=== PATIENT | male | born 1980 | race Hispanic/Latino ===

== ENCOUNTER 2018-02-12 09:50 | Inpatient (IN) | payer OTHER ==
[2018-02-12 10:22] LABS: Basophils # (Auto) 0.1 K/mm3 (0.0-0.1); Basophils % (Auto) 0.7 % (0.0-1.8); Eosinophils % (Auto) 0.3 % (0.0-4.3); Lymphocytes # (Auto) 3.4 K/mm3 (1.2-5.4); Lymphocytes % (Auto) 28.7 % (13.4-35.0); Mean Corpuscular HGB Conc 36 % (32-34); Mean Corpuscular Hemoglobin 33 pg (28-32); Mean Corpuscular Volume 94 fl (84-94); Monocytes # (Auto) 1.6 K/mm3 (0.0-0.8); Monocytes % (Auto) 13.3 % (0.0-7.3); Platelet Count 211 K/mm3 (140-440); Red Blood Count 5.29 M/mm3 (3.65-5.03); Red Cell Distribution Width 13.8 % (13.2-15.2)
[2018-02-12 10:29] LABS: Hematocrit 49.7 % (35.5-45.6); Hemoglobin 17.7 gm/dl (11.8-15.2)
--- NOTE | 2018-02-12 10:34 | XRay Report ---
Portable chest: SOB. There are areas of increased density just lateral to the inferior right hilum as well as inferior to the right hilum. The right lung otherwise appears unremarkable. The left lung is clear. The heart appears normal in size and there is no vascular congestion. No prior exam for comparison. Impression: Right perihilar densities. This may represent atelectasis but masses cannot be excluded. Recommendation: Repeat chest with standard PA and lateral projections recommended if possible.
[2018-02-12 10:43] LABS: Alanine Aminotransferase 37 units/L (7-56); Albumin 4.4 g/dL (3.9-5); BUN/Creatinine Ratio 17; Blood Urea Nitrogen 15 mg/dL (9-20); Calcium 10.3 mg/dL (8.4-10.2); Hemolysis Index 57
[2018-02-12 11:05] LABS: INR 1.04 (0.87-1.13)
--- NOTE | 2018-02-12 11:28 | Cat Scan Report ---
CTA chest: SOB. Following injection of contrast transverse images were obtained through the chest using pulmonary embolus protocol. Coronal and sagittal 2-D reformatted images included. The pulmonary vessels, cardiac chambers, and the thoracic aorta are all opacified. There is a large filling defect in the right pulmonary artery severe compromise of the upper lobe vessels and thrombus filling the lower lobe pulmonary artery with very little distal opacification of vessels. A similar but somewhat smaller thrombus is located on the left partially occluding the upper lobe vessels and extending into the lower lobe pulmonary artery with significantly diminished filling distally. There is dense atelectasis/consolidation in the right middle lobe. The lungs otherwise look clear. No filling defects noted in the cardiac chambers. There is questionable slight bowing of the interventricular septum. No contrast reflux into the IVC. There is no hilar or mediastinal adenopathy appreciated. The thoracic aorta is unremarkable. Impression: 1. Heavy burden of bilateral pulmonary thrombus. Questionable changes of cardiac strain. 2. Associated pulmonary changes in the right middle lobe as described above.
--- NOTE | 2018-02-12 12:00 | Emergency Department Report ---
ED General Adult HPI - General Chief complaint: Dyspnea/Respdistress Stated complaint: DIFFICULTY BREATHING Time Seen by Provider: 02/12/18 09:53 Source: patient Mode of arrival: Ambulatory Limitations: Physical Limitation - History of Present Illness Initial comments: Patient presents to emergency department with shortness of breath and chest pain. Patient states that for the last week or so he's had difficulty breathing especially with exertion. 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 Patient's cause of chest pain as sharp in nature especially with taking a deep breath. Location: chest Radiation: non-radiation Severity scale (0 -10): 5 Quality: sharp Consistency: other (with inspiration) Improves with: none Worsens with: none Associated Symptoms: denies other symptoms Treatments Prior to Arrival: none - Related Data Home Medications Medication Instructions Recorded Confirmed Last Taken No Known Home Medications [No 02/12/18 02/12/18 Unknown Reported Home Medications] Allergies Allergy/AdvReac Type Severity Reaction Status Date / Time No Known Allergies Allergy Unverified 02/12/18 09:54 ED Review of Systems ROS: Stated complaint: DIFFICULTY BREATHING Other details as noted in HPI Comment: All other systems reviewed and negative Constitutional: denies: chills, fever Eyes: denies: eye pain, eye discharge, vision change ENT: denies: ear pain, throat pain Respiratory: shortness of breath. denies: cough, wheezing Cardiovascular: chest pain. denies: palpitations Endocrine: no symptoms reported Gastrointestinal: denies: abdominal pain, nausea, diarrhea Genitourinary: denies: urgency, dysuria Musculoskeletal: denies: back pain, joint swelling, arthralgia Skin: denies: rash, lesions Neurological: denies: headache, weakness, paresthesias Psychiatric: denies: anxiety, depression Hematological/Lymphatic: denies: easy bleeding, easy bruising ED Past Medical Hx - Past Medical History Previous Medical History?: Yes Additional medical history: sleep apnea - Surgical History Past Surgical History?: No - Social History Smoking Status: Current Every Day Smoker Substance Use Type: None - Medications Home Medications: Home Medications Medication Instructions Recorded Confirmed Last Taken Type No Known Home Medications [No 02/12/18 02/12/18 Unknown History Reported Home Medications] ED Physical Exam - General Limitations: Physical Limitation General appearance: alert, in no apparent distress, other (diaphoretic) - Head Head exam: Present: atraumatic, normocephalic - Eye Eye exam: Present: normal appearance - ENT ENT exam: Present: mucous membranes moist - Neck Neck exam: Present: normal inspection - Respiratory Respiratory exam: Present: normal lung sounds bilaterally. Absent: respiratory distress, wheezes, rales - Cardiovascular Cardiovascular Exam: Present: normal rhythm, tachycardia. Absent: systolic murmur, diastolic murmur, rubs, gallop - GI/Abdominal GI/Abdominal exam: Present: soft, normal bowel sounds. Absent: distended, tenderness - Rectal Rectal exam: Present: deferred - Extremities Exam Extremities exam: Present: normal inspection - Back Exam Back exam: Present: normal inspection - Neurological Exam Neurological exam: Present: alert, oriented X3, CN II-XII intact. Absent: motor sensory deficit - Psychiatric Psychiatric exam: Present: normal affect, normal mood - Skin Skin exam: Present: warm, dry, intact, normal color. Absent: rash ED Course Vital Signs 02/12/18 02/12/18 02/12/18 09:46 09:54 10:00 Temperature 98.7 F Pulse Rate 119 H 121 H 104 H Respiratory 26 H 28 H 21 Rate Blood Pressure 146/104 146/104 O2 Sat by Pulse 97 96 95 Oximetry 02/12/18 02/12/18 10:31 11:01 Temperature Pulse Rate 97 H 100 H Respiratory 28 H 15 Rate Blood Pressure 142/90 162/93 O2 Sat by Pulse 93 Oximetry ED Medical Decision Making - Lab Data Result diagrams: 02/12/18 09:55 02/12/18 09:55 - EKG Data EKG shows normal: sinus rhythm Rate: tachycardia - EKG Data Interpretation: nonspecific ST-T wave bernie - Medical Decision Making Discussed results with the patient IV heparin ordered Discussed heparin dosage with pharmacy Critical care time in (mins) excluding proc time.: 35 Critical care attestation.: If time is entered above; I have spent that time in minutes in the direct care of this critically ill patient, excluding procedure time. ED Disposition Clinical Impression: Pulmonary embolus Disposition: OP ADMIT IP TO THIS HOSP Is pt being admited?: Yes Does the pt Need Aspirin: No Condition: Fair Referrals: PRIMARY CARE, [Primary Care Provider] - 3-5 Days Time of Disposition: 12:00
[2018-02-12] MEDS ORDERED: HEPARIN 10,000 UNITS/10 ML IV ONE (12:15)
[2018-02-12 12:50] LABS: Hematocrit 50.5 % (35.5-45.6); Hemoglobin 17.2 gm/dl (11.8-15.2)
[2018-02-12] MEDS: HEPARIN/ 0.45% NACL-25,000 UNIT/500 ML 25,000 UNIT/500 ML BAG IV SCH (12:52)
[2018-02-12 13:02] LABS: INR 1.07 (0.87-1.13)
[2018-02-12 13:03] LABS: Partial Thromboplastin Time 42.2 Sec. (24.2-36.6)
[2018-02-12] MEDS: PROTONIX PO SCH (21:33)
--- NOTE | 2018-02-13 01:16 | History and Physical Report ---
History of Present Illness Date of examination: 02/12/18 Date of admission: 02/12/18 12:19 Chief complaint: Cc SOB for one week History of present illness: History of Present Illness: 37 y/o obese male presents to emergency department with shortness of breath and chest pain. Patient states that for the last week or so he's had difficulty breathing especially with exertion. 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 Location: chest Radiation: non-radiation Severity scale (0 -10): 5 Quality: sharp Consistency: other (with inspiration) Improves with: none Worsens with: none Associated Symptoms: denies other symptoms Treatments Prior to Arrival: none. Past Medical History Previous Medical History?: Yes Additional medical history: sleep apnea Surgical History Past Surgical History?: No Social History Smoking Status: Current Every Day Smoker Substance Use Type: None Family history Htn - Medications Home Medications: Home Medications Medication Instructions Recorded Confirmed Last Taken Type No Known Home Medications [No 02/12/18 02/12/18 Unknown History Reported Home Medications] Review of Systems ROS: Stated complaint: DIFFICULTY BREATHING Other details as noted in HPI Comment: All other systems reviewed and negative Constitutional: denies: chills, fever Eyes: denies: eye pain, eye discharge, vision change ENT: denies: ear pain, throat pain Respiratory: shortness of breath. denies: cough, wheezing Cardiovascular: chest pain. denies: palpitations Endocrine: no symptoms reported Gastrointestinal: denies: abdominal pain, nausea, diarrhea Genitourinary: denies: urgency, dysuria Musculoskeletal: denies: back pain, joint swelling, arthralgia Skin: denies: rash, lesions Neurological: denies: headache, weakness, paresthesias Psychiatric: denies: anxiety, depression Hematological/Lymphatic: denies: easy bleeding, easy bruising Medications and Allergies Allergies Allergy/AdvReac Type Severity Reaction Status Date / Time No Known Allergies Allergy Unverified 02/12/18 09:54 Home Medications Medication Instructions Recorded Confirmed Last Taken Type No Known Home Medications [No 02/12/18 02/12/18 Unknown History Reported Home Medications] Active Meds: Active Medications Heparin Sodium/Sodium Chloride (Heparin/ 0.45% Nacl-25,000 Unit/500 Ml) 25,000 unit in 500 mls @ 30 mls/hr IV TITR ROSALIO; Protocol Last Titration: 02/12/18 20:09 Dose: 1,850 units/hr, 37 mls/hr Pantoprazole Sodium (Protonix) 40 mg PO BID ROSALIO Last Admin: 02/12/18 21:33 Dose: 40 mg Exam - Constitutional Vitals: Temp Pulse Resp BP Pulse Ox 98.9 F 91 H 18 128/88 96 02/13/18 00:50 02/13/18 00:50 02/13/18 00:50 02/13/18 00:50 02/13/18 00:50 General appearance: Present: no acute distress, mild distress, well-nourished - EENT Eyes: Present: PERRL ENT: hearing intact, clear oral mucosa - Neck Neck: Present: supple, normal ROM - Respiratory Respiratory effort: normal Respiratory: bilateral: CTA - Cardiovascular Heart rate: 100 Rhythm: regular Heart Sounds: Present: S1 & S2. Absent: rub, click - Extremities Extremities: no ischemia, pulses intact, pulses symmetrical, No edema Peripheral Pulses: within normal limits - Abdominal General gastrointestinal: Present: soft, non-tender, non-distended, normal bowel sounds Male genitourinary: Present: normal - Rectal Rectal Exam: deferred - Integumentary Integumentary: Present: clear, warm, dry - Musculoskeletal Musculoskeletal: gait normal, strength equal bilaterally - Psychiatric Psychiatric: appropriate mood/affect, intact judgment & insight - Neurologic Neurologic: CNII-XII intact, moves all extremities - Allied Health Allied health notes reviewed: nursing, case management Results - Labs CBC & Chem 7: 02/12/18 12:35 02/13/18 01:25 Labs: Laboratory Last Values WBC 11.8 K/mm3 (4.5-11.0) H 02/12/18 09:55 RBC 5.29 M/mm3 (3.65-5.03) H 02/12/18 09:55 Hgb 17.2 gm/dl (11.8-15.2) H 02/12/18 12:35 Hct 50.5 % (35.5-45.6) H 02/12/18 12:35 MCV 94 fl (84-94) 02/12/18 09:55 MCH 33 pg (28-32) H 02/12/18 09:55 MCHC 36 % (32-34) H 02/12/18 09:55 RDW 13.8 % (13.2-15.2) 02/12/18 09:55 Plt Count 177 K/mm3 (140-440) 02/12/18 12:35 Lymph % (Auto) 28.7 % (13.4-35.0) 02/12/18 09:55 [place] % (Auto) 13.3 % (0.0-7.3) H 02/12/18 09:55 Eos % (Auto) 0.3 % (0.0-4.3) 02/12/18 09:55 Baso % (Auto) 0.7 % (0.0-1.8) 02/12/18 09:55 Lymph # 3.4 K/mm3 (1.2-5.4) 02/12/18 09:55 [place] # 1.6 K/mm3 (0.0-0.8) H 02/12/18 09:55 Eos # 0.0 K/mm3 (0.0-0.4) 02/12/18 09:55 Baso # 0.1 K/mm3 (0.0-0.1) 02/12/18 09:55 Seg Neutrophils % 57.0 % (40.0-70.0) 02/12/18 09:55 Seg Neutrophils # 6.7 K/mm3 (1.8-7.7) 02/12/18 09:55 PT 14.5 Sec. (12.2-14.9) 02/12/18 12:35 INR 1.07 (0.87-1.13) 02/12/18 12:35 APTT 42.2 Sec. (24.2-36.6) H 02/12/18 12:35 Heparin Anti-Xa Level 0.10 U.I./ml (0.3-0.7) L 02/12/18 19:12 Sodium 142 mmol/L (137-145) 02/12/18 09:55 Potassium 5.0 mmol/L (3.6-5.0) 02/12/18 09:55 Chloride 102.6 mmol/L (98-107) 02/12/18 09:55 Carbon Dioxide 21 mmol/L (22-30) L 02/12/18 09:55 Anion Gap 23 mmol/L 02/12/18 09:55 BUN 15 mg/dL (9-20) 02/12/18 09:55 Creatinine 0.9 mg/dL (0.8-1.5) 02/12/18 09:55 Estimated GFR > 60 ml/min 02/12/18 09:55 BUN/Creatinine Ratio 17 % 02/12/18 09:55 Glucose 150 mg/dL (75-100) H 02/12/18 09:55 Calcium 10.3 mg/dL (8.4-10.2) H 02/12/18 09:55 Magnesium 2.20 mg/dL (1.7-2.3) 02/12/18 09:55 Total Bilirubin 1.00 mg/dL (0.1-1.2) 02/12/18 09:55 AST 15 units/L (5-40) 02/12/18 09:55 ALT 37 units/L (7-56) 02/12/18 09:55 Alkaline Phosphatase 73 units/L (35-129) 02/12/18 09:55 Troponin T 0.021 ng/mL (0.00-0.029) 02/12/18 09:55 NT-Pro-B Natriuret Pep 3956 pg/mL (0-450) H 02/12/18 09:55 Total Protein 8.2 g/dL (6.3-8.2) 02/12/18 09:55 Albumin 4.4 g/dL (3.9-5) 02/12/18 09:55 Albumin/Globulin Ratio 1.2 % 02/12/18 09:55 - Imaging and Cardiology EKG: report reviewed Chest x-ray: report reviewed CT scan - chest: report reviewed Imaging and Cardiology: CTA Chest Impression: 1. Heavy burden of bilateral pulmonary thrombus. Questionable changes of cardiac strain. 2. Associated pulmonary changes in the right middle lobe as described above. CXR Impression: Right perihilar densities. This may represent atelectasis but masses cannot be excluded. Recommendation: Repeat chest with standard PA and lateral projections recommended if possible. Assessment and Plan Advance Directives: Yes ([place] code) VTE prophylaxis?: Chemical Plan of care discussed with patient/family: Yes - Patient Problems (1) Acute pulmonary embolism Current Visit: Yes Status: Acute Qualifiers: Acute cor pulmonale presence: with acute cor pulmonale Plan to address problem: IV Heparin for now IR consult requested for possible EKOS therapy Will defer to Hospitalist team regarding starting Eliquis/Xarelto/Coumadin (2) Sleep apnea Current Visit: Yes Status: Chronic Qualifiers: Sleep apnea type: unspecified type Qualified Code(s): G47.30 - Sleep apnea , unspecified Plan to address problem: Sec to Obesity and Hypoventilation Cont CPAP (3) Elevated brain natriuretic peptide (BNP) level Current Visit: Yes Status: Acute Plan to address problem: Echo for EF (4) Chest pain Current Visit: Yes Status: Acute Qualifiers: Chest pain type: chest pain on breathing Qualified Code(s): R07.1 - Chest pain on breathing; R07.81 - Pleurodynia Plan to address problem: Lexiscan not ordered Will defer to Hospitalist team At this point it is pleurisy sec to PE (5) Nicotine dependence Current Visit: Yes Status: Chronic Qualifiers: Nicotine product type: cigarettes Plan to address problem: Nicoderm patch initiated (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
[2018-02-13] MEDS ORDERED: SODIUM CHLORIDE FLUSH SYRINGE 10 ML IV PRN (01:18)
[2018-02-13] MEDS ORDERED: ZOFRAN IV PRN ×2 (01:18→13:28)
[2018-02-13] MEDS ORDERED: TYLENOL PO PRN (01:18)
[2018-02-13 02:48] LABS: BUN/Creatinine Ratio 17; Blood Urea Nitrogen 17 mg/dL (9-20); Calcium 9.1 mg/dL (8.4-10.2); Hemolysis Index 5
[2018-02-13] MEDS: HEPARIN/ 0.45% NACL-25,000 UNIT/500 ML 25,000 UNIT/500 ML BAG IV SCH (04:21)
[2018-02-13] MEDS ORDERED: HABITROL TD NR (08:00)
[2018-02-13 08:24] LABS: Alanine Aminotransferase 28 units/L (7-56); Albumin 3.4 g/dL (3.9-5); BUN/Creatinine Ratio 16; Blood Urea Nitrogen 16 mg/dL (9-20); Calcium 8.8 mg/dL (8.4-10.2); Hemolysis Index 87
--- NOTE | 2018-02-13 08:52 | Progress Note ---
Assessment and Plan Assessment and plan: --Bilateral PE Oxygen titrated to O2 sats more than 90%, heparin drip, nebulizers as needed, IR for possible EKOS procedure Check echocardiogram for RV/LV function and ejection fraction Hematology consultation --Acute hypoxic respiratory failure; Secondary to bilateral PE, continue oxygen, nebulizers Supportive care --Chest pain; due to bilateral PE Pain medications oxygen and supportive care --Morbid obesity; BMI 55.9, counseling, diet modification and exercise as tolerated and weight reduction,When medically stable Patient may benefit from outpatient bariatric surgical evaluation when medically stable --Possible obstructive sleep apnea/obesity hypoventilation syndrome Patient needs CPAP BiPAP at night, needs outpatient sleep study upon discharge --Ongoing tobacco use; smoking cessation counseling done, advised nicotine patch as needed --DVT prophylaxis; patient is already on heparin drip Closely monitor the patient and adjust the management as needed Patient's condition and treatment plan discussed in detail with the patient and his nurse History Interval history: Patient seen and examined medical records reviewed Medical records reviewed 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 Awaiting vascular procedure Mild shortness of breath denies chest pain Vital signs reviewed Hospitalist Physical - Constitutional Vitals: Temp Pulse Resp BP Pulse Ox 98.1 F 91 H 22 144/92 91 02/13/18 07:42 02/13/18 07:42 02/13/18 07:42 02/13/18 07:42 02/13/18 07:42 General appearance: Present: no acute distress, mild distress, well-nourished, obese (morbidly obese) - EENT Eyes: Present: PERRL, EOM intact - Neck Neck: Present: supple, normal ROM - Respiratory Respiratory effort: normal Respiratory: bilateral: diminished, rhonchi, negative: rales, wheezing - Cardiovascular Rhythm: regular Heart Sounds: Present: S1 & S2 - Extremities Extremities: no ischemia Extremity abnormal: edema - Abdominal General gastrointestinal: soft, non-tender, non-distended, normal bowel sounds - Integumentary Integumentary: Present: clear, warm - Psychiatric Psychiatric: appropriate mood/affect, cooperative - Neurologic Neurologic: CNII-XII intact, moves all extremities Results - Labs CBC & Chem 7: 02/12/18 12:35 02/13/18 06:55 Labs: Laboratory Last Values WBC 11.8 K/mm3 (4.5-11.0) H 02/12/18 09:55 RBC 5.29 M/mm3 (3.65-5.03) H 02/12/18 09:55 Hgb 17.2 gm/dl (11.8-15.2) H 02/12/18 12:35 Hct 50.5 % (35.5-45.6) H 02/12/18 12:35 MCV 94 fl (84-94) 02/12/18 09:55 MCH 33 pg (28-32) H 02/12/18 09:55 MCHC 36 % (32-34) H 02/12/18 09:55 RDW 13.8 % (13.2-15.2) 02/12/18 09:55 Plt Count 177 K/mm3 (140-440) 02/12/18 12:35 Lymph % (Auto) 28.7 % (13.4-35.0) 02/12/18 09:55 [place] % (Auto) 13.3 % (0.0-7.3) H 02/12/18 09:55 Eos % (Auto) 0.3 % (0.0-4.3) 02/12/18 09:55 Baso % (Auto) 0.7 % (0.0-1.8) 02/12/18 09:55 Lymph # 3.4 K/mm3 (1.2-5.4) 02/12/18 09:55 [place] # 1.6 K/mm3 (0.0-0.8) H 02/12/18 09:55 Eos # 0.0 K/mm3 (0.0-0.4) 02/12/18 09:55 Baso # 0.1 K/mm3 (0.0-0.1) 02/12/18 09:55 Seg Neutrophils % 57.0 % (40.0-70.0) 02/12/18 09:55 Seg Neutrophils # 6.7 K/mm3 (1.8-7.7) 02/12/18 09:55 PT 14.5 Sec. (12.2-14.9) 02/12/18 12:35 INR 1.07 (0.87-1.13) 02/12/18 12:35 APTT 42.2 Sec. (24.2-36.6) H 02/12/18 12:35 Heparin Anti-Xa Level 0.10 U.I./ml (0.3-0.7) L 02/13/18 01:18 Sodium 140 mmol/L (137-145) 02/13/18 06:55 Potassium 4.1 mmol/L (3.6-5.0) 02/13/18 06:55 Chloride 104.3 mmol/L (98-107) 02/13/18 06:55 Carbon Dioxide 21 mmol/L (22-30) L 02/13/18 06:55 Anion Gap 19 mmol/L 02/13/18 06:55 BUN 16 mg/dL (9-20) 02/13/18 06:55 Creatinine 1.0 mg/dL (0.8-1.5) 02/13/18 06:55 Estimated GFR > 60 ml/min 02/13/18 06:55 BUN/Creatinine Ratio 16 % 02/13/18 06:55 Glucose 118 mg/dL (75-100) H 02/13/18 06:55 Hemoglobin A1c 6.1 % (4-6) H 02/13/18 01:25 Calcium 8.8 mg/dL (8.4-10.2) 02/13/18 06:55 Magnesium 2.20 mg/dL (1.7-2.3) 02/12/18 09:55 Total Bilirubin 0.70 mg/dL (0.1-1.2) 02/13/18 06:55 AST 14 units/L (5-40) 02/13/18 06:55 ALT 28 units/L (7-56) 02/13/18 06:55 Alkaline Phosphatase 56 units/L (35-129) 02/13/18 06:55 Troponin T 0.021 ng/mL (0.00-0.029) 02/12/18 09:55 NT-Pro-B Natriuret Pep 3956 pg/mL (0-450) H 02/12/18 09:55 Total Protein 6.4 g/dL (6.3-8.2) D 02/13/18 06:55 Albumin 3.4 g/dL (3.9-5) L 02/13/18 06:55 Albumin/Globulin Ratio 1.1 % 02/13/18 06:55
--- NOTE | 2018-02-13 08:58 | Consultation ---
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 On questioning, the patient does complain of bilateral lower extremity leg pain and has bilateral lower extremity edema. He states that his legs feel tight bilaterally. A CTA was performed which demonstrates bilateral segmental and subsegmental pulmonary embolism involving predominantly the lower lobes. His RV/LV ratio is greater than 1 with an elevated BNP. Patient is short of breath or receiving O2 by nasal cannula with an increased respiratory rate. Past History Past Medical History: No medical history Past Surgical History: No surgical history, Other (tooth extraction) Social history: no significant social history Family history: no significant family history Medications and Allergies Allergies Allergy/AdvReac Type Severity Reaction Status Date / Time No Known Allergies Allergy Unverified 02/12/18 09:54 Home Medications Medication Instructions Recorded Confirmed Last Taken Type No Known Home Medications [No 02/12/18 02/12/18 Unknown History Reported Home Medications] Active Meds: Active Medications Acetaminophen (Tylenol) 650 mg PO Q4H PRN PRN Reason: Pain MILD(1-3)/Fever >100.5/PULIDO Heparin Sodium/Sodium Chloride (Heparin/ 0.45% Nacl-25,000 Unit/500 Ml) 25,000 unit in 500 mls @ 30 mls/hr IV TITR ROSALIO; Protocol Last Admin: 02/13/18 04:21 Dose: 2,200 units/hr, 44 mls/hr Morphine Sulfate (Morphine) 2 mg IV Q4H PRN PRN Reason: Pain, Moderate (4-6) Nicotine (Habitrol) 21 mg TD ONCE NR Stop: 02/13/18 10:00 Ondansetron HCl (Zofran) 4 mg IV Q8H PRN PRN Reason: Nausea And Vomiting Oxycodone/Acetaminophen (Percocet 5/325) 1 tab PO Q6H PRN PRN Reason: Pain, Moderate (4-6) Pantoprazole Sodium (Protonix) 40 mg PO BID [facility] Last Admin: 02/12/18 21:33 Dose: 40 mg Sodium Chloride (Sodium Chloride Flush Syringe 10 Ml) 10 ml IV BID [facility] Sodium Chloride (Sodium Chloride Flush Syringe 10 Ml) 10 ml IV PRN PRN PRN Reason: LINE FLUSH Zolpidem Tartrate (Ambien) 5 mg PO QHS PRN PRN Reason: Insomnia Review of Systems All systems: negative Exam - Constitutional Vitals: Temp Pulse Resp BP Pulse Ox 98.1 F 91 H 22 144/92 91 02/13/18 07:42 02/13/18 07:42 02/13/18 07:42 02/13/18 07:42 02/13/18 07:42 General appearance: Present: no acute distress, obese - EENT Eyes: Present: PERRL, EOM intact ENT: hearing intact - Neck Neck: Present: supple, normal ROM - Respiratory Respiratory effort: other (elevated respiratory rate) - Extremities Extremities: no ischemia Extremity abnormal: edema - Abdominal General gastrointestinal: Present: deferred Male genitourinary: Present: deferred - Rectal Rectal Exam: deferred - Psychiatric Psychiatric: appropriate mood/affect, cooperative - Neurologic Neurologic: CNII-XII intact, no focal deficits Results - Labs CBC & Chem 7: 02/12/18 12:35 02/13/18 06:55 Labs: Abnormal lab results 02/12/18 02/12/18 02/12/18 Range/Units 09:55 09:55 09:55 WBC 11.8 H (4.5-11.0) K/mm3 RBC 5.29 H (3.65-5.03) M/mm3 Hgb 17.7 H (11.8-15.2) gm/dl Hct 49.7 H (35.5-45.6) % MCH 33 H (28-32) pg MCHC 36 H (32-34) % [place] % (Auto) 13.3 H (0.0-7.3) % [place] # 1.6 H (0.0-0.8) K/mm3 APTT 40.0 H (24.2-36.6) Sec. Heparin Anti-Xa Level (0.3-0.7) U.I./ml Carbon Dioxide 21 L (22-30) mmol/L Glucose 150 H (75-100) mg/dL Hemoglobin A1c (4-6) % Calcium 10.3 H (8.4-10.2) mg/dL NT-Pro-B Natriuret Pep 3956 H (0-450) pg/mL Albumin (3.9-5) g/dL 02/12/18 02/12/18 02/12/18 Range/Units 12:35 12:35 19:12 WBC (4.5-11.0) K/mm3 RBC (3.65-5.03) M/mm3 Hgb 17.2 H (11.8-15.2) gm/dl Hct 50.5 H (35.5-45.6) % MCH (28-32) pg MCHC (32-34) % [place] % (Auto) (0.0-7.3) % [place] # (0.0-0.8) K/mm3 APTT 42.2 H (24.2-36.6) Sec. Heparin Anti-Xa Level 0.10 L (0.3-0.7) U.I./ml Carbon Dioxide (22-30) mmol/L Glucose (75-100) mg/dL Hemoglobin A1c (4-6) % Calcium (8.4-10.2) mg/dL NT-Pro-B Natriuret Pep (0-450) pg/mL Albumin (3.9-5) g/dL 02/13/18 02/13/18 02/13/18 Range/Units 01:18 01:25 01:25 WBC (4.5-11.0) K/mm3 RBC (3.65-5.03) M/mm3 Hgb (11.8-15.2) gm/dl Hct (35.5-45.6) % MCH (28-32) pg MCHC (32-34) % [place] % (Auto) (0.0-7.3) % [place] # (0.0-0.8) K/mm3 APTT (24.2-36.6) Sec. Heparin Anti-Xa Level 0.10 L (0.3-0.7) U.I./ml Carbon Dioxide (22-30) mmol/L Glucose 131 H (75-100) mg/dL Hemoglobin A1c 6.1 H (4-6) % Calcium (8.4-10.2) mg/dL NT-Pro-B Natriuret Pep (0-450) pg/mL Albumin (3.9-5) g/dL 02/13/18 Range/Units 06:55 WBC (4.5-11.0) K/mm3 RBC (3.65-5.03) M/mm3 Hgb (11.8-15.2) gm/dl Hct (35.5-45.6) % MCH (28-32) pg MCHC (32-34) % [place] % (Auto) (0.0-7.3) % [place] # (0.0-0.8) K/mm3 APTT (24.2-36.6) Sec. Heparin Anti-Xa Level (0.3-0.7) U.I./ml Carbon Dioxide 21 L (22-30) mmol/L Glucose 118 H (75-100) mg/dL Hemoglobin A1c (4-6) % Calcium (8.4-10.2) mg/dL NT-Pro-B Natriuret Pep (0-450) pg/mL Albumin 3.4 L (3.9-5) g/dL - Imaging and Cardiology CT scan - chest: report reviewed, image reviewed Assessment and Plan Patient has a sub-massive pulmonary embolism. He will benefit from placement of lytics catheters. This will be scheduled for today. Discussion of the procedure was held with the patient. Risks and benefits were explained.
[2018-02-13] MEDS: SODIUM CHLORIDE FLUSH SYRINGE 10 ML IV SCH ×2 (10:00→22:37)
[2018-02-13] MEDS ORDERED: PEPCID IV SCH (10:00)
[2018-02-13] MEDS: PROTONIX PO SCH ×2 (10:00→22:36)
--- NOTE | 2018-02-13 10:42 | Consultation ---
REFERRING PHYSICIAN: Virginia Palumbo MD REASON FOR CONSULTATION: DVT, pulmonary emboli. HISTORY OF PRESENT ILLNESS: The patient is a 37-year-old obese male with history of tobacco abuse, who presented to the hospital with evidence of difficulty breathing for the last week. 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 He also had been having lower extremity swelling and chest pain on deep breath. During his hospital course, the patient was found on his CT angiogram done on 02/12/2018 to have heavy burden bilateral pulmonary emboli with questionable cardiac strain. There was associated pulmonary changes in the right middle lobe in the form of atelectasis and consolidation. The patient is to undergo a Doppler of the lower extremity also. He was seen by Dr. Bandar Carvalho today, who is planning to do thrombolysis. The patient does smoke a pack of cigarettes a day, which he says he is in the process of quitting. The patient denies any family history of thrombosis, although he states he does not know his family well. PAST MEDICAL HISTORY: Unremarkable except for obesity. REVIEW OF SYSTEMS: He denies any other medical conditions. He does not take any hormones. He denies any previous history of thrombosis. SOCIAL HISTORY: Positive for tobacco abuse. FAMILY HISTORY: Not well known. PHYSICAL EXAMINATION: GENERAL: The patient is awake and oriented. HEENT: Unremarkable. There is no pallor noted in the conjunctivae. CHEST: Decreased breath sounds with poor inspiratory effort. ABDOMEN: Obese. CARDIOVASCULAR: Regular. EXTREMITIES: Has bilateral pedal edema. LABORATORY DATA: Pertinent labs; the patient's hemoglobin is 17.7 on admission, white count 11.8, platelets of 211,000. PT 14.1, INR 1.04. Calcium 10.3 on admission it has come down to 8.8. His natriuretic peptide shows level of 3956. ASSESSMENT: 1. Bilateral pulmonary emboli with heavy burden in this patient with multiple risk factors including obesity, immobility and tobacco abuse. 2. Erythrocytosis, possibly secondary to tobacco abuse. PLAN: At this time, the patient is on heparin. We will do hypercoagulable workup except for antithrombin 3 levels, which can be affected by heparin. The patient is to undergo thrombolysis. Doppler of the lower extremities will be ordered. I will follow up on hypercoagulable workup and once stable can be placed on oral anticoagulants when ready. Strongly recommended for the patient to quit smoking, which he is trying to do. 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
[2018-02-13] MEDS ORDERED: XYLOCAINE 2% INFILTRATI ONE (13:06)
[2018-02-13] MEDS ORDERED: NACL 0.9% 1000 ML 2,000 ML ONE (13:06)
[2018-02-13] MEDS ORDERED: HEPARIN/NS 5000 UNIT/500ML(CATH LAB) 500 ML IR ONE (13:06)
[2018-02-13] MEDS ORDERED: HEPARIN/ 0.45% NACL-25,000 UNIT/500 ML 50,000 UNIT/1,000 ML BAG ONE (13:08)
[2018-02-13] MEDS ORDERED: NACL 0.9% 500 ML 500 ML ONE (13:09)
[2018-02-13] MEDS ORDERED: ANCEF/STERILE WATER 2 GM/20 ML 0 GM/0 ML SYRINGE IV ONE (13:09)
[2018-02-13] MEDS: VERSED ONE ×2 (13:45→13:53)
[2018-02-13] MEDS: SUBLIMAZE ONE ×2 (13:45→13:53)
[2018-02-13] MEDS ORDERED: NACL 0.9% 1000 ML 1,000 ML SHEATH SCH ×2 (14:00)
[2018-02-13] MEDS ORDERED: CATHFLO 10 MG in NACL 0.9% 250ML 250 ML IV SCH (14:00)
[2018-02-13] MEDS ORDERED: CATHFLO 10 MG in NACL 0.9% 250ML 250 ML EKOSDLUMEN SCH (14:00)
[2018-02-13] MEDS ORDERED: NACL 0.9% 1000 ML 1,000 ML EKOSCLUMEN SCH ×2 (14:00)
[2018-02-13] MEDS ORDERED: HEPARIN/ 0.45% NACL-25,000 UNIT/500 ML 25,000 UNIT/500 ML BAG SHEATH SCH ×2 (14:00)
[2018-02-13] MEDS ORDERED: CATHFLO ONE ×2 (14:07→14:08)
[2018-02-13] MEDS: HEPARIN 10,000 UNITS/10 ML ONE ×2 (14:15→14:16)
--- NOTE | 2018-02-13 14:38 | Hem/Onc Consultation ---
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 He states he drives all day and does not move around. He is very obese. On questioning, the patient does complain of bilateral lower extremity leg pain and has bilateral lower extremity edema. He states that his legs feel tight bilaterally. A CTA was performed which demonstrates bilateral segmental and subsegmental pulmonary embolism involving predominantly the lower lobes. H just received the ECHO device Past History Past Medical History: No medical history Past Surgical History: No surgical history, Other (tooth extraction) Social history: no significant social history Family history: no significant family history Medications and Allergies Allergies Allergy/AdvReac Type Severity Reaction Status Date / Time No Known Allergies Allergy Unverified 02/12/18 09:54 Home Medications Medication Instructions Recorded Confirmed Last Taken Type No Known Home Medications [No 02/12/18 02/12/18 Unknown History Reported Home Medications] Active Meds: Active Medications Acetaminophen (Tylenol) 650 mg PO Q4H PRN PRN Reason: Pain MILD(1-3)/Fever >100.5/PULIDO Acetaminophen/Hydrocodone Bitart ([place] 5/325) 2 each PO Q6H PRN PRN Reason: Pain, Moderate (4-6) Hydralazine HCl (Apresoline) 10 mg IV Q4HR PRN PRN Reason: Hypertension Heparin Sodium/Sodium Chloride (Heparin/ 0.45% Nacl-25,000 Unit/500 Ml) 25,000 unit in 500 mls @ 30 mls/hr IV TITR ROSALIO; Protocol Last Admin: 02/13/18 04:21 Dose: 2,200 units/hr, 44 mls/hr Alteplase, Recombinant 10 mg/ (Sodium Chloride) 250 mls @ 10 mls/hr EKOSDLUMEN DIRECT ROSALIO Stop: 02/14/18 10:00 Alteplase, Recombinant 10 mg/ (Sodium Chloride) 250 mls @ 10 mls/hr IV DIRECT ROSALIO Stop: 02/14/18 10:00 Heparin Sodium/Sodium Chloride (Heparin/ 0.45% Nacl-25,000 Unit/500 Ml) 25,000 unit in 500 mls @ 10 mls/hr SHEATH DIRECT ROSALIO; Protocol Heparin Sodium/Sodium Chloride (Heparin/ 0.45% Nacl-25,000 Unit/500 Ml) 25,000 unit in 500 mls @ 10 mls/hr SHEATH DIRECT ROSALIO; Protocol Sodium Chloride (Nacl 0.9% 1000 Ml) 1,000 mls @ 30 mls/hr IV DIRECT ROSALIO Sodium Chloride (Nacl 0.9% 1000 Ml) 1,000 mls @ 30 mls/hr SHEATH DIRECT ROSALIO Sodium Chloride (Nacl 0.9% 1000 Ml) 1,000 mls @ 35 mls/hr EKOSCLUMEN DIRECT ROSALIO Sodium Chloride (Nacl 0.9% 1000 Ml) 1,000 mls @ 30 mls/hr SHEATH DIRECT ROSALIO Sodium Chloride (Nacl 0.9% 1000 Ml) 1,000 mls @ 35 mls/hr EKOSCLUMEN DIRECT ROSALIO Morphine Sulfate (Morphine) 2 mg IV Q4H PRN PRN Reason: Pain, Moderate (4-6) Morphine Sulfate (Morphine) 2 mg IV Q4H PRN PRN Reason: Pain, Moderate (4-6) Ondansetron HCl (Zofran) 4 mg IV Q8H PRN PRN Reason: Nausea And Vomiting Ondansetron HCl (Zofran) 4 mg IV Q8H PRN PRN Reason: Nausea And Vomiting Oxycodone/Acetaminophen (Percocet 5/325) 1 tab PO Q6H PRN PRN Reason: Pain, Moderate (4-6) Pantoprazole Sodium (Protonix) 40 mg PO BID [facility] Last Admin: 02/13/18 10:00 Dose: 40 mg Sodium Chloride (Sodium Chloride Flush Syringe 10 Ml) 10 ml IV BID [facility] Last Admin: 02/13/18 10:00 Dose: 10 ml Sodium Chloride (Sodium Chloride Flush Syringe 10 Ml) 10 ml IV PRN PRN PRN Reason: LINE FLUSH Zolpidem Tartrate (Ambien) 5 mg PO QHS PRN PRN Reason: Insomnia Review of Systems All systems: negative (dyspnea) Exam - Constitutional Vitals: Last Vital Signs Temp 98.1 F 02/13/18 07:42 Pulse 91 H 02/13/18 07:42 Resp 22 02/13/18 07:42 BP 144/92 02/13/18 07:42 Pulse Ox 91 02/13/18 07:42 General appearance: mild distress - EENT Eyes: PERRL ENT: hearing intact Lymph node exam: negative cervical - Neck Neck: supple - Respiratory Respiratory effort: Positive: normal Respiratory: bilateral: CTA - Cardiovascular Rhythm: regular - Gastrointestinal General gastrointestinal: Present: soft (HE is very obese) - Musculoskeletal Musculoskeletal: strength equal bilaterally - Neurologic Neurologic: CNII-XII intact - Psychiatric Psychiatric: appropriate mood/affect Results - Labs lab Results: Laboratory Results - last 24 hr 02/12/18 02/13/18 02/13/18 19:12 01:18 01:25 Fibrinogen Heparin Anti-Xa Level 0.10 L 0.10 L Sodium 141 Potassium 4.1 Chloride 103.9 Carbon Dioxide 23 Anion Gap 18 BUN 17 Creatinine 1.0 Estimated GFR > 60 BUN/Creatinine Ratio 17 Glucose 131 H Hemoglobin A1c Calcium 9.1 Total Bilirubin AST ALT Alkaline Phosphatase Total Protein Albumin Albumin/Globulin Ratio 02/13/18 02/13/18 02/13/18 01:25 06:55 09:47 Fibrinogen Heparin Anti-Xa Level 0.30 Sodium 140 Potassium 4.1 Chloride 104.3 Carbon Dioxide 21 L Anion Gap 19 BUN 16 Creatinine 1.0 Estimated GFR > 60 BUN/Creatinine Ratio 16 Glucose 118 H Hemoglobin A1c 6.1 H Calcium 8.8 Total Bilirubin 0.70 AST 14 ALT 28 Alkaline Phosphatase 56 Total Protein 6.4 D Albumin 3.4 L Albumin/Globulin Ratio 1.1 02/13/18 13:00 Fibrinogen 424 Heparin Anti-Xa Level Sodium Potassium Chloride Carbon Dioxide Anion Gap BUN Creatinine Estimated GFR BUN/Creatinine Ratio Glucose Hemoglobin A1c Calcium Total Bilirubin AST ALT Alkaline Phosphatase Total Protein Albumin Albumin/Globulin Ratio - Imaging and cardiology CT scan - chest: pending, report reviewed Assessment and Plan - Patient Problems (1) Acute pulmonary embolism Current Visit: Yes Status: Acute Qualifiers: Acute cor pulmonale presence: with acute cor pulmonale Plan to address problem: Risk factors include long distance driving, morbid obesity and decreased mobility. Plan is to anticoagulate hi,. He will require a hypercoaguable workup as an outpatient. Strict compliance with follow up recommended. He agrees.
[2018-02-13] MEDS: NACL 0.9% 1000 ML 1,000 ML IV SCH ×2 (15:16→15:23)
[2018-02-13] MEDS: MORPHINE IV PRN ×3 (15:50→23:59)
[2018-02-13] MEDS: NORCO 5/325 PO PRN ×2 (15:59→23:16)
--- NOTE | 2018-02-13 16:45 | Vascular Lab Report ---
LOWER EXTREMITY VENOUS DUPLEX: REASON FOR EXAM: Bilateral pulmonary emboli. COMMENTS ON THE RIGHT: All veins visualized are freely compressible without evidence of internal echogenicity. Flow is spontaneous and phasic throughout. COMMENTS ON THE LEFT: Acute deep venous thrombosis is seen in the distal superficial femoral vein and popliteal vein. The remaining veins visualized are freely compressible without evidence of internal echogenicity. Spontaneous and phasic flow is present proximally. IMPRESSION: Acute deep venous thrombosis of the left distal superficial femoral vein and popliteal vein. No evidence of acute deep venous thrombosis in the right lower extremity.
[2018-02-13 16:52] LABS: Basophils # (Auto) 0.1 K/mm3 (0.0-0.1); Basophils % (Auto) 0.8 % (0.0-1.8); Eosinophils # (Auto) 0.1 K/mm3 (0.0-0.4); Hemoglobin 15.4 gm/dl (11.8-15.2); Lymphocytes # (Auto) 2.7 K/mm3 (1.2-5.4); Mean Corpuscular HGB Conc 33 % (32-34); Mean Corpuscular Hemoglobin 32 pg (28-32); Mean Corpuscular Volume 97 fl (84-94); Monocytes # (Auto) 1.1 K/mm3 (0.0-0.8); Monocytes % (Auto) 12.4 % (0.0-7.3); Platelet Count 148 K/mm3 (140-440); Red Blood Count 4.74 M/mm3 (3.65-5.03); Red Cell Distribution Width 13.8 % (13.2-15.2)
[2018-02-13 17:02] LABS: INR 1.03 (0.87-1.13)
[2018-02-13 17:03] LABS: Partial Thromboplastin Time 45.6 Sec. (24.2-36.6)
[2018-02-13 17:10] LABS: BUN/Creatinine Ratio 15; Blood Urea Nitrogen 15 mg/dL (9-20); Calcium 8.6 mg/dL (8.4-10.2); Hemolysis Index 13
[2018-02-13 21:28] LABS: Basophils # (Auto) 0.1 K/mm3 (0.0-0.1); Basophils % (Auto) 0.8 % (0.0-1.8); Eosinophils # (Auto) 0.1 K/mm3 (0.0-0.4); Hematocrit 44.5 % (35.5-45.6); Hemoglobin 15.1 gm/dl (11.8-15.2); Lymphocytes # (Auto) 2.9 K/mm3 (1.2-5.4); Lymphocytes % (Auto) 32.8 % (13.4-35.0); Mean Corpuscular HGB Conc 34 % (32-34); Mean Corpuscular Hemoglobin 33 pg (28-32); Mean Corpuscular Volume 98 fl (84-94); Monocytes % (Auto) 11.5 % (0.0-7.3); Platelet Count 163 K/mm3 (140-440); Red Blood Count 4.53 M/mm3 (3.65-5.03); Red Cell Distribution Width 13.7 % (13.2-15.2)
[2018-02-13 21:46] LABS: Fibrinogen 477 mg/dl (211-480)
[2018-02-13 21:48] LABS: Heparin anti-factor XA < 0.10 U.I./ml (0.3-0.7)
[2018-02-13] MEDS: APRESOLINE IV PRN (22:36)
[2018-02-13] MEDS ORDERED: DUONEB *Not for PRN Use IH ONE (23:38)
[2018-02-13] MEDS: DUONEB *Not for PRN Use IH SCH (23:42)
[2018-02-14] MEDS: TESSALON PERLES PO PRN ×2 (01:40→20:55)
[2018-02-14] MEDS: DUONEB *Not for PRN Use IH SCH ×6 (03:04→23:58)
[2018-02-14 03:18] LABS: Basophils # (Auto) 0.1 K/mm3 (0.0-0.1); Basophils % (Auto) 0.8 % (0.0-1.8); Eosinophils % (Auto) 0.2 % (0.0-4.3); Hematocrit 44.9 % (35.5-45.6); Hemoglobin 15.3 gm/dl (11.8-15.2); Lymphocytes # (Auto) 1.4 K/mm3 (1.2-5.4); Lymphocytes % (Auto) 14.2 % (13.4-35.0); Mean Corpuscular HGB Conc 34 % (32-34); Mean Corpuscular Hemoglobin 33 pg (28-32); Mean Corpuscular Volume 96 fl (84-94); Monocytes # (Auto) 1.1 K/mm3 (0.0-0.8); Monocytes % (Auto) 11.4 % (0.0-7.3); Platelet Count 137 K/mm3 (140-440); Red Blood Count 4.69 M/mm3 (3.65-5.03); Red Cell Distribution Width 13.8 % (13.2-15.2)
[2018-02-14 03:36] LABS: Fibrinogen 414 mg/dl (211-480)
[2018-02-14 03:41] LABS: Alanine Aminotransferase 27 units/L (7-56); Albumin 3.9 g/dL (3.9-5); BUN/Creatinine Ratio 19; Blood Urea Nitrogen 17 mg/dL (9-20); Calcium 8.6 mg/dL (8.4-10.2); Hemolysis Index 5
[2018-02-14 04:40] LABS: Heparin anti-factor XA < 0.10 U.I./ml (0.3-0.7)
[2018-02-14] MEDS: APRESOLINE IV PRN (05:22)
--- NOTE | 2018-02-14 09:48 | Progress Note ---
Assessment and Plan Assessment and plan: --Bilateral PE; with heavy clot burden Status post thrombolytic therapy/EKOS procedure Continue oxygen, nebulizers as needed supportive care Heparin drip, vascular, hematology oncology following Follow echo ; for RV and LV function and ejection fraction Hypercoagulable workup sent EKOS catheter removal today --Left lower extremity DVT; patient is on heparin drip. Supportive therapy --Acute hypoxic respiratory failure; Secondary to bilateral PE, continue oxygen, nebulizers Supportive care --Chest pain; due to bilateral PE Pain medications oxygen and supportive care --Morbid obesity; BMI 55.9, counseling, diet modification and exercise as tolerated and weight reduction,When medically stable Patient may benefit from outpatient bariatric surgical evaluation, when medically stable --Possible obstructive sleep apnea/obesity hypoventilation syndrome Patient needs CPAP /BiPAP at night, needs outpatient sleep study upon discharge --Ongoing tobacco use; smoking cessation counseling done, advised nicotine patch as needed --DVT prophylaxis; patient is already on heparin drip Consults and recommendations noted and appreciated Continue current management Plan of care reviewed with the patient and his nurse Critical care time 40 minutes History Interval history: Patient Seen and evaluated in ICU this morning medical records reviewed Morbidly obese male patient admitted with bilateral pulmonary embolism and lower extremity DVT Evaluated by vascular, underwent thrombolytic therapy/EKOS procedure No new events reported by the nursing Patient is very restless complaints of cough and being uncomfortable Wants the tube is out, mild chest pain Alert awake oriented 3 in mild distress because of discomfort Vital signs reviewed Hospitalist Physical - Constitutional Vitals: Temp Pulse Resp BP Pulse Ox 98.1 F 90 16 158/83 95 02/14/18 08:00 02/14/18 08:51 02/14/18 08:51 02/14/18 07:01 02/14/18 08:46 General appearance: Present: no acute distress, mild distress, well-nourished, obese (morbidly obese) - EENT Eyes: Present: PERRL, EOM intact - Neck Neck: Present: supple, normal ROM - Respiratory Respiratory effort: normal Respiratory: bilateral: diminished, rhonchi, negative: rales, wheezing - Cardiovascular Rhythm: regular Heart Sounds: Present: S1 & S2 - Extremities Extremities: no ischemia Extremity abnormal: edema - Abdominal General gastrointestinal: soft, non-tender, non-distended, normal bowel sounds, other (morbidly obese) - Integumentary Integumentary: Present: clear, warm - Psychiatric Psychiatric: appropriate mood/affect, cooperative - Neurologic Neurologic: CNII-XII intact, moves all extremities Results - Labs CBC & Chem 7: 02/14/18 10:31 02/14/18 03:05 Labs: Laboratory Last Values WBC 9.9 K/mm3 (4.5-11.0) 02/14/18 03:05 RBC 4.69 M/mm3 (3.65-5.03) 02/14/18 03:05 Hgb 15.3 gm/dl (11.8-15.2) H 02/14/18 03:05 Hct 44.9 % (35.5-45.6) 02/14/18 03:05 MCV 96 fl (84-94) H 02/14/18 03:05 MCH 33 pg (28-32) H 02/14/18 03:05 MCHC 34 % (32-34) 02/14/18 03:05 RDW 13.8 % (13.2-15.2) 02/14/18 03:05 Plt Count 137 K/mm3 (140-440) L 02/14/18 03:05 Lymph % (Auto) 14.2 % (13.4-35.0) 02/14/18 03:05 [place] % (Auto) 11.4 % (0.0-7.3) H 02/14/18 03:05 Eos % (Auto) 0.2 % (0.0-4.3) 02/14/18 03:05 Baso % (Auto) 0.8 % (0.0-1.8) 02/14/18 03:05 Lymph # 1.4 K/mm3 (1.2-5.4) 02/14/18 03:05 [place] # 1.1 K/mm3 (0.0-0.8) H 02/14/18 03:05 Eos # 0.0 K/mm3 (0.0-0.4) 02/14/18 03:05 Baso # 0.1 K/mm3 (0.0-0.1) 02/14/18 03:05 Seg Neutrophils % 73.4 % (40.0-70.0) H 02/14/18 03:05 Seg Neutrophils # 7.2 K/mm3 (1.8-7.7) 02/14/18 03:05 PT 14.0 Sec. (12.2-14.9) 02/13/18 16:32 INR 1.03 (0.87-1.13) 02/13/18 16:32 APTT 45.6 Sec. (24.2-36.6) H 02/13/18 16:32 Fibrinogen 414 mg/dl (211-480) 02/14/18 03:05 Heparin Anti-Xa Level < 0.10 U.I./ml (0.3-0.7) L 02/14/18 03:05 POC ABG pH 7.484 (7.35-7.45) H 02/14/18 01:49 POC ABG pCO2 24.7 (35-45) L 02/14/18 01:49 POC ABG pO2 70 (80-105) L 02/14/18 01:49 POC ABG HCO3 18.6 02/14/18 01:49 POC ABG Total CO2 19 02/14/18 01:49 POC ABG O2 Sat 95 02/14/18 01:49 POC ABG Base Excess -5 02/14/18 01:49 FiO2 28 % 02/14/18 01:49 Sodium 140 mmol/L (137-145) 02/14/18 03:05 Potassium 4.3 mmol/L (3.6-5.0) 02/14/18 03:05 Chloride 104.7 mmol/L (98-107) 02/14/18 03:05 Carbon Dioxide 20 mmol/L (22-30) L 02/14/18 03:05 Anion Gap 20 mmol/L 02/14/18 03:05 BUN 17 mg/dL (9-20) 02/14/18 03:05 Creatinine 0.9 mg/dL (0.8-1.5) 02/14/18 03:05 Estimated GFR > 60 ml/min 02/14/18 03:05 BUN/Creatinine Ratio 19 % 02/14/18 03:05 Glucose 151 mg/dL (75-100) H 02/14/18 03:05 Hemoglobin A1c 6.1 % (4-6) H 02/13/18 01:25 Calcium 8.6 mg/dL (8.4-10.2) 02/14/18 03:05 Magnesium 2.20 mg/dL (1.7-2.3) 02/12/18 09:55 Total Bilirubin 0.80 mg/dL (0.1-1.2) 02/14/18 03:05 AST 10 units/L (5-40) 02/14/18 03:05 ALT 27 units/L (7-56) 02/14/18 03:05 Alkaline Phosphatase 56 units/L (35-129) 02/14/18 03:05 Troponin T 0.021 ng/mL (0.00-0.029) 02/12/18 09:55 NT-Pro-B Natriuret Pep 3956 pg/mL (0-450) H 02/12/18 09:55 Total Protein 6.5 g/dL (6.3-8.2) 02/14/18 03:05 Albumin 3.9 g/dL (3.9-5) 02/14/18 03:05 Albumin/Globulin Ratio 1.5 % 02/14/18 03:05 Blood Type AB POSITIVE 02/13/18 14:07 Antibody Screen Negative 02/13/18 14:07
[2018-02-14] MEDS: PROTONIX PO SCH ×2 (09:49→22:18)
--- NOTE | 2018-02-14 10:44 | Hem/Onc Progress Note ---
Assessment and Plan Continue heparin. Once stable, he can be switched to oral anticoagulant. Subjective Date of service: 02/14/18 Interval history: Undergoing Ekos. Seems anxious. Objective - Constitutional Vitals: Last Vital Signs Temp 98.1 F 02/14/18 08:00 Pulse 90 02/14/18 08:51 Resp 16 02/14/18 08:51 BP 158/83 02/14/18 07:01 Pulse Ox 95 02/14/18 08:46 General appearance: obese Performance status: 4-completely disabled - Neck Neck: supple - Respiratory Respiratory effort: Positive: normal Respiratory: bilateral: diminished - Cardiovascular Rhythm: regular Extremities: abnormal (lower extremity edema) - Gastrointestinal General gastrointestinal: Present: soft - Labs Lab Results: Laboratory Results - last 24 hr 02/13/18 02/13/18 02/13/18 13:00 14:07 16:32 WBC RBC Hgb Hct MCV MCH MCHC RDW Plt Count Lymph % (Auto) [place] % (Auto) Eos % (Auto) Baso % (Auto) Lymph # [place] # Eos # Baso # Seg Neutrophils % Seg Neutrophils # PT 14.0 INR 1.03 APTT 45.6 H Fibrinogen 424 459 Heparin Anti-Xa Level POC ABG pH POC ABG pCO2 POC ABG pO2 POC ABG HCO3 POC ABG Total CO2 POC ABG O2 Sat POC ABG Base Excess FiO2 Sodium Potassium Chloride Carbon Dioxide Anion Gap BUN Creatinine Estimated GFR BUN/Creatinine Ratio Glucose Calcium Total Bilirubin AST ALT Alkaline Phosphatase Total Protein Albumin Albumin/Globulin Ratio Blood Type AB POSITIVE Antibody Screen Negative 02/13/18 02/13/18 02/13/18 16:32 16:32 16:32 WBC 8.7 RBC 4.74 Hgb 15.4 H Hct 46.0 H MCV 97 H MCH 32 MCHC 33 RDW 13.8 Plt Count 148 Lymph % (Auto) 31.0 [place] % (Auto) 12.4 H Eos % (Auto) 1.0 Baso % (Auto) 0.8 Lymph # 2.7 [place] # 1.1 H Eos # 0.1 Baso # 0.1 Seg Neutrophils % 54.8 Seg Neutrophils # 4.8 PT INR APTT Fibrinogen Heparin Anti-Xa Level 0.10 L POC ABG pH POC ABG pCO2 POC ABG pO2 POC ABG HCO3 POC ABG Total CO2 POC ABG O2 Sat POC ABG Base Excess FiO2 Sodium 139 Potassium 4.0 Chloride 103.3 Carbon Dioxide 20 L Anion Gap 20 BUN 15 Creatinine 1.0 Estimated GFR > 60 BUN/Creatinine Ratio 15 Glucose 97 Calcium 8.6 Total Bilirubin AST ALT Alkaline Phosphatase Total Protein Albumin Albumin/Globulin Ratio Blood Type Antibody Screen 02/13/18 02/13/18 02/14/18 21:06 21:15 01:49 WBC 9.0 RBC 4.53 Hgb 15.1 Hct 44.5 MCV 98 H MCH 33 H MCHC 34 RDW 13.7 Plt Count 163 Lymph % (Auto) 32.8 [place] % (Auto) 11.5 H Eos % (Auto) 1.0 Baso % (Auto) 0.8 Lymph # 2.9 [place] # 1.0 H Eos # 0.1 Baso # 0.1 Seg Neutrophils % 53.9 Seg Neutrophils # 4.8 PT INR APTT Fibrinogen 477 Heparin Anti-Xa Level < 0.10 L POC ABG pH 7.484 H POC ABG pCO2 24.7 L POC ABG pO2 70 L POC ABG HCO3 18.6 POC ABG Total CO2 19 POC ABG O2 Sat 95 POC ABG Base Excess -5 FiO2 28 Sodium Potassium Chloride Carbon Dioxide Anion Gap BUN Creatinine Estimated GFR BUN/Creatinine Ratio Glucose Calcium Total Bilirubin AST ALT Alkaline Phosphatase Total Protein Albumin Albumin/Globulin Ratio Blood Type Antibody Screen 02/14/18 02/14/18 02/14/18 03:05 03:05 03:05 WBC 9.9 RBC 4.69 Hgb 15.3 H Hct 44.9 MCV 96 H MCH 33 H MCHC 34 RDW 13.8 Plt Count 137 L Lymph % (Auto) 14.2 [place] % (Auto) 11.4 H Eos % (Auto) 0.2 Baso % (Auto) 0.8 Lymph # 1.4 [place] # 1.1 H Eos # 0.0 Baso # 0.1 Seg Neutrophils % 73.4 H Seg Neutrophils # 7.2 PT INR APTT Fibrinogen 414 Heparin Anti-Xa Level < 0.10 L POC ABG pH POC ABG pCO2 POC ABG pO2 POC ABG HCO3 POC ABG Total CO2 POC ABG O2 Sat POC ABG Base Excess FiO2 Sodium 140 Potassium 4.3 Chloride 104.7 Carbon Dioxide 20 L Anion Gap 20 BUN 17 Creatinine 0.9 Estimated GFR > 60 BUN/Creatinine Ratio 19 Glucose 151 H Calcium 8.6 Total Bilirubin 0.80 AST 10 ALT 27 Alkaline Phosphatase 56 Total Protein 6.5 Albumin 3.9 Albumin/Globulin Ratio 1.5 Blood Type Antibody Screen
[2018-02-14 11:15] LABS: Basophils % (Auto) 0.3 % (0.0-1.8); Eosinophils % (Auto) 0.2 % (0.0-4.3); Hematocrit 44.2 % (35.5-45.6); Lymphocytes # (Auto) 1.4 K/mm3 (1.2-5.4); Lymphocytes % (Auto) 15.5 % (13.4-35.0); Mean Corpuscular HGB Conc 34 % (32-34); Mean Corpuscular Hemoglobin 33 pg (28-32); Mean Corpuscular Volume 97 fl (84-94); Monocytes # (Auto) 1.2 K/mm3 (0.0-0.8); Monocytes % (Auto) 13.1 % (0.0-7.3); Platelet Count 124 K/mm3 (140-440); Red Blood Count 4.54 M/mm3 (3.65-5.03); Red Cell Distribution Width 13.2 % (13.2-15.2)
[2018-02-14 11:33] LABS: Fibrinogen 348 mg/dl (211-480)
[2018-02-14 11:35] LABS: Heparin anti-factor XA < 0.10 U.I./ml (0.3-0.7)
--- NOTE | 2018-02-14 11:48 | Consultation ---
History of Present Illness Consult date: 02/14/18 Requesting physician: KYE HARRIS Reason for consult: pulmonary embolism History of present illness: PULMONARY/CCM CONSULT NOTE (Full dictation # [id number]) Please see dictated notes for full details Past History Past Medical History: No medical history Past Surgical History: No surgical history, Other (tooth extraction) Social history: no significant social history Family history: no significant family history Medications and Allergies Allergies Allergy/AdvReac Type Severity Reaction Status Date / Time No Known Allergies Allergy Unverified 02/12/18 09:54 Home Medications Medication Instructions Recorded Confirmed Last Taken Type No Known Home Medications [No 02/12/18 02/12/18 Unknown History Reported Home Medications] Active Meds: Active Medications Acetaminophen (Tylenol) 650 mg PO Q4H PRN PRN Reason: Pain MILD(1-3)/Fever >100.5/PULIDO Acetaminophen/Hydrocodone Bitart ([place] 5/325) 2 each PO Q6H PRN PRN Reason: Pain, Moderate (4-6) Last Admin: 02/13/18 23:16 Dose: 2 each Albuterol/Ipratropium (Duoneb *Not For Prn Use*) 1 ampul IH Q4HRT ROSALIO Last Admin: 02/14/18 08:44 Dose: 1 ampul Benzonatate (Tessalon Perles) 100 mg PO Q6HR PRN PRN Reason: Cough Last Admin: 02/14/18 01:40 Dose: 100 mg Hydralazine HCl (Apresoline) 10 mg IV Q4HR PRN PRN Reason: Hypertension Last Admin: 02/14/18 05:22 Dose: 10 mg Heparin Sodium/Sodium Chloride (Heparin/ 0.45% Nacl-25,000 Unit/500 Ml) 25,000 unit in 500 mls @ 30 mls/hr IV TITR ROSALIO; Protocol Last Admin: 02/13/18 04:21 Dose: 2,200 units/hr, 44 mls/hr Heparin Sodium/Sodium Chloride (Heparin/ 0.45% Nacl-25,000 Unit/500 Ml) 25,000 unit in 500 mls @ 10 mls/hr SHEATH DIRECT ROSALIO; Protocol Last Admin: 02/13/18 15:05 Dose: 500 units/hr, 10 mls/hr Heparin Sodium/Sodium Chloride (Heparin/ 0.45% Nacl-25,000 Unit/500 Ml) 25,000 unit in 500 mls @ 10 mls/hr SHEATH DIRECT ROSALIO; Protocol Sodium Chloride (Nacl 0.9% 1000 Ml) 1,000 mls @ 30 mls/hr IV DIRECT ROSALIO Last Admin: 02/13/18 15:23 Dose: 30 mls/hr Sodium Chloride (Nacl 0.9% 1000 Ml) 1,000 mls @ 30 mls/hr SHEATH DIRECT ROSALIO Last Admin: 02/13/18 15:31 Dose: 30 mls/hr Sodium Chloride (Nacl 0.9% 1000 Ml) 1,000 mls @ 35 mls/hr EKOSCLUMEN DIRECT ROSALIO Sodium Chloride (Nacl 0.9% 1000 Ml) 1,000 mls @ 30 mls/hr SHEATH DIRECT ROSALIO Last Admin: 02/13/18 15:32 Dose: 30 mls/hr Sodium Chloride (Nacl 0.9% 1000 Ml) 1,000 mls @ 35 mls/hr EKOSCLUMEN DIRECT ROASLIO Morphine Sulfate (Morphine) 2 mg IV Q4H PRN PRN Reason: Pain, Moderate (4-6) Ondansetron HCl (Zofran) 4 mg IV Q8H PRN PRN Reason: Nausea And Vomiting Oxycodone/Acetaminophen (Percocet 5/325) 1 tab PO Q6H PRN PRN Reason: Pain, Moderate (4-6) Pantoprazole Sodium (Protonix) 40 mg PO BID [facility] Last Admin: 02/14/18 09:49 Dose: Not Given Sodium Chloride (Sodium Chloride Flush Syringe 10 Ml) 10 ml IV BID [facility] Last Admin: 02/13/18 22:37 Dose: 10 ml Sodium Chloride (Sodium Chloride Flush Syringe 10 Ml) 10 ml IV PRN PRN PRN Reason: LINE FLUSH Zolpidem Tartrate (Ambien) 5 mg PO QHS PRN PRN Reason: Insomnia Physical Examination Vital signs: Vital Signs Pulse Resp Pulse Ox 119 H 26 H 97 02/12/18 09:46 02/12/18 09:46 02/12/18 09:46 Results - Laboratory Findings CBC and BMP: 02/14/18 10:31 02/14/18 03:05 ABG POC ABG pH 7.484 (7.35-7.45) H 02/14/18 01:49 POC ABG pCO2 24.7 (35-45) L 02/14/18 01:49 POC ABG pO2 70 (80-105) L 02/14/18 01:49 POC ABG HCO3 18.6 02/14/18 01:49 POC ABG Total CO2 19 02/14/18 01:49 POC ABG O2 Sat 95 02/14/18 01:49 PT/INR, D-dimer PT 14.0 Sec. (12.2-14.9) 02/13/18 16:32 INR 1.03 (0.87-1.13) 02/13/18 16:32 Abnormal lab findings: Abnormal Labs 02/12/18 02/12/18 02/12/18 09:55 09:55 09:55 WBC 11.8 H RBC 5.29 H Hgb 17.7 H Hct 49.7 H MCV MCH 33 H MCHC 36 H Plt Count [place] % (Auto) 13.3 H [place] # 1.6 H Seg Neutrophils % APTT 40.0 H Heparin Anti-Xa Level POC ABG pH POC ABG pCO2 POC ABG pO2 Carbon Dioxide 21 L Glucose 150 H Hemoglobin A1c Calcium 10.3 H NT-Pro-B Natriuret Pep 3956 H Albumin 02/12/18 02/12/18 02/12/18 12:35 12:35 19:12 WBC RBC Hgb 17.2 H Hct 50.5 H MCV MCH MCHC Plt Count [place] % (Auto) [place] # Seg Neutrophils % APTT 42.2 H Heparin Anti-Xa Level 0.10 L POC ABG pH POC ABG pCO2 POC ABG pO2 Carbon Dioxide Glucose Hemoglobin A1c Calcium NT-Pro-B Natriuret Pep Albumin 02/13/18 02/13/18 02/13/18 01:18 01:25 01:25 WBC RBC Hgb Hct MCV MCH MCHC Plt Count [place] % (Auto) [place] # Seg Neutrophils % APTT Heparin Anti-Xa Level 0.10 L POC ABG pH POC ABG pCO2 POC ABG pO2 Carbon Dioxide Glucose 131 H Hemoglobin A1c 6.1 H Calcium NT-Pro-B Natriuret Pep Albumin 02/13/18 02/13/18 02/13/18 06:55 16:32 16:32 WBC RBC Hgb Hct MCV MCH MCHC Plt Count [place] % (Auto) [place] # Seg Neutrophils % APTT 45.6 H Heparin Anti-Xa Level POC ABG pH POC ABG pCO2 POC ABG pO2 Carbon Dioxide 21 L 20 L Glucose 118 H Hemoglobin A1c Calcium NT-Pro-B Natriuret Pep Albumin 3.4 L 02/13/18 02/13/18 02/13/18 16:32 16:32 21:06 WBC RBC Hgb 15.4 H Hct 46.0 H MCV 97 H MCH MCHC Plt Count [place] % (Auto) 12.4 H [place] # 1.1 H Seg Neutrophils % APTT Heparin Anti-Xa Level 0.10 L < 0.10 L POC ABG pH POC ABG pCO2 POC ABG pO2 Carbon Dioxide Glucose Hemoglobin A1c Calcium NT-Pro-B Natriuret Pep Albumin 02/13/18 02/14/18 02/14/18 21:15 01:49 03:05 WBC RBC Hgb 15.3 H Hct MCV 98 H 96 H MCH 33 H 33 H MCHC Plt Count 137 L [place] % (Auto) 11.5 H 11.4 H [place] # 1.0 H 1.1 H Seg Neutrophils % 73.4 H APTT Heparin Anti-Xa Level POC ABG pH 7.484 H POC ABG pCO2 24.7 L POC ABG pO2 70 L Carbon Dioxide Glucose Hemoglobin A1c Calcium NT-Pro-B Natriuret Pep Albumin 02/14/18 02/14/18 02/14/18 03:05 03:05 10:31 WBC RBC Hgb Hct MCV 97 H MCH 33 H MCHC Plt Count 124 L [place] % (Auto) 13.1 H [place] # 1.2 H Seg Neutrophils % 70.9 H APTT Heparin Anti-Xa Level < 0.10 L POC ABG pH POC ABG pCO2 POC ABG pO2 Carbon Dioxide 20 L Glucose 151 H Hemoglobin A1c Calcium NT-Pro-B Natriuret Pep Albumin 02/14/18 10:31 WBC RBC Hgb Hct MCV MCH MCHC Plt Count [place] % (Auto) [place] # Seg Neutrophils % APTT Heparin Anti-Xa Level < 0.10 L POC ABG pH POC ABG pCO2 POC ABG pO2 Carbon Dioxide Glucose Hemoglobin A1c Calcium NT-Pro-B Natriuret Pep Albumin
[2018-02-14] MEDS ORDERED: HEPARIN/NS 5000 UNIT/500ML(CATH LAB) 1,000 ML IR ONE (13:05)
[2018-02-14] MEDS ORDERED: HEPARIN 10,000 UNITS/10 ML ONE (13:06)
[2018-02-14] MEDS ORDERED: VERSED ONE (13:06)
[2018-02-14] MEDS ORDERED: ANCEF/STERILE WATER 2 GM/20 ML 2 GM/20 ML SYRINGE IV ONE (13:06)
[2018-02-14] MEDS ORDERED: NACL 0.9% 500 ML 500 ML ONE (13:07)
[2018-02-14] MEDS: VERSED ONE ×3 (13:18→13:55)
[2018-02-14] MEDS: SUBLIMAZE ONE ×4 (13:27→13:55)
[2018-02-14] MEDS: XYLOCAINE 2% INFILTRATI ONE ×3 (13:28→13:43)
[2018-02-14] MEDS ORDERED: HEPARIN/ 0.45% NACL-25,000 UNIT/500 ML 25,000 UNIT/500 ML BAG ONE (14:02)
--- NOTE | 2018-02-14 14:12 | Post Operative Note ---
Date of procedure: 02/14/18 Pre-op diagnosis: Submassive pulmonary embolism Post-op diagnosis: same Procedure: 1. Left pulmonary artery EKOS catheter removal under fluoroscopic guidance 2. Selection of the left lower lobar pulmonary artery 3. Angiography of the left lower lobar pulmonary artery 4. 6 Fr MPA guide aspiration thrombectomy of the left distal lower lobar pulmonary artery 5. Right pulmonary artery EKOS catheter removal under fluoroscopic guidance 6. Selection of the right interlobar pulmonary artery 7. Angiography of the right interlobar pulmonary artery 8. Selection of the right upper lobar pulmonary artery 9. Angiography of the right upper lobar pulmonary artery 10. 6 Fr MPA guide aspiration thrombectomy of the right upper lobar pulmonary artery 11. IVC venography and right iliac venography Anesthesia: local (w/ conscious sedation) Surgeon: DALE MAKI Estimated blood loss: minimal Condition: stable Disposition: ICU
--- NOTE | 2018-02-14 14:19 | Operative Report ---
Operative Report Operative Report: EXAM: 1. Left pulmonary artery EKOS catheter removal under fluoroscopic guidance 2. Selection of the left lower lobar pulmonary artery 3. Angiography of the left lower lobar pulmonary artery 4. 6 Fr MPA guide aspiration thrombectomy of the left distal lower lobar pulmonary artery 5. Right pulmonary artery EKOS catheter removal under fluoroscopic guidance 6. Selection of the right interlobar pulmonary artery 7. Angiography of the right interlobar pulmonary artery 8. Selection of the right upper lobar pulmonary artery 9. Angiography of the right upper lobar pulmonary artery 10. 6 Fr MPA guide aspiration thrombectomy of the right upper lobar pulmonary artery 11. IVC venography and right iliac venography DATE: 02/14/18 INSULATION BOARD HEAD SAW OPERATOR: DALE MAKI MD INDICATION: Thrombolytic therapy of the bilateral pulmonary arteries. MEDICATIONS: Please see nursing report for full details. DEVICES: 6 [place] MPA guide CONTRAST: Please see yard labor supervisor report for full details. PROCEDURE: The risks, benefits, and alternatives were discussed with the patient; written informed consent was obtained. The patient's groins were prepped and draped in a sterile fashion. The thrombolytic catheters were prepped and draped in a sterile fashion. The patient was heparinized. Fluoroscopy was used to evaluate the position of the thrombolytic catheters in the right and left pulmonary arteries which were unchanged in position. The wires were removed and replaced with 0.035 inch Ash wires and then the main catheters were removed. 6 [place] guide was advanced over the wire heading to the left lower lobar pulmonary artery. The left lower lobar pulmonary artery was selected and digital subtraction angiography was performed demonstrating residual thrombus in the distal portion of the lobar pulmonary artery with a large amount of nonocclusive thrombus in the vessel. 6 [place] MPA guide was then used to perform aspiration thrombectomy multiple times. Digital subtraction angiography demonstrated mild improvement. The patient was hemodynamically doing well upstairs, I decided not to escalate care and perform vacuum assisted penumbra indigo thrombectomy. 6 [place] MPA guide was then advanced over the right interlobar pulmonary artery and digital subtraction angiography was performed after selecting this vessel demonstrating some nonocclusive thrombus, but good flow. I therefore decided against performing aspiration thrombectomy and this vessel. The right upper lobar pulmonary artery was selected and digital subtraction angiography was performed demonstrating a large amount of nonocclusive thrombus in the upper lobar pulmonary artery. 6 [place] guide catheter was used perform aspiration thrombectomy removing a small amount of thrombus, and repeat digital subtraction angiography demonstrated a moderate amount of nonocclusive thrombus remaining. Again, since the patient was hemodynamically doing well upstairs, I decided not escalate care to perform vacuum assisted penumbra indigo thrombectomy. At this point, the MPA guide in the wires removed from the pulmonary arteries. Digital subtraction angiography was performed demonstrating patent right iliac veins and a patent IVC. At this point, all wires, catheters, and sheaths were removed. Pressure was held until hemostasis was achieved. Sterile dressing applied. Patient was initiated on heparin drip. FINDINGS: Please see procedure note above. IMPRESSION: Successful angiography of the bilateral pulmonary arteries with residual thrombus as described above. Aspiration thrombectomy was performed in the left lobar pulmonary artery and right upper lobar pulmonary artery.
--- NOTE | 2018-02-14 14:19 | Event Note ---
Date: 02/14/18 Status post submassive pulmonary embolism with catheter directed thrombolysis. Patient tolerated thrombolysis without issue. Had some nonocclusive pulmonary embolism in his left lower lobar pulmonary artery, and right upper lobar pulmonary artery. Performed aspiration thrombectomy with 50 mL blood removed and some thrombus removed. Since vitals were good, I did not progress to use penumbra thrombectomy device. Restarted heparin drip. Keep flat for 6 Hrs. Remove pressure dressing tomorrow. Recommend heme/onc consult for anticoagulation given severe morbid obesity. Consider Eliquis vs coumadin.
[2018-02-14] MEDS: HEPARIN/ 0.45% NACL-25,000 UNIT/500 ML 25,000 UNIT/500 ML BAG IV SCH ×2 (14:21→15:06)
[2018-02-14] MEDS: SODIUM CHLORIDE FLUSH SYRINGE 10 ML IV SCH ×2 (15:07→23:47)
[2018-02-14] MEDS: NORCO 5/325 PO PRN (20:53)
--- NOTE | 2018-02-14 22:04 | Consultation ---
PULMONARY CRITICAL CARE CONSULTATION CONSULTING PHYSICIAN: Sheri Williamson MD REASON FOR CONSULTATION: Need for Intensive Care Unit admission for a patient status post catheter-directed thrombolytic therapy. 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 As long as pleuritic chest pain that was all over his chest. Denied fevers or chills. Denied any sick contacts. Denied any trauma. Denied any gross or streaky hemoptysis. He was evaluated in the Emergency Room and found to indeed have bilateral pulmonary emboli. As part of the workup, BNP was elevated. The 2D echocardiogram reportedly showed evidence of right heart strain. Vascular Surgery was consulted and a decision was made to proceed with catheter-directed thrombolytic therapy. Postop, he is brought into the Intensive Care Unit for observation. When I stopped by to see him, he was resting in bed. The pain was a little bit better. Now with regards to tobacco use/abuse history, he has about a 5+ pack year tobacco smoking history and continues to smoke. That really is as much of the history of presentation. He denies any similar episodes in the past. In particular, he denies any new onset leg pain or swelling either unilaterally or bilaterally. PAST MEDICAL HISTORY: 1. Morbid obesity. 2. Obstructive sleep apnea for which he is on a CPAP machine. PAST SURGICAL HISTORY: Denies. MEDICATIONS: He was on at the time I stopped by to see were reviewed, pertinent medications included the following: He was on DuoNeb treatments nebulized q. 4 hours, Tessalon Perles 100 mg p.o. q. 6 hours. He was on IV heparin drip, being titrated per protocol. Hydralazine 10 mg IV q. 4 hours p.r.n. hypertension, Zofran 4 mg IV q. 8 hours p.r.n. nausea and vomiting, morphine sulfate 2 mg IV q. 4 hours p.r.n. moderate pain, and Protonix 40 mg p.o. b.i.d. as well as Ambien 5 mg p.o. at bedtime p.r.n. insomnia. ALLERGIES: No known drug allergies. DIET: Morbidly obese. Denies significant weight loss or gain in preceding few weeks to months. FAMILY AND SOCIAL HISTORY: Lives in the community. He has a 5+ pack year tobacco smoking history. Denies illicit drug use or abuse. There is a family history of high blood pressure. REVIEW OF SYSTEMS: No loss of consciousness. No new onset seizures. No new onset focal weakness. No gross hematochezia or melena. No gross hematuria or dysuria. No hematemesis. No hemoptysis. He had the pleuritic chest pain. Denied palpitations. Denied orthopnea. He had dyspnea on exertion. Denied excessive heat or cold intolerance. Denies polydipsia or polyuria. Complete 13-system review of systems obtained. Pertinent positives and/or negatives as in body of history above, otherwise they are noncontributory. PHYSICAL EXAMINATION: VITAL SIGNS: At presentation, he is afebrile, temperature 98.7, pulse 121, respiratory rate 28, blood pressure 146/104, oxygen sats were 96%, inspired oxygen concentration at that time was not recorded. GENERAL: Young male, normocephalic, atraumatic, talking to me in mostly full sentences, in mild respiratory distress at rest. HEAD, EYES, EARS, NOSE, AND THROAT: He is anicteric. No conjunctival erythema. Oropharynx is Mallampati 2 oropharynx. Oropharynx is moist. No gross jugular venous distention. No thyromegaly. He has a large neck circumference. LUNGS: Auscultation of both lung ramirez unremarkable. Lungs are clear bilaterally. HEART: Heart sounds 1 and 2 are heard. They were regular in rate and rhythm at the time of my evaluation, without rubs or murmurs. ABDOMEN: Soft, full, bowel sounds are positive, nontender. Grossly, no palpable hepatosplenomegaly. EXTREMITIES: Without significant clubbing, cyanosis, or pedal edema. Dorsalis pedis pulses are palpable bilaterally. NEUROLOGIC: Pupils are equal, round, about 3-4 mm, reactive to light. Extraocular muscle movements are intact. He moves all 4 extremities spontaneously. The skin is of normal turgor. No cellulitis, no rash. LABORATORY DATA: From my review are as follows: Admission white cell count 11,800, hemoglobin 17.7, hematocrit 49.7, platelet count 211. INR 1.04. Serum sodium 142, potassium 5.0, chloride 103, bicarbonate 21, BUN 15, creatinine 0.9, glucose 150. BNP was elevated at 3956. Troponin was within normal limits. No microbiology studies. Chest x-ray essentially shows cardiomegaly with a right perihilar infiltrates/process. A CT angio of the chest was done. I have reviewed the CT angio and he definitely has bilateral pulmonary emboli involving the left and right main and really involving significant portions of the vasculature bilaterally. ASSESSMENT: 1. Acute bilateral pulmonary emboli. 2. Shortness of breath. 3. Dyspnea on exertion. 4. Morbid obesity. 5. History of obstructive sleep apnea. 6. Mild metabolic acidosis with a serum bicarbonate of 20. PLAN: He is soon to complete the EkOS protocol and he will have the sheath pulled. 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 I have encouraged continued CPAP use. He has his home machine. I have strongly counseled against tobacco abuse. Arterial blood gases were ordered to get a better idea of his ventilatory status. He is appropriately on GI prophylaxis. He is on full anticoagulation. Flu and pneumonia vaccination will be addressed per protocol. Thank you very much for the consult. We will follow along and make further recommendations as picture progresses/becomes clearer. JOB# [id number] BESS/CHANDRAKANT GATICA
[2018-02-14] MEDS: AMBIEN PO PRN (22:18)
[2018-02-15] MEDS: DUONEB *Not for PRN Use IH SCH ×3 (04:31→13:13)
[2018-02-15 05:24] LABS: BUN/Creatinine Ratio 18; Blood Urea Nitrogen 14 mg/dL (9-20); Calcium 8.4 mg/dL (8.4-10.2); Hemolysis Index 7
--- NOTE | 2018-02-15 09:26 | Hem/Onc Progress Note ---
Assessment and Plan Discussed with the patient that he will need anticoagulation. He will also need follow-up in our office and vascular office. He states he lives in his truck and occasionally goes to [facility] where his residences. I have explained to him that he will need follow-up. I would recommend elitima stop heparin Subjective Date of service: 02/15/18 Interval history: s/p Ekos. Seems anxious. Had a lot of questions about when he can go back to work. Still having shortness of breath. Looks better. No active bleeding. Objective - Constitutional Vitals: Last Vital Signs Temp 97.7 F 02/15/18 08:00 Pulse 95 H 02/15/18 08:30 Resp 24 02/15/18 08:30 BP 128/80 02/15/18 08:30 Pulse Ox 90 02/15/18 08:30 General appearance: mild distress Performance status: 4-completely disabled - Neck Neck: supple - Respiratory Respiratory: bilateral: diminished - Cardiovascular Rhythm: regular Extremities: abnormal (bilateral lower extremity edema) - Gastrointestinal General gastrointestinal: Present: soft - Labs Lab Results: Laboratory Results - last 24 hr 02/14/18 02/14/18 02/14/18 10:31 10:31 12:30 WBC 9.0 RBC 4.54 Hgb 15.0 Hct 44.2 MCV 97 H MCH 33 H MCHC 34 RDW 13.2 Plt Count 124 L Lymph % (Auto) 15.5 [place] % (Auto) 13.1 H Eos % (Auto) 0.2 Baso % (Auto) 0.3 Lymph # 1.4 [place] # 1.2 H Eos # 0.0 Baso # 0.0 Seg Neutrophils % 70.9 H Seg Neutrophils # 6.4 Fibrinogen 348 Heparin Anti-Xa Level < 0.10 L POC ABG pH 7.496 H POC ABG pCO2 24.2 L POC ABG pO2 65 L POC ABG HCO3 18.7 POC ABG Total CO2 19 POC ABG O2 Sat 95 POC ABG Base Excess -5 FiO2 21 Sodium Potassium Chloride Carbon Dioxide Anion Gap BUN Creatinine Estimated GFR BUN/Creatinine Ratio Glucose Calcium 02/14/18 02/14/18 02/15/18 12:37 19:49 04:24 WBC RBC Hgb Hct MCV MCH MCHC RDW Plt Count Lymph % (Auto) [place] % (Auto) Eos % (Auto) Baso % (Auto) Lymph # [place] # Eos # Baso # Seg Neutrophils % Seg Neutrophils # Fibrinogen Heparin Anti-Xa Level < 0.10 L POC ABG pH 7.477 H POC ABG pCO2 26.9 L POC ABG pO2 57 L POC ABG HCO3 19.9 POC ABG Total CO2 21 POC ABG O2 Sat 92 POC ABG Base Excess -4 FiO2 21 Sodium 142 Potassium 3.9 Chloride 106.7 Carbon Dioxide 23 Anion Gap 16 BUN 14 Creatinine 0.8 Estimated GFR > 60 BUN/Creatinine Ratio 18 Glucose 147 H Calcium 8.4 02/15/18 06:46 WBC RBC Hgb Hct MCV MCH MCHC RDW Plt Count Lymph % (Auto) [place] % (Auto) Eos % (Auto) Baso % (Auto) Lymph # [place] # Eos # Baso # Seg Neutrophils % Seg Neutrophils # Fibrinogen Heparin Anti-Xa Level < 0.10 L POC ABG pH POC ABG pCO2 POC ABG pO2 POC ABG HCO3 POC ABG Total CO2 POC ABG O2 Sat POC ABG Base Excess FiO2 Sodium Potassium Chloride Carbon Dioxide Anion Gap BUN Creatinine Estimated GFR BUN/Creatinine Ratio Glucose Calcium
--- NOTE | 2018-02-15 09:27 | Event Note ---
Date: 02/15/18 Correction on the last note. He would start eliquis once heparin is able to be stopped
[2018-02-15] MEDS: PROTONIX PO SCH ×2 (10:00→21:54)
[2018-02-15] MEDS: SODIUM CHLORIDE FLUSH SYRINGE 10 ML IV SCH ×2 (10:01→22:22)
[2018-02-15 10:55] LABS: Basophils % (Auto) 0.6 % (0.0-1.8); Eosinophils # (Auto) 0.1 K/mm3 (0.0-0.4); Hematocrit 41.8 % (35.5-45.6); Hemoglobin 14.3 gm/dl (11.8-15.2); Lymphocytes # (Auto) 1.8 K/mm3 (1.2-5.4); Lymphocytes % (Auto) 20.7 % (13.4-35.0); Mean Corpuscular HGB Conc 34 % (32-34); Mean Corpuscular Hemoglobin 33 pg (28-32); Mean Corpuscular Volume 97 fl (84-94); Monocytes % (Auto) 12.2 % (0.0-7.3); Red Blood Count 4.33 M/mm3 (3.65-5.03); Red Cell Distribution Width 13.8 % (13.2-15.2)
[2018-02-15 10:59] LABS: Platelet Count 114 K/mm3 (140-440)
[2018-02-15] MEDS ORDERED: PROVENTIL IH PRN (12:10)
--- NOTE | 2018-02-15 12:10 | Progress Note ---
Assessment and Plan Assessment and plan: --Bilateral PE; with heavy clot burden Status post thrombolytic therapy/EKOS procedure on Heparin drip, and Coumadin , closely monitor INR target 2-3 vascular, hematology and pulmonary following Follow Echocardiogram ; moderate right atrial lead and glandular enlargement, moderate right ventricular systolic dysfunction, Left ventricle ejection fraction 55% Hypercoagulable workup sent --Left lower extremity DVT; patient is on heparin drip. Supportive therapy --General anxiety; add low dose Xanax and supportive care --Acute hypoxic respiratory failure; Secondary to bilateral PE, continue oxygen, nebulizers --Chest pain; due to bilateral PE Pain medications oxygen and supportive care --Morbid obesity; BMI 55.9, counseling, diet modification and exercise as tolerated and weight reduction,When medically stable Patient may benefit from outpatient bariatric surgical evaluation, when medically stable --Possible obstructive sleep apnea/obesity hypoventilation syndrome Patient needs CPAP /BiPAP at night, needs outpatient sleep study upon discharge --Ongoing tobacco use; smoking cessation counseling done, advised nicotine patch as needed --DVT prophylaxis; patient is already on heparin drip Consults and recommendations noted and appreciated Continue current management Plan of care reviewed with the patient and his nurse Patient is stable to be transferred out of ICU to telemetry or medical floor Critical care time 40 minutes History Interval history: Patient seen and examined medical records reviewed Patient feels slightly better still has some shortness of breath Very anxious, Status post EKOS procedure Currently on heparin drip and Coumadin Alert awake oriented 3 not in acute distress Vital signs reviewed Hospitalist Physical - Constitutional Vitals: Temp Pulse Resp BP Pulse Ox 97.7 F 95 H 24 128/80 90 02/15/18 08:00 02/15/18 08:30 02/15/18 08:30 02/15/18 08:30 02/15/18 08:30 General appearance: Present: no acute distress, well-nourished, obese (morbidly obese), other (anxious) - EENT Eyes: Present: PERRL, EOM intact - Neck Neck: Present: supple, normal ROM - Respiratory Respiratory effort: normal Respiratory: bilateral: diminished, rhonchi, negative: rales, wheezing - Cardiovascular Rhythm: regular Heart Sounds: Present: S1 & S2 - Extremities Extremities: normal temperature Extremity abnormal: edema - Abdominal General gastrointestinal: soft, non-tender, non-distended, normal bowel sounds - Integumentary Integumentary: Present: clear, warm - Psychiatric Psychiatric: appropriate mood/affect, cooperative - Neurologic Neurologic: CNII-XII intact, moves all extremities Results - Labs CBC & Chem 7: 02/15/18 10:04 02/15/18 04:24 Labs: Laboratory Last Values WBC 8.6 K/mm3 (4.5-11.0) 02/15/18 10:04 RBC 4.33 M/mm3 (3.65-5.03) 02/15/18 10:04 Hgb 14.3 gm/dl (11.8-15.2) 02/15/18 10:04 Hct 41.8 % (35.5-45.6) 02/15/18 10:04 MCV 97 fl (84-94) H 02/15/18 10:04 MCH 33 pg (28-32) H 02/15/18 10:04 MCHC 34 % (32-34) 02/15/18 10:04 RDW 13.8 % (13.2-15.2) 02/15/18 10:04 Plt Count 114 K/mm3 (140-440) L 02/15/18 10:04 Lymph % (Auto) 20.7 % (13.4-35.0) 02/15/18 10:04 [place] % (Auto) 12.2 % (0.0-7.3) H 02/15/18 10:04 Eos % (Auto) 1.0 % (0.0-4.3) 02/15/18 10:04 Baso % (Auto) 0.6 % (0.0-1.8) 02/15/18 10:04 Lymph # 1.8 K/mm3 (1.2-5.4) 02/15/18 10:04 [place] # 1.0 K/mm3 (0.0-0.8) H 02/15/18 10:04 Eos # 0.1 K/mm3 (0.0-0.4) 02/15/18 10:04 Baso # 0.0 K/mm3 (0.0-0.1) 02/15/18 10:04 Add Manual Diff Complete 02/15/18 10:04 Seg Neutrophils % 65.5 % (40.0-70.0) 02/15/18 10:04 Seg Neutrophils # 5.6 K/mm3 (1.8-7.7) 02/15/18 10:04 PT 14.0 Sec. (12.2-14.9) 02/13/18 16:32 INR 1.03 (0.87-1.13) 02/13/18 16:32 APTT 45.6 Sec. (24.2-36.6) H 02/13/18 16:32 Fibrinogen 348 mg/dl (211-480) 02/14/18 10:31 Heparin Anti-Xa Level < 0.10 U.I./ml (0.3-0.7) L 02/15/18 06:46 POC ABG pH 7.477 (7.35-7.45) H 02/14/18 12:37 POC ABG pCO2 26.9 (35-45) L 02/14/18 12:37 POC ABG pO2 57 (80-105) L 02/14/18 12:37 POC ABG HCO3 19.9 02/14/18 12:37 POC ABG Total CO2 21 02/14/18 12:37 POC ABG O2 Sat 92 02/14/18 12:37 POC ABG Base Excess -4 02/14/18 12:37 FiO2 21 % 02/14/18 12:37 Sodium 142 mmol/L (137-145) 02/15/18 04:24 Potassium 3.9 mmol/L (3.6-5.0) 02/15/18 04:24 Chloride 106.7 mmol/L (98-107) 02/15/18 04:24 Carbon Dioxide 23 mmol/L (22-30) 02/15/18 04:24 Anion Gap 16 mmol/L 02/15/18 04:24 BUN 14 mg/dL (9-20) 02/15/18 04:24 Creatinine 0.8 mg/dL (0.8-1.5) 02/15/18 04:24 Estimated GFR > 60 ml/min 02/15/18 04:24 BUN/Creatinine Ratio 18 % 02/15/18 04:24 Glucose 147 mg/dL (75-100) H 02/15/18 04:24 Hemoglobin A1c 6.1 % (4-6) H 02/13/18 01:25 Calcium 8.4 mg/dL (8.4-10.2) 02/15/18 04:24 Magnesium 2.20 mg/dL (1.7-2.3) 02/12/18 09:55 Total Bilirubin 0.80 mg/dL (0.1-1.2) 02/14/18 03:05 AST 10 units/L (5-40) 02/14/18 03:05 ALT 27 units/L (7-56) 02/14/18 03:05 Alkaline Phosphatase 56 units/L (35-129) 02/14/18 03:05 Troponin T 0.021 ng/mL (0.00-0.029) 02/12/18 09:55 NT-Pro-B Natriuret Pep 3956 pg/mL (0-450) H 02/12/18 09:55 Total Protein 6.5 g/dL (6.3-8.2) 02/14/18 03:05 Albumin 3.9 g/dL (3.9-5) 02/14/18 03:05 Albumin/Globulin Ratio 1.5 % 02/14/18 03:05 Blood Type AB POSITIVE 02/13/18 14:07 Antibody Screen Negative 02/13/18 14:07
[2018-02-15] MEDS ORDERED: HEPARIN IV ONE (13:00)
--- NOTE | 2018-02-15 13:39 | Progress Note ---
Assessment and Plan Acute bilateral pulmonary emboli. Shortness of breath. Dyspnea on exertion. Morbid obesity. History of obstructive sleep apnea. Mild metabolic acidosis with a serum bicarbonate of 20 at admission - continue BIPAP qhs - continue suppelmental oxygen to keep sats > 90% - continue anticoagulation; discussed with vascular team and will switch to Eliquis - PT/OT as tolerated - continue GI prophylaxis - continue anti-hypertensives and adjust per attending - weight loss counseled - continue other care per atteding / other consultants ..... ok to transfer to telemetry floor .... 35' Subjective Date of service: 02/15/18 Principal diagnosis: Acute Bilateral Pulmonary Embolii; Acute Hypoxemic Resp failure; Obesity Interval history: Patient is seen today for: Acute Bilateral Pulmonary Embolii; Acute Hypoxemic Resp failure; Morbid Obesity Seen and examined at bedside; 24hour events reviewed; nursing and respiratory care staff consulted; no adverse overnight events reported to me; resting in bed ; has home BIPAP machine but not compliant; mild chest pains; No N/V/F/C; no gross bleeding with thrombolytics Objective Vital Signs - 12hr 02/15/18 02/15/18 02/15/18 02:01 02:31 03:00 Temperature Pulse Rate 95 H 94 H 95 H Pulse Rate [ Anterior Bilateral Throughout] Pulse Rate [ From Monitor] Respiratory 30 H 26 H 27 H Rate Respiratory Rate [Anterior Bilateral Throughout] Blood Pressure 113/64 114/48 109/71 O2 Sat by Pulse 93 94 91 Oximetry 02/15/18 02/15/18 02/15/18 03:30 03:50 04:00 Temperature 98.9 F Pulse Rate 78 Pulse Rate [ Anterior Bilateral Throughout] Pulse Rate [ From Monitor] Respiratory 27 H Rate Respiratory Rate [Anterior Bilateral Throughout] Blood Pressure 130/62 O2 Sat by Pulse 90 91 Oximetry 02/15/18 02/15/18 02/15/18 04:01 04:30 04:31 Temperature Pulse Rate 92 H 92 H Pulse Rate [ 96 H Anterior Bilateral Throughout] Pulse Rate [ From Monitor] Respiratory 19 22 Rate Respiratory 18 Rate [Anterior Bilateral Throughout] Blood Pressure 138/71 130/76 O2 Sat by Pulse 96 96 Oximetry 02/15/18 02/15/18 02/15/18 04:41 05:00 05:30 Temperature Pulse Rate 90 103 H Pulse Rate [ 95 H Anterior Bilateral Throughout] Pulse Rate [ From Monitor] Respiratory 34 H 33 H Rate Respiratory 18 Rate [Anterior Bilateral Throughout] Blood Pressure 123/70 118/68 O2 Sat by Pulse 98 95 Oximetry 02/15/18 02/15/18 02/15/18 06:00 06:30 07:00 Temperature Pulse Rate 91 H 97 H 93 H Pulse Rate [ Anterior Bilateral Throughout] Pulse Rate [ From Monitor] Respiratory 32 H 34 H 23 Rate Respiratory Rate [Anterior Bilateral Throughout] Blood Pressure 109/68 109/68 128/83 O2 Sat by Pulse 97 94 95 Oximetry 02/15/18 02/15/18 02/15/18 07:25 07:30 07:50 Temperature Pulse Rate 85 Pulse Rate [ 95 H 96 H Anterior Bilateral Throughout] Pulse Rate [ From Monitor] Respiratory 27 H Rate Respiratory 13 16 Rate [Anterior Bilateral Throughout] Blood Pressure 125/81 O2 Sat by Pulse 96 95 Oximetry 02/15/18 02/15/18 08:00 08:30 Temperature 97.7 F Pulse Rate 93 H 95 H Pulse Rate [ Anterior Bilateral Throughout] Pulse Rate [ 102 H From Monitor] Respiratory 14 24 Rate Respiratory Rate [Anterior Bilateral Throughout] Blood Pressure 128/83 128/80 O2 Sat by Pulse 93 90 Oximetry Constitutional: appears uncomfortable, other (Young Obese CM restiing in bed with moderately increased work of breathing) Eyes: non-icteric ENT: oropharynx moist, other (mallampatti 3) Neck: supple, no lymphadenopathy, no JVD, other (no thyromegaly) Effort: mildly labored Ascultation: Bilateral: diminished breath sounds, rhonchi Percussion: Bilateral: not dull Cardiovascular: regular rate and rhythm, other (No R/M) Gastrointestinal: normoactive bowel sounds, soft, non-tender, non-distended, other (No HSM) Integumentary: normal Extremities: no cyanosis, pink and warm, pulses normal, no ischemia or petechiae , edema (trace) Neurologic: normal mental status, non-focal exam, pupils equal and round, motor strength normal and Psychiatric: mood appropriate, anxious CBC and BMP: 02/25/18 05:30 02/25/18 07:45 ABG, PT/INR, D-dimer: ABG POC ABG pH 7.477 (7.35-7.45) H 02/14/18 12:37 POC ABG pCO2 26.9 (35-45) L 02/14/18 12:37 POC ABG pO2 57 (80-105) L 02/14/18 12:37 POC ABG HCO3 19.9 02/14/18 12:37 POC ABG Total CO2 21 02/14/18 12:37 POC ABG O2 Sat 92 02/14/18 12:37 PT/INR, D-dimer PT 14.0 Sec. (12.2-14.9) 02/13/18 16:32 INR 1.03 (0.87-1.13) 02/13/18 16:32 Abnormal lab findings: Abnormal Labs 02/12/18 02/12/18 02/12/18 09:55 09:55 09:55 WBC 11.8 H RBC 5.29 H Hgb 17.7 H Hct 49.7 H MCV MCH 33 H MCHC 36 H Plt Count [place] % (Auto) 13.3 H [place] # 1.6 H Seg Neutrophils % APTT 40.0 H Heparin Anti-Xa Level POC ABG pH POC ABG pCO2 POC ABG pO2 Carbon Dioxide 21 L Glucose 150 H Hemoglobin A1c Calcium 10.3 H NT-Pro-B Natriuret Pep 3956 H Albumin 02/12/18 02/12/18 02/12/18 12:35 12:35 19:12 WBC RBC Hgb 17.2 H Hct 50.5 H MCV MCH MCHC Plt Count [place] % (Auto) [place] # Seg Neutrophils % APTT 42.2 H Heparin Anti-Xa Level 0.10 L POC ABG pH POC ABG pCO2 POC ABG pO2 Carbon Dioxide Glucose Hemoglobin A1c Calcium NT-Pro-B Natriuret Pep Albumin 02/13/18 02/13/18 02/13/18 01:18 01:25 01:25 WBC RBC Hgb Hct MCV MCH MCHC Plt Count [place] % (Auto) [place] # Seg Neutrophils % APTT Heparin Anti-Xa Level 0.10 L POC ABG pH POC ABG pCO2 POC ABG pO2 Carbon Dioxide Glucose 131 H Hemoglobin A1c 6.1 H Calcium NT-Pro-B Natriuret Pep Albumin 02/13/18 02/13/18 02/13/18 06:55 16:32 16:32 WBC RBC Hgb Hct MCV MCH MCHC Plt Count [place] % (Auto) [place] # Seg Neutrophils % APTT 45.6 H Heparin Anti-Xa Level POC ABG pH POC ABG pCO2 POC ABG pO2 Carbon Dioxide 21 L 20 L Glucose 118 H Hemoglobin A1c Calcium NT-Pro-B Natriuret Pep Albumin 3.4 L 02/13/18 02/13/18 02/13/18 16:32 16:32 21:06 WBC RBC Hgb 15.4 H Hct 46.0 H MCV 97 H MCH MCHC Plt Count [place] % (Auto) 12.4 H [place] # 1.1 H Seg Neutrophils % APTT Heparin Anti-Xa Level 0.10 L < 0.10 L POC ABG pH POC ABG pCO2 POC ABG pO2 Carbon Dioxide Glucose Hemoglobin A1c Calcium NT-Pro-B Natriuret Pep Albumin 02/13/18 02/14/18 02/14/18 21:15 01:49 03:05 WBC RBC Hgb 15.3 H Hct MCV 98 H 96 H MCH 33 H 33 H MCHC Plt Count 137 L [place] % (Auto) 11.5 H 11.4 H [place] # 1.0 H 1.1 H Seg Neutrophils % 73.4 H APTT Heparin Anti-Xa Level POC ABG pH 7.484 H POC ABG pCO2 24.7 L POC ABG pO2 70 L Carbon Dioxide Glucose Hemoglobin A1c Calcium NT-Pro-B Natriuret Pep Albumin 02/14/18 02/14/18 02/14/18 03:05 03:05 10:31 WBC RBC Hgb Hct MCV 97 H MCH 33 H MCHC Plt Count 124 L [place] % (Auto) 13.1 H [place] # 1.2 H Seg Neutrophils % 70.9 H APTT Heparin Anti-Xa Level < 0.10 L POC ABG pH POC ABG pCO2 POC ABG pO2 Carbon Dioxide 20 L Glucose 151 H Hemoglobin A1c Calcium NT-Pro-B Natriuret Pep Albumin 02/14/18 02/14/18 02/14/18 10:31 12:30 12:37 WBC RBC Hgb Hct MCV MCH MCHC Plt Count [place] % (Auto) [place] # Seg Neutrophils % APTT Heparin Anti-Xa Level < 0.10 L POC ABG pH 7.496 H 7.477 H POC ABG pCO2 24.2 L 26.9 L POC ABG pO2 65 L 57 L Carbon Dioxide Glucose Hemoglobin A1c Calcium NT-Pro-B Natriuret Pep Albumin 02/14/18 02/15/18 02/15/18 19:49 04:24 06:46 WBC RBC Hgb Hct MCV MCH MCHC Plt Count [place] % (Auto) [place] # Seg Neutrophils % APTT Heparin Anti-Xa Level < 0.10 L < 0.10 L POC ABG pH POC ABG pCO2 POC ABG pO2 Carbon Dioxide Glucose 147 H Hemoglobin A1c Calcium NT-Pro-B Natriuret Pep Albumin 02/15/18 10:04 WBC RBC Hgb Hct MCV 97 H MCH 33 H MCHC Plt Count 114 L [place] % (Auto) 12.2 H [place] # 1.0 H Seg Neutrophils % APTT Heparin Anti-Xa Level POC ABG pH POC ABG pCO2 POC ABG pO2 Carbon Dioxide Glucose Hemoglobin A1c Calcium NT-Pro-B Natriuret Pep Albumin CT scan - chest: image reviewed (bilateral filling defects consistent with P.E.' s) Allied health notes reviewed: nursing
--- NOTE | 2018-02-15 15:40 | Progress Note ---
Assessment and Plan 37-year-old male status post aspiration thrombectomy and catheter directed thrombolysis for sub-massive pulmonary embolism. Despite treatment, patient's oxygenation is still suboptimal. He still has residual nonocclusive pulmonary emboli. Although aspiration thrombectomy was performed in combination with the procedure yesterday, aspiration assisted thrombectomy device (indigo penumbra device) was not used since patient had improved. Given his comorbidities including high level of anxiety, severe morbid obesity with obstructive sleep apnea, combined with his residual nonocclusive pulmonary emboli, he may benefit from further percutaneous procedures. Agree with transition from heparin to oral anticoagulation. We will continue to monitor. If patient's oxygenation is not improved by the middle of next week, then consideration for percutaneous thrombectomy of residual pulmonary emboli with indigo cat-8 penumbra device may be required. Subjective Date of service: 02/15/18 Principal diagnosis: Submassive PE Interval history: Although prior to procedure yesterday his oxygen was turned off and patient tolerated this well, after thrombolytic catheter removal, his oxygen was turned off and he was desaturating into the mid 80s. Patient has a high level of anxiety, and is morbidly obese, and has not been sleeping well with severe sleep apnea and is not using his CPAP. Agree with transition to oral anticoagulation. Objective - Constitutional Vitals: Vital Signs - 12hr 02/15/18 02/15/18 02/15/18 03:50 04:00 04:01 Temperature 98.9 F Pulse Rate 92 H Pulse Rate [ Anterior Bilateral Throughout] Pulse Rate [ From Monitor] Respiratory 19 Rate Respiratory Rate [Anterior Bilateral Throughout] Blood Pressure 138/71 O2 Sat by Pulse 91 96 Oximetry 02/15/18 02/15/18 02/15/18 04:30 04:31 04:41 Temperature Pulse Rate 92 H Pulse Rate [ 96 H 95 H Anterior Bilateral Throughout] Pulse Rate [ From Monitor] Respiratory 22 Rate Respiratory 18 18 Rate [Anterior Bilateral Throughout] Blood Pressure 130/76 O2 Sat by Pulse 96 Oximetry 02/15/18 02/15/18 02/15/18 05:00 05:30 06:00 Temperature Pulse Rate 90 103 H 91 H Pulse Rate [ Anterior Bilateral Throughout] Pulse Rate [ From Monitor] Respiratory 34 H 33 H 32 H Rate Respiratory Rate [Anterior Bilateral Throughout] Blood Pressure 123/70 118/68 109/68 O2 Sat by Pulse 98 95 97 Oximetry 02/15/18 02/15/18 02/15/18 06:30 07:00 07:25 Temperature Pulse Rate 97 H 93 H Pulse Rate [ 95 H Anterior Bilateral Throughout] Pulse Rate [ From Monitor] Respiratory 34 H 23 Rate Respiratory 13 Rate [Anterior Bilateral Throughout] Blood Pressure 109/68 128/83 O2 Sat by Pulse 94 95 96 Oximetry 02/15/18 02/15/18 02/15/18 07:30 07:50 08:00 Temperature 97.7 F Pulse Rate 85 93 H Pulse Rate [ 96 H Anterior Bilateral Throughout] Pulse Rate [ 102 H From Monitor] Respiratory 27 H 14 Rate Respiratory 16 Rate [Anterior Bilateral Throughout] Blood Pressure 125/81 128/83 O2 Sat by Pulse 95 93 Oximetry 02/15/18 02/15/18 02/15/18 08:30 09:00 09:30 Temperature Pulse Rate 95 H 102 H 97 H Pulse Rate [ Anterior Bilateral Throughout] Pulse Rate [ From Monitor] Respiratory 24 32 H 24 Rate Respiratory Rate [Anterior Bilateral Throughout] Blood Pressure 128/80 158/116 158/116 O2 Sat by Pulse 90 85 89 Oximetry 02/15/18 02/15/18 02/15/18 10:00 10:30 11:00 Temperature Pulse Rate 101 H 78 92 H Pulse Rate [ Anterior Bilateral Throughout] Pulse Rate [ From Monitor] Respiratory 18 26 H 26 H Rate Respiratory Rate [Anterior Bilateral Throughout] Blood Pressure 142/90 142/90 143/86 O2 Sat by Pulse 93 89 93 Oximetry 02/15/18 02/15/18 02/15/18 11:30 12:00 12:30 Temperature 98.4 F Pulse Rate 79 96 H 93 H Pulse Rate [ Anterior Bilateral Throughout] Pulse Rate [ From Monitor] Respiratory 33 H 32 H 23 Rate Respiratory Rate [Anterior Bilateral Throughout] Blood Pressure 145/80 157/88 180/94 O2 Sat by Pulse 92 88 91 Oximetry 02/15/18 02/15/18 02/15/18 13:00 13:30 14:00 Temperature Pulse Rate 93 H 94 H 76 Pulse Rate [ Anterior Bilateral Throughout] Pulse Rate [ From Monitor] Respiratory 26 H 34 H 18 Rate Respiratory Rate [Anterior Bilateral Throughout] Blood Pressure 163/97 157/97 111/68 O2 Sat by Pulse 93 88 Oximetry General appearance: Present: no acute distress - EENT Eyes: EOM intact ENT: hearing intact - Respiratory Respiratory effort: labored, other (desaturates to the mid 80s when oxygen is turned off, on Ventimask) Extremities: normal temperature, normal color - Gastrointestinal General gastrointestinal: Present: soft - Psychiatric Psychiatric: appropriate mood/affect, cooperative, other (anxious) - Labs CBC & Chem 7: 02/15/18 10:04 02/15/18 04:24 Labs: Abnormal lab results 02/14/18 02/15/18 02/15/18 Range/Units 19:49 04:24 06:46 MCV (84-94) fl MCH (28-32) pg Plt Count (140-440) K/mm3 [place] % (Auto) (0.0-7.3) % [place] # (0.0-0.8) K/mm3 Heparin Anti-Xa Level < 0.10 L < 0.10 L (0.3-0.7) U.I./ml Glucose 147 H (75-100) mg/dL 02/15/18 Range/Units 10:04 MCV 97 H (84-94) fl MCH 33 H (28-32) pg Plt Count 114 L (140-440) K/mm3 [place] % (Auto) 12.2 H (0.0-7.3) % [place] # 1.0 H (0.0-0.8) K/mm3 Heparin Anti-Xa Level (0.3-0.7) U.I./ml Glucose (75-100) mg/dL
[2018-02-15] MEDS: ELIQUIS PO SCH ×2 (16:30→21:52)
[2018-02-15] MEDS: NORCO 5/325 PO PRN (21:53)
[2018-02-15] MEDS: AMBIEN PO PRN (21:54)
[2018-02-15] MEDS: TESSALON PERLES PO PRN (21:56)
[2018-02-16] MEDS: PROTONIX PO SCH ×2 (10:20→21:34)
[2018-02-16] MEDS: ELIQUIS PO SCH ×2 (10:20→21:34)
[2018-02-16] MEDS: SODIUM CHLORIDE FLUSH SYRINGE 10 ML IV SCH ×2 (10:21→21:34)
--- NOTE | 2018-02-16 11:40 | Progress Note ---
Assessment and Plan Patient sleeping at this time. Patient arousable.Patient is on venturi mask, FIO2 50%. O2 saturation 93%.Still complaining slight shortness of breath and pleuritic chest pain. - Patient Problems (1) Acute pulmonary embolism Current Visit: Yes Status: Acute Qualifiers: Acute cor pulmonale presence: with acute cor pulmonale Plan to address problem: Patient is on Apixaban (2) Morbid obesity with BMI of 50.0-59.9, adult Current Visit: Yes Status: Acute Plan to address problem: Recommend to loose weight. (3) Sleep apnea Current Visit: Yes Status: Chronic Qualifiers: Sleep apnea type: unspecified type Qualified Code(s): G47.30 - Sleep apnea , unspecified Plan to address problem: Recommend CPAP as he is using at home. Patient does not want to use it even after explaining to him importance of using it. Subjective Date of service: 02/16/18 Principal diagnosis: Submassive PE Interval history: Patient sleeping at this time. Patient arousable.Patient is on venturi mask, FIO2 50%. O2 saturation 93%.Still complaining slight shortness of breath and pleuritic chest pain. Objective Vital Signs - 12hr 02/15/18 02/16/18 02/16/18 23:37 00:56 02:22 Temperature 98.9 F Pulse Rate 104 H 83 Respiratory 20 18 Rate Blood Pressure 126/65 [Right] O2 Sat by Pulse 94 99 93 Oximetry 02/16/18 02/16/18 02/16/18 05:36 08:00 08:48 Temperature 98.9 F 98.2 F Pulse Rate 93 H 94 H Respiratory 18 20 Rate Blood Pressure 108/67 121/55 [Right] O2 Sat by Pulse 93 99 93 Oximetry Constitutional: no acute distress, asleep (Patient sleeping but arousable.), appears uncomfortable Eyes: non-icteric ENT: oropharynx moist Neck: supple, no lymphadenopathy Ascultation: Bilateral: diminished breath sounds Cardiovascular: regular rate and rhythm Gastrointestinal: normoactive bowel sounds Integumentary: normal Extremities: no cyanosis, no edema Neurologic: normal mental status, non-focal exam, pupils equal and round, CN II- XII normal Psychiatric: mood appropriate CBC and BMP: 02/15/18 10:04 02/15/18 04:24 ABG, PT/INR, D-dimer: ABG POC ABG pH 7.477 (7.35-7.45) H 02/14/18 12:37 POC ABG pCO2 26.9 (35-45) L 02/14/18 12:37 POC ABG pO2 57 (80-105) L 02/14/18 12:37 POC ABG HCO3 19.9 02/14/18 12:37 POC ABG Total CO2 21 02/14/18 12:37 POC ABG O2 Sat 92 02/14/18 12:37 PT/INR, D-dimer PT 14.0 Sec. (12.2-14.9) 02/13/18 16:32 INR 1.03 (0.87-1.13) 02/13/18 16:32 Abnormal lab findings: Abnormal Labs 02/12/18 02/12/18 02/12/18 09:55 09:55 09:55 WBC 11.8 H RBC 5.29 H Hgb 17.7 H Hct 49.7 H MCV MCH 33 H MCHC 36 H Plt Count [place] % (Auto) 13.3 H [place] # 1.6 H Seg Neutrophils % APTT 40.0 H Heparin Anti-Xa Level POC ABG pH POC ABG pCO2 POC ABG pO2 Carbon Dioxide 21 L Glucose 150 H Hemoglobin A1c Calcium 10.3 H NT-Pro-B Natriuret Pep 3956 H Albumin 02/12/18 02/12/18 02/12/18 12:35 12:35 19:12 WBC RBC Hgb 17.2 H Hct 50.5 H MCV MCH MCHC Plt Count [place] % (Auto) [place] # Seg Neutrophils % APTT 42.2 H Heparin Anti-Xa Level 0.10 L POC ABG pH POC ABG pCO2 POC ABG pO2 Carbon Dioxide Glucose Hemoglobin A1c Calcium NT-Pro-B Natriuret Pep Albumin 02/13/18 02/13/18 02/13/18 01:18 01:25 01:25 WBC RBC Hgb Hct MCV MCH MCHC Plt Count [place] % (Auto) [place] # Seg Neutrophils % APTT Heparin Anti-Xa Level 0.10 L POC ABG pH POC ABG pCO2 POC ABG pO2 Carbon Dioxide Glucose 131 H Hemoglobin A1c 6.1 H Calcium NT-Pro-B Natriuret Pep Albumin 02/13/18 02/13/18 02/13/18 06:55 16:32 16:32 WBC RBC Hgb Hct MCV MCH MCHC Plt Count [place] % (Auto) [place] # Seg Neutrophils % APTT 45.6 H Heparin Anti-Xa Level POC ABG pH POC ABG pCO2 POC ABG pO2 Carbon Dioxide 21 L 20 L Glucose 118 H Hemoglobin A1c Calcium NT-Pro-B Natriuret Pep Albumin 3.4 L 02/13/18 02/13/18 02/13/18 16:32 16:32 21:06 WBC RBC Hgb 15.4 H Hct 46.0 H MCV 97 H MCH MCHC Plt Count [place] % (Auto) 12.4 H [place] # 1.1 H Seg Neutrophils % APTT Heparin Anti-Xa Level 0.10 L < 0.10 L POC ABG pH POC ABG pCO2 POC ABG pO2 Carbon Dioxide Glucose Hemoglobin A1c Calcium NT-Pro-B Natriuret Pep Albumin 02/13/18 02/14/18 02/14/18 21:15 01:49 03:05 WBC RBC Hgb 15.3 H Hct MCV 98 H 96 H MCH 33 H 33 H MCHC Plt Count 137 L [place] % (Auto) 11.5 H 11.4 H [place] # 1.0 H 1.1 H Seg Neutrophils % 73.4 H APTT Heparin Anti-Xa Level POC ABG pH 7.484 H POC ABG pCO2 24.7 L POC ABG pO2 70 L Carbon Dioxide Glucose Hemoglobin A1c Calcium NT-Pro-B Natriuret Pep Albumin 02/14/18 02/14/18 02/14/18 03:05 03:05 10:31 WBC RBC Hgb Hct MCV 97 H MCH 33 H MCHC Plt Count 124 L [place] % (Auto) 13.1 H [place] # 1.2 H Seg Neutrophils % 70.9 H APTT Heparin Anti-Xa Level < 0.10 L POC ABG pH POC ABG pCO2 POC ABG pO2 Carbon Dioxide 20 L Glucose 151 H Hemoglobin A1c Calcium NT-Pro-B Natriuret Pep Albumin 02/14/18 02/14/18 02/14/18 10:31 12:30 12:37 WBC RBC Hgb Hct MCV MCH MCHC Plt Count [place] % (Auto) [place] # Seg Neutrophils % APTT Heparin Anti-Xa Level < 0.10 L POC ABG pH 7.496 H 7.477 H POC ABG pCO2 24.2 L 26.9 L POC ABG pO2 65 L 57 L Carbon Dioxide Glucose Hemoglobin A1c Calcium NT-Pro-B Natriuret Pep Albumin 02/14/18 02/15/18 02/15/18 19:49 04:24 06:46 WBC RBC Hgb Hct MCV MCH MCHC Plt Count [place] % (Auto) [place] # Seg Neutrophils % APTT Heparin Anti-Xa Level < 0.10 L < 0.10 L POC ABG pH POC ABG pCO2 POC ABG pO2 Carbon Dioxide Glucose 147 H Hemoglobin A1c Calcium NT-Pro-B Natriuret Pep Albumin 02/15/18 10:04 WBC RBC Hgb Hct MCV 97 H MCH 33 H MCHC Plt Count 114 L [place] % (Auto) 12.2 H [place] # 1.0 H Seg Neutrophils % APTT Heparin Anti-Xa Level POC ABG pH POC ABG pCO2 POC ABG pO2 Carbon Dioxide Glucose Hemoglobin A1c Calcium NT-Pro-B Natriuret Pep Albumin
[2018-02-16 12:12] LABS: Basophils # (Auto) 0.1 K/mm3 (0.0-0.1); Basophils % (Auto) 0.6 % (0.0-1.8); Eosinophils % (Auto) 0.3 % (0.0-4.3); Hematocrit 44.9 % (35.5-45.6); Hemoglobin 15.3 gm/dl (11.8-15.2); Lymphocytes # (Auto) 1.7 K/mm3 (1.2-5.4); Lymphocytes % (Auto) 15.2 % (13.4-35.0); Mean Corpuscular HGB Conc 34 % (32-34); Mean Corpuscular Hemoglobin 33 pg (28-32); Mean Corpuscular Volume 96 fl (84-94); Monocytes # (Auto) 1.4 K/mm3 (0.0-0.8); Monocytes % (Auto) 12.8 % (0.0-7.3); Platelet Count 126 K/mm3 (140-440); Red Blood Count 4.69 M/mm3 (3.65-5.03)
[2018-02-16 12:28] LABS: INR 1.41 (0.87-1.13)
[2018-02-16 12:38] LABS: BUN/Creatinine Ratio 19; Blood Urea Nitrogen 15 mg/dL (9-20); Calcium 8.8 mg/dL (8.4-10.2); Hemolysis Index 4
--- NOTE | 2018-02-16 13:03 | Progress Note ---
Assessment and Plan Assessment and plan: --Bilateral PE; with heavy clot burden:s/p thrombolytic therapy/EKOS procedure on [facility], Hypercoagulable workup sent --Echocardiogram ; moderate right atrial lead and glandular enlargement, moderate right ventricular systolic dysfunction, Left ventricle ejection fraction 55% --Left lower extremity DVT; patient is on heparin drip. Supportive therapy --General anxiety; add low dose Xanax and supportive care --Acute hypoxic respiratory failure; due to PE, continue oxygen, nebulizers --Chest pain; due to bilateral PE; supportive care --Morbid obesity; BMI 55.9, counseling, weight reduction when medically stable --Possible obstructive sleep apnea/obesity hypoventilation syndrome May need CPAP /BiPAP at night, needs outpatient sleep study upon discharge --Ongoing tobacco use; smoking cessation counseling done, advised nicotine patch as needed --DVT prophylaxis; patient is already on [facility] DC planning. Case management Evaluation for home oxygen if applicable Plan of care reviewed with the patient and his nurse History Interval history: Patient Seen and examined medical records reviewed Complaints of shortness of breath, very anxious Denies chest pain, vital signs reviewed On [facility] Hospitalist Physical - Constitutional Vitals: Temp Pulse Resp BP Pulse Ox 98.2 F 94 H 20 121/55 93 02/16/18 08:00 02/16/18 08:00 02/16/18 08:00 02/16/18 08:00 02/16/18 08:48 General appearance: Present: no acute distress, well-nourished, obese (morbidly obese), other (anxious) - EENT Eyes: Present: PERRL, EOM intact - Neck Neck: Present: supple, normal ROM - Respiratory Respiratory effort: labored Respiratory: bilateral: diminished, rhonchi, negative: rales, wheezing - Cardiovascular Rhythm: regular Heart Sounds: Present: S1 & S2 - Extremities Extremities: no ischemia Extremity abnormal: edema - Abdominal General gastrointestinal: soft, non-tender, non-distended, normal bowel sounds - Integumentary Integumentary: Present: clear, warm - Psychiatric Psychiatric: appropriate mood/affect, cooperative, other (anxious at times) - Neurologic Neurologic: moves all extremities Results - Labs CBC & Chem 7: 02/16/18 10:27 02/16/18 10:27 Labs: Laboratory Last Values WBC 11.1 K/mm3 (4.5-11.0) H 02/16/18 10:27 RBC 4.69 M/mm3 (3.65-5.03) 02/16/18 10:27 Hgb 15.3 gm/dl (11.8-15.2) H 02/16/18 10:27 Hct 44.9 % (35.5-45.6) 02/16/18 10:27 MCV 96 fl (84-94) H 02/16/18 10:27 MCH 33 pg (28-32) H 02/16/18 10:27 MCHC 34 % (32-34) 02/16/18 10:27 RDW 14.0 % (13.2-15.2) 02/16/18 10:27 Plt Count 126 K/mm3 (140-440) L 02/16/18 10:27 Lymph % (Auto) 15.2 % (13.4-35.0) 02/16/18 10:27 [place] % (Auto) 12.8 % (0.0-7.3) H 02/16/18 10:27 Eos % (Auto) 0.3 % (0.0-4.3) 02/16/18 10:27 Baso % (Auto) 0.6 % (0.0-1.8) 02/16/18 10:27 Lymph # 1.7 K/mm3 (1.2-5.4) 02/16/18 10:27 [place] # 1.4 K/mm3 (0.0-0.8) H 02/16/18 10:27 Eos # 0.0 K/mm3 (0.0-0.4) 02/16/18 10:27 Baso # 0.1 K/mm3 (0.0-0.1) 02/16/18 10:27 Add Manual Diff Complete 02/15/18 10:04 Seg Neutrophils % 71.1 % (40.0-70.0) H 02/16/18 10:27 Seg Neutrophils # 7.9 K/mm3 (1.8-7.7) H 02/16/18 10:27 PT 18.1 Sec. (12.2-14.9) H 02/16/18 10:27 INR 1.41 (0.87-1.13) H 02/16/18 10:27 APTT 45.6 Sec. (24.2-36.6) H 02/13/18 16:32 Fibrinogen 348 mg/dl (211-480) 02/14/18 10:31 Heparin Anti-Xa Level < 0.10 U.I./ml (0.3-0.7) L 02/15/18 06:46 POC ABG pH 7.477 (7.35-7.45) H 02/14/18 12:37 POC ABG pCO2 26.9 (35-45) L 02/14/18 12:37 POC ABG pO2 57 (80-105) L 02/14/18 12:37 POC ABG HCO3 19.9 02/14/18 12:37 POC ABG Total CO2 21 02/14/18 12:37 POC ABG O2 Sat 92 02/14/18 12:37 POC ABG Base Excess -4 02/14/18 12:37 FiO2 21 % 02/14/18 12:37 Sodium 143 mmol/L (137-145) 02/16/18 10:27 Potassium 4.2 mmol/L (3.6-5.0) 02/16/18 10:27 Chloride 106.1 mmol/L (98-107) 02/16/18 10:27 Carbon Dioxide 23 mmol/L (22-30) 02/16/18 10:27 Anion Gap 18 mmol/L 02/16/18 10:27 BUN 15 mg/dL (9-20) 02/16/18 10:27 Creatinine 0.8 mg/dL (0.8-1.5) 02/16/18 10:27 Estimated GFR > 60 ml/min 02/16/18 10:27 BUN/Creatinine Ratio 19 % 02/16/18 10:27 Glucose 89 mg/dL (75-100) 02/16/18 10:27 Hemoglobin A1c 6.1 % (4-6) H 02/13/18 01:25 Calcium 8.8 mg/dL (8.4-10.2) 02/16/18 10:27 Magnesium 2.20 mg/dL (1.7-2.3) 02/12/18 09:55 Total Bilirubin 0.80 mg/dL (0.1-1.2) 02/14/18 03:05 AST 10 units/L (5-40) 02/14/18 03:05 ALT 27 units/L (7-56) 02/14/18 03:05 Alkaline Phosphatase 56 units/L (35-129) 02/14/18 03:05 Troponin T 0.021 ng/mL (0.00-0.029) 02/12/18 09:55 NT-Pro-B Natriuret Pep 3956 pg/mL (0-450) H 02/12/18 09:55 Total Protein 6.5 g/dL (6.3-8.2) 02/14/18 03:05 Albumin 3.9 g/dL (3.9-5) 02/14/18 03:05 Albumin/Globulin Ratio 1.5 % 02/14/18 03:05 Blood Type AB POSITIVE 02/13/18 14:07 Antibody Screen Negative 02/13/18 14:07
[2018-02-16] MEDS: TESSALON PERLES PO PRN ×2 (13:05→20:09)
[2018-02-16] MEDS: NORCO 5/325 PO PRN (20:10)
[2018-02-16] MEDS: AMBIEN PO PRN (21:33)
[2018-02-17] MEDS: TESSALON PERLES PO PRN ×2 (04:45→21:34)
[2018-02-17] MEDS: NORCO 5/325 PO PRN ×2 (04:45→21:33)
[2018-02-17 07:30] LABS: INR 1.54 (0.87-1.13)
[2018-02-17] MEDS: PROTONIX PO SCH ×2 (09:56→21:35)
[2018-02-17] MEDS: ELIQUIS PO SCH ×2 (09:56→21:36)
[2018-02-17] MEDS: SODIUM CHLORIDE FLUSH SYRINGE 10 ML IV SCH ×2 (10:05→21:35)
--- NOTE | 2018-02-17 11:23 | XRay Report ---
FINAL REPORT EXAM: XR CHEST ROUTINE 2V HISTORY: Pulmonary embolism. TECHNIQUE: Frontal and lateral chest radiographs. PRIORS: None. FINDINGS: Mild cardiomegaly is noted. There is complete consolidation of the right middle lobe. No pleural effusion. No pneumothorax. No acute osseous abnormality. IMPRESSION: 1. Right middle lobe pneumonia. 2. Mild cardiomegaly.
--- NOTE | 2018-02-17 15:07 | Progress Note ---
Assessment and Plan Assessment and plan: --Right-sided pneumonia; empiric antibiotics with Levaquin Supportive care, follow cultures --Acute hypoxic respiratory failure; due to PE, continue oxygen, nebulizers Continue to titrate oxygen to O2 sats more than 90%, evaluation for home oxygen --Bilateral PE; with heavy clot burden:s/p thrombolytic therapy/EKOS procedure on Eliquis, Hypercoagulable workup sent --Echocardiogram ; moderate right atrial lead and glandular enlargement, moderate right ventricular systolic dysfunction, Left ventricle ejection fraction 55% --Left lower extremity DVT; patient is on heparin drip. Supportive therapy --General anxiety; add low dose Xanax and supportive care --Chest pain; due to bilateral PE; salt --Morbid obesity; BMI 55.9, counseling, weight reduction when medically stable --Possible obstructive sleep apnea/obesity hypoventilation syndrome May need CPAP /BiPAP at night, needs outpatient sleep study upon discharge --Ongoing tobacco use; smoking cessation counseling done, advised nicotine patch as needed --DVT prophylaxis; patient is already on Eliquis DC planning. Case management Evaluation for home oxygen if applicable Plan of care reviewed with the patient and his nurse History Interval history: Patient seen and examined medical records reviewed Patient complains of shortness of breath, on 50% O2 Ventimask saturating 93% Underwent chest x-ray today which revealed pneumonia Patient feels slightly better Alert awake oriented 3, anxious Vital signs reviewed Hospitalist Physical - Constitutional Vitals: Temp Pulse Resp BP Pulse Ox 97.7 F 78 22 105/57 91 02/17/18 13:35 02/17/18 13:35 02/17/18 13:35 02/17/18 13:35 02/17/18 13:35 General appearance: Present: no acute distress, well-nourished, obese (morbidly obese), other (anxious) - EENT Eyes: Present: PERRL, EOM intact - Neck Neck: Present: supple, normal ROM - Respiratory Respiratory effort: labored Respiratory: bilateral: diminished, rhonchi, negative: rales, wheezing - Cardiovascular Rhythm: regular Heart Sounds: Present: S1 & S2 - Extremities Extremities: no ischemia Extremity abnormal: edema - Abdominal General gastrointestinal: soft, non-tender, non-distended, normal bowel sounds - Integumentary Integumentary: Present: clear, warm - Psychiatric Psychiatric: appropriate mood/affect, cooperative - Neurologic Neurologic: CNII-XII intact, moves all extremities Results - Labs CBC & Chem 7: 02/16/18 10:27 02/16/18 10:27 Labs: Laboratory Last Values WBC 11.1 K/mm3 (4.5-11.0) H 02/16/18 10:27 RBC 4.69 M/mm3 (3.65-5.03) 02/16/18 10:27 Hgb 15.3 gm/dl (11.8-15.2) H 02/16/18 10:27 Hct 44.9 % (35.5-45.6) 02/16/18 10:27 MCV 96 fl (84-94) H 02/16/18 10:27 MCH 33 pg (28-32) H 02/16/18 10:27 MCHC 34 % (32-34) 02/16/18 10:27 RDW 14.0 % (13.2-15.2) 02/16/18 10:27 Plt Count 126 K/mm3 (140-440) L 02/16/18 10:27 Lymph % (Auto) 15.2 % (13.4-35.0) 02/16/18 10:27 [place] % (Auto) 12.8 % (0.0-7.3) H 02/16/18 10:27 Eos % (Auto) 0.3 % (0.0-4.3) 02/16/18 10:27 Baso % (Auto) 0.6 % (0.0-1.8) 02/16/18 10:27 Lymph # 1.7 K/mm3 (1.2-5.4) 02/16/18 10:27 [place] # 1.4 K/mm3 (0.0-0.8) H 02/16/18 10:27 Eos # 0.0 K/mm3 (0.0-0.4) 02/16/18 10:27 Baso # 0.1 K/mm3 (0.0-0.1) 02/16/18 10:27 Add Manual Diff Complete 02/15/18 10:04 Seg Neutrophils % 71.1 % (40.0-70.0) H 02/16/18 10:27 Seg Neutrophils # 7.9 K/mm3 (1.8-7.7) H 02/16/18 10:27 PT 19.4 Sec. (12.2-14.9) H 02/17/18 07:05 INR 1.54 (0.87-1.13) H 02/17/18 07:05 APTT 45.6 Sec. (24.2-36.6) H 02/13/18 16:32 Fibrinogen 348 mg/dl (211-480) 02/14/18 10:31 Heparin Anti-Xa Level < 0.10 U.I./ml (0.3-0.7) L 02/15/18 06:46 POC ABG pH 7.477 (7.35-7.45) H 02/14/18 12:37 POC ABG pCO2 26.9 (35-45) L 02/14/18 12:37 POC ABG pO2 57 (80-105) L 02/14/18 12:37 POC ABG HCO3 19.9 02/14/18 12:37 POC ABG Total CO2 21 02/14/18 12:37 POC ABG O2 Sat 92 02/14/18 12:37 POC ABG Base Excess -4 02/14/18 12:37 FiO2 21 % 02/14/18 12:37 Sodium 143 mmol/L (137-145) 02/16/18 10:27 Potassium 4.2 mmol/L (3.6-5.0) 02/16/18 10:27 Chloride 106.1 mmol/L (98-107) 02/16/18 10:27 Carbon Dioxide 23 mmol/L (22-30) 02/16/18 10:27 Anion Gap 18 mmol/L 02/16/18 10:27 BUN 15 mg/dL (9-20) 02/16/18 10:27 Creatinine 0.8 mg/dL (0.8-1.5) 02/16/18 10:27 Estimated GFR > 60 ml/min 02/16/18 10:27 BUN/Creatinine Ratio 19 % 02/16/18 10:27 Glucose 89 mg/dL (75-100) 02/16/18 10:27 Hemoglobin A1c 6.1 % (4-6) H 02/13/18 01:25 Calcium 8.8 mg/dL (8.4-10.2) 02/16/18 10:27 Magnesium 2.20 mg/dL (1.7-2.3) 02/12/18 09:55 Total Bilirubin 0.80 mg/dL (0.1-1.2) 02/14/18 03:05 AST 10 units/L (5-40) 02/14/18 03:05 ALT 27 units/L (7-56) 02/14/18 03:05 Alkaline Phosphatase 56 units/L (35-129) 02/14/18 03:05 Troponin T 0.021 ng/mL (0.00-0.029) 02/12/18 09:55 NT-Pro-B Natriuret Pep 3956 pg/mL (0-450) H 02/12/18 09:55 Total Protein 6.5 g/dL (6.3-8.2) 02/14/18 03:05 Albumin 3.9 g/dL (3.9-5) 02/14/18 03:05 Albumin/Globulin Ratio 1.5 % 02/14/18 03:05 Blood Type AB POSITIVE 02/13/18 14:07 Antibody Screen Negative 02/13/18 14:07
[2018-02-17] MEDS: LEVAQUIN 750MG/150ML 750 MG/150 ML BAG IV SCH (16:57)
--- NOTE | 2018-02-17 20:54 | Progress Note ---
Assessment and Plan Patient awake at this time. Patient is on venturi mask, FIO2 50%. O2 saturation 98%.No acute respiratory distress.Still complaining leg pains. - Patient Problems (1) Acute pulmonary embolism Current Visit: Yes Status: Acute Qualifiers: Acute cor pulmonale presence: with acute cor pulmonale Plan to address problem: Patient is on Apixaban (2) Morbid obesity with BMI of 50.0-59.9, adult Current Visit: Yes Status: Acute Plan to address problem: Recommend to loose weight. (3) Sleep apnea Current Visit: Yes Status: Chronic Qualifiers: Sleep apnea type: unspecified type Qualified Code(s): G47.30 - Sleep apnea , unspecified Plan to address problem: Recommend CPAP as he is using at home. Patient does not want to use it even after explaining to him importance of using it. (4) Pneumonia involving right lung Current Visit: Yes Status: Acute Plan to address problem: Chest xray reported right middle lobe pneumonia. Patient is on I/V Levaquin. Subjective Date of service: 02/17/18 Principal diagnosis: Submassive PE Interval history: Patient awake at this time. Patient is on venturi mask, FIO2 50%. O2 saturation 98%.No acute respiratory distress.Still complaining leg pains. Objective Vital Signs - 12hr 02/17/18 02/17/18 02/17/18 10:00 13:35 17:54 Temperature 97.7 F 98.1 F Pulse Rate 75 78 81 Pulse Rate [ 80 Apical] Pulse Rate [ 83 From Monitor] Respiratory 22 22 20 Rate Blood Pressure 105/57 113/65 [Right] O2 Sat by Pulse 93 91 98 Oximetry 02/17/18 20:21 Temperature Pulse Rate 81 Pulse Rate [ Apical] Pulse Rate [ From Monitor] Respiratory Rate Blood Pressure [Right] O2 Sat by Pulse Oximetry Constitutional: no acute distress, alert Eyes: non-icteric ENT: oropharynx moist Neck: supple, no lymphadenopathy Ascultation: Bilateral: diminished breath sounds Cardiovascular: regular rate and rhythm Gastrointestinal: normoactive bowel sounds Integumentary: normal Extremities: no cyanosis, no edema Neurologic: normal mental status, non-focal exam, pupils equal and round, CN II- XII normal Psychiatric: mood appropriate CBC and BMP: 02/16/18 10:27 02/16/18 10:27 ABG, PT/INR, D-dimer: ABG POC ABG pH 7.477 (7.35-7.45) H 02/14/18 12:37 POC ABG pCO2 26.9 (35-45) L 02/14/18 12:37 POC ABG pO2 57 (80-105) L 02/14/18 12:37 POC ABG HCO3 19.9 02/14/18 12:37 POC ABG Total CO2 21 02/14/18 12:37 POC ABG O2 Sat 92 02/14/18 12:37 PT/INR, D-dimer PT 19.4 Sec. (12.2-14.9) H 02/17/18 07:05 INR 1.54 (0.87-1.13) H 02/17/18 07:05 Abnormal lab findings: Abnormal Labs 02/12/18 02/12/18 02/12/18 09:55 09:55 09:55 WBC 11.8 H RBC 5.29 H Hgb 17.7 H Hct 49.7 H MCV MCH 33 H MCHC 36 H Plt Count [place] % (Auto) 13.3 H [place] # 1.6 H Seg Neutrophils % Seg Neutrophils # PT INR APTT 40.0 H Heparin Anti-Xa Level POC ABG pH POC ABG pCO2 POC ABG pO2 Carbon Dioxide 21 L Glucose 150 H Hemoglobin A1c Calcium 10.3 H NT-Pro-B Natriuret Pep 3956 H Albumin 02/12/18 02/12/18 02/12/18 12:35 12:35 19:12 WBC RBC Hgb 17.2 H Hct 50.5 H MCV MCH MCHC Plt Count [place] % (Auto) [place] # Seg Neutrophils % Seg Neutrophils # PT INR APTT 42.2 H Heparin Anti-Xa Level 0.10 L POC ABG pH POC ABG pCO2 POC ABG pO2 Carbon Dioxide Glucose Hemoglobin A1c Calcium NT-Pro-B Natriuret Pep Albumin 02/13/18 02/13/18 02/13/18 01:18 01:25 01:25 WBC RBC Hgb Hct MCV MCH MCHC Plt Count [place] % (Auto) [place] # Seg Neutrophils % Seg Neutrophils # PT INR APTT Heparin Anti-Xa Level 0.10 L POC ABG pH POC ABG pCO2 POC ABG pO2 Carbon Dioxide Glucose 131 H Hemoglobin A1c 6.1 H Calcium NT-Pro-B Natriuret Pep Albumin 02/13/18 02/13/18 02/13/18 06:55 16:32 16:32 WBC RBC Hgb Hct MCV MCH MCHC Plt Count [place] % (Auto) [place] # Seg Neutrophils % Seg Neutrophils # PT INR APTT 45.6 H Heparin Anti-Xa Level POC ABG pH POC ABG pCO2 POC ABG pO2 Carbon Dioxide 21 L 20 L Glucose 118 H Hemoglobin A1c Calcium NT-Pro-B Natriuret Pep Albumin 3.4 L 02/13/18 02/13/18 02/13/18 16:32 16:32 21:06 WBC RBC Hgb 15.4 H Hct 46.0 H MCV 97 H MCH MCHC Plt Count [place] % (Auto) 12.4 H [place] # 1.1 H Seg Neutrophils % Seg Neutrophils # PT INR APTT Heparin Anti-Xa Level 0.10 L < 0.10 L POC ABG pH POC ABG pCO2 POC ABG pO2 Carbon Dioxide Glucose Hemoglobin A1c Calcium NT-Pro-B Natriuret Pep Albumin 02/13/18 02/14/18 02/14/18 21:15 01:49 03:05 WBC RBC Hgb 15.3 H Hct MCV 98 H 96 H MCH 33 H 33 H MCHC Plt Count 137 L [place] % (Auto) 11.5 H 11.4 H [place] # 1.0 H 1.1 H Seg Neutrophils % 73.4 H Seg Neutrophils # PT INR APTT Heparin Anti-Xa Level POC ABG pH 7.484 H POC ABG pCO2 24.7 L POC ABG pO2 70 L Carbon Dioxide Glucose Hemoglobin A1c Calcium NT-Pro-B Natriuret Pep Albumin 02/14/18 02/14/18 02/14/18 03:05 03:05 10:31 WBC RBC Hgb Hct MCV 97 H MCH 33 H MCHC Plt Count 124 L [place] % (Auto) 13.1 H [place] # 1.2 H Seg Neutrophils % 70.9 H Seg Neutrophils # PT INR APTT Heparin Anti-Xa Level < 0.10 L POC ABG pH POC ABG pCO2 POC ABG pO2 Carbon Dioxide 20 L Glucose 151 H Hemoglobin A1c Calcium NT-Pro-B Natriuret Pep Albumin 02/14/18 02/14/18 02/14/18 10:31 12:30 12:37 WBC RBC Hgb Hct MCV MCH MCHC Plt Count [place] % (Auto) [place] # Seg Neutrophils % Seg Neutrophils # PT INR APTT Heparin Anti-Xa Level < 0.10 L POC ABG pH 7.496 H 7.477 H POC ABG pCO2 24.2 L 26.9 L POC ABG pO2 65 L 57 L Carbon Dioxide Glucose Hemoglobin A1c Calcium NT-Pro-B Natriuret Pep Albumin 02/14/18 02/15/18 02/15/18 19:49 04:24 06:46 WBC RBC Hgb Hct MCV MCH MCHC Plt Count [place] % (Auto) [place] # Seg Neutrophils % Seg Neutrophils # PT INR APTT Heparin Anti-Xa Level < 0.10 L < 0.10 L POC ABG pH POC ABG pCO2 POC ABG pO2 Carbon Dioxide Glucose 147 H Hemoglobin A1c Calcium NT-Pro-B Natriuret Pep Albumin 02/15/18 02/16/18 02/16/18 10:04 10:27 10:27 WBC 11.1 H RBC Hgb 15.3 H Hct MCV 97 H 96 H MCH 33 H 33 H MCHC Plt Count 114 L 126 L [place] % (Auto) 12.2 H 12.8 H [place] # 1.0 H 1.4 H Seg Neutrophils % 71.1 H Seg Neutrophils # 7.9 H PT 18.1 H INR 1.41 H APTT Heparin Anti-Xa Level POC ABG pH POC ABG pCO2 POC ABG pO2 Carbon Dioxide Glucose Hemoglobin A1c Calcium NT-Pro-B Natriuret Pep Albumin 02/17/18 07:05 WBC RBC Hgb Hct MCV MCH MCHC Plt Count [place] % (Auto) [place] # Seg Neutrophils % Seg Neutrophils # PT 19.4 H INR 1.54 H APTT Heparin Anti-Xa Level POC ABG pH POC ABG pCO2 POC ABG pO2 Carbon Dioxide Glucose Hemoglobin A1c Calcium NT-Pro-B Natriuret Pep Albumin Chest x-ray: report reviewed (Right middle lobe pneumonia and mild cardiomegaly. ), image reviewed
[2018-02-17] MEDS: AMBIEN PO PRN (21:38)
[2018-02-18] MEDS: NORCO 5/325 PO PRN ×2 (05:35→16:53)
[2018-02-18 06:49] LABS: INR 1.54 (0.87-1.13)
[2018-02-18 06:51] LABS: Basophils # (Auto) 0.1 K/mm3 (0.0-0.1); Basophils % (Auto) 0.8 % (0.0-1.8); Eosinophils # (Auto) 0.1 K/mm3 (0.0-0.4); Eosinophils % (Auto) 1.7 % (0.0-4.3); Hematocrit 42.7 % (35.5-45.6); Hemoglobin 14.4 gm/dl (11.8-15.2); Lymphocytes # (Auto) 1.9 K/mm3 (1.2-5.4); Lymphocytes % (Auto) 24.7 % (13.4-35.0); Mean Corpuscular HGB Conc 34 % (32-34); Mean Corpuscular Hemoglobin 33 pg (28-32); Mean Corpuscular Volume 97 fl (84-94); Monocytes # (Auto) 1.1 K/mm3 (0.0-0.8); Monocytes % (Auto) 14.5 % (0.0-7.3); Platelet Count 144 K/mm3 (140-440); Red Blood Count 4.41 M/mm3 (3.65-5.03); Red Cell Distribution Width 13.8 % (13.2-15.2)
[2018-02-18 06:59] LABS: BUN/Creatinine Ratio 21; Blood Urea Nitrogen 17 mg/dL (9-20); Calcium 8.5 mg/dL (8.4-10.2); Hemolysis Index 3
[2018-02-18] MEDS: LEVAQUIN 750MG/150ML 750 MG/150 ML BAG IV SCH (09:31)
[2018-02-18] MEDS: ELIQUIS PO SCH ×2 (09:31→22:45)
[2018-02-18] MEDS: PROTONIX PO SCH ×2 (09:32→22:44)
[2018-02-18] MEDS: SODIUM CHLORIDE FLUSH SYRINGE 10 ML IV SCH ×2 (09:32→22:46)
[2018-02-18] MEDS: MORPHINE IV PRN (09:33)
--- NOTE | 2018-02-18 10:00 | Progress Note ---
Assessment and Plan Assessment and plan: Morbidly obese 37-year-old male patient, massive bilateral PE,s/p EKOS pollicis Lower extremity DVT, received heparin drip, evaluated by vascular hematology pulmonary Now on Eliquis, hypoxic, tachypneic, on Ventimask FiO2 50% saturating 93-94% Possible discharge in 1-2 days if oxygen requirement improves, evaluation for home oxygen --Bilateral PE; with heavy clot burden:s/p thrombolytic therapy/EKOS procedure on Eliquis, Hypercoagulable workup sent --Right-sided pneumonia; community acquired, present on admission, probably not noted on chest x-ray due to massive PE On empiric antibiotics with Levaquin,Supportive care, follow cultures --Acute hypoxic respiratory failure; due to PE, continue oxygen, nebulizers Continue to titrate oxygen to O2 sats more than 90%, evaluation for home oxygen --Echocardiogram ; moderate right atrial lead and glandular enlargement, moderate right ventricular systolic dysfunction, Left ventricle ejection fraction 55% --Left lower extremity DVT; patient is on heparin drip. Supportive therapy --General anxiety; add low dose Xanax and supportive care --Chest pain; due to bilateral PE; salt --Morbid obesity; BMI 55.9, counseling, weight reduction when medically stable --Possible obstructive sleep apnea/obesity hypoventilation syndrome May need CPAP /BiPAP at night, needs outpatient sleep study upon discharge --Ongoing tobacco use; smoking cessation counseling done, advised nicotine patch as needed --DVT prophylaxis; patient is already on Eliquis Disposition; discharge on home oxygen when stable[1-2 days History Interval history: Patient seen and examined, medical records reviewed Physical sites are better today, still using Ventimask 50% FiO2 with O2 sats of 97% Denies any chest pain or palpitation Alert awake Oriented 3 Vital signs reviewed Hospitalist Physical - Constitutional Vitals: Temp Pulse Resp BP Pulse Ox 98.6 F 68 20 119/70 93 02/18/18 08:03 02/18/18 08:03 02/18/18 08:03 02/18/18 08:03 02/18/18 08:03 General appearance: Present: no acute distress, well-nourished, obese (morbidly obese), other (anxious) - EENT Eyes: Present: PERRL, EOM intact - Neck Neck: Present: supple, normal ROM - Respiratory Respiratory effort: normal Respiratory: bilateral: diminished, rhonchi, negative: rales, wheezing - Cardiovascular Rhythm: regular Heart Sounds: Present: S1 & S2 - Extremities Extremities: no ischemia Extremity abnormal: edema - Abdominal General gastrointestinal: soft, non-tender, non-distended, normal bowel sounds - Integumentary Integumentary: Present: clear, warm - Psychiatric Psychiatric: appropriate mood/affect, cooperative - Neurologic Neurologic: CNII-XII intact, moves all extremities Results - Labs CBC & Chem 7: 02/18/18 05:49 02/18/18 05:49 Labs: Laboratory Last Values WBC 7.9 K/mm3 (4.5-11.0) 02/18/18 05:49 RBC 4.41 M/mm3 (3.65-5.03) 02/18/18 05:49 Hgb 14.4 gm/dl (11.8-15.2) 02/18/18 05:49 Hct 42.7 % (35.5-45.6) 02/18/18 05:49 MCV 97 fl (84-94) H 02/18/18 05:49 MCH 33 pg (28-32) H 02/18/18 05:49 MCHC 34 % (32-34) 02/18/18 05:49 RDW 13.8 % (13.2-15.2) 02/18/18 05:49 Plt Count 144 K/mm3 (140-440) 02/18/18 05:49 Lymph % (Auto) 24.7 % (13.4-35.0) 02/18/18 05:49 [facility] % (Auto) 14.5 % (0.0-7.3) H 02/18/18 05:49 Eos % (Auto) 1.7 % (0.0-4.3) 02/18/18 05:49 Baso % (Auto) 0.8 % (0.0-1.8) 02/18/18 05:49 Lymph # 1.9 K/mm3 (1.2-5.4) 02/18/18 05:49 [facility] # 1.1 K/mm3 (0.0-0.8) H 02/18/18 05:49 Eos # 0.1 K/mm3 (0.0-0.4) 02/18/18 05:49 Baso # 0.1 K/mm3 (0.0-0.1) 02/18/18 05:49 Add Manual Diff Complete 02/15/18 10:04 Seg Neutrophils % 58.3 % (40.0-70.0) 02/18/18 05:49 Seg Neutrophils # 4.6 K/mm3 (1.8-7.7) 02/18/18 05:49 PT 19.4 Sec. (12.2-14.9) H 02/18/18 05:49 INR 1.54 (0.87-1.13) H 02/18/18 05:49 APTT 45.6 Sec. (24.2-36.6) H 02/13/18 16:32 Fibrinogen 348 mg/dl (211-480) 02/14/18 10:31 Heparin Anti-Xa Level < 0.10 U.I./ml (0.3-0.7) L 02/15/18 06:46 POC ABG pH 7.477 (7.35-7.45) H 02/14/18 12:37 POC ABG pCO2 26.9 (35-45) L 02/14/18 12:37 POC ABG pO2 57 (80-105) L 02/14/18 12:37 POC ABG HCO3 19.9 02/14/18 12:37 POC ABG Total CO2 21 02/14/18 12:37 POC ABG O2 Sat 92 02/14/18 12:37 POC ABG Base Excess -4 02/14/18 12:37 FiO2 21 % 02/14/18 12:37 Sodium 140 mmol/L (137-145) 02/18/18 05:49 Potassium 4.4 mmol/L (3.6-5.0) 02/18/18 05:49 Chloride 102.7 mmol/L (98-107) 02/18/18 05:49 Carbon Dioxide 25 mmol/L (22-30) 02/18/18 05:49 Anion Gap 17 mmol/L 02/18/18 05:49 BUN 17 mg/dL (9-20) 02/18/18 05:49 Creatinine 0.8 mg/dL (0.8-1.5) 02/18/18 05:49 Estimated GFR > 60 ml/min 02/18/18 05:49 BUN/Creatinine Ratio 21 % 02/18/18 05:49 Glucose 115 mg/dL (75-100) H 02/18/18 05:49 Hemoglobin A1c 6.1 % (4-6) H 02/13/18 01:25 Calcium 8.5 mg/dL (8.4-10.2) 02/18/18 05:49 Magnesium 2.20 mg/dL (1.7-2.3) 02/12/18 09:55 Total Bilirubin 0.80 mg/dL (0.1-1.2) 02/14/18 03:05 AST 10 units/L (5-40) 02/14/18 03:05 ALT 27 units/L (7-56) 02/14/18 03:05 Alkaline Phosphatase 56 units/L (35-129) 02/14/18 03:05 Troponin T 0.021 ng/mL (0.00-0.029) 02/12/18 09:55 NT-Pro-B Natriuret Pep 3956 pg/mL (0-450) H 02/12/18 09:55 Total Protein 6.5 g/dL (6.3-8.2) 02/14/18 03:05 Albumin 3.9 g/dL (3.9-5) 02/14/18 03:05 Albumin/Globulin Ratio 1.5 % 02/14/18 03:05 Blood Type AB POSITIVE 02/13/18 14:07 Antibody Screen Negative 02/13/18 14:07
--- NOTE | 2018-02-18 15:27 | Progress Note ---
Assessment and Plan Acute bilateral pulmonary emboli. Shortness of breath. Dyspnea on exertion. Morbid obesity. History of obstructive sleep apnea. Mild metabolic acidosis with a serum bicarbonate of 20 at admission - continue BIPAP qhs - continue suppelmental oxygen to keep sats > 90% - continue anticoagulation for P.E. - PT/OT as tolerated - continue GI prophylaxis - continue anti-hypertensives and adjust per attending - weight loss counseled - continue other care per atteding / other consultants .... re-evaluate in am & prn ...25' Subjective Date of service: 02/18/18 Principal diagnosis: Submassive PE Interval history: Patient is seen today for: Acute P.E. s/p EkOS catheter directed thrombolysis; Morbid besity; SILVER Seen and examined at bedside; 24 hour events reviewed; nursing and respiratory care staff consulted; no adverse overnight events reported to me; resting peacefully in bed; remains on anticoagulation and no gross bleeding Objective Vital Signs - 12hr 02/18/18 02/18/18 02/18/18 05:00 05:25 05:35 Temperature 97.4 F L Pulse Rate 76 76 Respiratory 24 20 Rate Blood Pressure 113/65 Blood Pressure 113/65 [Right] O2 Sat by Pulse 96 Oximetry 02/18/18 02/18/18 02/18/18 08:03 10:00 11:16 Temperature 98.6 F 97.9 F Pulse Rate 68 77 72 Respiratory 20 20 Rate Blood Pressure 119/70 110/70 Blood Pressure [Right] O2 Sat by Pulse 93 96 Oximetry Constitutional: no acute distress, alert Eyes: non-icteric ENT: oropharynx moist Neck: supple, no lymphadenopathy Ascultation: Bilateral: diminished breath sounds Cardiovascular: regular rate and rhythm Gastrointestinal: normoactive bowel sounds Integumentary: normal Extremities: no cyanosis, no edema Neurologic: normal mental status, non-focal exam, pupils equal and round, CN II- XII normal Psychiatric: mood appropriate CBC and BMP: 02/25/18 05:30 02/25/18 07:45 ABG, PT/INR, D-dimer: ABG POC ABG pH 7.477 (7.35-7.45) H 02/14/18 12:37 POC ABG pCO2 26.9 (35-45) L 02/14/18 12:37 POC ABG pO2 57 (80-105) L 02/14/18 12:37 POC ABG HCO3 19.9 02/14/18 12:37 POC ABG Total CO2 21 02/14/18 12:37 POC ABG O2 Sat 92 02/14/18 12:37 PT/INR, D-dimer PT 19.4 Sec. (12.2-14.9) H 02/18/18 05:49 INR 1.54 (0.87-1.13) H 02/18/18 05:49 Abnormal lab findings: Abnormal Labs 02/12/18 02/12/18 02/12/18 09:55 09:55 09:55 WBC 11.8 H RBC 5.29 H Hgb 17.7 H Hct 49.7 H MCV MCH 33 H MCHC 36 H Plt Count [place] % (Auto) 13.3 H [place] # 1.6 H Seg Neutrophils % Seg Neutrophils # PT INR APTT 40.0 H Heparin Anti-Xa Level POC ABG pH POC ABG pCO2 POC ABG pO2 Carbon Dioxide 21 L Glucose 150 H Hemoglobin A1c Calcium 10.3 H NT-Pro-B Natriuret Pep 3956 H Albumin 02/12/18 02/12/18 02/12/18 12:35 12:35 19:12 WBC RBC Hgb 17.2 H Hct 50.5 H MCV MCH MCHC Plt Count [place] % (Auto) [place] # Seg Neutrophils % Seg Neutrophils # PT INR APTT 42.2 H Heparin Anti-Xa Level 0.10 L POC ABG pH POC ABG pCO2 POC ABG pO2 Carbon Dioxide Glucose Hemoglobin A1c Calcium NT-Pro-B Natriuret Pep Albumin 02/13/18 02/13/18 02/13/18 01:18 01:25 01:25 WBC RBC Hgb Hct MCV MCH MCHC Plt Count [place] % (Auto) [place] # Seg Neutrophils % Seg Neutrophils # PT INR APTT Heparin Anti-Xa Level 0.10 L POC ABG pH POC ABG pCO2 POC ABG pO2 Carbon Dioxide Glucose 131 H Hemoglobin A1c 6.1 H Calcium NT-Pro-B Natriuret Pep Albumin 02/13/18 02/13/18 02/13/18 06:55 16:32 16:32 WBC RBC Hgb Hct MCV MCH MCHC Plt Count [place] % (Auto) [place] # Seg Neutrophils % Seg Neutrophils # PT INR APTT 45.6 H Heparin Anti-Xa Level POC ABG pH POC ABG pCO2 POC ABG pO2 Carbon Dioxide 21 L 20 L Glucose 118 H Hemoglobin A1c Calcium NT-Pro-B Natriuret Pep Albumin 3.4 L 02/13/18 02/13/18 02/13/18 16:32 16:32 21:06 WBC RBC Hgb 15.4 H Hct 46.0 H MCV 97 H MCH MCHC Plt Count [place] % (Auto) 12.4 H [place] # 1.1 H Seg Neutrophils % Seg Neutrophils # PT INR APTT Heparin Anti-Xa Level 0.10 L < 0.10 L POC ABG pH POC ABG pCO2 POC ABG pO2 Carbon Dioxide Glucose Hemoglobin A1c Calcium NT-Pro-B Natriuret Pep Albumin 02/13/18 02/14/18 02/14/18 21:15 01:49 03:05 WBC RBC Hgb 15.3 H Hct MCV 98 H 96 H MCH 33 H 33 H MCHC Plt Count 137 L [place] % (Auto) 11.5 H 11.4 H [place] # 1.0 H 1.1 H Seg Neutrophils % 73.4 H Seg Neutrophils # PT INR APTT Heparin Anti-Xa Level POC ABG pH 7.484 H POC ABG pCO2 24.7 L POC ABG pO2 70 L Carbon Dioxide Glucose Hemoglobin A1c Calcium NT-Pro-B Natriuret Pep Albumin 02/14/18 02/14/18 02/14/18 03:05 03:05 10:31 WBC RBC Hgb Hct MCV 97 H MCH 33 H MCHC Plt Count 124 L [place] % (Auto) 13.1 H [place] # 1.2 H Seg Neutrophils % 70.9 H Seg Neutrophils # PT INR APTT Heparin Anti-Xa Level < 0.10 L POC ABG pH POC ABG pCO2 POC ABG pO2 Carbon Dioxide 20 L Glucose 151 H Hemoglobin A1c Calcium NT-Pro-B Natriuret Pep Albumin 02/14/18 02/14/18 02/14/18 10:31 12:30 12:37 WBC RBC Hgb Hct MCV MCH MCHC Plt Count [place] % (Auto) [place] # Seg Neutrophils % Seg Neutrophils # PT INR APTT Heparin Anti-Xa Level < 0.10 L POC ABG pH 7.496 H 7.477 H POC ABG pCO2 24.2 L 26.9 L POC ABG pO2 65 L 57 L Carbon Dioxide Glucose Hemoglobin A1c Calcium NT-Pro-B Natriuret Pep Albumin 02/14/18 02/15/18 02/15/18 19:49 04:24 06:46 WBC RBC Hgb Hct MCV MCH MCHC Plt Count [place] % (Auto) [place] # Seg Neutrophils % Seg Neutrophils # PT INR APTT Heparin Anti-Xa Level < 0.10 L < 0.10 L POC ABG pH POC ABG pCO2 POC ABG pO2 Carbon Dioxide Glucose 147 H Hemoglobin A1c Calcium NT-Pro-B Natriuret Pep Albumin 02/15/18 02/16/18 02/16/18 10:04 10:27 10:27 WBC 11.1 H RBC Hgb 15.3 H Hct MCV 97 H 96 H MCH 33 H 33 H MCHC Plt Count 114 L 126 L [place] % (Auto) 12.2 H 12.8 H [place] # 1.0 H 1.4 H Seg Neutrophils % 71.1 H Seg Neutrophils # 7.9 H PT 18.1 H INR 1.41 H APTT Heparin Anti-Xa Level POC ABG pH POC ABG pCO2 POC ABG pO2 Carbon Dioxide Glucose Hemoglobin A1c Calcium NT-Pro-B Natriuret Pep Albumin 02/17/18 02/18/18 02/18/18 07:05 05:49 05:49 WBC RBC Hgb Hct MCV 97 H MCH 33 H MCHC Plt Count [place] % (Auto) 14.5 H [place] # 1.1 H Seg Neutrophils % Seg Neutrophils # PT 19.4 H 19.4 H INR 1.54 H 1.54 H APTT Heparin Anti-Xa Level POC ABG pH POC ABG pCO2 POC ABG pO2 Carbon Dioxide Glucose Hemoglobin A1c Calcium NT-Pro-B Natriuret Pep Albumin 02/18/18 05:49 WBC RBC Hgb Hct MCV MCH MCHC Plt Count [place] % (Auto) [place] # Seg Neutrophils % Seg Neutrophils # PT INR APTT Heparin Anti-Xa Level POC ABG pH POC ABG pCO2 POC ABG pO2 Carbon Dioxide Glucose 115 H Hemoglobin A1c Calcium NT-Pro-B Natriuret Pep Albumin
[2018-02-18] MEDS: TESSALON PERLES PO PRN (22:44)
[2018-02-18] MEDS: AMBIEN PO PRN (22:49)
[2018-02-19] MEDS: NORCO 5/325 PO PRN (01:28)
[2018-02-19] MEDS: PERCOCET 5/325 PO PRN ×3 (05:16→18:44)
[2018-02-19] MEDS: LEVAQUIN 750MG/150ML 750 MG/150 ML BAG IV SCH (10:14)
[2018-02-19] MEDS: ELIQUIS PO SCH ×2 (10:15→21:19)
[2018-02-19] MEDS: SODIUM CHLORIDE FLUSH SYRINGE 10 ML IV SCH ×2 (10:15→21:22)
[2018-02-19] MEDS: PROTONIX PO SCH ×2 (10:15→21:19)
--- NOTE | 2018-02-19 10:59 | Progress Note ---
Assessment and Plan Assessment and plan: Morbidly obese 37-year-old male patient, massive bilateral PE,s/p EKOS pollicis Lower extremity DVT, received heparin drip, evaluated by vascular hematology pulmonary Now on Eliquis, hypoxic, tachypneic, on Ventimask FiO2 50% saturating 93-94% --Bilateral PE; with heavy clot burden:s/p thrombolytic therapy/EKOS procedure on Eliquis, Hypercoagulable workup sent For possible repeat procedure in 1-2 days since he is still short of breath, hypoxic --Right-sided pneumonia; community acquired, present on admission, probably not noted on chest x-ray due to massive PE On empiric antibiotics with Levaquin,Supportive care, follow cultures --Acute hypoxic respiratory failure; due to PE, continue oxygen, nebulizers Continue to titrate oxygen to O2 sats more than 90%, evaluation for home oxygen --Echocardiogram ; moderate right atrial lead and glandular enlargement, moderate right ventricular systolic dysfunction, Left ventricle ejection fraction 55% --Left lower extremity DVT; patient is on heparin drip. Supportive therapy --General anxiety; add low dose Xanax and supportive care --Chest pain; due to bilateral PE; --Morbid obesity; BMI 61.5 counseling, weight reduction when medically stable --Possible obstructive sleep apnea/obesity hypoventilation syndrome May need CPAP /BiPAP at night, needs outpatient sleep study upon discharge --Ongoing tobacco use; smoking cessation counseling done, advised nicotine patch as needed --DVT prophylaxis; patient is already on Eliquis History Interval history: Still shortness of breath gen weakness Hospitalist Physical - Physical exam Narrative exam: Constitutional; Not in acute distress, morbidly obese HEENT: Atraumatic, normocephalic Neck: supple, no lymphadenopathy, JVD Lungs: Clear to auscultation, bilaterally, no wheeze CVS; S1-S2 regular, no murmurs, rubs or gallop, Abdomen; soft, non-tender, non distended,bowel sounds are normal, Musculoskeletal; No edema, no clubbing, no cyanosis, [employer]: awake, alert,oriented x3, no focal neurological signs - Constitutional Vitals: Temp Pulse Resp BP Pulse Ox 98.4 F 68 18 106/69 96 02/19/18 08:13 02/19/18 08:13 02/19/18 10:24 02/19/18 08:13 02/19/18 10:30 General appearance: Present: no acute distress, well-nourished, obese (morbidly obese), other (anxious) Results - Labs CBC & Chem 7: 02/20/18 06:28 02/18/18 05:49 Labs: Laboratory Last Values WBC 7.9 K/mm3 (4.5-11.0) 02/18/18 05:49 RBC 4.41 M/mm3 (3.65-5.03) 02/18/18 05:49 Hgb 14.4 gm/dl (11.8-15.2) 02/18/18 05:49 Hct 42.7 % (35.5-45.6) 02/18/18 05:49 MCV 97 fl (84-94) H 02/18/18 05:49 MCH 33 pg (28-32) H 02/18/18 05:49 MCHC 34 % (32-34) 02/18/18 05:49 RDW 13.8 % (13.2-15.2) 02/18/18 05:49 Plt Count 144 K/mm3 (140-440) 02/18/18 05:49 Lymph % (Auto) 24.7 % (13.4-35.0) 02/18/18 05:49 [place] % (Auto) 14.5 % (0.0-7.3) H 02/18/18 05:49 Eos % (Auto) 1.7 % (0.0-4.3) 02/18/18 05:49 Baso % (Auto) 0.8 % (0.0-1.8) 02/18/18 05:49 Lymph # 1.9 K/mm3 (1.2-5.4) 02/18/18 05:49 [place] # 1.1 K/mm3 (0.0-0.8) H 02/18/18 05:49 Eos # 0.1 K/mm3 (0.0-0.4) 02/18/18 05:49 Baso # 0.1 K/mm3 (0.0-0.1) 02/18/18 05:49 Add Manual Diff Complete 02/15/18 10:04 Seg Neutrophils % 58.3 % (40.0-70.0) 02/18/18 05:49 Seg Neutrophils # 4.6 K/mm3 (1.8-7.7) 02/18/18 05:49 PT 19.4 Sec. (12.2-14.9) H 02/18/18 05:49 INR 1.54 (0.87-1.13) H 02/18/18 05:49 APTT 45.6 Sec. (24.2-36.6) H 02/13/18 16:32 Fibrinogen 348 mg/dl (211-480) 02/14/18 10:31 Heparin Anti-Xa Level < 0.10 U.I./ml (0.3-0.7) L 02/15/18 06:46 POC ABG pH 7.477 (7.35-7.45) H 02/14/18 12:37 POC ABG pCO2 26.9 (35-45) L 02/14/18 12:37 POC ABG pO2 57 (80-105) L 02/14/18 12:37 POC ABG HCO3 19.9 02/14/18 12:37 POC ABG Total CO2 21 02/14/18 12:37 POC ABG O2 Sat 92 02/14/18 12:37 POC ABG Base Excess -4 02/14/18 12:37 FiO2 21 % 02/14/18 12:37 Sodium 140 mmol/L (137-145) 02/18/18 05:49 Potassium 4.4 mmol/L (3.6-5.0) 02/18/18 05:49 Chloride 102.7 mmol/L (98-107) 02/18/18 05:49 Carbon Dioxide 25 mmol/L (22-30) 02/18/18 05:49 Anion Gap 17 mmol/L 02/18/18 05:49 BUN 17 mg/dL (9-20) 02/18/18 05:49 Creatinine 0.8 mg/dL (0.8-1.5) 02/18/18 05:49 Estimated GFR > 60 ml/min 02/18/18 05:49 BUN/Creatinine Ratio 21 % 02/18/18 05:49 Glucose 115 mg/dL (75-100) H 02/18/18 05:49 Hemoglobin A1c 6.1 % (4-6) H 02/13/18 01:25 Calcium 8.5 mg/dL (8.4-10.2) 02/18/18 05:49 Magnesium 2.20 mg/dL (1.7-2.3) 02/12/18 09:55 Total Bilirubin 0.80 mg/dL (0.1-1.2) 02/14/18 03:05 AST 10 units/L (5-40) 02/14/18 03:05 ALT 27 units/L (7-56) 02/14/18 03:05 Alkaline Phosphatase 56 units/L (35-129) 02/14/18 03:05 Troponin T 0.021 ng/mL (0.00-0.029) 02/12/18 09:55 NT-Pro-B Natriuret Pep 3956 pg/mL (0-450) H 02/12/18 09:55 Total Protein 6.5 g/dL (6.3-8.2) 02/14/18 03:05 Albumin 3.9 g/dL (3.9-5) 02/14/18 03:05 Albumin/Globulin Ratio 1.5 % 02/14/18 03:05 Blood Type AB POSITIVE 02/13/18 14:07 Antibody Screen Negative 02/13/18 14:07
[2018-02-19] MEDS ORDERED: MIRALAX 3350 PO PRN (18:16)
--- NOTE | 2018-02-19 18:48 | Progress Note ---
Assessment and Plan Acute bilateral pulmonary emboli s/p EKOS Shortness of breath. Dyspnea on exertion. Morbid obesity. History of obstructive sleep apnea. Mild metabolic acidosis with a serum bicarbonate of 20 at admission - continue BIPAP qhs - continue suppelmental oxygen to keep sats > 90% - continue anticoagulation - PT/OT as tolerated - continue GI prophylaxis - continue anti-hypertensives and adjust per attending - weight loss and lifestyle modifications counseled Subjective Date of service: 02/19/18 Principal diagnosis: Submassive PE Interval history: Patient is seen today for: Acute P.E. s/p EkOS catheter directed thrombolysis; Morbid obesity; SILVER Seen and examined at bedside; 24 hour events reviewed; nursing and respiratory care staff consulted; no adverse overnight events reported to me; resting peacefully in bed; Objective Vital Signs - 12hr 02/19/18 02/19/18 02/19/18 08:13 09:58 10:00 Temperature 98.4 F Pulse Rate 68 62 Respiratory 20 Rate Respiratory 18 Rate [Right Groin] Blood Pressure 106/69 O2 Sat by Pulse 96 97 Oximetry 02/19/18 02/19/18 02/19/18 10:24 10:30 11:24 Temperature Pulse Rate Respiratory 18 18 Rate Respiratory Rate [Right Groin] Blood Pressure O2 Sat by Pulse 96 Oximetry 02/19/18 02/19/18 12:10 17:00 Temperature 98.0 F 97.9 F Pulse Rate 74 85 Respiratory 20 20 Rate Respiratory Rate [Right Groin] Blood Pressure 112/78 130/70 O2 Sat by Pulse 99 98 Oximetry Constitutional: no acute distress, alert Eyes: non-icteric ENT: oropharynx moist Neck: supple, no lymphadenopathy, no JVD Effort: normal Ascultation: Bilateral: diminished breath sounds Cardiovascular: regular rate and rhythm, other (S1,S2 no murmurs, gallops or rubs) Gastrointestinal: normoactive bowel sounds, non-tender, non-distended Integumentary: normal Extremities: no cyanosis, no edema, pink and warm, pulses normal, no ischemia or petechiae Neurologic: normal mental status, non-focal exam, pupils equal and round, CN II- XII normal Psychiatric: mood appropriate, affect normal CBC and BMP: 02/18/18 05:49 02/18/18 05:49 ABG, PT/INR, D-dimer: ABG POC ABG pH 7.477 (7.35-7.45) H 02/14/18 12:37 POC ABG pCO2 26.9 (35-45) L 02/14/18 12:37 POC ABG pO2 57 (80-105) L 02/14/18 12:37 POC ABG HCO3 19.9 02/14/18 12:37 POC ABG Total CO2 21 02/14/18 12:37 POC ABG O2 Sat 92 02/14/18 12:37 PT/INR, D-dimer PT 19.4 Sec. (12.2-14.9) H 02/18/18 05:49 INR 1.54 (0.87-1.13) H 02/18/18 05:49 Abnormal lab findings: Abnormal Labs 02/12/18 02/12/18 02/12/18 09:55 09:55 09:55 WBC 11.8 H RBC 5.29 H Hgb 17.7 H Hct 49.7 H MCV MCH 33 H MCHC 36 H Plt Count [place] % (Auto) 13.3 H [place] # 1.6 H Seg Neutrophils % Seg Neutrophils # PT INR APTT 40.0 H Heparin Anti-Xa Level POC ABG pH POC ABG pCO2 POC ABG pO2 Carbon Dioxide 21 L Glucose 150 H Hemoglobin A1c Calcium 10.3 H NT-Pro-B Natriuret Pep 3956 H Albumin 02/12/18 02/12/18 02/12/18 12:35 12:35 19:12 WBC RBC Hgb 17.2 H Hct 50.5 H MCV MCH MCHC Plt Count [place] % (Auto) [place] # Seg Neutrophils % Seg Neutrophils # PT INR APTT 42.2 H Heparin Anti-Xa Level 0.10 L POC ABG pH POC ABG pCO2 POC ABG pO2 Carbon Dioxide Glucose Hemoglobin A1c Calcium NT-Pro-B Natriuret Pep Albumin 02/13/18 02/13/18 02/13/18 01:18 01:25 01:25 WBC RBC Hgb Hct MCV MCH MCHC Plt Count [place] % (Auto) [place] # Seg Neutrophils % Seg Neutrophils # PT INR APTT Heparin Anti-Xa Level 0.10 L POC ABG pH POC ABG pCO2 POC ABG pO2 Carbon Dioxide Glucose 131 H Hemoglobin A1c 6.1 H Calcium NT-Pro-B Natriuret Pep Albumin 02/13/18 02/13/1802/13/18 06:55 16:32 16:32 WBC RBC Hgb Hct MCV MCH MCHC Plt Count [place] % (Auto) [place] # Seg Neutrophils % Seg Neutrophils # PT INR APTT 45.6 H Heparin Anti-Xa Level POC ABG pH POC ABG pCO2 POC ABG pO2 Carbon Dioxide 21 L 20 L Glucose 118 H Hemoglobin A1c Calcium NT-Pro-B Natriuret Pep Albumin 3.4 L 02/13/18 02/13/18 02/13/18 16:32 16:32 21:06 WBC RBC Hgb 15.4 H Hct 46.0 H MCV 97 H MCH MCHC Plt Count [place] % (Auto) 12.4 H [place] # 1.1 H Seg Neutrophils % Seg Neutrophils # PT INR APTT Heparin Anti-Xa Level 0.10 L < 0.10 L POC ABG pH POC ABG pCO2 POC ABG pO2 Carbon Dioxide Glucose Hemoglobin A1c Calcium NT-Pro-B Natriuret Pep Albumin 02/13/18 02/14/18 02/14/18 21:15 01:49 03:05 WBC RBC Hgb 15.3 H Hct MCV 98 H 96 H MCH 33 H 33 H MCHC Plt Count 137 L [place] % (Auto) 11.5 H 11.4 H [place] # 1.0 H 1.1 H Seg Neutrophils % 73.4 H Seg Neutrophils # PT INR APTT Heparin Anti-Xa Level POC ABG pH 7.484 H POC ABG pCO2 24.7 L POC ABG pO2 70 L Carbon Dioxide Glucose Hemoglobin A1c Calcium NT-Pro-B Natriuret Pep Albumin 02/14/18 02/14/18 02/14/18 03:05 03:05 10:31 WBC RBC Hgb Hct MCV 97 H MCH 33 H MCHC Plt Count 124 L [place] % (Auto) 13.1 H [place] # 1.2 H Seg Neutrophils % 70.9 H Seg Neutrophils # PT INR APTT Heparin Anti-Xa Level < 0.10 L POC ABG pH POC ABG pCO2 POC ABG pO2 Carbon Dioxide 20 L Glucose 151 H Hemoglobin A1c Calcium NT-Pro-B Natriuret Pep Albumin 02/14/18 02/14/18 02/14/18 10:31 12:30 12:37 WBC RBC Hgb Hct MCV MCH MCHC Plt Count [place] % (Auto) [place] # Seg Neutrophils % Seg Neutrophils # PT INR APTT Heparin Anti-Xa Level < 0.10 L POC ABG pH 7.496 H 7.477 H POC ABG pCO2 24.2 L 26.9 L POC ABG pO2 65 L 57 L Carbon Dioxide Glucose Hemoglobin A1c Calcium NT-Pro-B Natriuret Pep Albumin 02/14/18 02/15/18 02/15/18 19:49 04:24 06:46 WBC RBC Hgb Hct MCV MCH MCHC Plt Count [place] % (Auto) [place] # Seg Neutrophils % Seg Neutrophils # PT INR APTT Heparin Anti-Xa Level < 0.10 L < 0.10 L POC ABG pH POC ABG pCO2 POC ABG pO2 Carbon Dioxide Glucose 147 H Hemoglobin A1c Calcium NT-Pro-B Natriuret Pep Albumin 02/15/18 02/16/18 02/16/18 10:04 10:27 10:27 WBC 11.1 H RBC Hgb 15.3 H Hct MCV 97 H 96 H MCH 33 H 33 H MCHC Plt Count 114 L 126 L [place] % (Auto) 12.2 H 12.8 H [place] # 1.0 H 1.4 H Seg Neutrophils % 71.1 H Seg Neutrophils # 7.9 H PT 18.1 H INR 1.41 H APTT Heparin Anti-Xa Level POC ABG pH POC ABG pCO2 POC ABG pO2 Carbon Dioxide Glucose Hemoglobin A1c Calcium NT-Pro-B Natriuret Pep Albumin 02/17/18 02/18/18 02/18/18 07:05 05:49 05:49 WBC RBC Hgb Hct MCV 97 H MCH 33 H MCHC Plt Count [place] % (Auto) 14.5 H [place] # 1.1 H Seg Neutrophils % Seg Neutrophils # PT 19.4 H 19.4 H INR 1.54 H 1.54 H APTT Heparin Anti-Xa Level POC ABG pH POC ABG pCO2 POC ABG pO2 Carbon Dioxide Glucose Hemoglobin A1c Calcium NT-Pro-B Natriuret Pep Albumin 02/18/18 05:49 WBC RBC Hgb Hct MCV MCH MCHC Plt Count [place] % (Auto) [place] # Seg Neutrophils % Seg Neutrophils # PT INR APTT Heparin Anti-Xa Level POC ABG pH POC ABG pCO2 POC ABG pO2 Carbon Dioxide Glucose 115 H Hemoglobin A1c Calcium NT-Pro-B Natriuret Pep Albumin
--- NOTE | 2018-02-19 19:19 | Progress Note ---
Assessment and Plan Pt continues to have significant difficulty breathing requiring supplemental oxygen. Will make pt NPO after MN for possible re-intervention of non-occlusive residual PE (possibly tomorrow, or depending on schedule). - Patient Problems (1) Morbid obesity with BMI of 50.0-59.9, adult Current Visit: Yes Status: Acute (2) Pulmonary embolus Current Visit: Yes Status: Acute (3) Sleep apnea Current Visit: Yes Status: Chronic Qualifiers: Sleep apnea type: unspecified type Qualified Code(s): G47.30 - Sleep apnea , unspecified Subjective Date of service: 02/19/18 Principal diagnosis: Submassive PE Interval history: Patient is awake and alert. He continues to require supplemental oxygen. He is unable to stand, or walk without getting out of breath. Objective - Constitutional Vitals: Vital Signs - 12hr 02/19/18 02/19/18 02/19/18 08:13 09:58 10:00 Temperature 98.4 F Pulse Rate 68 62 Respiratory 20 Rate Respiratory 18 Rate [Right Groin] Blood Pressure 106/69 O2 Sat by Pulse 96 97 Oximetry 02/19/18 02/19/18 02/19/18 10:24 10:30 11:24 Temperature Pulse Rate Respiratory 18 18 Rate Respiratory Rate [Right Groin] Blood Pressure O2 Sat by Pulse 96 Oximetry 02/19/18 02/19/18 12:10 17:00 Temperature 98.0 F 97.9 F Pulse Rate 74 85 Respiratory 20 20 Rate Respiratory Rate [Right Groin] Blood Pressure 112/78 130/70 O2 Sat by Pulse 99 98 Oximetry General appearance: Present: no acute distress - EENT Eyes: EOM intact ENT: hearing intact - Neck Neck: supple - Respiratory Respiratory effort: labored (mildly labored on venti mask) - Neurologic Neurologic: no focal deficits - Psychiatric Psychiatric: appropriate mood/affect, intact judgment & insight, cooperative - Labs CBC & Chem 7: 02/18/18 05:49 02/18/18 05:49
[2018-02-19] MEDS: AMBIEN PO PRN (21:19)
[2018-02-19] MEDS: COLACE PO SCH (21:20)
[2018-02-19] MEDS: MORPHINE IV PRN (21:20)
[2018-02-20] MEDS: PERCOCET 5/325 PO PRN ×2 (00:59→16:33)
[2018-02-20] MEDS: TESSALON PERLES PO PRN ×2 (06:06→22:13)
[2018-02-20 07:31] LABS: Hematocrit 40.9 % (35.5-45.6); Hemoglobin 13.8 gm/dl (11.8-15.2)
[2018-02-20] MEDS: ELIQUIS PO SCH ×2 (09:30→22:07)
[2018-02-20] MEDS: LEVAQUIN 750MG/150ML 750 MG/150 ML BAG IV SCH (09:37)
[2018-02-20] MEDS: PROTONIX PO SCH ×2 (09:38→22:07)
[2018-02-20] MEDS: COLACE PO SCH ×2 (09:38→22:07)
--- NOTE | 2018-02-20 09:42 | Progress Note ---
Assessment and Plan Assessment and plan: Morbidly obese 37-year-old male patient, massive bilateral PE,s/p EKOS pollicis Lower extremity DVT, received heparin drip, evaluated by vascular hematology pulmonary Now on Eliquis, hypoxic, tachypneic, on Ventimask FiO2 50% saturating 93-94% --Bilateral PE; with heavy clot burden:s/p thrombolytic therapy/EKOS procedure on Eliquis, Hypercoagulable workup sent For possible repeat procedure today since he is still short of breath,hypoxic --Right-sided pneumonia; community acquired, present on admission, probably not noted on chest x-ray due to massive PE On empiric antibiotics with Levaquin,Supportive care, follow cultures --Acute hypoxic respiratory failure; due to PE, continue oxygen, nebulizers Continue to titrate oxygen to O2 sats more than 90%, evaluation for home oxygen --Echocardiogram ; moderate right atrial lead and glandular enlargement, moderate right ventricular systolic dysfunction, Left ventricle ejection fraction 55% --Left lower extremity DVT; patient is on heparin drip. Supportive therapy --General anxiety; add low dose Xanax and supportive care --Chest pain; due to bilateral PE; --Morbid obesity; BMI 61.5 counseling, weight reduction when medically stable --Possible obstructive sleep apnea/obesity hypoventilation syndrome May need CPAP /BiPAP at night, needs outpatient sleep study upon discharge --Ongoing tobacco use; smoking cessation counseling done, advised nicotine patch as needed --DVT prophylaxis; patient is already on Eliquis History Interval history: Still shortness of breath generalized weakness Hospitalist Physical - Physical exam Narrative exam: Constitutional; Not in acute distress, morbidly obese HEENT: Atraumatic, normocephalic Neck: supple, no lymphadenopathy, JVD Lungs: Clear to auscultation, bilaterally, no wheeze CVS; S1-S2 regular, no murmurs, rubs or gallop, Abdomen; soft, non-tender, non distended,bowel sounds are normal, Musculoskeletal; No edema, no clubbing, no cyanosis, SMOKE JUMPER: awake, alert,oriented x3, no focal neurological signs - Constitutional Vitals: Temp Pulse Resp BP Pulse Ox 98.1 F 34 L 20 101/72 94 02/20/18 07:53 02/20/18 08:54 02/20/18 08:54 02/20/18 07:53 02/20/18 08:35 General appearance: Present: no acute distress, obese (morbidly obese) Results - Labs CBC & Chem 7: 02/20/18 06:28 02/18/18 05:49 Labs: Laboratory Last Values WBC 7.9 K/mm3 (4.5-11.0) 02/18/18 05:49 RBC 4.41 M/mm3 (3.65-5.03) 02/18/18 05:49 Hgb 13.8 gm/dl (11.8-15.2) 02/20/18 06:28 Hct 40.9 % (35.5-45.6) 02/20/18 06:28 MCV 97 fl (84-94) H 02/18/18 05:49 MCH 33 pg (28-32) H 02/18/18 05:49 MCHC 34 % (32-34) 02/18/18 05:49 RDW 13.8 % (13.2-15.2) 02/18/18 05:49 Plt Count 199 K/mm3 (140-440) 02/20/18 06:28 Lymph % (Auto) 24.7 % (13.4-35.0) 02/18/18 05:49 [place] % (Auto) 14.5 % (0.0-7.3) H 02/18/18 05:49 Eos % (Auto) 1.7 % (0.0-4.3) 02/18/18 05:49 Baso % (Auto) 0.8 % (0.0-1.8) 02/18/18 05:49 Lymph # 1.9 K/mm3 (1.2-5.4) 02/18/18 05:49 [place] # 1.1 K/mm3 (0.0-0.8) H 02/18/18 05:49 Eos # 0.1 K/mm3 (0.0-0.4) 02/18/18 05:49 Baso # 0.1 K/mm3 (0.0-0.1) 02/18/18 05:49 Add Manual Diff Complete 02/15/18 10:04 Seg Neutrophils % 58.3 % (40.0-70.0) 02/18/18 05:49 Seg Neutrophils # 4.6 K/mm3 (1.8-7.7) 02/18/18 05:49 PT 19.4 Sec. (12.2-14.9) H 02/18/18 05:49 INR 1.54 (0.87-1.13) H 02/18/18 05:49 APTT 45.6 Sec. (24.2-36.6) H 02/13/18 16:32 Fibrinogen 348 mg/dl (211-480) 02/14/18 10:31 Heparin Anti-Xa Level < 0.10 U.I./ml (0.3-0.7) L 02/15/18 06:46 POC ABG pH 7.477 (7.35-7.45) H 02/14/18 12:37 POC ABG pCO2 26.9 (35-45) L 02/14/18 12:37 POC ABG pO2 57 (80-105) L 02/14/18 12:37 POC ABG HCO3 19.9 02/14/18 12:37 POC ABG Total CO2 21 02/14/18 12:37 POC ABG O2 Sat 92 02/14/18 12:37 POC ABG Base Excess -4 02/14/18 12:37 FiO2 21 % 02/14/18 12:37 Sodium 140 mmol/L (137-145) 02/18/18 05:49 Potassium 4.4 mmol/L (3.6-5.0) 02/18/18 05:49 Chloride 102.7 mmol/L (98-107) 02/18/18 05:49 Carbon Dioxide 25 mmol/L (22-30) 02/18/18 05:49 Anion Gap 17 mmol/L 02/18/18 05:49 BUN 17 mg/dL (9-20) 02/18/18 05:49 Creatinine 0.8 mg/dL (0.8-1.5) 02/18/18 05:49 Estimated GFR > 60 ml/min 02/18/18 05:49 BUN/Creatinine Ratio 21 % 02/18/18 05:49 Glucose 115 mg/dL (75-100) H 02/18/18 05:49 Hemoglobin A1c 6.1 % (4-6) H 02/13/18 01:25 Calcium 8.5 mg/dL (8.4-10.2) 02/18/18 05:49 Magnesium 2.20 mg/dL (1.7-2.3) 02/12/18 09:55 Total Bilirubin 0.80 mg/dL (0.1-1.2) 02/14/18 03:05 AST 10 units/L (5-40) 02/14/18 03:05 ALT 27 units/L (7-56) 02/14/18 03:05 Alkaline Phosphatase 56 units/L (35-129) 02/14/18 03:05 Troponin T 0.021 ng/mL (0.00-0.029) 02/12/18 09:55 NT-Pro-B Natriuret Pep 3956 pg/mL (0-450) H 02/12/18 09:55 Total Protein 6.5 g/dL (6.3-8.2) 02/14/18 03:05 Albumin 3.9 g/dL (3.9-5) 02/14/18 03:05 Albumin/Globulin Ratio 1.5 % 02/14/18 03:05 Blood Type AB POSITIVE 02/13/18 14:07 Antibody Screen Negative 02/13/18 14:07
[2018-02-20] MEDS: SODIUM CHLORIDE FLUSH SYRINGE 10 ML IV SCH ×2 (09:43→22:08)
--- NOTE | 2018-02-20 10:01 | Progress Note ---
Assessment and Plan We'll plan on a CTA of his chest today to determine target for possible aspiration thrombectomy tomorrow. Subjective Date of service: 02/20/18 Principal diagnosis: Submassive PE Interval history: Patient still short of breath. On O2 by face mask. Patient is morbidly obese with likely right heart his function at baseline. Objective - Constitutional Vitals: Vital Signs - 12hr 02/19/18 02/19/18 02/20/18 23:31 23:44 00:00 Temperature 99.3 F Pulse Rate 86 84 85 Pulse Rate [ From Monitor] Pulse Rate [ Left Dorsalis Pedis] Respiratory 18 16 Rate Blood Pressure Blood Pressure 143/68 [Right] O2 Sat by Pulse 96 99 Oximetry 02/20/18 02/20/18 02/20/18 04:23 07:53 08:35 Temperature 98.0 F 98.1 F Pulse Rate 82 66 Pulse Rate [ From Monitor] Pulse Rate [ Left Dorsalis Pedis] Respiratory 16 22 Rate Blood Pressure 107/71 101/72 Blood Pressure [Right] O2 Sat by Pulse 96 94 94 Oximetry 02/20/18 08:54 Temperature Pulse Rate Pulse Rate [ 34 L From Monitor] Pulse Rate [ 34 L Left Dorsalis Pedis] Respiratory 20 Rate Blood Pressure Blood Pressure [Right] O2 Sat by Pulse Oximetry General appearance: Present: no acute distress, obese - EENT Eyes: PERRL, EOM intact ENT: hearing intact - Neck Neck: supple, normal ROM - Respiratory Respiratory effort: other (on facemask.) - Breasts Breasts: deferred Extremities: no ischemia Extremity abnormal: edema - Gastrointestinal General gastrointestinal: Present: deferred Rectal Exam: deferred - Genitourinary Male genitourinary: deferred - Neurologic Neurologic: CNII-XII intact - Psychiatric Psychiatric: appropriate mood/affect, cooperative - Labs CBC & Chem 7: 02/20/18 06:28 02/18/18 05:49
--- NOTE | 2018-02-20 13:49 | Cat Scan Report ---
CTA CHEST: HISTORY: Shortness of breath. COMPARISON: 02/12/18. TECHNIQUE: Helical CT in 1.25mm intervals following IV contrast. Pulmonary embolus protocol. Sagittal and coronal reformatted images. Rotational MIP images. FINDINGS: Contrast bolus is satisfactory. Large bilateral pulmonary emboli are again identified in the distal main pulmonary arteries extending to the first and second order branches of all lobes. Clot burden does appear slightly decreased by approximately 20-25% exam. There are no obvious new emboli. Thyroid gland: Normal. Tracheobronchial tree: Normal. Esophagus: Normal. Heart: Heart size is borderline. Mild dilatation of the right ventricle is suspected which is unchanged. Pericardium: Normal. Mediastinum: No evidence for mediastinal mass or adenopathy. Lung Chris: Patchy groundglass infiltrates are identified in both lungs, right greater than left. No evidence for consolidation or mass. Pleural Spaces: Normal. Musculoskeletal: Intact. IMPRESSION: Bilateral pulmonary emboli are identified with 20-25% decrease in clot burden since 02/12/18 exam. Borderline heart size. Bilateral groundglass infiltrates which probably represents congestive changes.
[2018-02-20] MEDS: AMBIEN PO PRN (22:13)
[2018-02-20] MEDS: NORCO 5/325 PO PRN (23:42)
[2018-02-21] MEDS ORDERED: HEPARIN/NS 5000 UNIT/500ML(CATH LAB) 1,000 ML IR ONE (08:16)
[2018-02-21] MEDS ORDERED: XYLOCAINE 2% INFILTRATI ONE (08:17)
[2018-02-21] MEDS ORDERED: ANCEF/STERILE WATER 2 GM/20 ML 2 GM/20 ML SYRINGE IV ONE (08:17)
[2018-02-21] MEDS ORDERED: NACL 0.9% 500 ML 500 ML ONE (08:52)
[2018-02-21] MEDS: VERSED ONE ×4 (09:45→10:48)
[2018-02-21] MEDS: SUBLIMAZE ONE ×4 (09:45→10:48)
[2018-02-21] MEDS ORDERED: SUBLIMAZE ONE (09:50)
[2018-02-21] MEDS: HEPARIN 10,000 UNITS/10 ML ONE ×2 (09:58→10:48)
[2018-02-21] MEDS: ELIQUIS PO SCH ×3 (10:00→22:08)
[2018-02-21] MEDS: LEVAQUIN PO SCH (10:00)
[2018-02-21] MEDS: PROTONIX PO SCH ×2 (10:00→22:07)
[2018-02-21] MEDS: SODIUM CHLORIDE FLUSH SYRINGE 10 ML IV SCH ×2 (10:00→22:09)
[2018-02-21] MEDS: COLACE PO SCH ×2 (10:00→22:07)
--- NOTE | 2018-02-21 11:18 | Post Operative Note ---
Date of procedure: 02/21/18 Pre-op diagnosis: Submassive pulmonary embolism, failure to wean from oxygen Post-op diagnosis: same Procedure: 1. Ultrasound guided access of the right common femoral vein 2. Venography of the IVC 3. Selection of the right atrium, right ventricle and main pulmonary artery. 4. Selection of the left lower lobar pulmonary artery with angiography 5. 8 Fr indigo penumbra aspiration thrombectomy of the left lower lobar pulmonary artery with SEP 8 and intermittent pigtail fragmentation 6. Selection of the right interlobar pulmonary artery with angiography 7. 8 Fr indigo penumbra aspiration thrombectomy of the right interlobar pulmonary artery with SEP 8 and intermittent pigtail fragmentation 8. Selection of the right upper lobar pulmonary artery with angiography 9. Attempted penumbra aspiration thrombectomy, but inability to advance the large device into the vessel due to angulation Anesthesia: local (w/ conscious sedation) Surgeon: DALE MAKI Estimated blood loss: other (300 mL from aspiration thrombectomy) Condition: stable Disposition: floor
--- NOTE | 2018-02-21 11:20 | Operative Report ---
Operative Report Operative Report: EXAM: 1. Ultrasound guided access of the right common femoral vein 2. Venography of the IVC 3. Selection of the right atrium, right ventricle and main pulmonary artery. 4. Selection of the left lower lobar pulmonary artery with angiography 5. 8 Fr indigo penumbra aspiration thrombectomy of the left lower lobar pulmonary artery with SEP 8 and intermittent pigtail fragmentation 6. Selection of the right interlobar pulmonary artery with angiography 7. 8 Fr indigo penumbra aspiration thrombectomy of the right interlobar pulmonary artery with SEP 8 and intermittent pigtail fragmentation 8. Selection of the right upper lobar pulmonary artery with angiography DATE: 02/21/18 GLASS BLOCK INSTALLER: DALE MAKI MD INDICATION: 37-year-old male with submassive pulmonary embolism who has persistently been on a Ventimask despite thrombolytic therapy with CT angiogram demonstrating significant residual thrombus burden. Risks, benefits, and alternatives discussed. MEDICATIONS: Please see nursing report for full details. DEVICES: 8 Macanese penumbra indigo vacuum-assisted aspiration thrombectomy device Separator 8 for penumbra indigo device CONTRAST: Please see lab rep report for full details. PROCEDURE: The risks, benefits, and alternatives were discussed with the patient; written informed consent was obtained. The patient was brought to the lab rep in stable condition. The right groin was prepped and draped in a sterile fashion. Under direct ultrasound guidance, the right common femoral vein was accessed with a 21-gauge micropuncture needle. 0.018 inch wire was passed into the IVC. Needle was exchanged for transitional dilator. Wire was exchanged for 0.035 inch wire. Transitional dilator was exchanged for a 5 [place]anese sheath. Digital subtraction angiography was performed demonstrating patency of the right iliac veins and IVC. The patient was heparinized. Sheath was exchanged for a 8 Macanese 65 cm [place] destination. JR4 was used to select the right atrium, right ventricle , and main pulmonary artery. 0.035 inch wire was passed into the left main pulmonary artery. 8 [place] 65 cm sheath was not long enough, and was then exchanged for an 8 [place]anese 90 cm [place] destination which was positioned in the left main pulmonary artery. The left lower lobar pulmonary artery was selected and digital subtraction angiography was performed demonstrating nonocclusive residual thrombus. The penumbra aspiration device was advanced into the vessel and used to perform vacuum-assisted aspiration. Intermittently, pigtail fragmentation was performed in this vessel and subsequently the penumbra aspiration device was then used to aspirate the residual pulmonary embolism clot. Digital subtraction angiography was intermittently performed demonstrating improvement in flow with less and less residual thrombus. After I achieved a adequate debulking of the lobar pulmonary artery I decided to select the right interlobar pulmonary artery. Digital subtraction angiography was performed demonstrating nonocclusive thrombus in this area. Pigtail fragmentation was initially performed of this region and subsequently penumbra vacuum-assisted aspiration thrombectomy device was advanced to the area and used to remove the thrombus. After achieving an adequate amount of thrombus removal, I perform intermittent angiography which demonstrated improved flow into the interlobar pulmonary artery. I then selected the right upper lobe segmental branch the pulmonary artery and performed pullback angiography demonstrating nonocclusive thrombus in the upper lobar pulmonary artery. The penumbra vacuum-assisted aspiration device would not make the turn and after multiple attempts, I decided to abort mechanical thrombectomy of this lobar branch. At this point, all wires, catheters, and she is removed. Pressure was held until hemostasis was achieved. Sterile dressing applied. FINDINGS: Please see procedure note above. IMPRESSION: 1. Successful vacuum-assisted mechanical thrombectomy of the left lobar pulmonary artery. 2. Successful vacuum-assisted mechanical thrombectomy of the right interlobar pulmonary artery.
--- NOTE | 2018-02-21 15:43 | Progress Note ---
Assessment and Plan Assessment and plan: Morbidly obese 37-year-old male patient, massive bilateral PE,s/p EKOS pollicis Lower extremity DVT, received heparin drip, evaluated by vascular hematology pulmonary Now on Eliquis, Now on Ventimask FiO2 50% saturating 93-94% --Bilateral PE; with heavy clot burden:s/p thrombolytic therapy/EKOS procedure on Eliquis, Hypercoagulable workup sent s/p aspirartion thrombectomy pulm arteries today --Right-sided pneumonia; community acquired, present on admission, probably not noted on chest x-ray due to massive PE On empiric antibiotics with Levaquin,Supportive care, follow cultures --Acute hypoxic respiratory failure; due to PE, continue oxygen, nebulizers Continue to titrate oxygen to O2 sats more than 90%, evaluation for home oxygen --Echocardiogram ; moderate right atrial lead and glandular enlargement, moderate right ventricular systolic dysfunction, Left ventricle ejection fraction 55% --Left lower extremity DVT; patient is on heparin drip. Supportive therapy --General anxiety; add low dose Xanax and supportive care --Chest pain; due to bilateral PE; --Morbid obesity; BMI 61.5 counseling, weight reduction when medically stable --Obstructive sleep apnea. May CPAP at night, needs outpatient sleep study upon discharge --Ongoing tobacco use; smoking cessation counseling done, advised nicotine patch as needed --DVT prophylaxis; patient is already on Eliquis History Interval history: Still shortness of breath generalized weakness Hospitalist Physical - Physical exam Narrative exam: Constitutional; Not in acute distress, morbidly obese HEENT: Atraumatic, normocephalic Neck: supple, no lymphadenopathy, JVD Lungs: Clear to auscultation, bilaterally, no wheeze CVS; S1-S2 regular, no murmurs, rubs or gallop, Abdomen; soft, non-tender, non distended,bowel sounds are normal, Musculoskeletal; No edema, no clubbing, no cyanosis, ORANGE PICKER: awake, alert,oriented x3, no focal neurological signs - Constitutional Vitals: Temp Pulse Resp BP Pulse Ox 97.4 F L 64 20 117/59 96 02/21/18 13:00 02/21/18 12:00 02/21/18 12:00 02/21/18 11:55 02/21/18 11:55 General appearance: Present: no acute distress, obese Results - Labs CBC & Chem 7: 02/22/18 06:42 02/22/18 06:37 Labs: Laboratory Last Values WBC 7.9 K/mm3 (4.5-11.0) 02/18/18 05:49 RBC 4.41 M/mm3 (3.65-5.03) 02/18/18 05:49 Hgb 13.8 gm/dl (11.8-15.2) 02/20/18 06:28 Hct 40.9 % (35.5-45.6) 02/20/18 06:28 MCV 97 fl (84-94) H 02/18/18 05:49 MCH 33 pg (28-32) H 02/18/18 05:49 MCHC 34 % (32-34) 02/18/18 05:49 RDW 13.8 % (13.2-15.2) 02/18/18 05:49 Plt Count 199 K/mm3 (140-440) 02/20/18 06:28 Lymph % (Auto) 24.7 % (13.4-35.0) 02/18/18 05:49 [place] % (Auto) 14.5 % (0.0-7.3) H 02/18/18 05:49 Eos % (Auto) 1.7 % (0.0-4.3) 02/18/18 05:49 Baso % (Auto) 0.8 % (0.0-1.8) 02/18/18 05:49 Lymph # 1.9 K/mm3 (1.2-5.4) 02/18/18 05:49 [place] # 1.1 K/mm3 (0.0-0.8) H 02/18/18 05:49 Eos # 0.1 K/mm3 (0.0-0.4) 02/18/18 05:49 Baso # 0.1 K/mm3 (0.0-0.1) 02/18/18 05:49 Add Manual Diff Complete 02/15/18 10:04 Seg Neutrophils % 58.3 % (40.0-70.0) 02/18/18 05:49 Seg Neutrophils # 4.6 K/mm3 (1.8-7.7) 02/18/18 05:49 PT 19.4 Sec. (12.2-14.9) H 02/18/18 05:49 INR 1.54 (0.87-1.13) H 02/18/18 05:49 APTT 45.6 Sec. (24.2-36.6) H 02/13/18 16:32 Fibrinogen 348 mg/dl (211-480) 02/14/18 10:31 Heparin Anti-Xa Level < 0.10 U.I./ml (0.3-0.7) L 02/15/18 06:46 POC ABG pH 7.477 (7.35-7.45) H 02/14/18 12:37 POC ABG pCO2 26.9 (35-45) L 02/14/18 12:37 POC ABG pO2 57 (80-105) L 02/14/18 12:37 POC ABG HCO3 19.9 02/14/18 12:37 POC ABG Total CO2 21 02/14/18 12:37 POC ABG O2 Sat 92 02/14/18 12:37 POC ABG Base Excess -4 02/14/18 12:37 FiO2 21 % 02/14/18 12:37 Sodium 140 mmol/L (137-145) 02/18/18 05:49 Potassium 4.4 mmol/L (3.6-5.0) 02/18/18 05:49 Chloride 102.7 mmol/L (98-107) 02/18/18 05:49 Carbon Dioxide 25 mmol/L (22-30) 02/18/18 05:49 Anion Gap 17 mmol/L 02/18/18 05:49 BUN 17 mg/dL (9-20) 02/18/18 05:49 Creatinine 0.8 mg/dL (0.8-1.5) 02/18/18 05:49 Estimated GFR > 60 ml/min 02/18/18 05:49 BUN/Creatinine Ratio 21 % 02/18/18 05:49 Glucose 115 mg/dL (75-100) H 02/18/18 05:49 Hemoglobin A1c 6.1 % (4-6) H 02/13/18 01:25 Calcium 8.5 mg/dL (8.4-10.2) 02/18/18 05:49 Magnesium 2.20 mg/dL (1.7-2.3) 02/12/18 09:55 Total Bilirubin 0.80 mg/dL (0.1-1.2) 02/14/18 03:05 AST 10 units/L (5-40) 02/14/18 03:05 ALT 27 units/L (7-56) 02/14/18 03:05 Alkaline Phosphatase 56 units/L (35-129) 02/14/18 03:05 Troponin T 0.021 ng/mL (0.00-0.029) 02/12/18 09:55 NT-Pro-B Natriuret Pep 3956 pg/mL (0-450) H 02/12/18 09:55 Total Protein 6.5 g/dL (6.3-8.2) 02/14/18 03:05 Albumin 3.9 g/dL (3.9-5) 02/14/18 03:05 Albumin/Globulin Ratio 1.5 % 02/14/18 03:05 Blood Type AB POSITIVE 02/13/18 14:07 Antibody Screen Negative 02/13/18 14:07
--- NOTE | 2018-02-21 18:34 | Progress Note ---
Assessment and Plan Patient alert, awake. Sitting in chair.Not using O2 as recommended. Still complaining left sided chest discomfort. No acute respiratory distress.O2 saturation 96%. Patient using CPAP at night. - Patient Problems (1) Acute pulmonary embolism Current Visit: Yes Status: Acute Qualifiers: Acute cor pulmonale presence: with acute cor pulmonale Plan to address problem: Patient is on Apixaban (2) Morbid obesity with BMI of 50.0-59.9, adult Current Visit: Yes Status: Acute Plan to address problem: Recommend to loose weight. (3) Sleep apnea Current Visit: Yes Status: Chronic Qualifiers: Sleep apnea type: unspecified type Qualified Code(s): G47.30 - Sleep apnea , unspecified Plan to address problem: Recommend CPAP as he is using at home. Patient does not want to use it even after explaining to him importance of using it. (4) Pneumonia involving right lung Current Visit: Yes Status: Acute Plan to address problem: Chest xray reported right middle lobe pneumonia. Patient is on Levaquin. Subjective Date of service: 02/21/18 Principal diagnosis: Submassive PE Interval history: Patient alert, awake. Resting on nasal canula 3 litres and O2 saturation 97% .Patient undergone pulmonary thrombectomy. Objective Vital Signs - 12hr 02/21/18 02/21/18 02/21/18 07:02 11:55 12:00 Temperature 97.4 F L Pulse Rate 64 82 64 Respiratory 20 20 Rate Respiratory 20 Rate [Right Groin] Blood Pressure 117/59 Blood Pressure 120/70 [Right] O2 Sat by Pulse 96 96 Oximetry 02/21/18 02/21/18 02/21/18 13:00 16:00 16:48 Temperature 97.4 F L 97.9 F Pulse Rate 87 Respiratory 20 Rate Respiratory Rate [Right Groin] Blood Pressure 99/79 Blood Pressure [Right] O2 Sat by Pulse 97 Oximetry Constitutional: no acute distress, alert Eyes: non-icteric ENT: oropharynx moist Neck: supple, no lymphadenopathy, no JVD Effort: normal Ascultation: Bilateral: diminished breath sounds Cardiovascular: regular rate and rhythm, other (S1,S2 no murmurs, gallops or rubs) Gastrointestinal: normoactive bowel sounds, non-tender, non-distended Integumentary: normal Extremities: no cyanosis, no edema, pink and warm, pulses normal, no ischemia or petechiae Neurologic: normal mental status, non-focal exam, pupils equal and round, CN II- XII normal Psychiatric: mood appropriate, affect normal CBC and BMP: 02/20/18 06:28 02/18/18 05:49 ABG, PT/INR, D-dimer: ABG POC ABG pH 7.477 (7.35-7.45) H 02/14/18 12:37 POC ABG pCO2 26.9 (35-45) L 02/14/18 12:37 POC ABG pO2 57 (80-105) L 02/14/18 12:37 POC ABG HCO3 19.9 02/14/18 12:37 POC ABG Total CO2 21 02/14/18 12:37 POC ABG O2 Sat 92 02/14/18 12:37 PT/INR, D-dimer PT 19.4 Sec. (12.2-14.9) H 02/18/18 05:49 INR 1.54 (0.87-1.13) H 02/18/18 05:49 Abnormal lab findings: Abnormal Labs 02/12/18 02/12/18 02/12/18 09:55 09:55 09:55 WBC 11.8 H RBC 5.29 H Hgb 17.7 H Hct 49.7 H MCV MCH 33 H MCHC 36 H Plt Count [place] % (Auto) 13.3 H [place] # 1.6 H Seg Neutrophils % Seg Neutrophils # PT INR APTT 40.0 H Heparin Anti-Xa Level POC ABG pH POC ABG pCO2 POC ABG pO2 Carbon Dioxide 21 L Glucose 150 H Hemoglobin A1c Calcium 10.3 H NT-Pro-B Natriuret Pep 3956 H Albumin 02/12/18 02/12/18 02/12/18 12:35 12:35 19:12 WBC RBC Hgb 17.2 H Hct 50.5 H MCV MCH MCHC Plt Count [place] % (Auto) [place] # Seg Neutrophils % Seg Neutrophils # PT INR APTT 42.2 H Heparin Anti-Xa Level 0.10 L POC ABG pH POC ABG pCO2 POC ABG pO2 Carbon Dioxide Glucose Hemoglobin A1c Calcium NT-Pro-B Natriuret Pep Albumin 02/13/18 02/13/18 02/13/18 01:18 01:25 01:25 WBC RBC Hgb Hct MCV MCH MCHC Plt Count [place] % (Auto) [place] # Seg Neutrophils % Seg Neutrophils # PT INR APTT Heparin Anti-Xa Level 0.10 L POC ABG pH POC ABG pCO2 POC ABG pO2 Carbon Dioxide Glucose 131 H Hemoglobin A1c 6.1 H Calcium NT-Pro-B Natriuret Pep Albumin 02/13/18 02/13/18 02/13/18 06:55 16:32 16:32 WBC RBC Hgb Hct MCV MCH MCHC Plt Count [place] % (Auto) [place] # Seg Neutrophils % Seg Neutrophils # PT INR APTT 45.6 H Heparin Anti-Xa Level POC ABG pH POC ABG pCO2 POC ABG pO2 Carbon Dioxide 21 L 20 L Glucose 118 H Hemoglobin A1c Calcium NT-Pro-B Natriuret Pep Albumin 3.4 L 02/13/18 02/13/18 02/13/18 16:32 16:32 21:06 WBC RBC Hgb 15.4 H Hct 46.0 H MCV 97 H MCH MCHC Plt Count [place] % (Auto) 12.4 H [place] # 1.1 H Seg Neutrophils % Seg Neutrophils # PT INR APTT Heparin Anti-Xa Level 0.10 L < 0.10 L POC ABG pH POC ABG pCO2 POC ABG pO2 Carbon Dioxide Glucose Hemoglobin A1c Calcium NT-Pro-B Natriuret Pep Albumin 02/13/18 02/14/18 02/14/18 21:15 01:49 03:05 WBC RBC Hgb 15.3 H Hct MCV 98 H 96 H MCH 33 H 33 H MCHC Plt Count 137 L [place] % (Auto) 11.5 H 11.4 H [place] # 1.0 H 1.1 H Seg Neutrophils % 73.4 H Seg Neutrophils # PT INR APTT Heparin Anti-Xa Level POC ABG pH 7.484 H POC ABG pCO2 24.7 L POC ABG pO2 70 L Carbon Dioxide Glucose Hemoglobin A1c Calcium NT-Pro-B Natriuret Pep Albumin 02/14/18 02/14/18 02/14/18 03:05 03:05 10:31 WBC RBC Hgb Hct MCV 97 H MCH 33 H MCHC Plt Count 124 L [place] % (Auto) 13.1 H [place] # 1.2 H Seg Neutrophils % 70.9 H Seg Neutrophils # PT INR APTT Heparin Anti-Xa Level < 0.10 L POC ABG pH POC ABG pCO2 POC ABG pO2 Carbon Dioxide 20 L Glucose 151 H Hemoglobin A1c Calcium NT-Pro-B Natriuret Pep Albumin 02/14/18 02/14/18 02/14/18 10:31 12:30 12:37 WBC RBC Hgb Hct MCV MCH MCHC Plt Count [place] % (Auto) [place] # Seg Neutrophils % Seg Neutrophils # PT INR APTT Heparin Anti-Xa Level < 0.10 L POC ABG pH 7.496 H 7.477 H POC ABG pCO2 24.2 L 26.9 L POC ABG pO2 65 L 57 L Carbon Dioxide Glucose Hemoglobin A1c Calcium NT-Pro-B Natriuret Pep Albumin 02/14/18 02/15/18 02/15/18 19:49 04:24 06:46 WBC RBC Hgb Hct MCV MCH MCHC Plt Count [place] % (Auto) [place] # Seg Neutrophils % Seg Neutrophils # PT INR APTT Heparin Anti-Xa Level < 0.10 L < 0.10 L POC ABG pH POC ABG pCO2 POC ABG pO2 Carbon Dioxide Glucose 147 H Hemoglobin A1c Calcium NT-Pro-B Natriuret Pep Albumin 02/15/18 02/16/18 02/16/18 10:04 10:27 10:27 WBC 11.1 H RBC Hgb 15.3 H Hct MCV 97 H 96 H MCH 33 H 33 H MCHC Plt Count 114 L 126 L [place] % (Auto) 12.2 H 12.8 H [place] # 1.0 H 1.4 H Seg Neutrophils % 71.1 H Seg Neutrophils # 7.9 H PT 18.1 H INR 1.41 H APTT Heparin Anti-Xa Level POC ABG pH POC ABG pCO2 POC ABG pO2 Carbon Dioxide Glucose Hemoglobin A1c Calcium NT-Pro-B Natriuret Pep Albumin 02/17/18 02/18/18 02/18/18 07:05 05:49 05:49 WBC RBC Hgb Hct MCV 97 H MCH 33 H MCHC Plt Count [place] % (Auto) 14.5 H [place] # 1.1 H Seg Neutrophils % Seg Neutrophils # PT 19.4 H 19.4 H INR 1.54 H 1.54 H APTT Heparin Anti-Xa Level POC ABG pH POC ABG pCO2 POC ABG pO2 Carbon Dioxide Glucose Hemoglobin A1c Calcium NT-Pro-B Natriuret Pep Albumin 02/18/18 05:49 WBC RBC Hgb Hct MCV MCH MCHC Plt Count [place] % (Auto) [place] # Seg Neutrophils % Seg Neutrophils # PT INR APTT Heparin Anti-Xa Level POC ABG pH POC ABG pCO2 POC ABG pO2 Carbon Dioxide Glucose 115 H Hemoglobin A1c Calcium NT-Pro-B Natriuret Pep Albumin CT scan - chest: report reviewed (Reported bilateral pulmonary emboli.), image reviewed
[2018-02-21] MEDS: NORCO 5/325 PO PRN (22:07)
[2018-02-22] MEDS: AMBIEN PO PRN ×2 (00:05→23:30)
[2018-02-22] MEDS: NORCO 5/325 PO PRN ×2 (04:59→16:47)
[2018-02-22 08:07] LABS: Hematocrit 39.2 % (35.5-45.6); Hemoglobin 13.6 gm/dl (11.8-15.2); Mean Corpuscular HGB Conc 35 % (32-34); Mean Corpuscular Hemoglobin 33 pg (28-32); Mean Corpuscular Volume 95 fl (84-94); Platelet Count 205 K/mm3 (140-440); Red Blood Count 4.11 M/mm3 (3.65-5.03); Red Cell Distribution Width 13.5 % (13.2-15.2)
[2018-02-22 08:24] LABS: BUN/Creatinine Ratio 19; Blood Urea Nitrogen 15 mg/dL (9-20); Calcium 8.7 mg/dL (8.4-10.2); Hemolysis Index 42
[2018-02-22] MEDS: PERCOCET 5/325 PO PRN ×2 (08:30→23:30)
--- NOTE | 2018-02-22 08:59 | Progress Note ---
Hospitalist Physical - Constitutional Vitals: Temp Pulse Resp BP Pulse Ox 98.5 F 77 20 116/70 93 02/22/18 04:38 02/22/18 04:38 02/22/18 05:47 02/22/18 04:38 02/22/18 04:38 General appearance: Present: no acute distress, obese Results - Labs CBC & Chem 7: 02/22/18 06:42 02/22/18 06:37 Labs: Laboratory Last Values WBC 6.0 K/mm3 (4.5-11.0) 02/22/18 06:42 RBC 4.11 M/mm3 (3.65-5.03) 02/22/18 06:42 Hgb 13.6 gm/dl (11.8-15.2) 02/22/18 06:42 Hct 39.2 % (35.5-45.6) 02/22/18 06:42 MCV 95 fl (84-94) H 02/22/18 06:42 MCH 33 pg (28-32) H 02/22/18 06:42 MCHC 35 % (32-34) H 02/22/18 06:42 RDW 13.5 % (13.2-15.2) 02/22/18 06:42 Plt Count 205 K/mm3 (140-440) 02/22/18 06:42 Lymph % (Auto) 24.7 % (13.4-35.0) 02/18/18 05:49 [place] % (Auto) 14.5 % (0.0-7.3) H 02/18/18 05:49 Eos % (Auto) 1.7 % (0.0-4.3) 02/18/18 05:49 Baso % (Auto) 0.8 % (0.0-1.8) 02/18/18 05:49 Lymph # 1.9 K/mm3 (1.2-5.4) 02/18/18 05:49 [place] # 1.1 K/mm3 (0.0-0.8) H 02/18/18 05:49 Eos # 0.1 K/mm3 (0.0-0.4) 02/18/18 05:49 Baso # 0.1 K/mm3 (0.0-0.1) 02/18/18 05:49 Add Manual Diff Complete 02/15/18 10:04 Seg Neutrophils % 58.3 % (40.0-70.0) 02/18/18 05:49 Seg Neutrophils # 4.6 K/mm3 (1.8-7.7) 02/18/18 05:49 PT 19.4 Sec. (12.2-14.9) H 02/18/18 05:49 INR 1.54 (0.87-1.13) H 02/18/18 05:49 APTT 45.6 Sec. (24.2-36.6) H 02/13/18 16:32 Fibrinogen 348 mg/dl (211-480) 02/14/18 10:31 Heparin Anti-Xa Level < 0.10 U.I./ml (0.3-0.7) L 02/15/18 06:46 POC ABG pH 7.477 (7.35-7.45) H 02/14/18 12:37 POC ABG pCO2 26.9 (35-45) L 02/14/18 12:37 POC ABG pO2 57 (80-105) L 02/14/18 12:37 POC ABG HCO3 19.9 02/14/18 12:37 POC ABG Total CO2 21 02/14/18 12:37 POC ABG O2 Sat 92 02/14/18 12:37 POC ABG Base Excess -4 02/14/18 12:37 FiO2 21 % 02/14/18 12:37 Sodium 138 mmol/L (137-145) 02/22/18 06:37 Potassium 4.5 mmol/L (3.6-5.0) 02/22/18 06:37 Chloride 100.3 mmol/L (98-107) 02/22/18 06:37 Carbon Dioxide 25 mmol/L (22-30) 02/22/18 06:37 Anion Gap 17 mmol/L 02/22/18 06:37 BUN 15 mg/dL (9-20) 02/22/18 06:37 Creatinine 0.8 mg/dL (0.8-1.5) 02/22/18 06:37 Estimated GFR > 60 ml/min 02/22/18 06:37 BUN/Creatinine Ratio 19 % 02/22/18 06:37 Glucose 111 mg/dL (75-100) H 02/22/18 06:37 Hemoglobin A1c 6.1 % (4-6) H 02/13/18 01:25 Calcium 8.7 mg/dL (8.4-10.2) 02/22/18 06:37 Magnesium 2.20 mg/dL (1.7-2.3) 02/12/18 09:55 Total Bilirubin 0.80 mg/dL (0.1-1.2) 02/14/18 03:05 AST 10 units/L (5-40) 02/14/18 03:05 ALT 27 units/L (7-56) 02/14/18 03:05 Alkaline Phosphatase 56 units/L (35-129) 02/14/18 03:05 Troponin T 0.021 ng/mL (0.00-0.029) 02/12/18 09:55 NT-Pro-B Natriuret Pep 3956 pg/mL (0-450) H 02/12/18 09:55 Total Protein 6.5 g/dL (6.3-8.2) 02/14/18 03:05 Albumin 3.9 g/dL (3.9-5) 02/14/18 03:05 Albumin/Globulin Ratio 1.5 % 02/14/18 03:05 Blood Type AB POSITIVE 02/13/18 14:07 Antibody Screen Negative 02/13/18 14:07
[2018-02-22] MEDS ORDERED: ELIQUIS PO SCH (10:00)
[2018-02-22] MEDS: LEVAQUIN PO SCH (10:06)
[2018-02-22] MEDS: COLACE PO SCH ×2 (10:06→23:30)
[2018-02-22] MEDS: PROTONIX PO SCH ×2 (10:07→23:30)
[2018-02-22] MEDS: SODIUM CHLORIDE FLUSH SYRINGE 10 ML IV SCH (10:07)
--- NOTE | 2018-02-22 10:35 | Progress Note ---
Assessment and Plan Assessment and plan: Morbidly obese 37-year-old male patient, massive bilateral PE,s/p EKOS Lower extremity DVT, received heparin drip, evaluated by vascular hematology pulmonary Now on Eliquis, Now on Oxygen by IN --Bilateral PE; with heavy clot burden:s/p thrombolytic therapy/EKOS procedure on Eliquis, Hypercoagulable workup sent s/p aspirartion thrombectomy pulm arteries yesterday. Cardiac arrythmia with 4.8 and 3.6 cm pauses. may be due to sleep apnea. Will check Mg, Phos Get EKG stat Consult Cardiology --Right-sided pneumonia; community acquired, present on admission, probably not noted on chest x-ray due to massive PE On empiric antibiotics with Levaquin,Supportive care, follow cultures --Acute hypoxic respiratory failure; due to PE, continue oxygen, nebulizers Continue to titrate oxygen to O2 sats more than 90%, evaluation for home oxygen --Echocardiogram ; moderate right atrial lead and glandular enlargement, moderate right ventricular systolic dysfunction, Left ventricle ejection fraction 55% --Left lower extremity DVT; patient is on heparin drip. Supportive therapy --General anxiety; add low dose Xanax and supportive care --Chest pain; due to bilateral PE; --Morbid obesity; BMI 61.5 counseling, weight reduction when medically stable --Obstructive sleep apnea. May CPAP at night, needs outpatient sleep study upon discharge --Ongoing tobacco use; smoking cessation counseling done, advised nicotine patch as needed --DVT prophylaxis; patient is already on Eliquis History Interval history: Less shortness of breath, Aspiration thrombectomy yesterday generalized weakness patient has 4.8 and 3.6 sec pauses on Tele Hospitalist Physical - Physical exam Narrative exam: Constitutional; Not in acute distress, morbidly obese HEENT: Atraumatic, normocephalic Neck: supple, no lymphadenopathy, JVD Lungs: Clear to auscultation, bilaterally, no wheeze CVS; S1-S2 regular, no murmurs, rubs or gallop, Abdomen; soft, non-tender, non distended,bowel sounds are normal, Musculoskeletal; No edema, 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, 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, 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, 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,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, no focal neurological signs - Constitutional Vitals: Temp Pulse Resp BP Pulse Ox 97.6 F 66 20 114/57 98 02/22/18 08:00 02/22/18 07:25 02/22/18 07:25 02/22/18 07:25 02/22/18 09:27 General appearance: Present: no acute distress, obese Results - Labs CBC & Chem 7: 02/22/18 06:42 02/23/18 04:49 Labs: Laboratory Last Values WBC 6.0 K/mm3 (4.5-11.0) 02/22/18 06:42 RBC 4.11 M/mm3 (3.65-5.03) 02/22/18 06:42 Hgb 13.6 gm/dl (11.8-15.2) 02/22/18 06:42 Hct 39.2 % (35.5-45.6) 02/22/18 06:42 MCV 95 fl (84-94) H 02/22/18 06:42 MCH 33 pg (28-32) H 02/22/18 06:42 MCHC 35 % (32-34) H 02/22/18 06:42 RDW 13.5 % (13.2-15.2) 02/22/18 06:42 Plt Count 205 K/mm3 (140-440) 02/22/18 06:42 Lymph % (Auto) 24.7 % (13.4-35.0) 02/18/18 05:49 [place] % (Auto) 14.5 % (0.0-7.3) H 02/18/18 05:49 Eos % (Auto) 1.7 % (0.0-4.3) 02/18/18 05:49 Baso % (Auto) 0.8 % (0.0-1.8) 02/18/18 05:49 Lymph # 1.9 K/mm3 (1.2-5.4) 02/18/18 05:49 [place] # 1.1 K/mm3 (0.0-0.8) H 02/18/18 05:49 Eos # 0.1 K/mm3 (0.0-0.4) 02/18/18 05:49 Baso # 0.1 K/mm3 (0.0-0.1) 02/18/18 05:49 Add Manual Diff Complete 02/15/18 10:04 Seg Neutrophils % 58.3 % (40.0-70.0) 02/18/18 05:49 Seg Neutrophils # 4.6 K/mm3 (1.8-7.7) 02/18/18 05:49 PT 19.4 Sec. (12.2-14.9) H 02/18/18 05:49 INR 1.54 (0.87-1.13) H 02/18/18 05:49 APTT 45.6 Sec. (24.2-36.6) H 02/13/18 16:32 Fibrinogen 348 mg/dl (211-480) 02/14/18 10:31 Heparin Anti-Xa Level < 0.10 U.I./ml (0.3-0.7) L 02/15/18 06:46 POC ABG pH 7.477 (7.35-7.45) H 02/14/18 12:37 POC ABG pCO2 26.9 (35-45) L 02/14/18 12:37 POC ABG pO2 57 (80-105) L 02/14/18 12:37 POC ABG HCO3 19.9 02/14/18 12:37 POC ABG Total CO2 21 02/14/18 12:37 POC ABG O2 Sat 92 02/14/18 12:37 POC ABG Base Excess -4 02/14/18 12:37 FiO2 21 % 02/14/18 12:37 Sodium 138 mmol/L (137-145) 02/22/18 06:37 Potassium 4.5 mmol/L (3.6-5.0) 02/22/18 06:37 Chloride 100.3 mmol/L (98-107) 02/22/18 06:37 Carbon Dioxide 25 mmol/L (22-30) 02/22/18 06:37 Anion Gap 17 mmol/L 02/22/18 06:37 BUN 15 mg/dL (9-20) 02/22/18 06:37 Creatinine 0.8 mg/dL (0.8-1.5) 02/22/18 06:37 Estimated GFR > 60 ml/min 02/22/18 06:37 BUN/Creatinine Ratio 19 % 02/22/18 06:37 Glucose 111 mg/dL (75-100) H 02/22/18 06:37 Hemoglobin A1c 6.1 % (4-6) H 02/13/18 01:25 Calcium 8.7 mg/dL (8.4-10.2) 02/22/18 06:37 Magnesium 2.20 mg/dL (1.7-2.3) 02/12/18 09:55 Total Bilirubin 0.80 mg/dL (0.1-1.2) 02/14/18 03:05 AST 10 units/L (5-40) 02/14/18 03:05 ALT 27 units/L (7-56) 02/14/18 03:05 Alkaline Phosphatase 56 units/L (35-129) 02/14/18 03:05 Troponin T 0.021 ng/mL (0.00-0.029) 02/12/18 09:55 NT-Pro-B Natriuret Pep 3956 pg/mL (0-450) H 02/12/18 09:55 Total Protein 6.5 g/dL (6.3-8.2) 02/14/18 03:05 Albumin 3.9 g/dL (3.9-5) 02/14/18 03:05 Albumin/Globulin Ratio 1.5 % 02/14/18 03:05 Blood Type AB POSITIVE 02/13/18 14:07 Antibody Screen Negative 02/13/18 14:07
--- NOTE | 2018-02-22 11:49 | Consultation ---
History of Present Illness Consult date: 02/22/18 Requesting physician: ZHENG ASHER Consult reason: other (pauses) History of present illness: The pt is a 37 Yo male with a past medical history significant for tobacco use, sleep apnea, morbid obesity. He is previously unknown to our practice. 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 He presented on 02/12/2018 with c/o chest pain, dizziness, SOB and fatigue. He was subsequently found to have massive bilateral PE and LLE DVT and is s/p EKOS. He is currently anticoagulated with Eliquis. He has also been diagnosed with PNA. He was noted to have sinus pauses on telemetry today ( longest pause was 9.1 sec) and thus cardiology has been consulted. On evaluation , he denies any current complaints, including chest pain, SOB, palpitations, n/v , diaphoresis, dizziness or syncope. He reports that he has not been wearing CPAP since admission because he prefers the nasal CPAP and one has not been provided. Echo done 02/14/2018 showed EF 55%, mod RA and RV enlargement, mod RV systolic dysfunction, mod TR, mod pulm HTN with RVSP 55mmHg. Past History Past Medical History: other (sleep apnea; morbid obesity) Past Surgical History: No surgical history, Other (tooth extraction) Social history: smoking. denies: alcohol abuse, prescription drug abuse Family history: no significant family history Medications and Allergies Allergies Allergy/AdvReac Type Severity Reaction Status Date / Time No Known Allergies Allergy Unverified 02/12/18 09:54 Home Medications Medication Instructions Recorded Confirmed Last Taken Type No Known Home Medications [No 02/12/18 02/12/18 Unknown History Reported Home Medications] Active Meds: Active Medications Acetaminophen (Tylenol) 650 mg PO Q4H PRN PRN Reason: Pain MILD(1-3)/Fever >100.5/PULIDO Last Admin: 02/15/18 10:01 Dose: 650 mg Acetaminophen/Hydrocodone Bitart ([place] 5/325) 2 each PO Q6H PRN PRN Reason: Pain, Moderate (4-6) Last Admin: 02/22/18 04:59 Dose: 2 each Albuterol (Proventil) 2.5 mg IH Q6HRT PRN PRN Reason: Shortness Of Breath Last Admin: 02/15/18 19:24 Dose: 2.5 mg Alprazolam (Xanax) 0.25 mg PO Q8H PRN PRN Reason: Anxiety Apixaban (Eliquis) 5 mg PO Q12HR [facility] Last Admin: 02/22/18 10:06 Dose: 5 mg Benzonatate (Tessalon Perles) 100 mg PO Q6HR PRN PRN Reason: Cough Last Admin: 02/20/18 22:13 Dose: 100 mg Docusate Sodium (Colace) 100 mg PO BID [facility] Last Admin: 02/22/18 10:06 Dose: 100 mg Hydralazine HCl (Apresoline) 10 mg IV Q4HR PRN PRN Reason: Hypertension Last Admin: 02/14/18 05:22 Dose: 10 mg Levofloxacin (Levaquin) 750 mg PO Q24HR [facility] Last Admin: 02/22/18 10:06 Dose: 750 mg Morphine Sulfate (Morphine) 2 mg IV Q4H PRN PRN Reason: Pain, Moderate (4-6) Last Admin: 02/19/18 21:20 Dose: 2 mg Ondansetron HCl (Zofran) 4 mg IV Q8H PRN PRN Reason: Nausea And Vomiting Oxycodone/Acetaminophen (Percocet 5/325) 1 tab PO Q6H PRN PRN Reason: Pain, Moderate (4-6) Last Admin: 02/22/18 08:30 Dose: 1 tab Pantoprazole Sodium (Protonix) 40 mg PO BID [facility] Last Admin: 02/22/18 10:07 Dose: 40 mg Polyethylene Glycol (Miralax 3350) 17 gm PO QDAY PRN PRN Reason: Constipation Sodium Chloride (Sodium Chloride Flush Syringe 10 Ml) 10 ml IV BID [facility] Last Admin: 02/22/18 10:07 Dose: 10 ml Sodium Chloride (Sodium Chloride Flush Syringe 10 Ml) 10 ml IV PRN PRN PRN Reason: LINE FLUSH Zolpidem Tartrate (Ambien) 5 mg PO QHS PRN PRN Reason: Insomnia Last Admin: 02/22/18 00:05 Dose: 5 mg Review of Systems Constitutional: no weight loss, no weight gain, no fever, no chills, no sweats Ears, nose, mouth and throat: no ear pain, no nose pain, no sinus pressure, no sinus pain Cardiovascular: chest pain (currently resolved), lightheadedness (currently resolved), shortness of breath (currently resolved), dyspnea on exertion ( currently resolved), no high blood pressure, no leg edema Respiratory: no cough, no congestion, no wheezing, no pain on inspiration Gastrointestinal: no abdominal pain, no nausea, no vomiting, no diarrhea, no constipation, no change in bowel habits Genitourinary Male: no dysuria, no hematuria, no flank pain, no discharge, no urinary frequency, no urinary hesitancy Musculoskeletal: no neck stiffness, no neck pain Integumentary: no rash, no pruritis, no redness, no sores, no wounds Neurological: no head injury, no paralysis, no weakness, no parathesias, no numbness, no tingling, no seizures, no syncope Psychiatric: no anxiety Endocrine: no cold intolerance, no heat intolerance Hematologic/Lymphatic: no easy bruising, no easy bleeding, no lymphadenopathy Allergic/Immunologic: no urticaria, no wheezing, no persistent infections Physical Examination Vital Signs Pulse Resp Pulse Ox 119 H 26 H 97 02/12/18 09:46 02/12/18 09:46 02/12/18 09:46 General appearance: no acute distress HEENT: Positive: PERRL, Normocephaly, Mucus Membranes Moist Neck: Positive: neck supple, trachea midline Cardiac: Positive: Reg Rate and Rhythm, S1/S2 Lungs: Positive: clear to auscultation Neuro: Positive: Grossly Intact Abdomen: Positive: Soft. Negative: Tender Skin: Positive: Clear. Negative: Rash, Wound Musculoskeletal: No Fluid Collection, No Pain, Normal Range of Motion Extremities: Absent: edema Results 02/22/18 06:42 02/22/18 06:37 CBC 02/22/18 Range/Units 06:42 WBC 6.0 (4.5-11.0) K/mm3 RBC 4.11 (3.65-5.03) M/mm3 Hgb 13.6 (11.8-15.2) gm/dl Hct 39.2 (35.5-45.6) % Plt Count 205 (140-440) K/mm3 Comprehensive Metabolic Panel 02/22/18 Range/Units 06:37 Sodium 138 (137-145) mmol/L Potassium 4.5 (3.6-5.0) mmol/L Chloride 100.3 (98-107) mmol/L Carbon Dioxide 25 (22-30) mmol/L BUN 15 (9-20) mg/dL Creatinine 0.8 (0.8-1.5) mg/dL Glucose 111 H (75-100) mg/dL Calcium 8.7 (8.4-10.2) mg/dL - Imaging and Cardiology Echo: report reviewed (02/14/2018 showed EF 55%, mod RA and RV enlargement, mod RV systolic dysfunction, mod TR, mod pulm HTN with RVSP 55mmHg. ) EKG: report reviewed, image reviewed EKG interpretations - Telemetry EKG Rhythm: Sinus Rhythm - EKG Sinus rhythms and dysrhythmias: sinus rhythm Assessment and Plan Proceed with TVP placement and LHC. Indication, potential risks and benefits reviewed with pt and he is agreeable to proceed. Pt will require tx to CCU. D/w Dr. Asher. Obtain thyroid profile. Obtain EP consultation. The patient has been seen in conjunction with Dr. Osmin Beatty who agrees with the assessment and plan of care. - Patient Problems (1) Sinus pause Current Visit: Yes Status: Acute (2) Acute pulmonary embolism Current Visit: Yes Status: Acute Qualifiers: Acute cor pulmonale presence: with acute cor pulmonale (3) Acute DVT (deep venous thrombosis) Current Visit: Yes Status: Acute (4) Morbid obesity Current Visit: Yes Status: Chronic (5) Sleep apnea Current Visit: Yes Status: Chronic Qualifiers: Sleep apnea type: unspecified type Qualified Code(s): G47.30 - Sleep apnea , unspecified (6) Tricuspid regurgitation Current Visit: Yes Status: Chronic (7) Pulmonary HTN Current Visit: Yes Status: Chronic (8) Tobacco use Current Visit: Yes Status: Chronic
[2018-02-22] MEDS ORDERED: HEPARIN/NS 5000 UNIT/500ML(CATH LAB) 500 ML IR ONE ×2 (11:55→11:59)
[2018-02-22] MEDS ORDERED: XYLOCAINE 2% INFILTRATI ONE ×2 (11:55→12:57)
[2018-02-22] MEDS ORDERED: NACL 0.9% 500 ML 500 ML ONE (11:56)
[2018-02-22] MEDS ORDERED: SUBLIMAZE ONE (11:57)
[2018-02-22] MEDS ORDERED: VERSED ONE (11:57)
[2018-02-22] MEDS ORDERED: NACL 0.9% 500 ML 500 ML IV SCH (12:00)
[2018-02-22] MEDS ORDERED: CALAN ONE (12:36)
[2018-02-22] MEDS ORDERED: HEPARIN/NS 5000 UNIT/500ML(CATH LAB) 1,000 ML IR ONE (12:38)
[2018-02-22] MEDS: XYLOCAINE 2% INFILTRATI ONE ×2 (12:48→13:04)
[2018-02-22] MEDS: HEPARIN 10,000 UNITS/10 ML ONE ×2 (12:49→13:12)
[2018-02-22] MEDS: NITROGLYCERIN SYRINGE 3 ML ONE ×2 (12:50→13:12)
--- NOTE | 2018-02-22 13:15 | Progress Note ---
Assessment and Plan Patient alert, awake. Sitting in chair.Not using O2 as recommended. Still complaining left sided chest discomfort. No acute respiratory distress.O2 saturation 98%. Patient using CPAP at night. - Patient Problems (1) Acute pulmonary embolism Current Visit: Yes Status: Acute Qualifiers: Acute cor pulmonale presence: with acute cor pulmonale Plan to address problem: Patient is on Apixaban (2) Morbid obesity with BMI of 50.0-59.9, adult Current Visit: Yes Status: Acute Plan to address problem: Recommend to loose weight. (3) Sleep apnea Current Visit: Yes Status: Chronic Qualifiers: Sleep apnea type: unspecified type Qualified Code(s): G47.30 - Sleep apnea , unspecified Plan to address problem: Recommend CPAP as he is using at home. Patient does not want to use it even after explaining to him importance of using it. (4) Pneumonia involving right lung Current Visit: Yes Status: Acute Plan to address problem: Chest xray reported right middle lobe pneumonia. Patient is on Levaquin. Subjective Date of service: 02/22/18 Principal diagnosis: Submassive PE Interval history: Patient alert, awake. Resting on nasal canula 3 litres and O2 saturation 98% .Patient undergone pulmonary thrombectomy. Objective Vital Signs - 12hr 02/22/18 02/22/18 02/22/18 04:38 04:59 05:47 Temperature 98.5 F Pulse Rate 77 Respiratory 18 20 20 Rate Respiratory Rate [Right Groin] Blood Pressure 116/70 O2 Sat by Pulse 93 Oximetry 02/22/18 02/22/18 02/22/18 07:25 08:00 09:27 Temperature 97.6 F Pulse Rate 66 Respiratory 20 Rate Respiratory Rate [Right Groin] Blood Pressure 114/57 O2 Sat by Pulse 96 98 Oximetry 02/22/18 10:00 Temperature Pulse Rate 66 Respiratory Rate Respiratory 20 Rate [Right Groin] Blood Pressure O2 Sat by Pulse Oximetry Constitutional: no acute distress, alert Eyes: non-icteric ENT: oropharynx moist Neck: supple, no lymphadenopathy, no JVD Effort: normal Ascultation: Bilateral: diminished breath sounds Cardiovascular: regular rate and rhythm, other (S1,S2 no murmurs, gallops or rubs) Gastrointestinal: normoactive bowel sounds, non-tender, non-distended Integumentary: normal Extremities: no cyanosis, no edema, pink and warm, pulses normal, no ischemia or petechiae Neurologic: normal mental status, non-focal exam, pupils equal and round, CN II- XII normal Psychiatric: mood appropriate, affect normal CBC and BMP: 02/22/18 06:42 02/22/18 06:37 ABG, PT/INR, D-dimer: ABG POC ABG pH 7.477 (7.35-7.45) H 02/14/18 12:37 POC ABG pCO2 26.9 (35-45) L 02/14/18 12:37 POC ABG pO2 57 (80-105) L 02/14/18 12:37 POC ABG HCO3 19.9 02/14/18 12:37 POC ABG Total CO2 21 02/14/18 12:37 POC ABG O2 Sat 92 02/14/18 12:37 PT/INR, D-dimer PT 19.4 Sec. (12.2-14.9) H 02/18/18 05:49 INR 1.54 (0.87-1.13) H 02/18/18 05:49 Abnormal lab findings: Abnormal Labs 02/12/18 02/12/18 02/12/18 09:55 09:55 09:55 WBC 11.8 H RBC 5.29 H Hgb 17.7 H Hct 49.7 H MCV MCH 33 H MCHC 36 H Plt Count [place] % (Auto) 13.3 H [place] # 1.6 H Seg Neutrophils % Seg Neutrophils # PT INR APTT 40.0 H Heparin Anti-Xa Level POC ABG pH POC ABG pCO2 POC ABG pO2 Carbon Dioxide 21 L Glucose 150 H Hemoglobin A1c Calcium 10.3 H NT-Pro-B Natriuret Pep 3956 H Albumin 02/12/18 02/12/18 02/12/18 12:35 12:35 19:12 WBC RBC Hgb 17.2 H Hct 50.5 H MCV MCH MCHC Plt Count [place] % (Auto) [place] # Seg Neutrophils % Seg Neutrophils # PT INR APTT 42.2 H Heparin Anti-Xa Level 0.10 L POC ABG pH POC ABG pCO2 POC ABG pO2 Carbon Dioxide Glucose Hemoglobin A1c Calcium NT-Pro-B Natriuret Pep Albumin 02/13/18 02/13/18 02/13/18 01:18 01:25 01:25 WBC RBC Hgb Hct MCV MCH MCHC Plt Count [place] % (Auto) [place] # Seg Neutrophils % Seg Neutrophils # PT INR APTT Heparin Anti-Xa Level 0.10 L POC ABG pH POC ABG pCO2 POC ABG pO2 Carbon Dioxide Glucose 131 H Hemoglobin A1c 6.1 H Calcium NT-Pro-B Natriuret Pep Albumin 02/13/18 02/13/18 02/13/18 06:55 16:32 16:32 WBC RBC Hgb Hct MCV MCH MCHC Plt Count [place] % (Auto) [place] # Seg Neutrophils % Seg Neutrophils # PT INR APTT 45.6 H Heparin Anti-Xa Level POC ABG pH POC ABG pCO2 POC ABG pO2 Carbon Dioxide 21 L 20 L Glucose 118 H Hemoglobin A1c Calcium NT-Pro-B Natriuret Pep Albumin 3.4 L 02/13/18 02/13/18 02/13/18 16:32 16:32 21:06 WBC RBC Hgb 15.4 H Hct 46.0 H MCV 97 H MCH MCHC Plt Count [place] % (Auto) 12.4 H [place] # 1.1 H Seg Neutrophils % Seg Neutrophils # PT INR APTT Heparin Anti-Xa Level 0.10 L < 0.10 L POC ABG pH POC ABG pCO2 POC ABG pO2 Carbon Dioxide Glucose Hemoglobin A1c Calcium NT-Pro-B Natriuret Pep Albumin 02/13/18 02/14/18 02/14/18 21:15 01:49 03:05 WBC RBC Hgb 15.3 H Hct MCV 98 H 96 H MCH 33 H 33 H MCHC Plt Count 137 L [place] % (Auto) 11.5 H 11.4 H [place] # 1.0 H 1.1 H Seg Neutrophils % 73.4 H Seg Neutrophils # PT INR APTT Heparin Anti-Xa Level POC ABG pH 7.484 H POC ABG pCO2 24.7 L POC ABG pO2 70 L Carbon Dioxide Glucose Hemoglobin A1c Calcium NT-Pro-B Natriuret Pep Albumin 02/14/18 02/14/18 02/14/18 03:05 03:05 10:31 WBC RBC Hgb Hct MCV 97 H MCH 33 H MCHC Plt Count 124 L [place] % (Auto) 13.1 H [place] # 1.2 H Seg Neutrophils % 70.9 H Seg Neutrophils # PT INR APTT Heparin Anti-Xa Level < 0.10 L POC ABG pH POC ABG pCO2 POC ABG pO2 Carbon Dioxide 20 L Glucose 151 H Hemoglobin A1c Calcium NT-Pro-B Natriuret Pep Albumin 02/14/18 02/14/18 02/14/18 10:31 12:30 12:37 WBC RBC Hgb Hct MCV MCH MCHC Plt Count [place] % (Auto) [place] # Seg Neutrophils % Seg Neutrophils # PT INR APTT Heparin Anti-Xa Level < 0.10 L POC ABG pH 7.496 H 7.477 H POC ABG pCO2 24.2 L 26.9 L POC ABG pO2 65 L 57 L Carbon Dioxide Glucose Hemoglobin A1c Calcium NT-Pro-B Natriuret Pep Albumin 02/14/18 02/15/18 02/15/18 19:49 04:24 06:46 WBC RBC Hgb Hct MCV MCH MCHC Plt Count [place] % (Auto) [place] # Seg Neutrophils % Seg Neutrophils # PT INR APTT Heparin Anti-Xa Level < 0.10 L < 0.10 L POC ABG pH POC ABG pCO2 POC ABG pO2 Carbon Dioxide Glucose 147 H Hemoglobin A1c Calcium NT-Pro-B Natriuret Pep Albumin 02/15/18 02/16/18 02/16/18 10:04 10:27 10:27 WBC 11.1 H RBC Hgb 15.3 H Hct MCV 97 H 96 H MCH 33 H 33 H MCHC Plt Count 114 L 126 L [place] % (Auto) 12.2 H 12.8 H [place] # 1.0 H 1.4 H Seg Neutrophils % 71.1 H Seg Neutrophils # 7.9 H PT 18.1 H INR 1.41 H APTT Heparin Anti-Xa Level POC ABG pH POC ABG pCO2 POC ABG pO2 Carbon Dioxide Glucose Hemoglobin A1c Calcium NT-Pro-B Natriuret Pep Albumin 02/17/18 02/18/18 02/18/18 07:05 05:49 05:49 WBC RBC Hgb Hct MCV 97 H MCH 33 H MCHC Plt Count [place] % (Auto) 14.5 H [place] # 1.1 H Seg Neutrophils % Seg Neutrophils # PT 19.4 H 19.4 H INR 1.54 H 1.54 H APTT Heparin Anti-Xa Level POC ABG pH POC ABG pCO2 POC ABG pO2 Carbon Dioxide Glucose Hemoglobin A1c Calcium NT-Pro-B Natriuret Pep Albumin 02/18/18 02/22/18 02/22/18 05:49 06:37 06:42 WBC RBC Hgb Hct MCV 95 H MCH 33 H MCHC 35 H Plt Count [place] % (Auto) [place] # Seg Neutrophils % Seg Neutrophils # PT INR APTT Heparin Anti-Xa Level POC ABG pH POC ABG pCO2 POC ABG pO2 Carbon Dioxide Glucose 115 H 111 H Hemoglobin A1c Calcium NT-Pro-B Natriuret Pep Albumin
--- NOTE | 2018-02-22 13:40 | Event Note ---
Date: 02/22/18 s/p C which showed normal coronaries. s/p TVP placement with no apparent complications noted. will hold Eliquis and transition to heparin gtt tomorrow AM. await EP consultation. [place] NP / DR. Osmin BUENO
--- NOTE | 2018-02-22 13:54 | Cardiac Catherization Report ---
CARDIAC CATHETERIZATION REFERRING PHYSICIAN: Hospitalist service. INDICATION FOR PROCEDURE: The patient is a pleasant 37-year-old gentleman with multiple risk factors, presents with shortness of breath, found to have submassive pulmonary embolus, chest pain, underwent echo and this morning was found to have significant pauses including nearly 10-second sinus arrest with chest pain, referred for urgent left heart catheterization, temporary pacemaker placement. Risks, benefits, alternatives discussed at length prior to obtaining informed consent. The patient is already on Eliquis, understands the risk of bleeding, would like to move forward. PROCEDURE IN DETAIL: Brought to the pathology laboratory aide in urgent fashion, prepped and draped in sterile fashion. I used ultrasound guidance to obtain access into the right jugular vein under fluoroscopic guidance, balloon tipped temporary pacemaker was placed. The pacemaker functions normal, tested with thresholds and output. Backup rate set at 50. Next, I used right radial approach. A 2 mL of 2% lidocaine used to anesthetize the right radial artery. A standard 6-Azeri hydrophilic sheath used to cannulate the right radial artery via modified Seldinger technique. All exchanges performed to exchange a J-tip guidewire. JL3.5 catheter used to engage the left main. No dampening or ventricularization. Cineangiography performed in multiple projections. JR4 catheter was used to cross the aortic valve under fluoroscopic guidance. Left ventriculography performed 30 MADERA and 30 [place] projections via hand injections, catheter flushed. Manual pullback performed with continuous pressure monitoring. Catheter used to engage the right coronary. No dampening or ventricularization. Cineangiography performed in all projections. Next, the catheter removed from the body of wire, sheath removed. Manual pressure used to achieve hemostasis. I directly supervised the administration of minimal moderate sedation from . There were no immediate complications identified. DATA: Aortic pressure is 110/80, LV pressure is 110. LVP of 15 mmHg. Left ventriculography reveals borderline LV function approximately 45-50%. No evidence of aortic stenosis, high normal EDP. CORONARY ANATOMY: Right dominant system. Right coronary is not moderate sized vessel, courses AV groove. No significant disease, bifurcates distally in the posterior descending and posterolateral branches. The left main without significant disease, bifurcates left anterior descending and left circumflex. Left circumflex, moderate sized vessel, courses the AV groove, distally bifurcates and gives off an OM trunk. No significant disease. LAD is a moderate sized vessel, courses anterior intergroove, wraps around the apex, no significant disease. CONCLUSIONS: 1. No angiographic evidence of significant epicardial coronary disease in this right dominant system. 2. Low normal left systolic performance with estimated ejection fraction 45-50% without evidence of aortic stenosis. 3. . 4. No evidence of aortic stenosis. 5. Successful ultrasound-guided placement of right jugular venous sheath. 6. Successful placement of fluoroscopic guidance, balloon tipped temporary pacemaker wire. 7. There are no complications. The patient will be transferred to ICU. Watch closely, is clinically stable, chest pain free, clinically and electrically doing well. Plan of care was discussed at length. PLAN: Continue Eliquis therapy for submassive PE, electrophysiology consultation. We will follow along. JOB# [id number] SBVerónica/CHANDRAKANT
--- NOTE | 2018-02-22 14:38 | Progress Note ---
Assessment and Plan 37-year-old male status post aspiration thrombectomy and catheter directed thrombolysis for sub-massive pulmonary embolism. Subsequently, patient required vacuum assisted aspiration thrombectomy with penumbra thrombectomy device in the pulmonary arteries which significantly improved his oxygenation. Patient could be transitioned from Ventimask to nasal cannula. Patient had long EKG pause resulting in cardiology consultation. Patient has been having EKG pauses throughout his entire hospitalization. Patient will need to be on anticoagulation. Subjective Date of service: 02/22/18 Principal diagnosis: Submassive PE Interval history: Patient was able to transition from Ventimask to nasal cannula after pulmonary thrombectomy. Patient was having long pauses on EKG prior, but had a longer pause resulting in cardiology consultation. Objective - Constitutional Vitals: Vital Signs - 12hr 02/22/18 02/22/18 02/22/18 04:38 04:59 05:47 Temperature 98.5 F Pulse Rate 77 Respiratory 18 20 20 Rate Respiratory Rate [Right Groin] Blood Pressure 116/70 O2 Sat by Pulse 93 Oximetry 02/22/18 02/22/18 02/22/18 07:25 08:00 09:27 Temperature 97.6 F Pulse Rate 66 Respiratory 20 Rate Respiratory Rate [Right Groin] Blood Pressure 114/57 O2 Sat by Pulse 96 98 Oximetry 02/22/18 02/22/18 10:00 14:07 Temperature 97.9 F Pulse Rate 66 73 Respiratory 18 Rate Respiratory 20 Rate [Right Groin] Blood Pressure 116/63 O2 Sat by Pulse 94 Oximetry General appearance: Present: no acute distress - EENT Eyes: EOM intact ENT: hearing intact - Respiratory Respiratory effort: normal (on nasal cannula) Extremities: normal temperature, normal color - Psychiatric Psychiatric: appropriate mood/affect, cooperative - Labs CBC & Chem 7: 02/22/18 06:42 02/22/18 06:37 Labs: Abnormal lab results 02/22/18 02/22/18 Range/Units 06:37 06:42 MCV 95 H (84-94) fl MCH 33 H (28-32) pg MCHC 35 H (32-34) % Glucose 111 H (75-100) mg/dL
[2018-02-22] MEDS ORDERED: NORCO 5/325 ONE (16:43)
[2018-02-23 05:54] LABS: BUN/Creatinine Ratio 20; Blood Urea Nitrogen 16 mg/dL (9-20); Calcium 8.7 mg/dL (8.4-10.2); Hemolysis Index 23
[2018-02-23] MEDS: COLACE PO SCH ×2 (10:03→21:54)
[2018-02-23] MEDS: PROTONIX PO SCH ×2 (10:03→21:54)
--- NOTE | 2018-02-23 12:27 | Progress Note ---
Subjective Date of service: 02/23/18 Principal diagnosis: Submassive PE Interval history: Patient is sleeping. Discussed with Rn for any symptoms. PM not sensing. Objective Vital Signs Temp Pulse Resp BP Pulse Ox 02/23/18 10:30 55 L 16 137/69 95 02/23/18 10:00 76 13 125/82 98 02/23/18 09:30 73 16 128/74 93 02/23/18 09:00 75 19 114/75 98 02/23/18 08:30 80 21 113/65 97 02/23/18 08:00 98.0 F 84 21 113/65 93 02/23/18 07:30 55 L 16 136/58 93 02/23/18 07:00 63 15 136/58 94 02/23/18 06:30 56 L 9 L 136/58 89 02/23/18 06:00 74 14 136/58 96 02/23/18 05:30 37 L 16 136/58 97 02/23/18 05:00 75 20 136/58 95 02/23/18 04:30 64 15 127/92 96 02/23/18 04:00 76 19 127/92 96 02/23/18 03:30 69 16 127/92 96 02/23/18 03:00 86 16 127/92 93 02/23/18 02:30 73 20 110/55 91 02/23/18 02:00 67 15 110/55 96 02/23/18 01:30 76 23 120/58 96 02/23/18 01:00 81 19 120/58 96 02/23/18 00:30 86 12 120/58 95 02/23/18 00:00 71 11 L 115/73 97 02/22/18 23:30 79 16 115/73 97 02/22/18 23:00 81 16 115/73 97 02/22/18 22:53 99.2 F 02/22/18 22:30 75 17 115/73 97 02/22/18 22:00 82 17 97 02/22/18 21:30 78 16 103/69 96 02/22/18 21:00 78 15 103/69 96 02/22/18 20:40 98 02/22/18 20:30 78 9 L 98 02/22/18 20:06 96 02/22/18 20:00 98.3 F 02/22/18 19:00 77 18 111/60 94 02/22/18 18:00 85 16 111/75 96 02/22/18 17:00 87 18 108/74 95 02/22/18 16:47 16 02/22/18 16:30 81 16 113/74 93 02/22/18 16:00 77 18 116/74 93 02/22/18 15:30 85 16 115/47 95 02/22/18 15:00 83 18 108/59 94 02/22/18 14:45 89 16 110/60 94 02/22/18 14:30 84 18 113/65 96 02/22/18 14:15 68 20 116/63 96 02/22/18 14:07 97.9 F 73 18 116/63 94 - Physical Examination General: No Apparent Distress HEENT: Positive: PERRL, Normocephaly, Mucus Membranes Moist Neck: Positive: neck supple, trachea midline. Negative: JVD/HJR Cardiac: Positive: Reg Rate and Rhythm Lungs: Positive: clear to auscultation, Decreased Breath Sounds Neuro: Positive: Grossly Intact Abdomen: Positive: Soft. Negative: Organomegaly, Tender Skin: Positive: Clear. Negative: Rash, Wound Musculoskeletal: No Fluid Collection, No Pain, Normal Range of Motion Extremities: Present: +1 Edema. Absent: edema - Labs and Meds Comprehensive Metabolic Panel 02/23/18 Range/Units 04:49 Sodium 138 (137-145) mmol/L Potassium 4.3 (3.6-5.0) mmol/L Chloride 102.6 (98-107) mmol/L Carbon Dioxide 24 (22-30) mmol/L BUN 16 (9-20) mg/dL Creatinine 0.8 (0.8-1.5) mg/dL Glucose 185 H (75-100) mg/dL Calcium 8.7 (8.4-10.2) mg/dL - Imaging and Cardiology EKG: report reviewed, image reviewed Echo: report reviewed (02/14/2018 showed EF 55%, mod RA and RV enlargement, mod RV systolic dysfunction, mod TR, mod pulm HTN with RVSP 55mmHg. ) - Telemetry EKG Rhythm: Sinus Rhythm - EKG Sinus rhythms and dysrhythmias: sinus rhythm
--- NOTE | 2018-02-23 12:33 | Progress Note ---
Assessment and Plan (1) Sinus pause Current Visit: Yes Status: Acute Pacemaker set at 40/m. sensing is good after adjusting the mode. (2) Acute pulmonary embolism Current Visit: Yes Status: Acute Qualifiers: Acute cor pulmonale presence: with acute cor pulmonale Start on Heparin protocol. (3) Acute DVT (deep venous thrombosis) Current Visit: Yes Status: Acute (4) Morbid obesity Current Visit: Yes Status: Chronic (5) Sleep apnea Current Visit: Yes Status: Chronic Qualifiers: Sleep apnea type: unspecified type Qualified Code(s): G47.30 - Sleep apnea , unspecified (6) Tricuspid regurgitation Current Visit: Yes Status: Chronic (7) Pulmonary HTN Current Visit: Yes Status: Chronic (8) Tobacco use Current Visit: Yes Status: Chronic Subjective Principal diagnosis: Submassive PE Objective Vital Signs Temp Pulse Resp BP Pulse Ox 02/23/18 10:30 55 L 16 137/69 95 02/23/18 10:00 76 13 125/82 98 02/23/18 09:30 73 16 128/74 93 02/23/18 09:00 75 19 114/75 98 02/23/18 08:30 80 21 113/65 97 02/23/18 08:00 98.0 F 84 21 113/65 93 02/23/18 07:30 55 L 16 136/58 93 02/23/18 07:00 63 15 136/58 94 02/23/18 06:30 56 L 9 L 136/58 89 02/23/18 06:00 74 14 136/58 96 02/23/18 05:30 37 L 16 136/58 97 02/23/18 05:00 75 20 136/58 95 02/23/18 04:30 64 15 127/92 96 02/23/18 04:00 76 19 127/92 96 02/23/18 03:30 69 16 127/92 96 02/23/18 03:00 86 16 127/92 93 02/23/18 02:30 73 20 110/55 91 02/23/18 02:00 67 15 110/55 96 02/23/18 01:30 76 23 120/58 96 02/23/18 01:00 81 19 120/58 96 02/23/18 00:30 86 12 120/58 95 02/23/18 00:00 71 11 L 115/73 97 02/22/18 23:30 79 16 115/73 97 02/22/18 23:00 81 16 115/73 97 02/22/18 22:53 99.2 F 02/22/18 22:30 75 17 115/73 97 02/22/18 22:00 82 17 97 02/22/18 21:30 78 16 103/69 96 02/22/18 21:00 78 15 103/69 96 02/22/18 20:40 98 02/22/18 20:30 78 9 L 98 02/22/18 20:06 96 02/22/18 20:00 98.3 F 02/22/18 19:00 77 18 111/60 94 02/22/18 18:00 85 16 111/75 96 02/22/18 17:00 87 18 108/74 95 02/22/18 16:47 16 02/22/18 16:30 81 16 113/74 93 02/22/18 16:00 77 18 116/74 93 02/22/18 15:30 85 16 115/47 95 02/22/18 15:00 83 18 108/59 94 02/22/18 14:45 89 16 110/60 94 02/22/18 14:30 84 18 113/65 96 02/22/18 14:15 68 20 116/63 96 02/22/18 14:07 97.9 F 73 18 116/63 94 - Physical Examination General: No Apparent Distress HEENT: Positive: PERRL, Normocephaly, Mucus Membranes Moist Neck: Positive: neck supple, trachea midline. Negative: JVD/HJR Neuro: Positive: Grossly Intact Abdomen: Positive: Soft. Negative: Organomegaly, Tender Skin: Positive: Clear. Negative: Rash, Wound Musculoskeletal: No Fluid Collection, No Pain, Normal Range of Motion Extremities: Present: +1 Edema. Absent: edema - Labs and Meds Comprehensive Metabolic Panel 02/23/18 Range/Units 04:49 Sodium 138 (137-145) mmol/L Potassium 4.3 (3.6-5.0) mmol/L Chloride 102.6 (98-107) mmol/L Carbon Dioxide 24 (22-30) mmol/L BUN 16 (9-20) mg/dL Creatinine 0.8 (0.8-1.5) mg/dL Glucose 185 H (75-100) mg/dL Calcium 8.7 (8.4-10.2) mg/dL - Imaging and Cardiology EKG: report reviewed, image reviewed Echo: report reviewed (02/14/2018 showed EF 55%, mod RA and RV enlargement, mod RV systolic dysfunction, mod TR, mod pulm HTN with RVSP 55mmHg. ) - EKG Sinus rhythms and dysrhythmias: sinus rhythm
--- NOTE | 2018-02-23 12:45 | Progress Note ---
Assessment and Plan Acute bilateral pulmonary emboli s/p EKOS Shortness of breath. Dyspnea on exertion. Morbid obesity. History of obstructive sleep apnea. Mild metabolic acidosis with a serum bicarbonate of 20 at admission Arrhythmias with pauses - initiate BIPAP qhs and prn - continue suppelmental oxygen to keep sats > 90% - continue anticoagulation - PT/OT as tolerated - continue GI prophylaxis - continue anti-hypertensives and adjust per attending - weight loss and lifestyle modifications counseled Subjective Date of service: 02/23/18 Principal diagnosis: Submassive PE Interval history: Patient is seen today for: Acute P.E. s/p EkOS catheter directed thrombolysis; Morbid obesity; SILVER Seen and examined at bedside; 24 hour events reviewed; nursing and respiratory care staff consulted; no adverse overnight events reported to me; resting peacefully in bed; Has not used his BIPAP since admission. His arrhythmias and pauses on telemetry is probably related to his severe sleep apnea that is currently not being treated. He denies any chest pain, no shortness of breath, no fevers or chills. Objective Vital Signs - 12hr 02/23/18 02/23/18 02/23/18 01:00 01:30 02:00 Temperature Pulse Rate 81 76 67 Respiratory 19 23 15 Rate Blood Pressure 120/58 120/58 110/55 O2 Sat by Pulse 96 96 96 Oximetry 02/23/18 02/23/18 02/23/18 02:30 03:00 03:30 Temperature Pulse Rate 73 86 69 Respiratory 20 16 16 Rate Blood Pressure 110/55 127/92 127/92 O2 Sat by Pulse 91 93 96 Oximetry 02/23/18 02/23/18 02/23/18 04:00 04:30 05:00 Temperature Pulse Rate 76 64 75 Respiratory 19 15 20 Rate Blood Pressure 127/92 127/92 136/58 O2 Sat by Pulse 96 96 95 Oximetry 02/23/18 02/23/18 02/23/18 05:30 06:00 06:30 Temperature Pulse Rate 37 L 74 56 L Respiratory 16 14 9 L Rate Blood Pressure 136/58 136/58 136/58 O2 Sat by Pulse 97 96 89 Oximetry 02/23/18 02/23/18 02/23/18 07:00 07:30 08:00 Temperature 98.0 F Pulse Rate 63 55 L 84 Respiratory 15 16 21 Rate Blood Pressure 136/58 136/58 113/65 O2 Sat by Pulse 94 93 93 Oximetry 02/23/18 02/23/18 02/23/18 08:30 09:00 09:30 Temperature Pulse Rate 80 75 73 Respiratory 21 19 16 Rate Blood Pressure 113/65 114/75 128/74 O2 Sat by Pulse 97 98 93 Oximetry 02/23/18 02/23/18 10:00 10:30 Temperature Pulse Rate 76 55 L Respiratory 13 16 Rate Blood Pressure 125/82 137/69 O2 Sat by Pulse 98 95 Oximetry Constitutional: no acute distress, alert, other (extreme obesity, transvenous pacemeaker) Eyes: non-icteric ENT: oropharynx moist Neck: supple, no lymphadenopathy, no JVD Effort: normal Ascultation: Bilateral: diminished breath sounds Cardiovascular: regular rate and rhythm, other (S1,S2 no murmurs, gallops or rubs) Gastrointestinal: normoactive bowel sounds, non-tender, non-distended Integumentary: normal Extremities: no cyanosis, no edema, pink and warm, pulses normal, no ischemia or petechiae Neurologic: normal mental status, non-focal exam, pupils equal and round, CN II- XII normal Psychiatric: mood appropriate, affect normal CBC and BMP: 02/23/18 16:42 02/23/18 04:49 ABG, PT/INR, D-dimer: ABG POC ABG pH 7.477 (7.35-7.45) H 02/14/18 12:37 POC ABG pCO2 26.9 (35-45) L 02/14/18 12:37 POC ABG pO2 57 (80-105) L 02/14/18 12:37 POC ABG HCO3 19.9 02/14/18 12:37 POC ABG Total CO2 21 02/14/18 12:37 POC ABG O2 Sat 92 02/14/18 12:37 PT/INR, D-dimer PT 19.4 Sec. (12.2-14.9) H 02/18/18 05:49 INR 1.54 (0.87-1.13) H 02/18/18 05:49 Abnormal lab findings: Abnormal Labs 02/12/18 02/12/18 02/12/18 09:55 09:55 09:55 WBC 11.8 H RBC 5.29 H Hgb 17.7 H Hct 49.7 H MCV MCH 33 H MCHC 36 H Plt Count Rich % (Auto) 13.3 H Rich # 1.6 H Seg Neutrophils % Seg Neutrophils # PT INR APTT 40.0 H Heparin Anti-Xa Level POC ABG pH POC ABG pCO2 POC ABG pO2 Carbon Dioxide 21 L Glucose 150 H Hemoglobin A1c Calcium 10.3 H NT-Pro-B Natriuret Pep 3956 H Albumin TSH 02/12/18 02/12/18 02/12/18 12:35 12:35 19:12 WBC RBC Hgb 17.2 H Hct 50.5 H MCV MCH MCHC Plt Count Rich % (Auto) Rich # Seg Neutrophils % Seg Neutrophils # PT INR APTT 42.2 H Heparin Anti-Xa Level 0.10 L POC ABG pH POC ABG pCO2 POC ABG pO2 Carbon Dioxide Glucose Hemoglobin A1c Calcium NT-Pro-B Natriuret Pep Albumin TSH 02/13/18 02/13/18 02/13/18 01:18 01:25 01:25 WBC RBC Hgb Hct MCV MCH MCHC Plt Count Rich % (Auto) Rich # Seg Neutrophils % Seg Neutrophils # PT INR APTT Heparin Anti-Xa Level 0.10 L POC ABG pH POC ABG pCO2 POC ABG pO2 Carbon Dioxide Glucose 131 H Hemoglobin A1c 6.1 H Calcium NT-Pro-B Natriuret Pep Albumin [facility] 02/13/18 02/13/18 02/13/18 06:55 16:32 16:32 WBC RBC Hgb Hct MCV MCH MCHC Plt Count Rich % (Auto) Rich # Seg Neutrophils % Seg Neutrophils # PT INR APTT 45.6 H Heparin Anti-Xa Level POC ABG pH POC ABG pCO2 POC ABG pO2 Carbon Dioxide 21 L 20 L Glucose 118 H Hemoglobin A1c Calcium NT-Pro-B Natriuret Pep Albumin 3.4 L TSH 02/13/18 02/13/18 02/13/18 16:32 16:32 21:06 WBC RBC Hgb 15.4 H Hct 46.0 H MCV 97 H MCH MCHC Plt Count Rich % (Auto) 12.4 H Rich # 1.1 H Seg Neutrophils % Seg Neutrophils # PT INR APTT Heparin Anti-Xa Level 0.10 L < 0.10 L POC ABG pH POC ABG pCO2 POC ABG pO2 Carbon Dioxide Glucose Hemoglobin A1c Calcium NT-Pro-B Natriuret Pep Albumin TSH 02/13/18 02/14/18 02/14/18 21:15 01:49 03:05 WBC RBC Hgb 15.3 H Hct MCV 98 H 96 H MCH 33 H 33 H MCHC Plt Count 137 L Rich % (Auto) 11.5 H 11.4 H Rich # 1.0 H 1.1 H Seg Neutrophils % 73.4 H Seg Neutrophils # PT INR APTT Heparin Anti-Xa Level POC ABG pH 7.484 H POC ABG pCO2 24.7 L POC ABG pO2 70 L Carbon Dioxide Glucose Hemoglobin A1c Calcium NT-Pro-B Natriuret Pep Albumin [facility] 02/14/18 02/14/18 02/14/18 03:05 03:05 10:31 WBC RBC Hgb Hct MCV 97 H MCH 33 H MCHC Plt Count 124 L Rich % (Auto) 13.1 H Rich # 1.2 H Seg Neutrophils % 70.9 H Seg Neutrophils # PT INR APTT Heparin Anti-Xa Level < 0.10 L POC ABG pH POC ABG pCO2 POC ABG pO2 Carbon Dioxide 20 L Glucose 151 H Hemoglobin A1c Calcium NT-Pro-B Natriuret Pep Albumin [facility] 02/14/18 02/14/18 02/14/18 10:31 12:30 12:37 WBC RBC Hgb Hct MCV MCH MCHC Plt Count Rich % (Auto) Rich # Seg Neutrophils % Seg Neutrophils # PT INR APTT Heparin Anti-Xa Level < 0.10 L POC ABG pH 7.496 H 7.477 H POC ABG pCO2 24.2 L 26.9 L POC ABG pO2 65 L 57 L Carbon Dioxide Glucose Hemoglobin A1c Calcium NT-Pro-B Natriuret Pep Albumin [facility] 02/14/18 02/15/18 02/15/18 19:49 04:24 06:46 WBC RBC Hgb Hct MCV MCH MCHC Plt Count Rich % (Auto) Rich # Seg Neutrophils % Seg Neutrophils # PT INR APTT Heparin Anti-Xa Level < 0.10 L < 0.10 L POC ABG pH POC ABG pCO2 POC ABG pO2 Carbon Dioxide Glucose 147 H Hemoglobin A1c Calcium NT-Pro-B Natriuret Pep Albumin [facility] 02/15/18 02/16/18 02/16/18 10:04 10:27 10:27 WBC 11.1 H RBC Hgb 15.3 H Hct MCV 97 H 96 H MCH 33 H 33 H MCHC Plt Count 114 L 126 L Rich % (Auto) 12.2 H 12.8 H Rich # 1.0 H 1.4 H Seg Neutrophils % 71.1 H Seg Neutrophils # 7.9 H PT 18.1 H INR 1.41 H APTT Heparin Anti-Xa Level POC ABG pH POC ABG pCO2 POC ABG pO2 Carbon Dioxide Glucose Hemoglobin A1c Calcium NT-Pro-B Natriuret Pep Albumin TSH 02/17/18 02/18/18 02/18/18 07:05 05:49 05:49 WBC RBC Hgb Hct MCV 97 H MCH 33 H MCHC Plt Count Rich % (Auto) 14.5 H Rich # 1.1 H Seg Neutrophils % Seg Neutrophils # PT 19.4 H 19.4 H INR 1.54 H 1.54 H APTT Heparin Anti-Xa Level POC ABG pH POC ABG pCO2 POC ABG pO2 Carbon Dioxide Glucose Hemoglobin A1c Calcium NT-Pro-B Natriuret Pep Albumin TSH 02/18/18 02/22/18 02/22/18 05:49 06:37 06:42 WBC RBC Hgb Hct MCV 95 H MCH 33 H MCHC 35 H Plt Count Rich % (Auto) Rich # Seg Neutrophils % Seg Neutrophils # PT INR APTT Heparin Anti-Xa Level POC ABG pH POC ABG pCO2 POC ABG pO2 Carbon Dioxide Glucose 115 H 111 H Hemoglobin A1c Calcium NT-Pro-B Natriuret Pep Albumin TSH 02/22/18 02/23/18 20:18 04:49 WBC RBC Hgb Hct MCV MCH MCHC Plt Count Rich % (Auto) Rich # Seg Neutrophils % Seg Neutrophils # PT INR APTT Heparin Anti-Xa Level POC ABG pH POC ABG pCO2 POC ABG pO2 Carbon Dioxide Glucose 185 H Hemoglobin A1c Calcium NT-Pro-B Natriuret Pep Albumin TSH 10.010 H Chest x-ray: image reviewed
[2018-02-23 13:16] LABS: Hematocrit 40.5 % (35.5-45.6); Hemoglobin 13.7 gm/dl (11.8-15.2)
[2018-02-23 13:27] LABS: INR 0.99 (0.87-1.13); Partial Thromboplastin Time 29.1 Sec. (24.2-36.6)
[2018-02-23] MEDS: LEVAQUIN PO SCH (13:34)
--- NOTE | 2018-02-23 13:35 | Progress Note ---
Assessment and Plan Assessment and plan: Morbidly obese 37-year-old male patient, massive bilateral PE,s/p EKOS Lower extremity DVT, received heparin drip, evaluated by vascular hematology pulmonary Now on Eliquis, Now on Oxygen by [place] Bilateral PE; with heavy clot burden:s/p thrombolytic therapy/EKOS procedure on Eliquis, Hypercoagulable workup sent s/p aspirartion thrombectomy pulm arteries 02/22 Cardiac arrythmia with 4.8 and 3.6 cm pauses. may be due to sleep apnea. s/p temporary pacemaker placed yesterday Cardiology following Right-sided pneumonia; community acquired, present on admission, probably not noted on chest x-ray due to massive PE On empiric antibiotics with Levaquin,Supportive care, follow cultures Acute hypoxic respiratory failure; due to PE, continue oxygen, nebulizers Continue to titrate oxygen to O2 sats more than 90%, evaluation for home oxygen -Echocardiogram ; moderate right atrial lead and glandular enlargement, moderate right ventricular systolic dysfunction, Left ventricle ejection fraction 55% Left lower extremity DVT; Was on Eliquis , on hold after temporary pacemaker placed. Supportive therapy Chest pain; due to bilateral PE; Morbid obesity; BMI 61.5 counseling, weight reduction when medically stable Obstructive sleep apnea. CPAP at night, needs outpatient sleep study upon discharge Ongoing tobacco use; smoking cessation counseling done, advised nicotine patch as needed DVT prophylaxis; patient is already on Eliquis History Interval history: Less shortness of breath, Aspiration thrombectomy 02/21 Generalized weakness Patient had 4.8 and 3.6 sec pauses on Telemetry yesterday therefore transvenous pacemaker put in Hospitalist Physical - Physical exam Narrative exam: Constitutional; Not in acute distress, morbidly obese HEENT: Atraumatic, normocephalic Neck: supple, no lymphadenopathy, JVD Lungs: Clear to auscultation, bilaterally, no wheeze,pacemaker on right chest wall CVS; S1-S2 regular, no murmurs, rubs or gallop, Abdomen; soft, non-tender, non distended,bowel sounds are normal, Musculoskeletal; No edema, no clubbing, no cyanosis, 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: awake, alert,oriented x3, no focal neurological signs - Constitutional Vitals: Temp Pulse Resp BP Pulse Ox 98.0 F 55 L 16 137/69 95 02/23/18 12:00 02/23/18 10:30 02/23/18 10:30 02/23/18 10:30 02/23/18 10:30 General appearance: Present: no acute distress, obese Results - Labs CBC & Chem 7: 02/23/18 12:49 02/23/18 04:49 Labs: Laboratory Last Values WBC 6.0 K/mm3 (4.5-11.0) 02/22/18 06:42 RBC 4.11 M/mm3 (3.65-5.03) 02/22/18 06:42 Hgb 13.7 gm/dl (11.8-15.2) 02/23/18 12:49 Hct 40.5 % (35.5-45.6) 02/23/18 12:49 MCV 95 fl (84-94) H 02/22/18 06:42 MCH 33 pg (28-32) H 02/22/18 06:42 MCHC 35 % (32-34) H 02/22/18 06:42 RDW 13.5 % (13.2-15.2) 02/22/18 06:42 Plt Count 201 K/mm3 (140-440) 02/23/18 12:49 Lymph % (Auto) 24.7 % (13.4-35.0) 02/18/18 05:49 [place] % (Auto) 14.5 % (0.0-7.3) H 02/18/18 05:49 Eos % (Auto) 1.7 % (0.0-4.3) 02/18/18 05:49 Baso % (Auto) 0.8 % (0.0-1.8) 02/18/18 05:49 Lymph # 1.9 K/mm3 (1.2-5.4) 02/18/18 05:49 [place] # 1.1 K/mm3 (0.0-0.8) H 02/18/18 05:49 Eos # 0.1 K/mm3 (0.0-0.4) 02/18/18 05:49 Baso # 0.1 K/mm3 (0.0-0.1) 02/18/18 05:49 Add Manual Diff Complete 02/15/18 10:04 Seg Neutrophils % 58.3 % (40.0-70.0) 02/18/18 05:49 Seg Neutrophils # 4.6 K/mm3 (1.8-7.7) 02/18/18 05:49 PT 13.6 Sec. (12.2-14.9) 02/23/18 12:49 INR 0.99 (0.87-1.13) 02/23/18 12:49 APTT 29.1 Sec. (24.2-36.6) 02/23/18 12:49 Fibrinogen 348 mg/dl (211-480) 02/14/18 10:31 Lupus Anticoagulant See scanned report 02/13/18 10:26 LA PTT Baseline See scanned report 02/13/18 10:26 dRVVT Screen 50:50 See scanned report 02/13/18 10:26 dRVVT Mix Interpret See scanned report 02/13/18 10:26 Protein C Antigen See scanned report 02/13/18 10:26 Free Protein S See scanned report 02/13/18 10:26 Total Protein S See scanned report 02/13/18 10:26 Heparin Anti-Xa Level < 0.10 U.I./ml (0.3-0.7) L 02/15/18 06:46 POC ABG pH 7.477 (7.35-7.45) H 02/14/18 12:37 POC ABG pCO2 26.9 (35-45) L 02/14/18 12:37 POC ABG pO2 57 (80-105) L 02/14/18 12:37 POC ABG HCO3 19.9 02/14/18 12:37 POC ABG Total CO2 21 02/14/18 12:37 POC ABG O2 Sat 92 02/14/18 12:37 POC ABG Base Excess -4 02/14/18 12:37 FiO2 21 % 02/14/18 12:37 Sodium 138 mmol/L (137-145) 02/23/18 04:49 Potassium 4.3 mmol/L (3.6-5.0) 02/23/18 04:49 Chloride 102.6 mmol/L (98-107) 02/23/18 04:49 Carbon Dioxide 24 mmol/L (22-30) 02/23/18 04:49 Anion Gap 16 mmol/L 02/23/18 04:49 BUN 16 mg/dL (9-20) 02/23/18 04:49 Creatinine 0.8 mg/dL (0.8-1.5) 02/23/18 04:49 Estimated GFR > 60 ml/min 02/23/18 04:49 BUN/Creatinine Ratio 20 % 02/23/18 04:49 Glucose 185 mg/dL (75-100) H 02/23/18 04:49 Hemoglobin A1c 6.1 % (4-6) H 02/13/18 01:25 Calcium 8.7 mg/dL (8.4-10.2) 02/23/18 04:49 Phosphorus 4.10 mg/dL (2.5-4.5) 02/22/18 10:44 Magnesium 2.30 mg/dL (1.7-2.3) 02/22/18 10:44 Total Bilirubin 0.80 mg/dL (0.1-1.2) 02/14/18 03:05 AST 10 units/L (5-40) 02/14/18 03:05 ALT 27 units/L (7-56) 02/14/18 03:05 Alkaline Phosphatase 56 units/L (35-129) 02/14/18 03:05 Troponin T 0.021 ng/mL (0.00-0.029) 02/12/18 09:55 NT-Pro-B Natriuret Pep 3956 pg/mL (0-450) H 02/12/18 09:55 Total Protein 6.5 g/dL (6.3-8.2) 02/14/18 03:05 Albumin 3.9 g/dL (3.9-5) 02/14/18 03:05 Albumin/Globulin Ratio 1.5 % 02/14/18 03:05 TSH 10.010 mlU/mL (0.270-4.200) H 02/22/18 20:18 Free T4 0.85 ng/dL (0.76-1.46) 02/22/18 20:18 Blood Type AB POSITIVE 02/13/18 14:07 Antibody Screen Negative 02/13/18 14:07
[2018-02-23] MEDS: HEPARIN/ 0.45% NACL-25,000 UNIT/500 ML 25,000 UNIT/500 ML BAG IV SCH (14:43)
[2018-02-23 17:04] LABS: Hematocrit 40.4 % (35.5-45.6); Hemoglobin 13.7 gm/dl (11.8-15.2)
[2018-02-23 17:12] LABS: INR 0.95 (0.87-1.13)
[2018-02-23 17:13] LABS: Partial Thromboplastin Time 29.2 Sec. (24.2-36.6)
[2018-02-23 17:14] LABS: Heparin anti-factor XA 0.43 U.I./ml (0.3-0.7)
[2018-02-23] MEDS: PERCOCET 5/325 PO PRN (18:50)
[2018-02-23] MEDS: NORCO 5/325 PO PRN (21:55)
[2018-02-23] MEDS: AMBIEN PO PRN (21:55)
[2018-02-24] MEDS: PERCOCET 5/325 PO PRN ×3 (00:36→22:35)
[2018-02-24] MEDS: XANAX PO PRN (01:00)
[2018-02-24] MEDS: MORPHINE IV PRN (03:18)
[2018-02-24] MEDS: NORCO 5/325 PO PRN ×2 (05:04→16:30)
--- NOTE | 2018-02-24 09:08 | Progress Note ---
Assessment and Plan Assessment and plan: Morbidly obese 37-year-old male patient, massive bilateral PE,s/p EKOS Lower extremity DVT, received heparin drip, evaluated by vascular hematology pulmonary Now on Eliquis, Now on Oxygen by [place] Bilateral PE; with heavy clot burden:s/p thrombolytic therapy/EKOS procedure on Eliquis, Hypercoagulable workup sent s/p aspirartion thrombectomy pulm arteries 02/22 Cardiac arrhythmia with 4.8 and 3.6 cm pauses. may be due to sleep apnea. s/p temporary pacemaker placed 02/22 Cardiology following Right-sided pneumonia; community acquired, present on admission, probably not noted on chest x-ray due to massive PE On empiric antibiotics with Levaquin,Supportive care, follow cultures Acute hypoxic respiratory failure; due to PE, continue oxygen, nebulizers Continue to titrate oxygen to O2 sats more than 90%, evaluation for home oxygen -Echocardiogram ; moderate right atrial lead and glandular enlargement, moderate right ventricular systolic dysfunction, Left ventricle ejection fraction 55% Left lower extremity DVT; Was on Eliquis , on hold after temporary pacemaker placed. Supportive therapy Chest pain; due to bilateral PE; Morbid obesity; BMI 61.5 counseling, weight reduction when medically stable Obstructive sleep apnea. CPAP at night, needs outpatient sleep study upon discharge Ongoing tobacco use; smoking cessation counseling done, advised nicotine patch as needed DVT prophylaxis; patient is already on Eliquis History Interval history: Less shortness of breath, Aspiration thrombectomy 02/21 Generalized weakness Hospitalist Physical - Physical exam Narrative exam: Constitutional; Not in acute distress, morbidly obese HEENT: Atraumatic, normocephalic Neck: supple, no lymphadenopathy, JVD Lungs: Clear to auscultation, bilaterally, no wheeze,pacemaker on right chest wall CVS; S1-S2 regular, no murmurs, rubs or gallop, Abdomen; soft, non-tender, non distended,bowel sounds are normal, Musculoskeletal; No edema, no clubbing, no cyanosis, 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, alert,oriented x3, no focal neurological signs - Constitutional Vitals: Temp Pulse Resp BP Pulse Ox 98.2 F 67 14 104/71 97 02/24/18 08:00 02/24/18 06:02 02/24/18 06:02 02/24/18 06:02 02/24/18 08:30 General appearance: Present: no acute distress, obese Results - Labs CBC & Chem 7: 02/23/18 16:42 02/23/18 04:49 Labs: Laboratory Last Values WBC 6.0 K/mm3 (4.5-11.0) 02/22/18 06:42 RBC 4.11 M/mm3 (3.65-5.03) 02/22/18 06:42 Hgb 13.7 gm/dl (11.8-15.2) 02/23/18 16:42 Hct 40.4 % (35.5-45.6) 02/23/18 16:42 MCV 95 fl (84-94) H 02/22/18 06:42 MCH 33 pg (28-32) H 02/22/18 06:42 MCHC 35 % (32-34) H 02/22/18 06:42 RDW 13.5 % (13.2-15.2) 02/22/18 06:42 Plt Count 198 K/mm3 (140-440) 02/23/18 16:42 Lymph % (Auto) 24.7 % (13.4-35.0) 02/18/18 05:49 [place] % (Auto) 14.5 % (0.0-7.3) H 02/18/18 05:49 Eos % (Auto) 1.7 % (0.0-4.3) 02/18/18 05:49 Baso % (Auto) 0.8 % (0.0-1.8) 02/18/18 05:49 Lymph # 1.9 K/mm3 (1.2-5.4) 02/18/18 05:49 [place] # 1.1 K/mm3 (0.0-0.8) H 02/18/18 05:49 Eos # 0.1 K/mm3 (0.0-0.4) 02/18/18 05:49 Baso # 0.1 K/mm3 (0.0-0.1) 02/18/18 05:49 Add Manual Diff Complete 02/15/18 10:04 Seg Neutrophils % 58.3 % (40.0-70.0) 02/18/18 05:49 Seg Neutrophils # 4.6 K/mm3 (1.8-7.7) 02/18/18 05:49 PT 13.2 Sec. (12.2-14.9) 02/23/18 16:42 INR 0.95 (0.87-1.13) 02/23/18 16:42 APTT 29.2 Sec. (24.2-36.6) 02/23/18 16:42 Fibrinogen 348 mg/dl (211-480) 02/14/18 10:31 Lupus Anticoagulant See scanned report 02/13/18 10:26 LA PTT Baseline See scanned report 02/13/18 10:26 dRVVT Screen 50:50 See scanned report 02/13/18 10:26 dRVVT Mix Interpret See scanned report 02/13/18 10:26 Protein C Antigen See scanned report 02/13/18 10:26 Free Protein S See scanned report 02/13/18 10:26 Total Protein S See scanned report 02/13/18 10:26 Heparin Anti-Xa Level 0.37 U.I./ml (0.3-0.7) 02/24/18 05:22 POC ABG pH 7.477 (7.35-7.45) H 02/14/18 12:37 POC ABG pCO2 26.9 (35-45) L 02/14/18 12:37 POC ABG pO2 57 (80-105) L 02/14/18 12:37 POC ABG HCO3 19.9 02/14/18 12:37 POC ABG Total CO2 21 02/14/18 12:37 POC ABG O2 Sat 92 02/14/18 12:37 POC ABG Base Excess -4 02/14/18 12:37 FiO2 21 % 02/14/18 12:37 Sodium 138 mmol/L (137-145) 02/23/18 04:49 Potassium 4.3 mmol/L (3.6-5.0) 02/23/18 04:49 Chloride 102.6 mmol/L (98-107) 02/23/18 04:49 Carbon Dioxide 24 mmol/L (22-30) 02/23/18 04:49 Anion Gap 16 mmol/L 02/23/18 04:49 BUN 16 mg/dL (9-20) 02/23/18 04:49 Creatinine 0.8 mg/dL (0.8-1.5) 02/23/18 04:49 Estimated GFR > 60 ml/min 02/23/18 04:49 BUN/Creatinine Ratio 20 % 02/23/18 04:49 Glucose 185 mg/dL (75-100) H 02/23/18 04:49 Hemoglobin A1c 6.1 % (4-6) H 02/13/18 01:25 Calcium 8.7 mg/dL (8.4-10.2) 02/23/18 04:49 Phosphorus 4.10 mg/dL (2.5-4.5) 02/22/18 10:44 Magnesium 2.30 mg/dL (1.7-2.3) 02/22/18 10:44 Total Bilirubin 0.80 mg/dL (0.1-1.2) 02/14/18 03:05 AST 10 units/L (5-40) 02/14/18 03:05 ALT 27 units/L (7-56) 02/14/18 03:05 Alkaline Phosphatase 56 units/L (35-129) 02/14/18 03:05 Troponin T 0.021 ng/mL (0.00-0.029) 02/12/18 09:55 NT-Pro-B Natriuret Pep 3956 pg/mL (0-450) H 02/12/18 09:55 Total Protein 6.5 g/dL (6.3-8.2) 02/14/18 03:05 Albumin 3.9 g/dL (3.9-5) 02/14/18 03:05 Albumin/Globulin Ratio 1.5 % 02/14/18 03:05 TSH 10.010 mlU/mL (0.270-4.200) H 02/22/18 20:18 Free T4 0.85 ng/dL (0.76-1.46) 02/22/18 20:18 Blood Type AB POSITIVE 02/13/18 14:07 Antibody Screen Negative 02/13/18 14:07
--- NOTE | 2018-02-24 09:14 | Progress Note ---
Assessment and Plan Acute bilateral pulmonary emboli s/p EKOS Shortness of breath. Dyspnea on exertion. Morbid obesity. History of obstructive sleep apnea. Mild metabolic acidosis with a serum bicarbonate of 20 at admission Arrhythmias with pauses - initiate BIPAP qhs and prn - continue suppelmental oxygen to keep sats > 90% - continue anticoagulation - PT/OT as tolerated - continue GI prophylaxis - continue anti-hypertensives and adjust per attending - weight loss and lifestyle modifications counseled Subjective Date of service: 02/24/18 Principal diagnosis: Submassive PE Interval history: Patient is seen today for: Acute P.E. s/p EkOS catheter directed thrombolysis; Morbid obesity; SILVER Seen and examined at bedside; 24 hour events reviewed; nursing and respiratory care staff consulted; no adverse overnight events reported to me; resting peacefully in bed; Has not used his BIPAP since admission. His arrhythmias and pauses on telemetry is probably related to his severe sleep apnea that is currently not being treated. He denies any chest pain, no shortness of breath, no fevers or chills. His home BIPAP machine had a hole in the mask currently using hospital machine, which he states does not appear to be delivering adequate pressures. Objective Vital Signs - 12hr 02/23/18 02/23/18 02/23/18 21:30 22:00 22:30 Temperature Pulse Rate 72 76 73 Respiratory 19 22 17 Rate Blood Pressure 138/77 134/70 137/103 O2 Sat by Pulse 97 97 95 Oximetry 02/23/18 02/23/18 02/23/18 23:00 23:30 23:39 Temperature Pulse Rate 68 73 76 Respiratory 16 Rate Blood Pressure 137/103 O2 Sat by Pulse 95 95 95 Oximetry 02/24/18 02/24/18 02/24/18 00:00 00:01 00:30 Temperature 98.3 F Pulse Rate 80 80 Respiratory 16 Rate Blood Pressure 131/103 O2 Sat by Pulse 94 Oximetry 02/24/18 02/24/18 02/24/18 01:00 01:05 01:30 Temperature Pulse Rate 72 84 61 Respiratory 15 16 11 L Rate Blood Pressure 131/103 131/103 O2 Sat by Pulse 96 95 97 Oximetry 02/24/18 02/24/18 02/24/18 01:57 02:00 03:00 Temperature 98.5 F Pulse Rate 58 L 51 L Respiratory 16 16 14 Rate Blood Pressure 127/63 127/63 127/63 O2 Sat by Pulse 95 92 94 Oximetry 02/24/18 02/24/18 02/24/18 04:00 05:00 06:02 Temperature Pulse Rate 50 L 50 L 67 Respiratory 13 12 14 Rate Blood Pressure 109/64 129/61 104/71 O2 Sat by Pulse 92 92 98 Oximetry 02/24/18 02/24/18 08:00 08:30 Temperature 98.2 F Pulse Rate Respiratory Rate Blood Pressure O2 Sat by Pulse 97 Oximetry Constitutional: no acute distress, alert, other (extreme obesity, transvenous pacemeaker) Eyes: non-icteric ENT: oropharynx moist Neck: supple, no lymphadenopathy, no JVD Effort: normal Ascultation: Bilateral: diminished breath sounds Cardiovascular: regular rate and rhythm, other (S1,S2 no murmurs, gallops or rubs) Gastrointestinal: normoactive bowel sounds, non-tender, non-distended Integumentary: normal Extremities: no cyanosis, no edema, pink and warm, pulses normal, no ischemia or petechiae Neurologic: normal mental status, non-focal exam, pupils equal and round, CN II- XII normal Psychiatric: mood appropriate, affect normal CBC and BMP: 02/23/18 16:42 02/23/18 04:49 ABG, PT/INR, D-dimer: ABG POC ABG pH 7.477 (7.35-7.45) H 02/14/18 12:37 POC ABG pCO2 26.9 (35-45) L 02/14/18 12:37 POC ABG pO2 57 (80-105) L 02/14/18 12:37 POC ABG HCO3 19.9 02/14/18 12:37 POC ABG Total CO2 21 02/14/18 12:37 POC ABG O2 Sat 92 02/14/18 12:37 PT/INR, D-dimer PT 13.2 Sec. (12.2-14.9) 02/23/18 16:42 INR 0.95 (0.87-1.13) 02/23/18 16:42 Abnormal lab findings: Abnormal Labs 02/12/18 02/12/18 02/12/18 09:55 09:55 09:55 WBC 11.8 H RBC 5.29 H Hgb 17.7 H Hct 49.7 H MCV MCH 33 H MCHC 36 H Plt Count [place] % (Auto) 13.3 H [place] # 1.6 H Seg Neutrophils % Seg Neutrophils # PT INR APTT 40.0 H Heparin Anti-Xa Level POC ABG pH POC ABG pCO2 POC ABG pO2 Carbon Dioxide 21 L Glucose 150 H Hemoglobin A1c Calcium 10.3 H NT-Pro-B Natriuret Pep 3956 H Albumin TSH 02/12/18 02/12/18 02/12/18 12:35 12:35 19:12 WBC RBC Hgb 17.2 H Hct 50.5 H MCV MCH MCHC Plt Count [place] % (Auto) [place] # Seg Neutrophils % Seg Neutrophils # PT INR APTT 42.2 H Heparin Anti-Xa Level 0.10 L POC ABG pH POC ABG pCO2 POC ABG pO2 Carbon Dioxide Glucose Hemoglobin A1c Calcium NT-Pro-B Natriuret Pep Albumin TSH 02/13/18 02/13/18 02/13/18 01:18 01:25 01:25 WBC RBC Hgb Hct MCV MCH MCHC Plt Count [place] % (Auto) [place] # Seg Neutrophils % Seg Neutrophils # PT INR APTT Heparin Anti-Xa Level 0.10 L POC ABG pH POC ABG pCO2 POC ABG pO2 Carbon Dioxide Glucose 131 H Hemoglobin A1c 6.1 H Calcium NT-Pro-B Natriuret Pep Albumin [facility] 02/13/18 02/13/18 02/13/18 06:55 16:32 16:32 WBC RBC Hgb Hct MCV MCH MCHC Plt Count [place] % (Auto) [place] # Seg Neutrophils % Seg Neutrophils # PT INR APTT 45.6 H Heparin Anti-Xa Level POC ABG pH POC ABG pCO2 POC ABG pO2 Carbon Dioxide 21 L 20 L Glucose 118 H Hemoglobin A1c Calcium NT-Pro-B Natriuret Pep Albumin 3.4 L TSH 02/13/18 02/13/18 02/13/18 16:32 16:32 21:06 WBC RBC Hgb 15.4 H Hct 46.0 H MCV 97 H MCH MCHC Plt Count [place] % (Auto) 12.4 H [place] # 1.1 H Seg Neutrophils % Seg Neutrophils # PT INR APTT Heparin Anti-Xa Level 0.10 L < 0.10 L POC ABG pH POC ABG pCO2 POC ABG pO2 Carbon Dioxide Glucose Hemoglobin A1c Calcium NT-Pro-B Natriuret Pep Albumin TSH 02/13/18 02/14/18 02/14/18 21:15 01:49 03:05 WBC RBC Hgb 15.3 H Hct MCV 98 H 96 H MCH 33 H 33 H MCHC Plt Count 137 L [place] % (Auto) 11.5 H 11.4 H [place] # 1.0 H 1.1 H Seg Neutrophils % 73.4 H Seg Neutrophils # PT INR APTT Heparin Anti-Xa Level POC ABG pH 7.484 H POC ABG pCO2 24.7 L POC ABG pO2 70 L Carbon Dioxide Glucose Hemoglobin A1c Calcium NT-Pro-B Natriuret Pep Albumin [facility] 02/14/18 02/14/18 02/14/18 03:05 03:05 10:31 WBC RBC Hgb Hct MCV 97 H MCH 33 H MCHC Plt Count 124 L [place] % (Auto) 13.1 H [place] # 1.2 H Seg Neutrophils % 70.9 H Seg Neutrophils # PT INR APTT Heparin Anti-Xa Level < 0.10 L POC ABG pH POC ABG pCO2 POC ABG pO2 Carbon Dioxide 20 L Glucose 151 H Hemoglobin A1c Calcium NT-Pro-B Natriuret Pep Albumin [facility] 02/14/18 02/14/18 02/14/18 10:31 12:30 12:37 WBC RBC Hgb Hct MCV MCH MCHC Plt Count [place] % (Auto) [place] # Seg Neutrophils % Seg Neutrophils # PT INR APTT Heparin Anti-Xa Level < 0.10 L POC ABG pH 7.496 H 7.477 H POC ABG pCO2 24.2 L 26.9 L POC ABG pO2 65 L 57 L Carbon Dioxide Glucose Hemoglobin A1c Calcium NT-Pro-B Natriuret Pep Albumin [facility] 02/14/18 02/15/18 02/15/18 19:49 04:24 06:46 WBC RBC Hgb Hct MCV MCH MCHC Plt Count [place] % (Auto) [place] # Seg Neutrophils % Seg Neutrophils # PT INR APTT Heparin Anti-Xa Level < 0.10 L < 0.10 L POC ABG pH POC ABG pCO2 POC ABG pO2 Carbon Dioxide Glucose 147 H Hemoglobin A1c Calcium NT-Pro-B Natriuret Pep Albumin [facility] 02/15/18 02/16/18 02/16/18 10:04 10:27 10:27 WBC 11.1 H RBC Hgb 15.3 H Hct MCV 97 H 96 H MCH 33 H 33 H MCHC Plt Count 114 L 126 L [place] % (Auto) 12.2 H 12.8 H [place] # 1.0 H 1.4 H Seg Neutrophils % 71.1 H Seg Neutrophils # 7.9 H PT 18.1 H INR 1.41 H APTT Heparin Anti-Xa Level POC ABG pH POC ABG pCO2 POC ABG pO2 Carbon Dioxide Glucose Hemoglobin A1c Calcium NT-Pro-B Natriuret Pep Albumin TSH 02/17/18 02/18/18 02/18/18 07:05 05:49 05:49 WBC RBC Hgb Hct MCV 97 H MCH 33 H MCHC Plt Count [place] % (Auto) 14.5 H [place] # 1.1 H Seg Neutrophils % Seg Neutrophils # PT 19.4 H 19.4 H INR 1.54 H 1.54 H APTT Heparin Anti-Xa Level POC ABG pH POC ABG pCO2 POC ABG pO2 Carbon Dioxide Glucose Hemoglobin A1c Calcium NT-Pro-B Natriuret Pep Albumin TSH 02/18/18 02/22/18 02/22/18 05:49 06:37 06:42 WBC RBC Hgb Hct MCV 95 H MCH 33 H MCHC 35 H Plt Count [place] % (Auto) [place] # Seg Neutrophils % Seg Neutrophils # PT INR APTT Heparin Anti-Xa Level POC ABG pH POC ABG pCO2 POC ABG pO2 Carbon Dioxide Glucose 115 H 111 H Hemoglobin A1c Calcium NT-Pro-B Natriuret Pep Albumin TSH 02/22/18 02/23/18 20:18 04:49 WBC RBC Hgb Hct MCV MCH MCHC Plt Count [place] % (Auto) [place] # Seg Neutrophils % Seg Neutrophils # PT INR APTT Heparin Anti-Xa Level POC ABG pH POC ABG pCO2 POC ABG pO2 Carbon Dioxide Glucose 185 H Hemoglobin A1c Calcium NT-Pro-B Natriuret Pep Albumin TSH 10.010 H Allied health notes reviewed: RT (Change CPAP to BIPAP settings)
[2018-02-24] MEDS: PROTONIX PO SCH ×2 (11:14→22:37)
[2018-02-24] MEDS: LEVAQUIN PO SCH (11:15)
[2018-02-24] MEDS: COLACE PO SCH ×2 (11:15→22:37)
--- NOTE | 2018-02-24 12:44 | Progress Note ---
Assessment and Plan (1) Sinus pause Current Visit: Yes Status: Acute Pacemaker set at 40/m. sensing is good after adjusting the mode. Pace maker checked. Over riding did capture the ventricle. Possible DC pacer wire tomorrow. (2) Acute pulmonary embolism Current Visit: Yes Status: Acute Qualifiers: Acute cor pulmonale presence: with acute cor pulmonale on Heparin protocol. (3) Acute DVT (deep venous thrombosis) Current Visit: Yes Status: Acute (4) Morbid obesity Current Visit: Yes Status: Chronic (5) Sleep apnea Current Visit: Yes Status: Chronic Qualifiers: Sleep apnea type: unspecified type Qualified Code(s): G47.30 - Sleep apnea , unspecified (6) Tricuspid regurgitation Current Visit: Yes Status: Chronic (7) Pulmonary HTN Current Visit: Yes Status: Chronic (8) Tobacco use Current Visit: Yes Status: Chronic Subjective Principal diagnosis: Submassive PE Interval history: Patient is able to get oob with help. No problems with temporary pacer wire and function. Patient would prefer not to proceed with Permanent pacer. He thinks that sleep apnea caused his sinus pauses. Objective Vital Signs Temp Pulse Resp BP Pulse Ox 02/24/18 11:01 55 L 17 114/50 92 02/24/18 10:00 70 16 113/80 93 02/24/18 09:01 60 11 L 109/61 93 02/24/18 08:30 97 02/24/18 08:00 98.2 F 64 11 L 114/75 98 02/24/18 07:00 54 L 11 L 104/71 96 02/24/18 06:02 67 14 104/71 98 02/24/18 05:00 50 L 12 129/61 92 02/24/18 04:00 50 L 13 109/64 92 02/24/18 03:00 51 L 14 127/63 94 02/24/18 02:00 58 L 16 127/63 92 02/24/18 01:57 98.5 F 16 127/63 95 02/24/18 01:30 61 11 L 131/103 97 02/24/18 01:05 84 16 95 02/24/18 01:00 72 15 131/103 96 02/24/18 00:30 80 16 131/103 94 02/24/18 00:01 80 02/24/18 00:00 98.3 F 02/23/18 23:39 76 95 02/23/18 23:30 73 95 02/23/18 23:00 68 16 137/103 95 02/23/18 22:30 73 17 137/103 95 02/23/18 22:00 76 22 134/70 97 02/23/18 21:30 72 19 138/77 97 02/23/18 21:00 64 143/51 99 02/23/18 20:30 69 9 L 140/106 97 02/23/18 20:23 98 02/23/18 20:00 70 20 133/73 97 02/23/18 19:30 74 19 136/63 98 02/23/18 19:00 73 20 136/63 94 02/23/18 18:30 85 15 156/82 97 02/23/18 18:00 75 9 L 156/82 94 02/23/18 17:30 80 17 129/72 98 02/23/18 17:00 85 19 115/79 97 02/23/18 16:30 84 15 136/77 97 02/23/18 16:00 98.0 F 82 14 136/33 96 02/23/18 15:30 80 14 136/33 96 02/23/18 15:00 79 22 136/33 98 02/23/18 14:30 81 13 118/69 99 02/23/18 14:00 84 19 122/72 97 02/23/18 13:30 79 16 122/72 95 02/23/18 13:00 76 20 149/74 97 - Physical Examination General: No Apparent Distress HEENT: Positive: PERRL, Normocephaly, Mucus Membranes Moist Neck: Positive: neck supple, trachea midline. Negative: JVD/HJR Cardiac: Positive: Reg Rate and Rhythm, S1/S2, S4. Negative: S3 Lungs: Positive: clear to auscultation Neuro: Positive: Grossly Intact Abdomen: Positive: Soft. Negative: Organomegaly, Tender Skin: Positive: Clear. Negative: Rash, Wound Musculoskeletal: No Fluid Collection, No Pain, Normal Range of Motion Extremities: Present: +1 Edema. Absent: edema - Labs and Meds Coagulation 02/23/18 02/23/18 Range/Units 12:49 16:42 PT 13.6 13.2 (12.2-14.9) Sec. INR 0.99 0.95 (0.87-1.13) APTT 29.1 29.2 (24.2-36.6) Sec. CBC 02/23/18 02/23/18 Range/Units 12:49 16:42 Hgb 13.7 13.7 (11.8-15.2) gm/dl Hct 40.5 40.4 (35.5-45.6) % Plt Count 201 198 (140-440) K/mm3 - Imaging and Cardiology EKG: report reviewed, image reviewed Echo: report reviewed (02/14/2018 showed EF 55%, mod RA and RV enlargement, mod RV systolic dysfunction, mod TR, mod pulm HTN with RVSP 55mmHg. ) - Telemetry EKG Rhythm: Sinus Rhythm - EKG Sinus rhythms and dysrhythmias: sinus rhythm - Allied health notes Allied health notes reviewed: RT (Change CPAP to BIPAP settings)
[2018-02-24] MEDS: HEPARIN/ 0.45% NACL-25,000 UNIT/500 ML 25,000 UNIT/500 ML BAG IV SCH (22:35)
[2018-02-24] MEDS: AMBIEN PO PRN (22:37)
[2018-02-25] MEDS: NORCO 5/325 PO PRN ×2 (01:47→14:32)
[2018-02-25] MEDS: MORPHINE IV PRN ×2 (05:45→23:24)
[2018-02-25 06:08] LABS: Hematocrit 42.4 % (35.5-45.6); Hemoglobin 14.3 gm/dl (11.8-15.2); Mean Corpuscular HGB Conc 34 % (32-34); Mean Corpuscular Hemoglobin 33 pg (28-32); Mean Corpuscular Volume 97 fl (84-94); Platelet Count 117 K/mm3 (140-440); Red Cell Distribution Width 13.7 % (13.2-15.2)
[2018-02-25 08:21] LABS: BUN/Creatinine Ratio 26; Blood Urea Nitrogen 18 mg/dL (9-20); Calcium 8.9 mg/dL (8.4-10.2); Hemolysis Index 10
--- NOTE | 2018-02-25 09:03 | Progress Note ---
Assessment and Plan Assessment and plan: Morbidly obese 37-year-old male patient, massive bilateral PE,s/p EKOS Lower extremity DVT, received heparin drip, evaluated by vascular hematology pulmonary Now on Eliquis, Now on Oxygen by [place] Bilateral PE; with heavy clot burden:s/p thrombolytic therapy/EKOS procedure Hypercoagulable workup sent s/p aspirartion thrombectomy pulm arteries 02/22 Was on Eliquis, put on hold for pacemaker placement. but now on Heparin Cardiac arrhythmia with 4.8 and 3.6 cm pauses. may be due to sleep apnea. s/p temporary pacemaker placed 02/22 Cardiology following Right-sided pneumonia; community acquired, present on admission, probably not noted on chest x-ray due to massive PE On empiric antibiotics with Levaquin,Supportive care, follow cultures Acute hypoxic respiratory failure; due to PE, continue oxygen, nebulizers Continue to titrate oxygen to O2 sats more than 90%, evaluation for home oxygen -Echocardiogram ; moderate right atrial lead and glandular enlargement, moderate right ventricular systolic dysfunction, Left ventricle ejection fraction 55% Left lower extremity DVT; Was on Eliquis , on hold after temporary pacemaker placed. Now on Heparin drip Supportive therapy Chest pain; due to bilateral PE; Morbid obesity; BMI 61.5 counseling, weight reduction when medically stable Obstructive sleep apnea. CPAP at night, needs outpatient sleep study upon discharge Ongoing tobacco use; smoking cessation counseling done, advised nicotine patch as needed DVT prophylaxis; On heparin drip History Interval history: Less shortness of breath, Aspiration thrombectomy 02/21 pacemaker placed for sinus pauses on 02/22 Generalized weakness Hospitalist Physical - Physical exam Narrative exam: Constitutional; Not in acute distress, morbidly obese HEENT: Atraumatic, normocephalic Neck: supple, no lymphadenopathy, JVD Lungs: Clear to auscultation, bilaterally, no wheeze,pacemaker wires on right chest wall CVS; S1-S2 regular, no murmurs, rubs or gallop, Abdomen; soft, non-tender, non distended,bowel sounds are normal, Musculoskeletal; No edema, no clubbing, no cyanosis, [employer]: awake, alert,oriented x3, no focal neurological signs - Constitutional Vitals: Temp Pulse Resp BP Pulse Ox 98.4 F 65 16 119/85 94 02/25/18 03:48 02/25/18 08:01 02/25/18 08:01 02/25/18 08:01 02/25/18 08:01 General appearance: Present: no acute distress, obese Results - Labs CBC & Chem 7: 02/25/18 05:30 02/25/18 07:45 Labs: Laboratory Last Values WBC 6.8 K/mm3 (4.5-11.0) 02/25/18 05:30 RBC 4.40 M/mm3 (3.65-5.03) 02/25/18 05:30 Hgb 14.3 gm/dl (11.8-15.2) 02/25/18 05:30 Hct 42.4 % (35.5-45.6) 02/25/18 05:30 MCV 97 fl (84-94) H 02/25/18 05:30 MCH 33 pg (28-32) H 02/25/18 05:30 MCHC 34 % (32-34) 02/25/18 05:30 RDW 13.7 % (13.2-15.2) 02/25/18 05:30 Plt Count 117 K/mm3 (140-440) L 02/25/18 05:30 Lymph % (Auto) 24.7 % (13.4-35.0) 02/18/18 05:49 [place] % (Auto) 14.5 % (0.0-7.3) H 02/18/18 05:49 Eos % (Auto) 1.7 % (0.0-4.3) 02/18/18 05:49 Baso % (Auto) 0.8 % (0.0-1.8) 02/18/18 05:49 Lymph # 1.9 K/mm3 (1.2-5.4) 02/18/18 05:49 [place] # 1.1 K/mm3 (0.0-0.8) H 02/18/18 05:49 Eos # 0.1 K/mm3 (0.0-0.4) 02/18/18 05:49 Baso # 0.1 K/mm3 (0.0-0.1) 02/18/18 05:49 Add Manual Diff Complete 02/15/18 10:04 Seg Neutrophils % 58.3 % (40.0-70.0) 02/18/18 05:49 Seg Neutrophils # 4.6 K/mm3 (1.8-7.7) 02/18/18 05:49 PT 13.2 Sec. (12.2-14.9) 02/23/18 16:42 INR 0.95 (0.87-1.13) 02/23/18 16:42 APTT 29.2 Sec. (24.2-36.6) 02/23/18 16:42 Fibrinogen 348 mg/dl (211-480) 02/14/18 10:31 Lupus Anticoagulant See scanned report 02/13/18 10:26 LA PTT Baseline See scanned report 02/13/18 10:26 dRVVT Screen 50:50 See scanned report 02/13/18 10:26 dRVVT Mix Interpret See scanned report 02/13/18 10:26 Protein C Antigen See scanned report 02/13/18 10:26 Free Protein S See scanned report 02/13/18 10:26 Total Protein S See scanned report 02/13/18 10:26 Heparin Anti-Xa Level 0.30 U.I./ml (0.3-0.7) 02/25/18 07:45 POC ABG pH 7.477 (7.35-7.45) H 02/14/18 12:37 POC ABG pCO2 26.9 (35-45) L 02/14/18 12:37 POC ABG pO2 57 (80-105) L 02/14/18 12:37 POC ABG HCO3 19.9 02/14/18 12:37 POC ABG Total CO2 21 02/14/18 12:37 POC ABG O2 Sat 92 02/14/18 12:37 POC ABG Base Excess -4 02/14/18 12:37 FiO2 21 % 02/14/18 12:37 Sodium 137 mmol/L (137-145) 02/25/18 07:45 Potassium 4.5 mmol/L (3.6-5.0) 02/25/18 07:45 Chloride 102.8 mmol/L (98-107) 02/25/18 07:45 Carbon Dioxide 23 mmol/L (22-30) 02/25/18 07:45 Anion Gap 16 mmol/L 02/25/18 07:45 BUN 18 mg/dL (9-20) 02/25/18 07:45 Creatinine 0.7 mg/dL (0.8-1.5) L 02/25/18 07:45 Estimated GFR > 60 ml/min 02/25/18 07:45 BUN/Creatinine Ratio 26 % 02/25/18 07:45 Glucose 105 mg/dL (75-100) H 02/25/18 07:45 Hemoglobin A1c 6.1 % (4-6) H 02/13/18 01:25 Calcium 8.9 mg/dL (8.4-10.2) 02/25/18 07:45 Phosphorus 4.00 mg/dL (2.5-4.5) 02/25/18 07:45 Magnesium 2.10 mg/dL (1.7-2.3) 02/25/18 07:45 Total Bilirubin 0.80 mg/dL (0.1-1.2) 02/14/18 03:05 AST 10 units/L (5-40) 02/14/18 03:05 ALT 27 units/L (7-56) 02/14/18 03:05 Alkaline Phosphatase 56 units/L (35-129) 02/14/18 03:05 Troponin T 0.021 ng/mL (0.00-0.029) 02/12/18 09:55 NT-Pro-B Natriuret Pep 3956 pg/mL (0-450) H 02/12/18 09:55 Total Protein 6.5 g/dL (6.3-8.2) 02/14/18 03:05 Albumin 3.9 g/dL (3.9-5) 02/14/18 03:05 Albumin/Globulin Ratio 1.5 % 02/14/18 03:05 TSH 10.010 mlU/mL (0.270-4.200) H 02/22/18 20:18 Free T4 0.85 ng/dL (0.76-1.46) 02/22/18 20:18 Blood Type AB POSITIVE 02/13/18 14:07 Antibody Screen Negative 02/13/18 14:07
[2018-02-25] MEDS: SODIUM CHLORIDE FLUSH SYRINGE 10 ML IV SCH ×4 (09:59→22:04)
--- NOTE | 2018-02-25 10:40 | Progress Note ---
Assessment and Plan Acute bilateral pulmonary emboli. Shortness of breath. Dyspnea on exertion. Morbid obesity. History of obstructive sleep apnea. Mild metabolic acidosis with a serum bicarbonate of 20 at admission - s/p temporary pacer - await EP cardiology evaluation - needs to continue BIPAP qhs (theoretically pauses may be related to sleep disordered breathing) - continue suppelmental oxygen to keep sats > 90% - continue anticoagulation; discussed with vascular team and will switch to Eliquis - PT/OT as tolerated - continue GI prophylaxis - continue anti-hypertensives and adjust per attending - weight loss counseled - continue other care per atteding / other consultants ..... ok to transfer to telemetry floor .... 35' Subjective Date of service: 02/25/18 Principal diagnosis: Acute Bilateral Pulmonary Embolii; Acute Hypoxemic Resp failure; Morbid Obe Interval history: Patient is seen today for: Acute Bilateral Pulmonary Embolii; Acute Hypoxemic Resp failure; Morbid Obesity; Symptomatic Bradycardia Seen and examined at bedside; 24hour events reviewed; nursing and respiratory care staff consulted; no adverse overnight events reported to me; resting in bed ; now s/p temporary transvenous pacer; No N/V/F/C and denies chest pains Objective Vital Signs - 12hr 02/24/18 02/24/18 02/25/18 23:01 23:55 00:01 Temperature 97.8 F Pulse Rate 81 72 Pulse Rate [ From Monitor] Respiratory 18 20 Rate Blood Pressure 122/46 135/76 O2 Sat by Pulse 97 95 Oximetry 02/25/18 02/25/18 02/25/18 01:00 02:01 03:01 Temperature Pulse Rate 69 76 58 L Pulse Rate [ From Monitor] Respiratory 19 19 16 Rate Blood Pressure 122/68 122/68 122/68 O2 Sat by Pulse 95 94 Oximetry 02/25/18 02/25/18 02/25/18 03:48 04:01 05:01 Temperature 98.4 F Pulse Rate 47 L 60 Pulse Rate [ From Monitor] Respiratory 16 24 Rate Blood Pressure 120/56 120/56 O2 Sat by Pulse 93 93 Oximetry 02/25/18 02/25/18 02/25/18 06:01 07:01 08:00 Temperature 98.0 F Pulse Rate 64 40 L Pulse Rate [ 76 From Monitor] Respiratory 13 16 18 Rate Blood Pressure O2 Sat by Pulse 93 97 95 Oximetry 02/25/18 08:01 Temperature Pulse Rate 65 Pulse Rate [ From Monitor] Respiratory 16 Rate Blood Pressure 119/85 O2 Sat by Pulse 94 Oximetry Constitutional: no acute distress, alert Eyes: non-icteric ENT: oropharynx moist Neck: supple, no lymphadenopathy Effort: mildly labored Ascultation: Bilateral: diminished breath sounds, rhonchi Percussion: Bilateral: not dull Cardiovascular: regular rate and rhythm Gastrointestinal: normoactive bowel sounds Integumentary: normal Extremities: no cyanosis, no edema Neurologic: normal mental status, non-focal exam, pupils equal and round, CN II- XII normal Psychiatric: mood appropriate CBC and BMP: 02/25/18 05:30 02/25/18 07:45 ABG, PT/INR, D-dimer: ABG POC ABG pH 7.477 (7.35-7.45) H 02/14/18 12:37 POC ABG pCO2 26.9 (35-45) L 02/14/18 12:37 POC ABG pO2 57 (80-105) L 02/14/18 12:37 POC ABG HCO3 19.9 02/14/18 12:37 POC ABG Total CO2 21 02/14/18 12:37 POC ABG O2 Sat 92 02/14/18 12:37 PT/INR, D-dimer PT 13.2 Sec. (12.2-14.9) 02/23/18 16:42 INR 0.95 (0.87-1.13) 02/23/18 16:42 Abnormal lab findings: Abnormal Labs 02/12/18 02/12/18 02/12/18 09:55 09:55 09:55 WBC 11.8 H RBC 5.29 H Hgb 17.7 H Hct 49.7 H MCV MCH 33 H MCHC 36 H Plt Count Randall % (Auto) 13.3 H Randall # 1.6 H Seg Neutrophils % Seg Neutrophils # PT INR APTT 40.0 H Heparin Anti-Xa Level POC ABG pH POC ABG pCO2 POC ABG pO2 Carbon Dioxide 21 L Creatinine Glucose 150 H Hemoglobin A1c Calcium 10.3 H NT-Pro-B Natriuret Pep 3956 H Albumin TSH 02/12/18 02/12/18 02/12/18 12:35 12:35 19:12 WBC RBC Hgb 17.2 H Hct 50.5 H MCV MCH MCHC Plt Count Randall % (Auto) Randall # Seg Neutrophils % Seg Neutrophils # PT INR APTT 42.2 H Heparin Anti-Xa Level 0.10 L POC ABG pH POC ABG pCO2 POC ABG pO2 Carbon Dioxide Creatinine Glucose Hemoglobin A1c Calcium NT-Pro-B Natriuret Pep Albumin [facility] 02/13/18 02/13/18 02/13/18 01:18 01:25 01:25 WBC RBC Hgb Hct MCV MCH MCHC Plt Count Randall % (Auto) Randall # Seg Neutrophils % Seg Neutrophils # PT INR APTT Heparin Anti-Xa Level 0.10 L POC ABG pH POC ABG pCO2 POC ABG pO2 Carbon Dioxide Creatinine Glucose 131 H Hemoglobin A1c 6.1 H Calcium NT-Pro-B Natriuret Pep Albumin [facility] 02/13/18 02/13/18 02/13/18 06:55 16:32 16:32 WBC RBC Hgb Hct MCV MCH MCHC Plt Count Randall % (Auto) Randall # Seg Neutrophils % Seg Neutrophils # PT INR APTT 45.6 H Heparin Anti-Xa Level POC ABG pH POC ABG pCO2 POC ABG pO2 Carbon Dioxide 21 L 20 L Creatinine Glucose 118 H Hemoglobin A1c Calcium NT-Pro-B Natriuret Pep Albumin 3.4 L [facility] 02/13/18 02/13/18 02/13/18 16:32 16:32 21:06 WBC RBC Hgb 15.4 H Hct 46.0 H MCV 97 H MCH MCHC Plt Count Randall % (Auto) 12.4 H Randall # 1.1 H Seg Neutrophils % Seg Neutrophils # PT INR APTT Heparin Anti-Xa Level 0.10 L < 0.10 L POC ABG pH POC ABG pCO2 POC ABG pO2 Carbon Dioxide Creatinine Glucose Hemoglobin A1c Calcium NT-Pro-B Natriuret Pep Albumin [facility] 02/13/18 02/14/18 02/14/18 21:15 01:49 03:05 WBC RBC Hgb 15.3 H Hct MCV 98 H 96 H MCH 33 H 33 H MCHC Plt Count 137 L Randall % (Auto) 11.5 H 11.4 H Randall # 1.0 H 1.1 H Seg Neutrophils % 73.4 H Seg Neutrophils # PT INR APTT Heparin Anti-Xa Level POC ABG pH 7.484 H POC ABG pCO2 24.7 L POC ABG pO2 70 L Carbon Dioxide Creatinine Glucose Hemoglobin A1c Calcium NT-Pro-B Natriuret Pep Albumin TSH 02/14/18 02/14/18 02/14/18 03:05 03:05 10:31 WBC RBC Hgb Hct MCV 97 H MCH 33 H MCHC Plt Count 124 L Randall % (Auto) 13.1 H Randall # 1.2 H Seg Neutrophils % 70.9 H Seg Neutrophils # PT INR APTT Heparin Anti-Xa Level < 0.10 L POC ABG pH POC ABG pCO2 POC ABG pO2 Carbon Dioxide 20 L Creatinine Glucose 151 H Hemoglobin A1c Calcium NT-Pro-B Natriuret Pep Albumin [facility] 02/14/18 02/14/18 02/14/18 10:31 12:30 12:37 WBC RBC Hgb Hct MCV MCH MCHC Plt Count Randall % (Auto) Randall # Seg Neutrophils % Seg Neutrophils # PT INR APTT Heparin Anti-Xa Level < 0.10 L POC ABG pH 7.496 H 7.477 H POC ABG pCO2 24.2 L 26.9 L POC ABG pO2 65 L 57 L Carbon Dioxide Creatinine Glucose Hemoglobin A1c Calcium NT-Pro-B Natriuret Pep Albumin [facility] 02/14/18 02/15/18 02/15/18 19:49 04:24 06:46 WBC RBC Hgb Hct MCV MCH MCHC Plt Count Randall % (Auto) Randall # Seg Neutrophils % Seg Neutrophils # PT INR APTT Heparin Anti-Xa Level < 0.10 L < 0.10 L POC ABG pH POC ABG pCO2 POC ABG pO2 Carbon Dioxide Creatinine Glucose 147 H Hemoglobin A1c Calcium NT-Pro-B Natriuret Pep Albumin [facility] 02/15/18 02/16/18 02/16/18 10:04 10:27 10:27 WBC 11.1 H RBC Hgb 15.3 H Hct MCV 97 H 96 H MCH 33 H 33 H MCHC Plt Count 114 L 126 L Randall % (Auto) 12.2 H 12.8 H Randall # 1.0 H 1.4 H Seg Neutrophils % 71.1 H Seg Neutrophils # 7.9 H PT 18.1 H INR 1.41 H APTT Heparin Anti-Xa Level POC ABG pH POC ABG pCO2 POC ABG pO2 Carbon Dioxide Creatinine Glucose Hemoglobin A1c Calcium NT-Pro-B Natriuret Pep Albumin [facility] 02/17/18 02/18/18 02/18/18 07:05 05:49 05:49 WBC RBC Hgb Hct MCV 97 H MCH 33 H MCHC Plt Count Randall % (Auto) 14.5 H Randall # 1.1 H Seg Neutrophils % Seg Neutrophils # PT 19.4 H 19.4 H INR 1.54 H 1.54 H APTT Heparin Anti-Xa Level POC ABG pH POC ABG pCO2 POC ABG pO2 Carbon Dioxide Creatinine Glucose Hemoglobin A1c Calcium NT-Pro-B Natriuret Pep Albumin TSH 02/18/18 02/22/18 02/22/18 05:49 06:37 06:42 WBC RBC Hgb Hct MCV 95 H MCH 33 H MCHC 35 H Plt Count Randall % (Auto) Randall # Seg Neutrophils % Seg Neutrophils # PT INR APTT Heparin Anti-Xa Level POC ABG pH POC ABG pCO2 POC ABG pO2 Carbon Dioxide Creatinine Glucose 115 H 111 H Hemoglobin A1c Calcium NT-Pro-B Natriuret Pep Albumin TSH 02/22/18 02/23/18 02/25/18 20:18 04:49 05:30 WBC RBC Hgb Hct MCV 97 H MCH 33 H MCHC Plt Count 117 L Randall % (Auto) Randall # Seg Neutrophils % Seg Neutrophils # PT INR APTT Heparin Anti-Xa Level POC ABG pH POC ABG pCO2 POC ABG pO2 Carbon Dioxide Creatinine Glucose 185 H Hemoglobin A1c Calcium NT-Pro-B Natriuret Pep Albumin TSH 10.010 H 02/25/18 07:45 WBC RBC Hgb Hct MCV MCH MCHC Plt Count Randall % (Auto) Randall # Seg Neutrophils % Seg Neutrophils # PT INR APTT Heparin Anti-Xa Level POC ABG pH POC ABG pCO2 POC ABG pO2 Carbon Dioxide Creatinine 0.7 L Glucose 105 H Hemoglobin A1c Calcium NT-Pro-B Natriuret Pep Albumin TSH Allied health notes reviewed: nursing
[2018-02-25] MEDS: LEVAQUIN PO SCH (10:46)
[2018-02-25] MEDS: PROTONIX PO SCH ×2 (10:46→22:03)
[2018-02-25] MEDS: COLACE PO SCH ×2 (10:46→22:03)
--- NOTE | 2018-02-25 13:45 | Progress Note ---
Assessment and Plan TSH noted to be elevated. Further eval/management per primary. Cont heparin gtt. Await EP consultation. The patient has been seen in conjunction with Dr. Vilchis who agrees with the assessment and plan of care. - Patient Problems (1) Sinus pause Current Visit: Yes Status: Acute (2) Acute pulmonary embolism Current Visit: Yes Status: Acute Qualifiers: Acute cor pulmonale presence: with acute cor pulmonale (3) Acute DVT (deep venous thrombosis) Current Visit: Yes Status: Acute (4) Morbid obesity Current Visit: Yes Status: Chronic (5) Sleep apnea Current Visit: Yes Status: Chronic Qualifiers: Sleep apnea type: unspecified type Qualified Code(s): G47.30 - Sleep apnea , unspecified (6) Tricuspid regurgitation Current Visit: Yes Status: Chronic (7) Pulmonary HTN Current Visit: Yes Status: Chronic (8) Tobacco use Current Visit: Yes Status: Chronic (9) Elevated TSH Current Visit: Yes Status: Acute Subjective Date of service: 02/25/18 Principal diagnosis: Acute Bilateral Pulmonary Embolii; Acute Hypoxemic Resp failure; Morbid Obe Interval history: Pt resting comfortably in bed, no current cardiac complaints. TVP remains in place via right jugular vein. site c/d/i with no evidence of bleeding or hematoma. Pt intermittently requiring pacing. currently wearing CPAP. Objective Last Vital Signs Temp 97.8 F 02/25/18 12:00 Pulse 65 02/25/18 08:01 Resp 16 02/25/18 08:01 BP 119/85 02/25/18 08:01 Pulse Ox 94 02/25/18 08:01 - Physical Examination General: No Apparent Distress HEENT: Positive: PERRL, Normocephaly, Mucus Membranes Moist Neck: Positive: neck supple, trachea midline. Negative: JVD/HJR Cardiac: Positive: Reg Rate and Rhythm, S1/S2 Lungs: Positive: clear to auscultation Neuro: Positive: Grossly Intact Abdomen: Positive: Soft. Negative: Organomegaly, Tender Skin: Positive: Clear. Negative: Rash, Wound Musculoskeletal: No Fluid Collection, No Pain, Normal Range of Motion Extremities: Present: +1 Edema. Absent: edema Other: TVP remains in place via right jugular vein. site c/d/i with no evidence of bleeding or hematoma. - Labs and Meds CBC 02/25/18 Range/Units 05:30 WBC 6.8 (4.5-11.0) K/mm3 RBC 4.40 (3.65-5.03) M/mm3 Hgb 14.3 (11.8-15.2) gm/dl Hct 42.4 (35.5-45.6) % Plt Count 117 L (140-440) K/mm3 Comprehensive Metabolic Panel 02/25/18 Range/Units 07:45 Sodium 137 (137-145) mmol/L Potassium 4.5 (3.6-5.0) mmol/L Chloride 102.8 (98-107) mmol/L Carbon Dioxide 23 (22-30) mmol/L BUN 18 (9-20) mg/dL Creatinine 0.7 L (0.8-1.5) mg/dL Glucose 105 H (75-100) mg/dL Calcium 8.9 (8.4-10.2) mg/dL - Imaging and Cardiology EKG: report reviewed, image reviewed Echo: report reviewed (02/14/2018 showed EF 55%, mod RA and RV enlargement, mod RV systolic dysfunction, mod TR, mod pulm HTN with RVSP 55mmHg. ) - Telemetry EKG Rhythm: Sinus Rhythm - EKG Sinus rhythms and dysrhythmias: sinus rhythm - Allied health notes Allied health notes reviewed: nursing
[2018-02-25] MEDS: XANAX PO PRN (14:32)
[2018-02-25] MEDS: HEPARIN/ 0.45% NACL-25,000 UNIT/500 ML 25,000 UNIT/500 ML BAG IV SCH (14:32)
[2018-02-25] MEDS: PERCOCET 5/325 PO PRN (20:31)
[2018-02-25] MEDS: AMBIEN PO PRN (22:03)
[2018-02-26 04:43] LABS: Hematocrit 39.5 % (35.5-45.6); Hemoglobin 13.3 gm/dl (11.8-15.2); Mean Corpuscular HGB Conc 34 % (32-34); Mean Corpuscular Hemoglobin 32 pg (28-32); Mean Corpuscular Volume 96 fl (84-94); Red Blood Count 4.12 M/mm3 (3.65-5.03); Red Cell Distribution Width 13.6 % (13.2-15.2)
[2018-02-26 04:44] LABS: Platelet Count 90 K/mm3 (140-440)
[2018-02-26] MEDS: MORPHINE IV PRN (05:03)
[2018-02-26] MEDS: HEPARIN/ 0.45% NACL-25,000 UNIT/500 ML 25,000 UNIT/500 ML BAG IV SCH (05:03)
[2018-02-26 05:05] LABS: BUN/Creatinine Ratio 23; Blood Urea Nitrogen 18 mg/dL (9-20); Calcium 8.8 mg/dL (8.4-10.2); Hemolysis Index 25
--- NOTE | 2018-02-26 09:02 | Progress Note ---
Assessment and Plan Acute bilateral pulmonary emboli s/p EKOS Shortness of breath. Dyspnea on exertion. Morbid obesity. History of obstructive sleep apnea. 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 s/p EkOS catheter directed thrombolysis; Morbid obesity; SILVER Seen and examined at bedside; 24 hour events reviewed; nursing and respiratory care staff consulted; no adverse overnight events reported to me; resting peacefully in bed; He denies any chest pain, no shortness of breath, no fevers or chills. Discussed in ICU-IDT rounds. Per cardiology no need for PPM at this time Objective Vital Signs - 12hr 02/25/18 02/25/18 02/25/18 21:31 22:00 23:01 Temperature Pulse Rate 77 70 Pulse Rate [ 61 From Monitor] Respiratory 13 14 14 Rate Blood Pressure 126/70 115/52 O2 Sat by Pulse 94 95 Oximetry 02/25/18 02/26/18 02/26/18 23:24 00:01 01:01 Temperature Pulse Rate 73 65 Pulse Rate [ From Monitor] Respiratory 13 17 11 L Rate Blood Pressure 107/53 105/51 O2 Sat by Pulse 96 95 Oximetry 02/26/18 02/26/18 02/26/18 02:01 03:01 03:12 Temperature 97.5 F L Pulse Rate 59 L 57 L Pulse Rate [ From Monitor] Respiratory 22 Rate Blood Pressure 118/60 118/60 O2 Sat by Pulse 93 Oximetry 02/26/18 02/26/18 02/26/18 04:00 05:00 06:00 Temperature 99 F Pulse Rate 41 L 54 L 55 L Pulse Rate [ 54 L From Monitor] Respiratory 22 Rate Blood Pressure 123/69 125/63 112/64 O2 Sat by Pulse 90 93 97 Oximetry 02/26/18 08:13 Temperature Pulse Rate Pulse Rate [ From Monitor] Respiratory Rate Blood Pressure O2 Sat by Pulse 97 Oximetry Constitutional: no acute distress, alert Eyes: non-icteric ENT: oropharynx moist Neck: supple, no lymphadenopathy Effort: mildly labored Ascultation: Bilateral: diminished breath sounds, rhonchi Percussion: Bilateral: not dull Cardiovascular: regular rate and rhythm Gastrointestinal: normoactive bowel sounds Integumentary: normal Extremities: no cyanosis, no edema Neurologic: normal mental status, non-focal exam, pupils equal and round, CN II- XII normal Psychiatric: mood appropriate CBC and BMP: 02/27/18 06:59 02/26/18 03:39 ABG, PT/INR, D-dimer: ABG POC ABG pH 7.477 (7.35-7.45) H 02/14/18 12:37 POC ABG pCO2 26.9 (35-45) L 02/14/18 12:37 POC ABG pO2 57 (80-105) L 02/14/18 12:37 POC ABG HCO3 19.9 02/14/18 12:37 POC ABG Total CO2 21 02/14/18 12:37 POC ABG O2 Sat 92 02/14/18 12:37 PT/INR, D-dimer PT 13.2 Sec. (12.2-14.9) 02/23/18 16:42 INR 0.95 (0.87-1.13) 02/23/18 16:42 Abnormal lab findings: Abnormal Labs 02/12/18 02/12/18 02/12/18 09:55 09:55 09:55 WBC 11.8 H RBC 5.29 H Hgb 17.7 H Hct 49.7 H MCV MCH 33 H MCHC 36 H Plt Count Phillips % (Auto) 13.3 H Phillips # 1.6 H Seg Neutrophils % Seg Neutrophils # PT INR APTT 40.0 H Heparin Anti-Xa Level POC ABG pH POC ABG pCO2 POC ABG pO2 Carbon Dioxide 21 L Creatinine Glucose 150 H Hemoglobin A1c Calcium 10.3 H NT-Pro-B Natriuret Pep 3956 H Albumin TSH 02/12/18 02/12/18 02/12/18 12:35 12:35 19:12 WBC RBC Hgb 17.2 H Hct 50.5 H MCV MCH MCHC Plt Count Phillips % (Auto) Phillips # Seg Neutrophils % Seg Neutrophils # PT INR APTT 42.2 H Heparin Anti-Xa Level 0.10 L POC ABG pH POC ABG pCO2 POC ABG pO2 Carbon Dioxide Creatinine Glucose Hemoglobin A1c Calcium NT-Pro-B Natriuret Pep Albumin [facility] 02/13/18 02/13/18 02/13/18 01:18 01:25 01:25 WBC RBC Hgb Hct MCV MCH MCHC Plt Count Phillips % (Auto) Phillips # Seg Neutrophils % Seg Neutrophils # PT INR APTT Heparin Anti-Xa Level 0.10 L POC ABG pH POC ABG pCO2 POC ABG pO2 Carbon Dioxide Creatinine Glucose 131 H Hemoglobin A1c 6.1 H Calcium NT-Pro-B Natriuret Pep Albumin [facility] 02/13/18 02/13/18 02/13/18 06:55 16:32 16:32 WBC RBC Hgb Hct MCV MCH MCHC Plt Count Phillips % (Auto) Phillips # Seg Neutrophils % Seg Neutrophils # PT INR APTT 45.6 H Heparin Anti-Xa Level POC ABG pH POC ABG pCO2 POC ABG pO2 Carbon Dioxide 21 L 20 L Creatinine Glucose 118 H Hemoglobin A1c Calcium NT-Pro-B Natriuret Pep Albumin 3.4 L [facility] 02/13/18 02/13/18 02/13/18 16:32 16:32 21:06 WBC RBC Hgb 15.4 H Hct 46.0 H MCV 97 H MCH MCHC Plt Count Phillips % (Auto) 12.4 H Phillips # 1.1 H Seg Neutrophils % Seg Neutrophils # PT INR APTT Heparin Anti-Xa Level 0.10 L < 0.10 L POC ABG pH POC ABG pCO2 POC ABG pO2 Carbon Dioxide Creatinine Glucose Hemoglobin A1c Calcium NT-Pro-B Natriuret Pep Albumin [facility] 02/13/18 02/14/18 02/14/18 21:15 01:49 03:05 WBC RBC Hgb 15.3 H Hct MCV 98 H 96 H MCH 33 H 33 H MCHC Plt Count 137 L Phillips % (Auto) 11.5 H 11.4 H Phillips # 1.0 H 1.1 H Seg Neutrophils % 73.4 H Seg Neutrophils # PT INR APTT Heparin Anti-Xa Level POC ABG pH 7.484 H POC ABG pCO2 24.7 L POC ABG pO2 70 L Carbon Dioxide Creatinine Glucose Hemoglobin A1c Calcium NT-Pro-B Natriuret Pep Albumin TSH 02/14/18 02/14/18 02/14/18 03:05 03:05 10:31 WBC RBC Hgb Hct MCV 97 H MCH 33 H MCHC Plt Count 124 L Phillips % (Auto) 13.1 H Phillips # 1.2 H Seg Neutrophils % 70.9 H Seg Neutrophils # PT INR APTT Heparin Anti-Xa Level < 0.10 L POC ABG pH POC ABG pCO2 POC ABG pO2 Carbon Dioxide 20 L Creatinine Glucose 151 H Hemoglobin A1c Calcium NT-Pro-B Natriuret Pep Albumin [facility] 02/14/18 02/14/18 02/14/18 10:31 12:30 12:37 WBC RBC Hgb Hct MCV MCH MCHC Plt Count Phillips % (Auto) Phillips # Seg Neutrophils % Seg Neutrophils # PT INR APTT Heparin Anti-Xa Level < 0.10 L POC ABG pH 7.496 H 7.477 H POC ABG pCO2 24.2 L 26.9 L POC ABG pO2 65 L 57 L Carbon Dioxide Creatinine Glucose Hemoglobin A1c Calcium NT-Pro-B Natriuret Pep Albumin [facility] 02/14/18 02/15/18 02/15/18 19:49 04:24 06:46 WBC RBC Hgb Hct MCV MCH MCHC Plt Count Phillips % (Auto) Phillips # Seg Neutrophils % Seg Neutrophils # PT INR APTT Heparin Anti-Xa Level < 0.10 L < 0.10 L POC ABG pH POC ABG pCO2 POC ABG pO2 Carbon Dioxide Creatinine Glucose 147 H Hemoglobin A1c Calcium NT-Pro-B Natriuret Pep Albumin [facility] 02/15/18 02/16/18 02/16/18 10:04 10:27 10:27 WBC 11.1 H RBC Hgb 15.3 H Hct MCV 97 H 96 H MCH 33 H 33 H MCHC Plt Count 114 L 126 L Phillips % (Auto) 12.2 H 12.8 H Phillips # 1.0 H 1.4 H Seg Neutrophils % 71.1 H Seg Neutrophils # 7.9 H PT 18.1 H INR 1.41 H APTT Heparin Anti-Xa Level POC ABG pH POC ABG pCO2 POC ABG pO2 Carbon Dioxide Creatinine Glucose Hemoglobin A1c Calcium NT-Pro-B Natriuret Pep Albumin [facility] 02/17/18 02/18/18 02/18/18 07:05 05:49 05:49 WBC RBC Hgb Hct MCV 97 H MCH 33 H MCHC Plt Count Phillips % (Auto) 14.5 H Phillips # 1.1 H Seg Neutrophils % Seg Neutrophils # PT 19.4 H 19.4 H INR 1.54 H 1.54 H APTT Heparin Anti-Xa Level POC ABG pH POC ABG pCO2 POC ABG pO2 Carbon Dioxide Creatinine Glucose Hemoglobin A1c Calcium NT-Pro-B Natriuret Pep Albumin TSH 02/18/18 02/22/18 02/22/18 05:49 06:37 06:42 WBC RBC Hgb Hct MCV 95 H MCH 33 H MCHC 35 H Plt Count Phillips % (Auto) Phillips # Seg Neutrophils % Seg Neutrophils # PT INR APTT Heparin Anti-Xa Level POC ABG pH POC ABG pCO2 POC ABG pO2 Carbon Dioxide Creatinine Glucose 115 H 111 H Hemoglobin A1c Calcium NT-Pro-B Natriuret Pep Albumin TSH 02/22/18 02/23/18 02/25/18 20:18 04:49 05:30 WBC RBC Hgb Hct MCV 97 H MCH 33 H MCHC Plt Count 117 L Phillips % (Auto) Phillips # Seg Neutrophils % Seg Neutrophils # PT INR APTT Heparin Anti-Xa Level POC ABG pH POC ABG pCO2 POC ABG pO2 Carbon Dioxide Creatinine Glucose 185 H Hemoglobin A1c Calcium NT-Pro-B Natriuret Pep Albumin TSH 10.010 H 02/25/18 02/25/18 02/25/18 07:45 22:52 22:52 WBC RBC Hgb Hct MCV MCH MCHC Plt Count Phillips % (Auto) Phillips # Seg Neutrophils % Seg Neutrophils # PT INR APTT Heparin Anti-Xa Level 0.11 L POC ABG pH POC ABG pCO2 POC ABG pO2 Carbon Dioxide Creatinine 0.7 L Glucose 105 H Hemoglobin A1c Calcium NT-Pro-B Natriuret Pep Albumin TSH 16.440 H 02/26/18 03:39 WBC RBC Hgb Hct MCV 96 H MCH MCHC Plt Count 90 L Phillips % (Auto) Phillips # Seg Neutrophils % Seg Neutrophils # PT INR APTT Heparin Anti-Xa Level POC ABG pH POC ABG pCO2 POC ABG pO2 Carbon Dioxide Creatinine Glucose Hemoglobin A1c Calcium NT-Pro-B Natriuret Pep Albumin TSH Allied health notes reviewed: nursing
[2018-02-26 09:11] LABS: INR 0.95 (0.87-1.13)
[2018-02-26 09:18] LABS: Heparin anti-factor XA 0.24 U.I./ml (0.3-0.7)
[2018-02-26] MEDS: SODIUM CHLORIDE FLUSH SYRINGE 10 ML IV SCH ×2 (09:30→21:56)
[2018-02-26] MEDS: COLACE PO SCH ×2 (11:12→21:53)
[2018-02-26] MEDS: PROTONIX PO SCH ×2 (11:12→21:53)
--- NOTE | 2018-02-26 11:16 | Progress Note ---
Assessment and Plan /Massive bilateral PE, - s/p thrombolytic therapy/EKOS procedure on 02/14 - s/p aspirartion thrombectomy pulm arteries 02/22 for persistent SOB - receiving heparin drip, evaluated by vascular/ hematology/ pulmonary - Now on Oxygen by RI, changed to eliquis today - Hypercoagulable workup sent /Cardiac arrhythmia with 4.8 and 3.6 cm pauses. may be due to sleep apnea and subclinical hypothyroidism with TSH at 16 s/p temporary pacemaker placed 02/22 Cardiology following, HR much improved, no plan for permanent PCM /Right-sided pneumonia; community acquired, present on admission, -probably not noted on chest x-ray due to massive PE - On empiric antibiotics with Levaquin /Acute hypoxic respiratory failure; due to PE, continue oxygen, nebulizers Continue to titrate oxygen to O2 sats more than 90%, evaluation for home oxygen /Left Lower extremity DVT, cont eliquis /Subclinical hypothyroidosm TSH >15, with normal T4 given elevated TSH and bradycardiac witll add low dose synthroid /thrombocytopenia, stop heparin drip, cont on eliquis, monitor platelets /Chest pain; due to bilateral PE; preserved Ef on ed echo, cardiology following /Morbid obesity; BMI 61.5 counseling, weight reduction when medically stable /Obstructive sleep apnea. 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 A CTA was performed which demonstrates bilateral segmental and subsegmental pulmonary embolism involving predominantly the lower lobes. His RV /LV ratio is greater than 1 with an elevated BNP. VS was consulted and he underwent left pulmonary artery EKOS. 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, alert,oriented x3, no focal neurological signs Subjective Date of service: 02/26/18 Principal diagnosis: Acute Bilateral Pulmonary Embolii; Acute Hypoxemic Resp failure; Morbid Obe Interval history: Less shortness of breath, Aspiration thrombectomy 02/21 Temporary pacemaker placed for sinus pauses on 02/22 Generalized weakness, sleeping, denies any chest pain Objective - Constitutional Vitals: Vital Signs - 12hr 02/25/18 02/26/18 02/26/18 23:24 00:01 01:01 Temperature Pulse Rate 73 65 Pulse Rate [ From Monitor] Respiratory 13 17 11 L Rate Blood Pressure 107/53 105/51 O2 Sat by Pulse 96 95 Oximetry 02/26/18 02/26/18 02/26/18 02:01 03:01 03:12 Temperature 97.5 F L Pulse Rate 59 L 57 L Pulse Rate [ From Monitor] Respiratory 22 Rate Blood Pressure 118/60 118/60 O2 Sat by Pulse 93 Oximetry 02/26/18 02/26/18 02/26/18 04:00 05:00 06:00 Temperature 99 F Pulse Rate 41 L 54 L 55 L Pulse Rate [ 54 L From Monitor] Respiratory 22 Rate Blood Pressure 123/69 125/63 112/64 O2 Sat by Pulse 90 93 97 Oximetry 02/26/18 02/26/18 02/26/18 07:00 08:00 08:13 Temperature 97.5 F L Pulse Rate 64 63 Pulse Rate [ From Monitor] Respiratory 14 11 L Rate Blood Pressure 102/56 119/60 O2 Sat by Pulse 94 95 97 Oximetry 02/26/18 02/26/18 02/26/18 09:00 10:00 11:00 Temperature Pulse Rate 55 L 64 58 L Pulse Rate [ From Monitor] Respiratory 15 15 12 Rate Blood Pressure 126/61 112/72 135/68 O2 Sat by Pulse 91 94 92 Oximetry - Labs CBC & Chem 7: 02/27/18 06:59 02/26/18 03:39 Labs: Abnormal lab results 02/25/18 02/25/18 02/26/18 Range/Units 22:52 22:52 03:39 MCV 96 H (84-94) fl Plt Count 90 L (140-440) K/mm3 Heparin Anti-Xa Level 0.11 L (0.3-0.7) U.I./ml TSH 16.440 H (0.270-4.200) mlU/mL 02/26/18 Range/Units 08:15 MCV (84-94) fl Plt Count (140-440) K/mm3 Heparin Anti-Xa Level 0.24 L (0.3-0.7) U.I./ml TSH (0.270-4.200) mlU/mL
--- NOTE | 2018-02-26 12:08 | Progress Note ---
Assessment and Plan Synthroid initiated per primary. Cont heparin gtt. Await EP consultation today. The patient has been seen in conjunction with Dr. Vilchis who agrees with the assessment and plan of care. - Patient Problems (1) Sinus pause Current Visit: Yes Status: Acute (2) Acute pulmonary embolism Current Visit: Yes Status: Acute Qualifiers: Acute cor pulmonale presence: with acute cor pulmonale (3) Acute DVT (deep venous thrombosis) Current Visit: Yes Status: Acute (4) Morbid obesity Current Visit: Yes Status: Chronic (5) Sleep apnea Current Visit: Yes Status: Chronic Qualifiers: Sleep apnea type: unspecified type Qualified Code(s): G47.30 - Sleep apnea , unspecified (6) Tricuspid regurgitation Current Visit: Yes Status: Chronic (7) Pulmonary HTN Current Visit: Yes Status: Chronic (8) Tobacco use Current Visit: Yes Status: Chronic (9) Thrombocytopenia Current Visit: Yes Status: Acute (10) Hypothyroidism Current Visit: Yes Status: Chronic Subjective Date of service: 02/26/18 Principal diagnosis: Acute Bilateral Pulmonary Embolii; Acute Hypoxemic Resp failure; Morbid Obe Interval history: Pt resting comfortably in bed, no current cardiac complaints. TVP remains in place via right jugular vein. site c/d/i with no evidence of bleeding or hematoma. Pt intermittently requiring pacing. currently wearing CPAP. Objective Last Vital Signs Temp 97.5 F L 02/26/18 08:00 Pulse 58 L 02/26/18 11:00 Resp 12 02/26/18 11:00 BP 135/68 02/26/18 11:00 Pulse Ox 92 02/26/18 11:00 - Physical Examination General: No Apparent Distress HEENT: Positive: PERRL, Normocephaly, Mucus Membranes Moist Neck: Positive: neck supple, trachea midline. Negative: JVD/HJR Cardiac: Positive: Reg Rate and Rhythm, S1/S2 Lungs: Positive: Decreased Breath Sounds Neuro: Positive: Grossly Intact Abdomen: Positive: Soft. Negative: Organomegaly, Tender Skin: Positive: Clear. Negative: Rash, Wound Musculoskeletal: No Fluid Collection, No Pain, Normal Range of Motion Extremities: Present: +1 Edema. Absent: edema - Labs and Meds Coagulation 02/26/18 Range/Units 08:15 PT 13.1 (12.2-14.9) Sec. INR 0.95 (0.87-1.13) CBC 02/26/18 Range/Units 03:39 WBC 5.4 (4.5-11.0) K/mm3 RBC 4.12 (3.65-5.03) M/mm3 Hgb 13.3 (11.8-15.2) gm/dl Hct 39.5 (35.5-45.6) % Plt Count 90 L (140-440) K/mm3 Comprehensive Metabolic Panel 02/26/18 Range/Units 03:39 Sodium 140 (137-145) mmol/L Potassium 4.2 (3.6-5.0) mmol/L Chloride 101.1 (98-107) mmol/L Carbon Dioxide 22 (22-30) mmol/L BUN 18 (9-20) mg/dL Creatinine 0.8 (0.8-1.5) mg/dL Glucose 96 (75-100) mg/dL Calcium 8.8 (8.4-10.2) mg/dL - Imaging and Cardiology EKG: report reviewed, image reviewed Echo: report reviewed (02/14/2018 showed EF 55%, mod RA and RV enlargement, mod RV systolic dysfunction, mod TR, mod pulm HTN with RVSP 55mmHg. ) - Telemetry EKG Rhythm: Sinus Rhythm - EKG Sinus rhythms and dysrhythmias: sinus rhythm - Allied health notes Allied health notes reviewed: nursing
--- NOTE | 2018-02-26 13:20 | Consultation ---
History of Present Illness Consult date: 02/26/18 Consult reason: bradycardia History of present illness: 37-year-old male with a past medical history of obesity and severe sleep apnea who presented to [facility] complaining of shortness of breath and dizziness. In the emergency department the patient had a CTA of the chest which revealed bilateral pulmonary emboli with a significant burden of thrombi. The patient was also found to have a lower extremity deep vein thrombosis. During this hospitalization the patient received intravenous anticoagulation and also underwent EKOS. Currently the patient has no symptoms he denies any significant chest pain, shortness of breath, or dizziness. 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 Past History Past Medical History: DVT, pulmonary embolism, other (sleep apnea; morbid obesity) Past Surgical History: No surgical history, Other (tooth extraction) Social history: smoking. denies: alcohol abuse, prescription drug abuse Family history: no significant family history Medications and Allergies Allergies Allergy/AdvReac Type Severity Reaction Status Date / Time No Known Allergies Allergy Unverified 02/12/18 09:54 Home Medications Medication Instructions Recorded Confirmed Last Taken Type No Known Home Medications [No 02/12/18 02/12/18 Unknown History Reported Home Medications] Active Meds: Active Medications Acetaminophen (Tylenol) 650 mg PO Q4H PRN PRN Reason: Pain MILD(1-3)/Fever >100.5/PULIDO Last Admin: 02/15/18 10:01 Dose: 650 mg Acetaminophen/Hydrocodone Bitart ([place] 5/325) 2 each PO Q6H PRN PRN Reason: Pain, Moderate (4-6) Last Admin: 02/25/18 14:32 Dose: 2 each Albuterol (Proventil) 2.5 mg IH Q6HRT PRN PRN Reason: Shortness Of Breath Last Admin: 02/15/18 19:24 Dose: 2.5 mg Alprazolam (Xanax) 0.25 mg PO Q8H PRN PRN Reason: Anxiety Last Admin: 02/25/18 14:32 Dose: 0.25 mg Benzonatate (Tessalon Perles) 100 mg PO Q6HR PRN PRN Reason: Cough Last Admin: 02/20/18 22:13 Dose: 100 mg Docusate Sodium (Colace) 100 mg PO BID [facility] Last Admin: 02/26/18 11:12 Dose: Not Given Hydralazine HCl (Apresoline) 10 mg IV Q4HR PRN PRN Reason: Hypertension Last Admin: 02/14/18 05:22 Dose: 10 mg Heparin Sodium/Sodium Chloride (Heparin/ 0.45% Nacl-25,000 Unit/500 Ml) 25,000 unit in 500 mls @ 30 mls/hr IV TITR [facility]; Protocol Last Titration: 02/26/18 10:51 Dose: 2,300 units/hr, 46 mls/hr Levothyroxine Sodium (Synthroid) 50 mcg PO DAILY@0600 [facility] Morphine Sulfate (Morphine) 2 mg IV Q4H PRN PRN Reason: Pain, Moderate (4-6) Last Admin: 02/26/18 05:03 Dose: 2 mg Ondansetron HCl (Zofran) 4 mg IV Q8H PRN PRN Reason: Nausea And Vomiting Oxycodone/Acetaminophen (Percocet 5/325) 1 tab PO Q6H PRN PRN Reason: Pain, Moderate (4-6) Last Admin: 02/25/18 20:31 Dose: 1 tab Pantoprazole Sodium (Protonix) 40 mg PO BID [facility] Last Admin: 02/26/18 11:12 Dose: Not Given Polyethylene Glycol (Miralax 3350) 17 gm PO QDAY PRN PRN Reason: Constipation Sodium Chloride (Sodium Chloride Flush Syringe 10 Ml) 10 ml IV BID [facility] Last Admin: 02/25/18 22:04 Dose: 10 ml Sodium Chloride (Sodium Chloride Flush Syringe 10 Ml) 10 ml IV PRN PRN PRN Reason: LINE FLUSH Zolpidem Tartrate (Ambien) 5 mg PO QHS PRN PRN Reason: Insomnia Last Admin: 02/25/18 22:03 Dose: 5 mg Review of Systems Constitutional: weight gain, no weight loss, no fever, no chills Ears, nose, mouth and throat: no ear pain, no ear discharge Cardiovascular: no chest pain, no orthopnea, no palpitations, no syncope, no lightheadedness, no shortness of breath Respiratory: cough, hemoptysis Gastrointestinal: no abdominal pain, no nausea, no vomiting Genitourinary Male: no flank pain, no discharge Rectal: no pain, no incontinence Musculoskeletal: no neck pain, no shooting arm pain Integumentary: no rash, no pruritis Neurological: no paralysis, no weakness Psychiatric: sleep disturbances, no memory loss Endocrine: no polyphagia, no excessive thirst Hematologic/Lymphatic: no easy bruising, no easy bleeding Allergic/Immunologic: no urticaria, no allergic rhinitis Physical Examination Vital Signs Pulse Resp Pulse Ox 119 H 26 H 97 02/12/18 09:46 02/12/18 09:46 02/12/18 09:46 General appearance: no acute distress HEENT: Positive: EOMI Neck: Positive: neck supple, trachea midline Cardiac: Positive: Regular Rhythm, Bradycardia Lungs: Positive: Normal Exam, clear to auscultation, Normal Breath Sounds Neuro: Positive: Grossly Intact Abdomen: Positive: Unremarkable, Soft, Active Bowel Sounds Skin: Negative: Rash, Suspicious Lesions Musculoskeletal: Decreased Range of Motion Extremities: Present: normal, +1 Edema Results 02/26/18 03:39 02/26/18 03:39 Coagulation 02/26/18 Range/Units 08:15 PT 13.1 (12.2-14.9) Sec. INR 0.95 (0.87-1.13) CBC 02/26/18 Range/Units 03:39 WBC 5.4 (4.5-11.0) K/mm3 RBC 4.12 (3.65-5.03) M/mm3 Hgb 13.3 (11.8-15.2) gm/dl Hct 39.5 (35.5-45.6) % Plt Count 90 L (140-440) K/mm3 Comprehensive Metabolic Panel 02/26/18 Range/Units 03:39 Sodium 140 (137-145) mmol/L Potassium 4.2 (3.6-5.0) mmol/L Chloride 101.1 (98-107) mmol/L Carbon Dioxide 22 (22-30) mmol/L BUN 18 (9-20) mg/dL Creatinine 0.8 (0.8-1.5) mg/dL Glucose 96 (75-100) mg/dL Calcium 8.8 (8.4-10.2) mg/dL - Imaging and Cardiology Echo: report reviewed (EF 55%, mod CAMPBELL/RVE) Cardiac cath: report reviewed (no angiographically significant coronary artery disease) EKG interpretations - Telemetry EKG Rhythm: Sinus Bradycardia Assessment and Plan 37-year-old male with a past medical history of obesity and severe sleep apnea who presented with bilateral pulmonary emboli and a lower extremity deep vein thrombosis. During this hospitalization the patient was noted to have significant sinus bradycardia the longest being 90 seconds. All of these episodes were noted when the patient was sleeping and not wearing his CPAP mask. Today additionally the patient admitted that he had a hole in his CPAP machine. I had a lengthy discussion with the patient regarding the importance of his compliance of using his CPAP when sleeping he also needs to have a new mask or have his current mask replaced given that he has a hole in it and he is not able to obtain a perfect seal. At this point there is no indication for a permanent pacemaker. The patient is completely asymptomatic. I have instructed the patient to follow-up with piano builder in his hometown area. He also needs to see his sleep specialist.
--- NOTE | 2018-02-26 13:34 | Event Note ---
Date: 02/26/18 No plans for PPM implantation per EP, Dr. Ordonez. D/C TVP wire and leave sheath in place overnight - will plan to pull sheath tomorrow if no acute events overnight. Pt may tx to telemetry from cardiology standpoint. D/c heparin gtt and resume Eliquis. Duran [place] NP / DR. DAILY
[2018-02-26] MEDS: NORCO 5/325 PO PRN (15:57)
[2018-02-26] MEDS: PERCOCET 5/325 PO PRN (21:53)
[2018-02-26] MEDS: ELIQUIS PO SCH (21:55)
[2018-02-27] MEDS: AMBIEN PO PRN (01:29)
[2018-02-27] MEDS: SYNTHROID PO SCH (06:18)
[2018-02-27] MEDS: PERCOCET 5/325 PO PRN ×2 (06:53→14:36)
[2018-02-27 07:19] LABS: Hematocrit 39.3 % (35.5-45.6); Hemoglobin 13.3 gm/dl (11.8-15.2)
[2018-02-27 10:16] LABS: Protein S, Free 109 % normal (57-171); Protein S, Total 110 % (70-140)
[2018-02-27] MEDS: SODIUM CHLORIDE FLUSH SYRINGE 10 ML IV SCH ×2 (10:24→21:08)
[2018-02-27] MEDS: COLACE PO SCH ×2 (10:24→21:05)
[2018-02-27] MEDS: PROTONIX PO SCH ×2 (10:24→21:06)
[2018-02-27] MEDS: ELIQUIS PO SCH ×2 (10:24→21:06)
--- NOTE | 2018-02-27 10:53 | Progress Note ---
Assessment and Plan Acute bilateral pulmonary emboli s/p EKOS Shortness of breath. Dyspnea on exertion. Morbid obesity. History of obstructive sleep apnea. 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 s/p EkOS catheter directed thrombolysis; Morbid obesity; SILVER Seen and examined at bedside; 24 hour events reviewed; nursing and respiratory care staff consulted; no adverse overnight events reported to me; resting peacefully in bed; He denies any chest pain, no shortness of breath, no fevers or chills. Ambulating in the ICU with PT Discussed in ICU-IDT rounds. Sheath to be removed today Objective Vital Signs - 12hr 02/26/18 02/27/18 02/27/18 23:00 00:00 01:00 Temperature 98.6 F Pulse Rate 64 72 74 Pulse Rate [ 72 From Monitor] Respiratory 19 22 17 Rate Blood Pressure 109/76 114/69 115/61 O2 Sat by Pulse 95 95 94 Oximetry 02/27/18 02/27/18 02/27/18 01:45 02:00 03:00 Temperature Pulse Rate 67 64 52 L Pulse Rate [ From Monitor] Respiratory 17 16 13 Rate Blood Pressure 115/61 99/57 O2 Sat by Pulse 96 96 93 Oximetry 02/27/18 02/27/18 02/27/18 04:00 04:55 05:00 Temperature 98.9 F Pulse Rate 42 L 65 Pulse Rate [ 42 L From Monitor] Respiratory 14 15 15 Rate Blood Pressure 115/59 115/59 115/59 O2 Sat by Pulse 99 93 95 Oximetry 02/27/18 02/27/18 02/27/18 06:00 06:53 07:00 Temperature Pulse Rate 84 Pulse Rate [ From Monitor] Respiratory 21 16 12 Rate Blood Pressure 123/81 O2 Sat by Pulse 99 97 Oximetry 02/27/18 07:14 Temperature Pulse Rate Pulse Rate [ From Monitor] Respiratory 18 Rate Blood Pressure O2 Sat by Pulse Oximetry Constitutional: no acute distress, alert Eyes: non-icteric ENT: oropharynx moist Neck: supple, no lymphadenopathy Effort: mildly labored Ascultation: Bilateral: diminished breath sounds, rhonchi Percussion: Bilateral: not dull Cardiovascular: regular rate and rhythm Gastrointestinal: normoactive bowel sounds Integumentary: normal Extremities: no cyanosis, no edema Neurologic: normal mental status, non-focal exam, pupils equal and round, CN II- XII normal Psychiatric: mood appropriate CBC and BMP: 02/27/18 06:59 02/26/18 03:39 ABG, PT/INR, D-dimer: ABG POC ABG pH 7.477 (7.35-7.45) H 02/14/18 12:37 POC ABG pCO2 26.9 (35-45) L 02/14/18 12:37 POC ABG pO2 57 (80-105) L 02/14/18 12:37 POC ABG HCO3 19.9 02/14/18 12:37 POC ABG Total CO2 21 02/14/18 12:37 POC ABG O2 Sat 92 02/14/18 12:37 PT/INR, D-dimer PT 13.1 Sec. (12.2-14.9) 02/26/18 08:15 INR 0.95 (0.87-1.13) 02/26/18 08:15 Abnormal lab findings: Abnormal Labs 02/12/18 02/12/18 02/12/18 09:55 09:55 09:55 WBC 11.8 H RBC 5.29 H Hgb 17.7 H Hct 49.7 H MCV MCH 33 H MCHC 36 H Plt Count [place] % (Auto) 13.3 H [place] # 1.6 H Seg Neutrophils % Seg Neutrophils # PT INR APTT 40.0 H LA PTT Baseline Protein C Antigen Heparin Anti-Xa Level POC ABG pH POC ABG pCO2 POC ABG pO2 Carbon Dioxide 21 L Creatinine Glucose 150 H Hemoglobin A1c Calcium 10.3 H NT-Pro-B Natriuret Pep 3956 H Albumin TSH 02/12/18 02/12/18 02/12/18 12:35 12:35 19:12 WBC RBC Hgb 17.2 H Hct 50.5 H MCV MCH MCHC Plt Count [place] % (Auto) [place] # Seg Neutrophils % Seg Neutrophils # PT INR APTT 42.2 H LA PTT Baseline Protein C Antigen Heparin Anti-Xa Level 0.10 L POC ABG pH POC ABG pCO2 POC ABG pO2 Carbon Dioxide Creatinine Glucose Hemoglobin A1c Calcium NT-Pro-B Natriuret Pep Albumin TSH 02/13/18 02/13/18 02/13/18 01:18 01:25 01:25 WBC RBC Hgb Hct MCV MCH MCHC Plt Count [place] % (Auto) [place] # Seg Neutrophils % Seg Neutrophils # PT INR APTT LA PTT Baseline Protein C Antigen Heparin Anti-Xa Level 0.10 L POC ABG pH POC ABG pCO2 POC ABG pO2 Carbon Dioxide Creatinine Glucose 131 H Hemoglobin A1c 6.1 H Calcium NT-Pro-B Natriuret Pep Albumin TSH 02/13/18 02/13/18 02/13/18 06:55 10:26 10:26 WBC RBC Hgb Hct MCV MCH MCHC Plt Count [place] % (Auto) [place] # Seg Neutrophils % Seg Neutrophils # PT INR APTT LA PTT Baseline 81 H Protein C Antigen 58 L Heparin Anti-Xa Level POC ABG pH POC ABG pCO2 POC ABG pO2 Carbon Dioxide 21 L Creatinine Glucose 118 H Hemoglobin A1c Calcium NT-Pro-B Natriuret Pep Albumin 3.4 L TSH 02/13/18 02/13/18 02/13/18 16:32 16:32 16:32 WBC RBC Hgb 15.4 H Hct 46.0 H MCV 97 H MCH MCHC Plt Count [place] % (Auto) 12.4 H [place] # 1.1 H Seg Neutrophils % Seg Neutrophils # PT INR APTT 45.6 H LA PTT Baseline Protein C Antigen Heparin Anti-Xa Level POC ABG pH POC ABG pCO2 POC ABG pO2 Carbon Dioxide 20 L Creatinine Glucose Hemoglobin A1c Calcium NT-Pro-B Natriuret Pep Albumin TSH 02/13/18 02/13/18 02/13/18 16:32 21:06 21:15 WBC RBC Hgb Hct MCV 98 H MCH 33 H MCHC Plt Count [place] % (Auto) 11.5 H [place] # 1.0 H Seg Neutrophils % Seg Neutrophils # PT INR APTT LA PTT Baseline Protein C Antigen Heparin Anti-Xa Level 0.10 L < 0.10 L POC ABG pH POC ABG pCO2 POC ABG pO2 Carbon Dioxide Creatinine Glucose Hemoglobin A1c Calcium NT-Pro-B Natriuret Pep Albumin TSH 02/14/18 02/14/18 02/14/18 01:49 03:05 03:05 WBC RBC Hgb 15.3 H Hct MCV 96 H MCH 33 H MCHC Plt Count 137 L [place] % (Auto) 11.4 H [place] # 1.1 H Seg Neutrophils % 73.4 H Seg Neutrophils # PT INR APTT LA PTT Baseline Protein C Antigen Heparin Anti-Xa Level POC ABG pH 7.484 H POC ABG pCO2 24.7 L POC ABG pO2 70 L Carbon Dioxide 20 L Creatinine Glucose 151 H Hemoglobin A1c Calcium NT-Pro-B Natriuret Pep Albumin TSH 02/14/18 02/14/18 02/14/18 03:05 10:31 10:31 WBC RBC Hgb Hct MCV 97 H MCH 33 H MCHC Plt Count 124 L [place] % (Auto) 13.1 H [place] # 1.2 H Seg Neutrophils % 70.9 H Seg Neutrophils # PT INR APTT LA PTT Baseline Protein C Antigen Heparin Anti-Xa Level < 0.10 L < 0.10 L POC ABG pH POC ABG pCO2 POC ABG pO2 Carbon Dioxide Creatinine Glucose Hemoglobin A1c Calcium NT-Pro-B Natriuret Pep Albumin TSH 02/14/18 02/14/18 02/14/18 12:30 12:37 19:49 WBC RBC Hgb Hct MCV MCH MCHC Plt Count [place] % (Auto) [place] # Seg Neutrophils % Seg Neutrophils # PT INR APTT LA PTT Baseline Protein C Antigen Heparin Anti-Xa Level < 0.10 L POC ABG pH 7.496 H 7.477 H POC ABG pCO2 24.2 L 26.9 L POC ABG pO2 65 L 57 L Carbon Dioxide Creatinine Glucose Hemoglobin A1c Calcium NT-Pro-B Natriuret Pep Albumin TSH 02/15/18 02/15/18 02/15/18 04:24 06:46 10:04 WBC RBC Hgb Hct MCV 97 H MCH 33 H MCHC Plt Count 114 L [place] % (Auto) 12.2 H [place] # 1.0 H Seg Neutrophils % Seg Neutrophils # PT INR APTT LA PTT Baseline Protein C Antigen Heparin Anti-Xa Level < 0.10 L POC ABG pH POC ABG pCO2 POC ABG pO2 Carbon Dioxide Creatinine Glucose 147 H Hemoglobin A1c Calcium NT-Pro-B Natriuret Pep Albumin TSH 02/16/18 02/16/18 02/17/18 10:27 10:27 07:05 WBC 11.1 H RBC Hgb 15.3 H Hct MCV 96 H MCH 33 H MCHC Plt Count 126 L [place] % (Auto) 12.8 H [place] # 1.4 H Seg Neutrophils % 71.1 H Seg Neutrophils # 7.9 H PT 18.1 H 19.4 H INR 1.41 H 1.54 H APTT LA PTT Baseline Protein C Antigen Heparin Anti-Xa Level POC ABG pH POC ABG pCO2 POC ABG pO2 Carbon Dioxide Creatinine Glucose Hemoglobin A1c Calcium NT-Pro-B Natriuret Pep Albumin TSH 02/18/18 02/18/18 02/18/18 05:49 05:49 05:49 WBC RBC Hgb Hct MCV 97 H MCH 33 H MCHC Plt Count [place] % (Auto) 14.5 H [place] # 1.1 H Seg Neutrophils % Seg Neutrophils # PT 19.4 H INR 1.54 H APTT LA PTT Baseline Protein C Antigen Heparin Anti-Xa Level POC ABG pH POC ABG pCO2 POC ABG pO2 Carbon Dioxide Creatinine Glucose 115 H Hemoglobin A1c Calcium NT-Pro-B Natriuret Pep Albumin TSH 02/22/18 02/22/18 02/22/18 06:37 06:42 20:18 WBC RBC Hgb Hct MCV 95 H MCH 33 H MCHC 35 H Plt Count [place] % (Auto) [place] # Seg Neutrophils % Seg Neutrophils # PT INR APTT LA PTT Baseline Protein C Antigen Heparin Anti-Xa Level POC ABG pH POC ABG pCO2 POC ABG pO2 Carbon Dioxide Creatinine Glucose 111 H Hemoglobin A1c Calcium NT-Pro-B Natriuret Pep Albumin TSH 10.010 H 02/23/18 02/25/18 02/25/18 04:49 05:30 07:45 WBC RBC Hgb Hct MCV 97 H MCH 33 H MCHC Plt Count 117 L [place] % (Auto) [place] # Seg Neutrophils % Seg Neutrophils # PT INR APTT LA PTT Baseline Protein C Antigen Heparin Anti-Xa Level POC ABG pH POC ABG pCO2 POC ABG pO2 Carbon Dioxide Creatinine 0.7 L Glucose 185 H 105 H Hemoglobin A1c Calcium NT-Pro-B Natriuret Pep Albumin TSH 02/25/18 02/25/18 02/26/18 22:52 22:52 03:39 WBC RBC Hgb Hct MCV 96 H MCH MCHC Plt Count 90 L [place] % (Auto) [place] # Seg Neutrophils % Seg Neutrophils # PT INR APTT LA PTT Baseline Protein C Antigen Heparin Anti-Xa Level 0.11 L POC ABG pH POC ABG pCO2 POC ABG pO2 Carbon Dioxide Creatinine Glucose Hemoglobin A1c Calcium NT-Pro-B Natriuret Pep Albumin TSH 16.440 H 02/26/18 02/26/18 02/27/18 08:15 19:00 06:59 WBC RBC Hgb Hct MCV MCH MCHC Plt Count 81 L [place] % (Auto) [place] # Seg Neutrophils % Seg Neutrophils # PT INR APTT LA PTT Baseline Protein C Antigen Heparin Anti-Xa Level 0.24 L 0.11 L POC ABG pH POC ABG pCO2 POC ABG pO2 Carbon Dioxide Creatinine Glucose Hemoglobin A1c Calcium NT-Pro-B Natriuret Pep Albumin TSH Allied health notes reviewed: nursing
--- NOTE | 2018-02-27 12:35 | Progress Note ---
Assessment and Plan D/c TVP sheath. Currently stable cardiac status. Pt may discharge home from cardiology standpoint this afternoon following d/c of TVP sheath. Recommend pt follow up with a cementer in his hometown area within 1 week of hospital discharge. Pt verbalizes understanding. The patient has been seen in conjunction with Dr. Vilchis who agrees with the assessment and plan of care. - Patient Problems (1) Sinus pause Current Visit: Yes Status: Acute (2) Acute pulmonary embolism Current Visit: Yes Status: Acute (3) Acute DVT (deep venous thrombosis) Current Visit: Yes Status: Acute (4) Morbid obesity Current Visit: Yes Status: Chronic (5) Sleep apnea Current Visit: Yes Status: Chronic Qualifiers: Qualified Code(s): G47.30 - Sleep apnea, unspecified (6) Tricuspid regurgitation Current Visit: Yes Status: Chronic (7) Pulmonary HTN Current Visit: Yes Status: Chronic (8) Tobacco use Current Visit: Yes Status: Chronic (9) Thrombocytopenia Current Visit: Yes Status: Acute (10) Hypothyroidism Current Visit: Yes Status: Chronic Subjective Date of service: 02/27/18 Principal diagnosis: Acute Bilateral Pulmonary Embolii; Acute Hypoxemic Resp failure; Morbid Obe Interval history: Pt resting comfortably in bed, no current cardiac complaints. TVP wire discontinued yesterday, TVP sheath remains in place. tele reviewed - sinus bradycardia with HR 30s - 40s noted overnight, HR currently in 70s, no pauses noted overnight. Objective Last Vital Signs Temp 98.4 F 02/27/18 08:00 Pulse 73 02/27/18 11:00 Resp 14 02/27/18 11:00 BP 141/83 02/27/18 11:00 Pulse Ox 95 02/27/18 11:22 - Physical Examination General: No Apparent Distress HEENT: Positive: EOMI Neck: Positive: neck supple, trachea midline Cardiac: Positive: Reg Rate and Rhythm, S1/S2 Lungs: Positive: clear to auscultation Neuro: Positive: Grossly Intact Abdomen: Positive: Unremarkable, Soft, Active Bowel Sounds Skin: Negative: Rash, Suspicious Lesions Musculoskeletal: Decreased Range of Motion Extremities: Present: normal, +1 Edema - Labs and Meds CBC 02/27/18 Range/Units 06:59 Hgb 13.3 (11.8-15.2) gm/dl Hct 39.3 (35.5-45.6) % Plt Count 81 L (140-440) K/mm3 - Imaging and Cardiology EKG: report reviewed, image reviewed Echo: report reviewed (EF 55%, mod CAMPBELL/RVE) Cardiac cath: report reviewed (no angiographically significant coronary artery disease) - Telemetry EKG Rhythm: Sinus Rhythm - EKG Sinus rhythms and dysrhythmias: sinus rhythm - Allied health notes Allied health notes reviewed: nursing
--- NOTE | 2018-02-27 17:35 | Progress Note ---
Assessment and Plan /Cardiac arrhythmia with 4.8 and 3.6 cm pauses. may be due to sleep apnea and subclinical hypothyroidism with TSH at 16 s/p temporary pacemaker placed 02/22, removed yesterday Cardiology following, HR much improved, no plan for permanent PCM /Acute hypoxic respiratory failure; due to PE, continue oxygen, nebulizers Continue to titrate oxygen to O2 sats more than 90%, evaluation for home oxygen /Massive bilateral PE, - s/p thrombolytic therapy/EKOS procedure on 02/14 - s/p aspirartion thrombectomy pulm arteries 02/22 for persistent SOB - receiving heparin drip, evaluated by vascular/ hematology/ pulmonary - Now on Oxygen by [place], changed to eliquis today - Hypercoagulable workup sent /Right-sided pneumonia; community acquired, present on admission, -probably not noted on chest x-ray due to massive PE - On empiric antibiotics with Levaquin /Left Lower extremity DVT, cont eliquis /Subclinical hypothyroidosm TSH >15, with normal T4 given elevated TSH and bradycardia started on low dose synthroid /thrombocytopenia, stop heparin drip, cont on eliquis, monitor platelets /Chest pain; due to bilateral PE; preserved Ef on ed echo, cardiology following /Morbid obesity; BMI 61.5 counseling, weight reduction when medically stable /Obstructive sleep apnea. 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 A CTA was performed which demonstrates bilateral segmental and subsegmental pulmonary embolism involving predominantly the lower lobes. His RV /LV ratio is greater than 1 with an elevated BNP. VS was consulted and he underwent left pulmonary artery EKOS. 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, 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,oriented x3, no focal neurological signs Subjective Date of service: 02/27/18 Principal diagnosis: Acute Bilateral Pulmonary Embolii; Acute Hypoxemic Resp failure; Morbid Obe Interval history: feeling better, denies any chest pain Aspiration thrombectomy 02/21 Temporary pacemaker placed for sinus pauses on 02/22 removed yesterday Objective - Constitutional Vitals: Vital Signs - 12hr 02/27/18 02/27/18 02/27/18 06:00 06:53 07:00 Temperature Pulse Rate 84 Respiratory 21 16 12 Rate Blood Pressure 123/81 O2 Sat by Pulse 99 97 Oximetry 02/27/18 02/27/18 02/27/18 07:14 08:00 09:00 Temperature 98.4 F Pulse Rate 69 77 Respiratory 18 14 17 Rate Blood Pressure 126/77 132/73 O2 Sat by Pulse 94 97 Oximetry 02/27/18 02/27/18 02/27/18 10:00 11:00 11:22 Temperature Pulse Rate 61 73 Respiratory 14 14 Rate Blood Pressure 138/67 141/83 O2 Sat by Pulse 95 99 95 Oximetry - Labs CBC & Chem 7: 02/27/18 06:59 02/26/18 03:39 Labs: Abnormal lab results 02/13/18 02/13/18 02/26/18 Range/Units 10:26 10:26 19:00 Plt Count (140-440) K/mm3 LA PTT Baseline 81 H (<=40) sec Protein C Antigen 58 L (70-140) % Heparin Anti-Xa Level 0.11 L (0.3-0.7) U.I./ml 02/27/18 Range/Units 06:59 Plt Count 81 L (140-440) K/mm3 LA PTT Baseline (<=40) sec Protein C Antigen (70-140) % Heparin Anti-Xa Level (0.3-0.7) U.I./ml
[2018-02-27] MEDS: NORCO 5/325 PO PRN (21:06)
[2018-02-27] MEDS: XANAX PO PRN (21:06)
[2018-02-28] MEDS: SYNTHROID PO SCH ×2 (04:16→06:38)
[2018-02-28] MEDS: NORCO 5/325 PO PRN ×3 (04:16→22:03)
[2018-02-28 06:08] LABS: Hematocrit 43.4 % (35.5-45.6); Hemoglobin 14.8 gm/dl (11.8-15.2); Mean Corpuscular HGB Conc 34 % (32-34); Mean Corpuscular Hemoglobin 33 pg (28-32); Mean Corpuscular Volume 96 fl (84-94); Platelet Count 100 K/mm3 (140-440); Red Blood Count 4.51 M/mm3 (3.65-5.03); Red Cell Distribution Width 13.7 % (13.2-15.2)
[2018-02-28 07:51] LABS: Basophils % (Manual) 0 % (0.0-1.8); Total Cells Counted 100
[2018-02-28 07:52] LABS: Anisocytosis 1+; Platelet Estimate Cons
[2018-02-28] MEDS: COLACE PO SCH ×2 (11:10→22:03)
[2018-02-28] MEDS: PROTONIX PO SCH ×2 (11:10→22:03)
[2018-02-28] MEDS: ELIQUIS PO SCH ×2 (11:10→22:03)
--- NOTE | 2018-02-28 16:18 | Progress Note ---
Assessment and Plan /Cardiac arrhythmia with 4.8 and 3.6 cm pauses. may be due to sleep apnea and subclinical hypothyroidism with TSH at 16 s/p temporary pacemaker placed 02/22, removed 02/27/18 Cardiology following, HR much improved, no plan for permanent PCM /Acute hypoxic respiratory failure; due to PE, continue oxygen, nebulizers Continue to titrate oxygen to O2 sats more than 90%, evaluation for home oxygen /Massive bilateral PE, - s/p thrombolytic therapy/EKOS procedure on 02/14 - s/p aspirartion thrombectomy pulm arteries 02/22 for persistent SOB - receiving heparin drip, evaluated by vascular/ hematology/ pulmonary - Now on Oxygen by [place], changed to eliquis, tolerating well - Hypercoagulable workup sent /Right-sided pneumonia; community acquired, present on admission, -probably not noted on chest x-ray due to massive PE - On empiric antibiotics with Levaquin /Left Lower extremity DVT, cont eliquis /Subclinical hypothyroidosm TSH >15, with normal T4 given elevated TSH and bradycardia started on low dose synthroid /thrombocytopenia, stopped heparin drip, cont on eliquis, monitor platelets, improving /Chest pain; due to bilateral PE; preserved Ef on ed echo, cardiology following /Morbid obesity; BMI 61.5 counseling, weight reduction counselling /Obstructive sleep apnea. 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 A CTA was performed which demonstrates bilateral segmental and subsegmental pulmonary embolism involving predominantly the lower lobes. His RV /LV ratio is greater than 1 with an elevated BNP. VS was consulted and he underwent left pulmonary artery EKOS. Radiological data: -Echocardiogram ; moderate right atrial lead and glandular enlargement, moderate right ventricular systolic dysfunction, Left ventricle ejection fraction 55% Hospitalist Physical Constitutional; Not in acute distress, morbidly obese HEENT: Atraumatic, normocephalic Neck: supple, no lymphadenopathy, JVD Lungs: Clear to auscultation, bilaterally, no wheeze,pacemaker wires on right chest wall CVS; S1-S2 regular, no murmurs, rubs or gallop, Abdomen; soft, non-tender, non distended,bowel sounds are normal, Musculoskeletal; No edema, no clubbing, no cyanosis, MANAGER ESTATE: awake, alert,oriented x3, no focal neurological signs Subjective Date of service: 02/28/18 Principal diagnosis: Acute Bilateral Pulmonary Embolii; Acute Hypoxemic Resp failure; Morbid Obe Interval history: feeling better, denies any chest pain Aspiration thrombectomy 02/21 Temporary pacemaker placed for sinus pauses on 02/22 which now removed on 02/27 states he cannot ride back home and his otr tanker truck driver to ride his home 2.5h away from [place] will be here tomorrow Objective - Constitutional Vitals: Vital Signs - 12hr 02/28/18 02/28/18 07:37 11:42 Temperature 97.8 F 97.6 F Pulse Rate 75 Respiratory 20 16 Rate Blood Pressure 118/73 107/52 O2 Sat by Pulse 97 Oximetry - Labs CBC & Chem 7: 03/01/18 06:20 02/26/18 03:39 Labs: Abnormal lab results 02/28/18 Range/Units 05:26 MCV 96 H (84-94) fl MCH 33 H (28-32) pg Plt Count 100 L (140-440) K/mm3 Monocytes % (Manual) 10.0 H (0.0-7.3) %
--- NOTE | 2018-02-28 20:48 | Progress Note ---
Assessment and Plan Patient S/P pulmonary thrombectomy.Patient sleeping on CPAP 7 cm H20 Pressure at this time.No acute respiratory distress. - Patient Problems (1) Acute pulmonary embolism Current Visit: Yes Status: Acute Qualifiers: Acute cor pulmonale presence: with acute cor pulmonale Plan to address problem: Patient is on Apixaban (2) Morbid obesity with BMI of 50.0-59.9, adult Current Visit: Yes Status: Acute Plan to address problem: Recommend to loose weight. (3) Sleep apnea Current Visit: Yes Status: Chronic Qualifiers: Sleep apnea type: unspecified type Qualified Code(s): G47.30 - Sleep apnea , unspecified Plan to address problem: CPAP 7 cm H2O pressure. (4) Pneumonia involving right lung Current Visit: Yes Status: Acute Plan to address problem: Chest xray reported right middle lobe pneumonia. Patient is on Levaquin. Subjective Date of service: 02/28/18 Principal diagnosis: Acute Bilateral Pulmonary Embolii; Acute Hypoxemic Resp failure; Morbid Obe Interval history: Patient S/P pulmonary thrombectomy.Patient sleeping on CPAP 7 cm H20 Pressure at this time.No acute respiratory distress. Objective Vital Signs - 12hr 02/28/18 02/28/18 11:42 16:22 Temperature 97.6 F 98.1 F Pulse Rate 79 Respiratory 16 18 Rate Blood Pressure 107/52 120/57 O2 Sat by Pulse 95 Oximetry Constitutional: no acute distress, alert Eyes: non-icteric ENT: oropharynx moist Neck: supple, no lymphadenopathy Effort: mildly labored Ascultation: Bilateral: diminished breath sounds, rhonchi Percussion: Bilateral: not dull Cardiovascular: regular rate and rhythm Gastrointestinal: normoactive bowel sounds Integumentary: normal Extremities: no cyanosis, no edema Neurologic: normal mental status, non-focal exam, pupils equal and round, CN II- XII normal Psychiatric: mood appropriate CBC and BMP: 02/28/18 05:26 02/26/18 03:39 ABG, PT/INR, D-dimer: ABG POC ABG pH 7.477 (7.35-7.45) H 02/14/18 12:37 POC ABG pCO2 26.9 (35-45) L 02/14/18 12:37 POC ABG pO2 57 (80-105) L 02/14/18 12:37 POC ABG HCO3 19.9 02/14/18 12:37 POC ABG Total CO2 21 02/14/18 12:37 POC ABG O2 Sat 92 02/14/18 12:37 PT/INR, D-dimer PT 13.1 Sec. (12.2-14.9) 02/26/18 08:15 INR 0.95 (0.87-1.13) 02/26/18 08:15 Abnormal lab findings: Abnormal Labs 02/12/18 02/12/18 02/12/18 09:55 09:55 09:55 WBC 11.8 H RBC 5.29 H Hgb 17.7 H Hct 49.7 H MCV MCH 33 H MCHC 36 H Plt Count [place] % (Auto) 13.3 H [place] # 1.6 H Seg Neutrophils % Monocytes % (Manual) Seg Neutrophils # PT INR APTT 40.0 H LA PTT Baseline Protein C Antigen Heparin Anti-Xa Level POC ABG pH POC ABG pCO2 POC ABG pO2 Carbon Dioxide 21 L Creatinine Glucose 150 H Hemoglobin A1c Calcium 10.3 H NT-Pro-B Natriuret Pep 3956 H Albumin TSH 02/12/18 02/12/18 02/12/18 12:35 12:35 19:12 WBC RBC Hgb 17.2 H Hct 50.5 H MCV MCH MCHC Plt Count [place] % (Auto) [place] # Seg Neutrophils % Monocytes % (Manual) Seg Neutrophils # PT INR APTT 42.2 H LA PTT Baseline Protein C Antigen Heparin Anti-Xa Level 0.10 L POC ABG pH POC ABG pCO2 POC ABG pO2 Carbon Dioxide Creatinine Glucose Hemoglobin A1c Calcium NT-Pro-B Natriuret Pep Albumin TSH 02/13/18 02/13/18 02/13/18 01:18 01:25 01:25 WBC RBC Hgb Hct MCV MCH MCHC Plt Count [place] % (Auto) [place] # Seg Neutrophils % Monocytes % (Manual) Seg Neutrophils # PT INR APTT LA PTT Baseline Protein C Antigen Heparin Anti-Xa Level 0.10 L POC ABG pH POC ABG pCO2 POC ABG pO2 Carbon Dioxide Creatinine Glucose 131 H Hemoglobin A1c 6.1 H Calcium NT-Pro-B Natriuret Pep Albumin TSH 02/13/18 02/13/18 02/13/18 06:55 10:26 10:26 WBC RBC Hgb Hct MCV MCH MCHC Plt Count [place] % (Auto) [place] # Seg Neutrophils % Monocytes % (Manual) Seg Neutrophils # PT INR APTT LA PTT Baseline 81 H Protein C Antigen 58 L Heparin Anti-Xa Level POC ABG pH POC ABG pCO2 POC ABG pO2 Carbon Dioxide 21 L Creatinine Glucose 118 H Hemoglobin A1c Calcium NT-Pro-B Natriuret Pep Albumin 3.4 L TSH 02/13/18 02/13/18 02/13/18 16:32 16:32 16:32 WBC RBC Hgb 15.4 H Hct 46.0 H MCV 97 H MCH MCHC Plt Count [place] % (Auto) 12.4 H [place] # 1.1 H Seg Neutrophils % Monocytes % (Manual) Seg Neutrophils # PT INR APTT 45.6 H LA PTT Baseline Protein C Antigen Heparin Anti-Xa Level POC ABG pH POC ABG pCO2 POC ABG pO2 Carbon Dioxide 20 L Creatinine Glucose Hemoglobin A1c Calcium NT-Pro-B Natriuret Pep Albumin TSH 02/13/18 02/13/18 02/13/18 16:32 21:06 21:15 WBC RBC Hgb Hct MCV 98 H MCH 33 H MCHC Plt Count [place] % (Auto) 11.5 H [place] # 1.0 H Seg Neutrophils % Monocytes % (Manual) Seg Neutrophils # PT INR APTT LA PTT Baseline Protein C Antigen Heparin Anti-Xa Level 0.10 L < 0.10 L POC ABG pH POC ABG pCO2 POC ABG pO2 Carbon Dioxide Creatinine Glucose Hemoglobin A1c Calcium NT-Pro-B Natriuret Pep Albumin TSH 02/14/18 02/14/18 02/14/18 01:49 03:05 03:05 WBC RBC Hgb 15.3 H Hct MCV 96 H MCH 33 H MCHC Plt Count 137 L [place] % (Auto) 11.4 H [place] # 1.1 H Seg Neutrophils % 73.4 H Monocytes % (Manual) Seg Neutrophils # PT INR APTT LA PTT Baseline Protein C Antigen Heparin Anti-Xa Level POC ABG pH 7.484 H POC ABG pCO2 24.7 L POC ABG pO2 70 L Carbon Dioxide 20 L Creatinine Glucose 151 H Hemoglobin A1c Calcium NT-Pro-B Natriuret Pep Albumin TSH 02/14/18 02/14/18 02/14/18 03:05 10:31 10:31 WBC RBC Hgb Hct MCV 97 H MCH 33 H MCHC Plt Count 124 L [place] % (Auto) 13.1 H [place] # 1.2 H Seg Neutrophils % 70.9 H Monocytes % (Manual) Seg Neutrophils # PT INR APTT LA PTT Baseline Protein C Antigen Heparin Anti-Xa Level < 0.10 L < 0.10 L POC ABG pH POC ABG pCO2 POC ABG pO2 Carbon Dioxide Creatinine Glucose Hemoglobin A1c Calcium NT-Pro-B Natriuret Pep Albumin TSH 02/14/18 02/14/18 02/14/18 12:30 12:37 19:49 WBC RBC Hgb Hct MCV MCH MCHC Plt Count [place] % (Auto) [place] # Seg Neutrophils % Monocytes % (Manual) Seg Neutrophils # PT INR APTT LA PTT Baseline Protein C Antigen Heparin Anti-Xa Level < 0.10 L POC ABG pH 7.496 H 7.477 H POC ABG pCO2 24.2 L 26.9 L POC ABG pO2 65 L 57 L Carbon Dioxide Creatinine Glucose Hemoglobin A1c Calcium NT-Pro-B Natriuret Pep Albumin TSH 02/15/18 02/15/18 02/15/18 04:24 06:46 10:04 WBC RBC Hgb Hct MCV 97 H MCH 33 H MCHC Plt Count 114 L [place] % (Auto) 12.2 H [place] # 1.0 H Seg Neutrophils % Monocytes % (Manual) Seg Neutrophils # PT INR APTT LA PTT Baseline Protein C Antigen Heparin Anti-Xa Level < 0.10 L POC ABG pH POC ABG pCO2 POC ABG pO2 Carbon Dioxide Creatinine Glucose 147 H Hemoglobin A1c Calcium NT-Pro-B Natriuret Pep Albumin TSH 02/16/18 02/16/18 02/17/18 10:27 10:27 07:05 WBC 11.1 H RBC Hgb 15.3 H Hct MCV 96 H MCH 33 H MCHC Plt Count 126 L [place] % (Auto) 12.8 H [place] # 1.4 H Seg Neutrophils % 71.1 H Monocytes % (Manual) Seg Neutrophils # 7.9 H PT 18.1 H 19.4 H INR 1.41 H 1.54 H APTT LA PTT Baseline Protein C Antigen Heparin Anti-Xa Level POC ABG pH POC ABG pCO2 POC ABG pO2 Carbon Dioxide Creatinine Glucose Hemoglobin A1c Calcium NT-Pro-B Natriuret Pep Albumin TSH 02/18/18 02/18/18 02/18/18 05:49 05:49 05:49 WBC RBC Hgb Hct MCV 97 H MCH 33 H MCHC Plt Count [place] % (Auto) 14.5 H [place] # 1.1 H Seg Neutrophils % Monocytes % (Manual) Seg Neutrophils # PT 19.4 H INR 1.54 H APTT LA PTT Baseline Protein C Antigen Heparin Anti-Xa Level POC ABG pH POC ABG pCO2 POC ABG pO2 Carbon Dioxide Creatinine Glucose 115 H Hemoglobin A1c Calcium NT-Pro-B Natriuret Pep Albumin TSH 02/22/18 02/22/18 02/22/18 06:37 06:42 20:18 WBC RBC Hgb Hct MCV 95 H MCH 33 H MCHC 35 H Plt Count [place] % (Auto) [place] # Seg Neutrophils % Monocytes % (Manual) Seg Neutrophils # PT INR APTT LA PTT Baseline Protein C Antigen Heparin Anti-Xa Level POC ABG pH POC ABG pCO2 POC ABG pO2 Carbon Dioxide Creatinine Glucose 111 H Hemoglobin A1c Calcium NT-Pro-B Natriuret Pep Albumin TSH 10.010 H 02/23/18 02/25/18 02/25/18 04:49 05:30 07:45 WBC RBC Hgb Hct MCV 97 H MCH 33 H MCHC Plt Count 117 L [place] % (Auto) [place] # Seg Neutrophils % Monocytes % (Manual) Seg Neutrophils # PT INR APTT LA PTT Baseline Protein C Antigen Heparin Anti-Xa Level POC ABG pH POC ABG pCO2 POC ABG pO2 Carbon Dioxide Creatinine 0.7 L Glucose 185 H 105 H Hemoglobin A1c Calcium NT-Pro-B Natriuret Pep Albumin TSH 02/25/18 02/25/18 02/26/18 22:52 22:52 03:39 WBC RBC Hgb Hct MCV 96 H MCH MCHC Plt Count 90 L [place] % (Auto) [place] # Seg Neutrophils % Monocytes % (Manual) Seg Neutrophils # PT INR APTT LA PTT Baseline Protein C Antigen Heparin Anti-Xa Level 0.11 L POC ABG pH POC ABG pCO2 POC ABG pO2 Carbon Dioxide Creatinine Glucose Hemoglobin A1c Calcium NT-Pro-B Natriuret Pep Albumin TSH 16.440 H 02/26/18 02/26/18 02/27/18 08:15 19:00 06:59 WBC RBC Hgb Hct MCV MCH MCHC Plt Count 81 L [place] % (Auto) [place] # Seg Neutrophils % Monocytes % (Manual) Seg Neutrophils # PT INR APTT LA PTT Baseline Protein C Antigen Heparin Anti-Xa Level 0.24 L 0.11 L POC ABG pH POC ABG pCO2 POC ABG pO2 Carbon Dioxide Creatinine Glucose Hemoglobin A1c Calcium NT-Pro-B Natriuret Pep Albumin TSH 02/28/18 05:26 WBC RBC Hgb Hct MCV 96 H MCH 33 H MCHC Plt Count 100 L [place] % (Auto) [place] # Seg Neutrophils % Monocytes % (Manual) 10.0 H Seg Neutrophils # PT INR APTT LA PTT Baseline Protein C Antigen Heparin Anti-Xa Level POC ABG pH POC ABG pCO2 POC ABG pO2 Carbon Dioxide Creatinine Glucose Hemoglobin A1c Calcium NT-Pro-B Natriuret Pep Albumin TSH Allied health notes reviewed: nursing
[2018-02-28] MEDS: SODIUM CHLORIDE FLUSH SYRINGE 10 ML IV SCH (22:05)
[2018-03-01] MEDS: SYNTHROID PO SCH (05:58)
[2018-03-01 06:59] LABS: Hematocrit 38.9 % (35.5-45.6); Hemoglobin 13.4 gm/dl (11.8-15.2)
[2018-03-01] MEDS: ELIQUIS PO SCH (10:16)
[2018-03-01] MEDS: COLACE PO SCH (10:16)
[2018-03-01] MEDS: PROTONIX PO SCH (10:16)
[2018-03-01] MEDS: SODIUM CHLORIDE FLUSH SYRINGE 10 ML IV SCH ×2 (10:17→10:31)
[2018-03-01 12:37] VITALS: BP 128/65
--- NOTE | 2018-03-01 12:46 | Discharge Summary ---
Providers - Providers Date of Admission: 02/12/18 12:19 Date of discharge: 03/01/18 Attending physician: LEILANI DÍAZ 02/13/18 07:06 Consult to Physician [CONS] Routine Comment: Consulting Provider: DALE ALMONTE Physician Instructions: Reason For Exam: Acute PE 02/13/18 09:13 Consult to Physician [CONS] Routine Comment: Consulting Provider: ALEXY GREY Physician Instructions: Reason For Exam: [place] PE 02/14/18 07:05 Consult to Physician [CONS] Routine Comment: Consulting Provider: BEATRIZ CASE Physician Instructions: Reason For Exam: Critical Care 02/22/18 10:36 Consult to Physician [CONS] Routine Comment: Consulting Provider: PADMINI BUENO Physician Instructions: Reason For Exam: bradycardia with 4.8 sec pause 02/24/18 04:34 Physical Therapy Evaluation and Treat [CONS] Routine Comment: Reason For Exam: Prolonged Immobility Primary care physician: FOOD SERVICES COORDINATOR Hospitalization Condition: Fair Hospital course: Brief History: 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 A CTA was performed which demonstrates bilateral segmental and subsegmental pulmonary embolism involving predominantly the lower lobes. His RV /LV ratio is greater than 1 with an elevated BNP. VS was consulted and he underwent left pulmonary artery EKOS. Discharge diagnosis and management; /Cardiac arrhythmia with 4.8 and 3.6 cm pauses. may be due to sleep apnea and subclinical hypothyroidism with TSH at 16 s/p temporary pacemaker placed 02/22, removed 02/27/18 Cardiology following, HR much improved, no plan for permanent PCM /Acute hypoxic respiratory failure; due to PE, continue oxygen, nebulizers Continue to titrate oxygen to O2 sats more than 90%, evaluation for home oxygen /Massive bilateral PE, - s/p thrombolytic therapy/EKOS procedure on 02/14 - s/p aspirartion thrombectomy pulm arteries 02/22 for persistent SOB - receiving heparin drip, evaluated by vascular/ hematology/ pulmonary - Now on Oxygen by [place], changed to eliquis, tolerating well - Hypercoagulable workup sent /Right-sided pneumonia; community acquired, present on admission, -probably not noted on chest x-ray due to massive PE - treated empiric antibiotics with Levaquin /Left Lower extremity DVT, cont eliquis /Subclinical hypothyroidosm TSH >15, with normal T4 given elevated TSH and bradycardia started on low dose synthroid /thrombocytopenia, stopped heparin drip, cont on eliquis, monitor platelets, improving /Chest pain; due to bilateral PE; preserved Ef on ed echo, cardiology following /Morbid obesity; BMI 61.5 counseling, weight reduction counselling /Obstructive sleep apnea. CPAP at night, needs outpatient sleep study upon discharge /Ongoing tobacco use; smoking cessation counseling done, advised nicotine patch as needed DVT prophylaxis; On eliquis Radiological data: -Echocardiogram ; moderate right atrial lead and glandular enlargement, moderate right ventricular systolic dysfunction, Left ventricle ejection fraction 55% Hospitalist Physical Constitutional; Not in acute distress, morbidly obese HEENT: Atraumatic, normocephalic Neck: supple, no lymphadenopathy, JVD Lungs: Clear to auscultation, bilaterally, no wheeze,pacemaker wires on right chest wall CVS; S1-S2 regular, no murmurs, rubs or gallop, Abdomen; soft, non-tender, non distended,bowel sounds are normal, Musculoskeletal; No edema, no clubbing, no cyanosis, 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, 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,oriented x3, no focal neurological signs Disposition: [id number] TO HOME OR SELFCARE Time spent for discharge: 34 minutes Core Measure Documentation - Palliative Care Palliative Care/ Comfort Measures: Not Applicable - Core Measures Any of the following diagnoses?: none Exam - Constitutional Vitals: Temp Pulse Resp BP Pulse Ox 98.3 F 64 20 128/65 94 03/01/18 11:46 03/01/18 11:46 03/01/18 11:46 03/01/18 11:46 03/01/18 11:46 Plan Activity: advance as tolerated Weight Bearing Status: Non-Weight Bearing (for 6 months) Diet: low fat, low salt Additional Instructions: f/u with PCP in one week Follow up with: PRIMARY CARE, [Primary Care Provider] - 3-5 Days Prescriptions: ALBUTEROL Inhaler [Proair] 2 puff IH QID PRN 30 Days inhalation PRN Reason: Shortness Of Breath Apixaban [Eliquis] 5 mg PO Q12HR #60 tablet Levothyroxine [Synthroid] 50 mcg PO DAILY@0600 #30 tablet
[2018-03-01 15:52] LABS: Heparin-Induced Platelet Antib Positive (Negative); Unfractionated Heparin POSITIVE (Negative)
== END 2018-03-01 03:35 | disposition home or self-care (01) | DRG 163 ==
LOC: ED 09:50 → 4A 12:19 → CC1 02-13 14:28 → 4A 02-15 17:32 → CC1 02-22 20:00 → 4A 02-27 15:37
PROVIDERS: ADMIT Internal Medicine; ATTEND Internal Medicine
PROC: 5A09457 Assistance with Respiratory Ventilation, 24-96 Consecutive Hours, Continuous Positive Airway Pressure (ICD-10-PCS; 2018-02-13)
PROC: 02HR33Z Insertion of Infusion Device into Left Pulmonary Artery, Percutaneous Approach (ICD-10-PCS; 2018-02-13)
PROC: 4A033R1 Measurement of Arterial Saturation, Peripheral, Percutaneous Approach (ICD-10-PCS; principal; 2018-02-14)
PROC: 02CR3ZZ Extirpation of Matter from Left Pulmonary Artery, Percutaneous Approach (ICD-10-PCS; 2018-02-14)
PROC: 02CQ3ZZ Extirpation of Matter from Right Pulmonary Artery, Percutaneous Approach (ICD-10-PCS; 2018-02-14)
PROC: 02PY33Z Removal of Infusion Device from Great Vessel, Percutaneous Approach (ICD-10-PCS; 2018-02-14)
PROC: B31T1ZZ Fluoroscopy of Left Pulmonary Artery using Low Osmolar Contrast (ICD-10-PCS; 2018-02-14)
PROC: 3E08317 Introduction of Other Thrombolytic into Heart, Percutaneous Approach (ICD-10-PCS; 2018-02-14)
PROC: B31S1ZZ Fluoroscopy of Right Pulmonary Artery using Low Osmolar Contrast (ICD-10-PCS; 2018-02-14)
PROC: B5191ZZ Fluoroscopy of Inferior Vena Cava using Low Osmolar Contrast (ICD-10-PCS; 2018-02-14)
PROC: B51F1ZZ Fluoroscopy of Right Pelvic (Iliac) Veins using Low Osmolar Contrast (ICD-10-PCS; 2018-02-14)
PROC: 02CR3ZZ Extirpation of Matter from Left Pulmonary Artery, Percutaneous Approach (ICD-10-PCS; 2018-02-21)
PROC: 02CQ3ZZ Extirpation of Matter from Right Pulmonary Artery, Percutaneous Approach (ICD-10-PCS; 2018-02-21)
PROC: B5191ZZ Fluoroscopy of Inferior Vena Cava using Low Osmolar Contrast (ICD-10-PCS; 2018-02-21)
PROC: B31T1ZZ Fluoroscopy of Left Pulmonary Artery using Low Osmolar Contrast (ICD-10-PCS; 2018-02-21)
PROC: B31S1ZZ Fluoroscopy of Right Pulmonary Artery using Low Osmolar Contrast (ICD-10-PCS; 2018-02-21)
PROC: 3E033GC Introduction of Other Therapeutic Substance into Peripheral Vein, Percutaneous Approach (ICD-10-PCS; 2018-02-21)
PROC: 4A023N7 Measurement of Cardiac Sampling and Pressure, Left Heart, Percutaneous Approach (ICD-10-PCS; 2018-02-22)
PROC: B2111ZZ Fluoroscopy of Multiple Coronary Arteries using Low Osmolar Contrast (ICD-10-PCS; 2018-02-22)
PROC: B2151ZZ Fluoroscopy of Left Heart using Low Osmolar Contrast (ICD-10-PCS; 2018-02-22)
PROC: 5A1223Z Performance of Cardiac Pacing, Continuous (ICD-10-PCS; 2018-02-22)
PROC: 5A09357 Assistance with Respiratory Ventilation, Less than 24 Consecutive Hours, Continuous Positive Airway Pressure (ICD-10-PCS; 2018-02-24)
PROC: 5A09457 Assistance with Respiratory Ventilation, 24-96 Consecutive Hours, Continuous Positive Airway Pressure (ICD-10-PCS; 2018-02-26)
DX: I26.99 Other pulmonary embolism without acute cor pulmonale (principal); J96.01 Acute respiratory failure with hypoxia; J18.9 Pneumonia, unspecified organism; I82.412 Acute embolism and thrombosis of left femoral vein; I82.432 Acute embolism and thrombosis of left popliteal vein; Z68.44 Body mass index [BMI] 60.0-69.9, adult; E87.2 Acidosis; I49.9 Cardiac arrhythmia, unspecified; E03.8 Other specified hypothyroidism; D69.6 Thrombocytopenia, unspecified; E66.01 Morbid (severe) obesity due to excess calories; G47.33 Obstructive sleep apnea (adult) (pediatric); F17.200 Nicotine dependence, unspecified, uncomplicated; D75.1 Secondary polycythemia; I45.5 Other specified heart block; I27.20 Pulmonary hypertension, unspecified; I07.1 Rheumatic tricuspid insufficiency; Z71.3 Dietary counseling and surveillance; Z71.6 Tobacco abuse counseling
CPT/HCPCS: 33210; 36415; 36600; 37187; 37211; 37214; 71045; 71046; 71275; 75743; 75820; 75825; 76937; 80048; 80053; 82803; 83036; 83516; 83735; 83880; 84100; 84439; 84443; 84484; 85007; 85014; 85018; 85025; 85027; 85049; 85210; 85220; 85305; 85384; 85520; 85610; 85613; 85730; 86022; 86850; 86900; 86901; 87040; 93005; 93010; 93306; 93458; 93970; 94640; 94660; 94760; 99406; C1757; C1769; C1887; C1894; J0360; J0690; J1644; J1956; J2250; J2270; J2997; J3010; J7030; J7040; J7050; Q9967